=== PATIENT | male | born 1945 | race Caucasian/White ===

== ENCOUNTER 2022-10-22 09:42 | Outpatient (OUT) | payer MEDICARE, SELFPAY ==
--- NOTE | 2022-10-22 09:54 | P.HP_ITS ---
Consult Note: HPI Data of Consult Patient: known to practice within the last 3 years Consult date: 10/22/22 Requesting Physician: FRANCISCA GU NP Primary Care Provider: JEFF TALBERT Consult Narrative Narrative: Roly is here for f/u of left knee pain and lumbar pain . XR ordered at last visit and reviewed with pt. We discussed getting MRI LS to reveal if TONE may help in future and he is in agreement. He had PT last year and does home exercises. No new sensorimotor or bowel or bladder issues. T#3 is controlling pain and assisting with ability to complete ADLs. He does have constipation relieved by miralax. He received a steroid injection to left knee by ortho 08/12 cc:: CC: FRANCISCA GU NP Review of Systems ROS Status of ROS 10 or more systems reviewed and unremarkable except as noted in history and below Musculoskeletal Reports: back pain and extremity pain Meds Home Medications and Allergies Home Medications Medication Instructions Recorded Confirmed Type acetaminophen 300 mg-codeine 30 mg 1 tab PO BID 10/22/22 10/22/22 History tablet apixaban 5 mg tablet (Eliquis) 5 mg PO BID 10/22/22 10/22/22 History aspirin 81 mg tablet,delayed 81 mg PO DAILY 10/22/22 10/22/22 History release (Adult Aspirin Regimen) atorvastatin 40 mg tablet 40 mg PO QPM 10/22/22 10/22/22 History colchicine 0.6 mg tablet 0.3 mg PO BID 10/22/22 10/22/22 History docusate sodium 50 mg capsule 50 mg PO DAILY 10/22/22 10/22/22 History (Colace Clear) furosemide 40 mg tablet 40 mg PO QAM 10/22/22 10/22/22 History losartan 100 mg tablet 100 mg PO DAILY 10/22/22 10/22/22 History sotalol 80 mg tablet 80 mg PO DAILY 10/22/22 10/22/22 History Allergies Allergy/AdvReac Type Severity Reaction Status Date / Time Penicillins Allergy Severe Hives Verified 10/22/22 10:09 Exam Constitutional: Common normals: no apparent distress, oriented x3, no limitations, healthy appearing, alert and well nourished General appearance: cooperative, comfortable and well developed Orientation/consciousness: Yes awake, Yes oriented to person, Yes oriented to place and Yes oriented to time HENMT: Common normals: normocephalic, external nose normal and moist oral mucous membranes Respiratory: Common normals: normal respiratory effort, no retractions and no use of accessory muscles Effort & inspection: able to speak in complete sent ences Back & Pelvis: Lumbar spine/lower back: ROM limited, pain with ROM and lumbar spinal tenderness Extremity: Common normals: normal capillary refill Left lower extremity: knee joint Left knee: ROM (decreased) Skin: Common normals: no rashes or lesions noted Assessment and Plan Assessment and Plan (1) Knee osteoarthritis: (2) Lumbar pain: Plan MRI LS spine. may benefit from future TONE if indicated
== END 2022-10-22 09:43 ==
PROVIDERS: PCP Internal Medicine; Visit Provider Nurse Practitioner
DX: M17.9 Osteoarthritis of knee, unspecified (principal); M54.50 Low back pain, unspecified
CPT/HCPCS: G0463

== ENCOUNTER 2022-12-09 13:34 | Outpatient (OUT) | payer MEDICARE, SELFPAY ==
--- NOTE | 2022-12-09 | XR_ITS ---
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 FINDINGS: ORBITS: Negative for a metallic foreign body. OTHER: Negative. XR/XR foreign body eye IMPRESSION: No metallic foreign body in the orbits. Electronically authenticated by: LOUISA ERWIN Date: 12/09/2022 14:30
--- NOTE | 2022-12-09 14:20 | MR_ITS ---
[place] [id number] Patient Name: FRANK BARRETT MRN: [id number] date: 1945 Sex: M Assigned Patient Location: MRI Current Patient Location: MRI Accession/Order Number: [id number] Exam Date: 12/09/2022 14:20 Report Date: 12/09/2022 15:48 At the request of: FRANCISCA GU Procedure: MR lumbar spine wo con EXAMINATION: MR lumbar spine wo con HISTORY: Lumbar Radiculopathy COMPARISON: No relevant comparison available. TECHNIQUE: A variety of imaging planes and parameters were utilized for visualization of suspected pathology. FINDINGS: For the purposes of numbering, sagittal T2 image # 8 extends from the T11 vertebral body superiorly to the S3 level inferiorly. PARASPINAL AREA: Normal with no visible mass. BONES: Normal alignment of the lumbar vertebral bodies with no acute fracture or spondylolisthesis CORD/CAUDA EQUINA: Normal caliber, contour, and signal intensity. DISC LEVELS: 12-L1: Moderate degenerative disc disease is present without visible neural impingement. L1-L2: Moderate disc space narrowing left greater than right with endplate sclerosis and Modic 2 changes. Moderate diffuse disc/osteophyte complex and ligamentum flavum hypertrophy and facet osteoarthropathy. No central or foraminal stenosis L2-L3: Moderate degenerative disc disease is present without visible neural impingement. L3-L4: Moderate disc space narrowing right greater than left with endplate sclerosis and Modic 2 changes. Moderate diffuse disc/osteophyte complex and ligamentum flavum hypertrophy and facet osteoarthropathy. No central or foraminal stenosis L4-L5: Disc collapse with endplate sclerosis. Moderate diffuse disc/osteophyte complex and ligamentum flavum hypertrophy and facet osteoarthropathy. No central canal stenosis. Mild bilateral foraminal stenosis L5-S1: Early degenerative disc disease is present without focal protrusion or neural impingement. MR/MR lumbar spine wo con IMPRESSION: Degenerative changes as detailed above resulting in minimal bilateral L4-5 foraminal stenosis Electronically authenticated by: LOUISA ERWIN Date: 12/09/2022 15:48
== END 2022-12-09 13:35 | disposition home or self-care (01) ==
LOC: MRI 13:34
PROVIDERS: PCP Internal Medicine; Visit Provider Nurse Practitioner
DX: M54.16 Radiculopathy, lumbar region (principal)
CPT/HCPCS: 70030; 72148

== ENCOUNTER 2022-12-17 12:53 | Outpatient (OUT) | payer MEDICARE, SELFPAY ==
--- NOTE | 2022-12-17 13:02 | P.CN_ITS ---
Consult Note: HPI Data of Consult Patient: known to practice within the last 3 years Requesting Physician: Leydi Capellan NP Primary Care Provider: Anthony Zayas DO Consult Narrative cc:: CC: Leydi Capellan NP Review of Systems ROS Status of ROS 10 or more systems reviewed and unremarkable except as noted in history and below Meds Home Medications and Allergies Home Medications Medication Instructions Recorded Confirmed Type acetaminophen 300 mg-codeine 30 mg 1 tab PO BID 10/22/22 10/22/22 History tablet apixaban 5 mg tablet (Eliquis) 5 mg PO BID 10/22/22 10/22/22 History aspirin 81 mg tablet,delayed 81 mg PO DAILY 10/22/22 10/22/22 History release (Adult Aspirin Regimen) atorvastatin 40 mg tablet 40 mg PO QPM 10/22/22 10/22/22 History colchicine 0.6 mg tablet 0.3 mg PO BID 10/22/22 10/22/22 History docusate sodium 50 mg capsule 50 mg PO DAILY 10/22/22 10/22/22 History (Colace Clear) furosemide 40 mg tablet 40 mg PO QAM 10/22/22 10/22/22 History losartan 100 mg tablet 100 mg PO DAILY 10/22/22 10/22/22 History sotalol 80 mg tablet 80 mg PO DAILY 10/22/22 10/22/22 History Allergies Allergy/AdvReac Type Severity Reaction Status Date / Time Penicillins Allergy Severe Hives Verified 10/22/22 10:09 Exam Constitutional Common normals: no apparent distress, oriented x3, healthy appearing, alert and well nourished General appearance: cooperative Nutritional appearance: overweight Other: utilizes cane and walker for ambulation [facility] Common normals: normocephalic Head and scalp: normocephalic Mouth: oral and palatal mucosa normal Eye Common normals: PERRL Pupil: PERRL Neck & C-Spine Common normals: full ROM General: normal visual inspection Chest Common normals: inspection of chest normal Respiratory Common normals: normal respiratory effort, no retractions and no use of accessory muscles Back & Pelvis Thoracic spine/upper back: normal to inspection and ROM limited Lumbar spine/lower back: ROM limited, pain with ROM and paraspinal muscle tenderness Sacroiliac joints: SI joints normal Extremity Common normals: normal to inspection and full ROM Neuro Common normals: oriented x3, CN's II-XII intact bilaterally, moves all extremities, no focal motor deficits, no sensory deficits noted, deep tendon reflexes 2+ bilaterally and gait normal Sensorium/orientation: alert Speech: speech normal Gait (neuro): assistive device used Motor exam: strength 5/5 throughout and no movement abnormalities noted Psych Common normals: mental status grossly normal, thought process normal, cooperative, affect normal, speech normal and activity/motor behavior normal Speech: normal speech Thought process: normal thought process Assessment and Plan Assessment and Plan (1) Spondylosis of lumbar region without myelopathy or radiculopathy: Plan Patient following up to review lumbar MRI. Patient has chronic back and hip pain currently managed by tylenol #3. Patients MRI reveals multilevel facet arthr opathy as well as stenosis and degererative changes. Patient reports he is only able to stand for for less than 10 minutes at a time due to pain, is unable to ambulate less than half a mile due to pain, and feels he cannot do anything due to pain , current medications make the patient very tired. ZAIDA 36% today, completely disabled. Patient utilizes walker at home to ambulate, lives with spouse. Patient completed PT and did not benefit from this, heat/ice does not help pain. Discussed facet joint injections and RFA thermal ablation under fluoroscopy with patient. Explained procedures in depth and discussed risks/side effects and benefits. Handout provided. Schedule patient for bilateral MBB at L3/4 L4/5 #1 f/u in office after procedure
== END 2022-12-17 12:54 | disposition home or self-care (01) ==
LOC: PM 12:54
PROVIDERS: PCP Internal Medicine; Visit Provider Nurse Practitioner
DX: M47.816 Spondylosis without myelopathy or radiculopathy, lumbar region (principal)
CPT/HCPCS: G0463

== ENCOUNTER 2023-01-03 08:23 | Day surgery (SDC) | payer MEDICARE, SELFPAY ==
[2023-01-03 10:32] VITALS: BP 178/72; PULSE 63; RESP 16; TEMP 36.8; O2SAT 97
[2023-01-03] MEDS: BUPIVACAINE HCL 0.25% PF 25 MG/10 ML VIAL INJ (11:09)
[2023-01-03] MEDS: TRIAMCINOLONE ACETONIDE 40 MG/ML VIAL INJ (11:10)
[2023-01-03] MEDS: LIDOCAINE HCL 2% PF 100 MG/5 ML VIAL INJ (11:10)
--- NOTE | 2023-01-03 11:12 | W.PM.PROCNOT ---
Date of procedure: 01/03/23 Pre-op diagnosis: Lumbar spondylosis Post-op diagnosis: same as pre-op Procedure: Procedure: Bilateral L3-4, L4-5 medial branch block Medications: Bupivacaine 0.25% 4cc The patient was seen and examined in the preoperative holding area.? An informed consent was obtained and placed on the chart.? The patient was brought to the medical procedure unit and placed in the prone position.? A timeout was completed verifying correct patient, procedure site, positioning, plan, and special equipment.? Using aseptic technique, the needle was placed at left L3. Under direct fluoroscopic visualization a Quincke-tipped spinal needle was advanced to the junction of the superior articulating process with the transverse process at the designated medial branch segment.? Preceded by negative aspiration, the above-mentioned injectate was placed in 1 mL aliquots.? The procedure was repeated at left L4, 5.? The needle was removed and insertion site was covered. The same procedure, at the same levels, was completed on the right side. The patient was taken to the postprocedural recovery area and monitored for an appropriate length of time before found suitable for discharge in the company of a responsible adult. Anesthesia: None Surgeon: Issac Rucker Pathology: none sent Condition: stable Disposition: no change
[2023-01-03 11:13] VITALS: BP 193/84; BP 196/91; PULSE 56; PULSE 61; RESP 20; O2SAT 91; O2SAT 98
== END 2023-01-03 11:18 | disposition home or self-care (01) ==
LOC: SURGOUT 01-04 08:24
PROVIDERS: PCP Internal Medicine; Visit Provider Anesthesiology
DX: M47.816 Spondylosis without myelopathy or radiculopathy, lumbar region (principal)
CPT/HCPCS: 64493; 64494

== ENCOUNTER 2023-01-12 09:39 | Outpatient (OUT) | payer MEDICARE, SELFPAY ==
--- NOTE | 2023-01-12 09:30 | PM.CN ---
Consult Note: HPI Data of Consult Patient: known to practice within the last 3 years Requesting Physician: Leydi Capellan NP Primary Care Provider: Anthony Zayas DO Consult Narrative Reason for consult: follow up on 01/03/23 Bilateral L3-4, L4-5 medial branch block #1 Narrative: Roly Fields a pleasant 77 year old male presents for follow up on low back pain and to discuss results of procedure done on 01/03/23 Bilateral L3-4, L4-5 medial branch block #1. 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 Patient would like to proceed with MBB #2 to work towards thermal RFA. cc:: CC: Leydi Capellan NP Review of Systems ROS Status of ROS 10 or more systems reviewed and unremarkable except as noted in history and below Cardiovascular Reports: other (high BP) Musculoskeletal Reports: back pain PFSH PFS Medical History Surgical History Meds Home Medications and Allergies Home Medications Medication Instructions Recorded Confirmed Type acetaminophen 300 mg-codeine 30 mg 1 tab PO BID 10/22/22 01/03/23 History tablet apixaban 5 mg tablet (Eliquis) 5 mg PO BID 10/22/22 01/03/23 History aspirin 81 mg tablet,delayed 81 mg PO DAILY 10/22/22 01/03/23 History release (Adult Aspirin Regimen) atorvastatin 40 mg tablet 40 mg PO QPM 10/22/22 01/03/23 History colchicine (gout) 0.6 mg tablet 0.3 mg PO BID 10/22/22 01/03/23 History docusate sodium 50 mg capsule 50 mg PO DAILY 10/22/22 01/03/23 History (Colace Clear) furosemide 40 mg tablet 40 mg PO QAM 10/22/22 01/03/23 History losartan 100 mg tablet 100 mg PO DAILY 10/22/22 01/03/23 History sotalol 80 mg tablet 80 mg PO DAILY 10/22/22 01/03/23 History Allergies Allergy/AdvReac Type Severity Reaction Status Date / Time Penicillins Allergy Severe Hives Verified 10/22/22 10:09 Exam Constitutional Documenting provider has reviewed patient's vital signs: yes (elevated BP today) Common normals: no apparent distress, oriented x3, healthy appearing, alert and well nourished Exam limitations: physical limitations General appearance: cooperative Nutritional appearance: obese Other: utilizes cane and walker for ambulation HENND Common normals: normocephalic Head and scalp: normocephalic Mouth: oral and palatal mucosa normal Eye Common normals: PERRL Pupil: PERRL Neck & C-Spine Common normals: full ROM General: normal visual inspection Cervical spine: cervical ROM normal Chest Common normals: inspection of chest normal Respiratory Common normals: normal respiratory effort, no retractions and no use of accessory muscles Back & Pelvis Common normals: thoracic and lumbar spine normal to inspection and straight leg raise negative bilaterally Thoracic spine/upper back: normal to inspection Lumbar spine/lower back: ROM limited and pain with ROM Sacroiliac joints: SI joints normal Other: positive bilateral facet loading. Predominately axial low back pain without radiculopathy Extremity Common normals: normal to inspection and full ROM Neuro Common normals: oriented x3, CN's II-XII intact bilaterally, moves all extremities, no focal motor deficits, no sensory deficits noted and deep tendon reflexes 2+ bilaterally Sensorium/orientation: alert Speech: speech normal Gait (neuro): antalgic and assistive device used Motor exam: strength 5/5 throughout and no movement abnormalities noted Psych Common normals: mental status grossly normal, thought process normal, cooperative, affect normal, speech normal and activity/motor behavior normal Speech: normal speech Thought process: normal thought process Results Additional Findings Additional findings: I have checked an OARRS report on this patient today and there are no aberrancies noted in the prescribing history.?? A drug screen was completed and reviewed within the last year, and if there has not been a drug screen completed we ordered one today to monitor higher risk, state monitored pain medication use. As part of providing excellent, safe, comprehensive care, the following was completed at our patient's visit: 1. A medication reconciliation and review to ensure accurate knowledge of current/active medications, including asking our patients to inform us about any [id number] medications or herbal remedies/nutritional supplements/alternative remedies. 2. A review to specifically ensure our patients have had annual screening for: elevated body mass index (BMI), tobacco use, screening for depression, and screening for unhealthy alcohol use. When screening is concerning, patients are provided with education and the specific recommendation to discuss the concerning health issue and treatment options with their primary care provider. ZAIDA 44% Pain prevents patient from walking more than 100 yards, pain prevents him from standing 10 mins, pain has restricted social life and travel. Assessment and Plan Assessment and Plan (1) Spondylosis of lumbar region without myelopathy or radiculopathy: (2) Lumbar pain: (3) Knee osteoarthritis: (4) Chronic pain syndrome: (5) Hypertension: Assessment and Plan: BP 191/78 initially 159/76 at recheck, denies chest pain SOB. reported vision change upon standing, resolved after second BP check continue follow up with PCP and cardiology Plan proceed with MBB #2 at bilateral L3-4 L4-5 working towards thermal RFA discussed risks vs benefits of procedure as well as what to assess immediately following procedure to gauge benefits of MBB f/u 1 week after
== END 2023-01-12 09:40 | disposition home or self-care (01) ==
LOC: PM 09:40
PROVIDERS: PCP Internal Medicine; Visit Provider Nurse Practitioner
DX: M47.22 Other spondylosis with radiculopathy, cervical region (principal); M54.50 Low back pain, unspecified; M19.019 Primary osteoarthritis, unspecified shoulder
CPT/HCPCS: G0463

== ENCOUNTER 2023-01-31 10:20 | Day surgery (SDC) | payer MEDICARE, SELFPAY ==
[2023-01-31 11:21] VITALS: BP 171/76; PULSE 66; RESP 16; TEMP 36.2; O2SAT 98
[2023-01-31] MEDS: BUPIVACAINE HCL 0.25% PF 25 MG/10 ML VIAL INJ (11:59)
[2023-01-31] MEDS: LIDOCAINE HCL 2% PF 100 MG/5 ML VIAL INJ (12:00)
[2023-01-31] MEDS: TRIAMCINOLONE ACETONIDE 40 MG/ML VIAL INJ (12:00)
[2023-01-31 12:02] VITALS: BP 205/84; BP 213/88; PULSE 65; PULSE 66; RESP 18; O2SAT 96; O2SAT 97
--- NOTE | 2023-01-31 12:02 | W.PM.PROCNOT ---
Date of procedure: 01/31/23 Pre-op diagnosis: Lumbar spondylosis Post-op diagnosis: same as pre-op Procedure: Procedure: Bilateral L3-4, L4-5 medial branch block Medications: Bupivacaine 0.25% 4cc The patient was seen and examined in the preoperative holding area.? An informed consent was obtained and placed on the chart.? The patient was brought to the medical procedure unit and placed in the prone position.? A timeout was completed verifying correct patient, procedure site, positioning, plan, and special equipment.? Using aseptic technique, the needle was placed at left L3. Under direct fluoroscopic visualization a Quincke-tipped spinal needle was advanced to the junction of the superior articulating process with the transverse process at the designated medial branch segment.? Preceded by negative aspiration, the above-mentioned injectate was placed in 1 mL aliquots.? The procedure was repeated at left L4, 5.? The needle was removed and insertion site was covered. The same procedure, at the same levels, was completed on the right side. The patient was taken to the postprocedural recovery area and monitored for an appropriate length of time before found suitable for discharge in the company of a responsible adult. Anesthesia: Local Surgeon: Issac Rucker Pathology: none sent Condition: stable Disposition: no change
== END 2023-01-31 12:10 | disposition home or self-care (01) ==
PROVIDERS: PCP Internal Medicine; Visit Provider Anesthesiology
DX: M47.816 Spondylosis without myelopathy or radiculopathy, lumbar region (principal)
CPT/HCPCS: 64491; 64493; 64494

== ENCOUNTER 2023-02-09 12:31 | Outpatient (OUT) | payer MEDICARE, SELFPAY ==
--- NOTE | 2023-02-09 12:57 | P.CN_ITS ---
Consult Note: HPI Data of Consult Patient: known to practice within the last 3 years Requesting Physician: Leydi Capellan NP Primary Care Provider: Anthony Zayas DO Consult Narrative Reason for consult: f/u Narrative: Roly Fields a pleasant 77 year old male presents for follow up on low back pain and to discuss results of most recent procedure, Bilateral L3-4, L4-5 medial branch block #2. 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 Patient would like to proceed with thermal RFA cc:: CC: Leydi Capellan NP Review of Systems ROS Status of ROS 10 or more systems reviewed and unremarkable except as noted in history and below Musculoskeletal Reports: back pain and extremity pain PFSH PFSH Medical History Surgical History Meds Home Medications and Allergies Home Medications Medication Instructions Recorded Confirmed Type acetaminophen 300 mg-codeine 30 mg 1 tab PO BID 10/22/22 01/31/23 History tablet apixaban 5 mg tablet (Eliquis) 5 mg PO BID 10/22/22 01/31/23 History aspirin 81 mg tablet,delayed 81 mg PO DAILY 10/22/22 01/31/23 History release (Adult Aspirin Regimen) atorvastatin 40 mg tablet 40 mg PO QPM 10/22/22 01/31/23 History colchicine (gout) 0.6 mg tablet 0.3 mg PO BID 10/22/22 01/31/23 History docusate sodium 50 mg capsule 50 mg PO DAILY 10/22/22 01/31/23 History (Colace Clear) furosemide 40 mg tablet 40 mg PO QAM 10/22/22 01/31/23 History losartan 100 mg tablet 100 mg PO DAILY 10/22/22 01/31/23 History sotalol 80 mg tablet 80 mg PO DAILY 10/22/22 01/31/23 History Allergies Allergy/AdvReac Type Severity Reaction Status Date / Time Penicillins Allergy Severe Hives Verified 01/31/23 11:17 Exam Constitutional Documenting provider has reviewed patient's vital signs: yes (elevated BP today) Common normals: no apparent distress, oriented x3, healthy appearing, alert and well nourished Exam limitations: physical limitations General appearance: cooperative Nutritional appearance: obese Other: utilizes cane and walker for ambulation HENMT Common normals: normocephalic Head and scalp: normocephalic Mouth: oral and palatal mucosa normal Eye Common normals: PERRL Pupil: PERRL Neck & C-Spine Common normals: full ROM General: normal visual inspection Cervical spine: cervical ROM normal Chest Common normals: inspection of chest normal Respiratory Common normals: normal respiratory effort, no retractions and no use of accessory muscles Back & Pelvis Common normals: thoracic and lumbar spine normal to inspection and straight leg raise negative bilaterally Thoracic spine/upper back: normal to inspection Lumbar spine/lower back: ROM limited and pain with ROM Sacroiliac joints: SI joints normal Other: positive bilateral facet loading. Predominately axial low back pain without radiculopathy Extremity Common normals: normal to inspection and full ROM Neuro Common normals: oriented x3, CN's II-XII intact bilaterally, moves all extremities, no focal motor deficits, no sensory deficits noted and deep tendon reflexes 2+ bilaterally Sensorium/orientation: alert Speech: speech normal Gait (neuro): antalgic and assistive device used Motor exam: strength 5/5 throughout and no movement abnormalities noted Psych Common normals: mental status grossly normal, thought process normal, cooperative, affect normal, speech normal and activity/motor behavior normal Speech: normal speech Thought process: normal thought process Results Additional Findings Additional findings: I have checked an OARRS report on this patient today and there are no aberrancies noted in the prescribing history. ? A drug screen was completed and reviewed within the last year, and if there has not been a drug screen completed we ordered one today to monitor higher risk, state monitored pain medication use. Assessment and Plan Assessment and Plan (1) Lumbar pain: (2) Spondylosis of lumbar region without myelopathy or radiculopathy: Assessment and Plan: The patient has had over 3 months of moderate to severe low back pain with functional impairment and inadequate response to conservative care including NSAIDS (unless there are contraindication such as concurrent blood thinners), multiple oral or topical pain medications, and home exercise program/physical therapy.? Patient has completed >6 weeks of guided home exercise program and/or formal physical therapy program without relief of their symptoms.? I have reviewed the imaging of the lumbar spine and no red flags were identified.? The imaging reveals radiographic findings consistent with lumbar spondylosis We discussed the risks and benefits of the procedure with the patient, and we are NOT planning on using sedation as outlined in the guidelines from Medicare unless there is a documented reason that sedation would be strongly recommended.?? (3) Chronic pain syndrome: (4) Knee osteoarthritis: (5) Chronic prescription opiate use: Plan stop tylenol #3 due to drowsiness, start tramadol 50mg QD PRN start gabapentin 100mg HS for one week then 200mg HS for bilateral foot pain numbness burning neuropathy without DM proceed with thermal RFA of bilateral L3-4 L4-5 under fluoroscopy f/u 1 month after RFA, can increase gabapentin at that time. Consider PT for left knee pain and mobility in the future
== END 2023-02-09 12:32 | disposition home or self-care (01) ==
LOC: PM 12:31
PROVIDERS: PCP Internal Medicine; Visit Provider Nurse Practitioner
DX: M54.50 Low back pain, unspecified (principal); M47.816 Spondylosis without myelopathy or radiculopathy, lumbar region; G89.4 Chronic pain syndrome; M17.9 Osteoarthritis of knee, unspecified; Z79.891 Long term (current) use of opiate analgesic
CPT/HCPCS: G0463

== ENCOUNTER 2023-02-28 09:51 | Day surgery (SDC) | payer MEDICARE, SELFPAY ==
[2023-02-28 10:12] VITALS: BP 177/77; PULSE 93; RESP 14; TEMP 36.3; O2SAT 99
[2023-02-28 11:05] VITALS: BP 153/73; PULSE 64; RESP 18; O2SAT 94
[2023-02-28] MEDS: LIDOCAINE HCL 2% 400 MG/20 ML MDV INJ (11:06)
[2023-02-28] MEDS: BUPIVACAINE HCL 0.25% PF 25 MG/10 ML VIAL 2 ML INJ (11:06)
[2023-02-28] MEDS: TRIAMCINOLONE ACETONIDE 40 MG/ML VIAL 80 MG INJ (11:06)
[2023-02-28 11:10] VITALS: PULSE 70; RESP 17
--- NOTE | 2023-02-28 11:19 | P.ON_ITS ---
Date of procedure: 02/28/23 Pre-op diagnosis: Lumbar spondylosis Post-op diagnosis: same as pre-op Procedure: Procedure: Bilateral L3-4, L4-5 radiofrequency ablation Medications: Bupivacaine 0.25% 6cc, lidocaine 2% 5cc, kenalog 80mg The patient was seen and examined in the preoperative holding area.? The site was marked.? Written informed consent was obtained and placed on the chart.? The patient was brought to the medical procedure unit and placed in the prone position.? A timeout was completed verifying correct patient, procedure, positioning, and special requirements.? The skin overlying the target points, the designated medial branch, were prepped and draped in the usual sterile fashion.? The target point was achieved with a 20-gauge 15 cm with a 10 mm curved active tip radiofrequency cannula under direct fluoroscopic visualization.? The needle was inserted at level L3 on the right side. Needle tip position was confirmed with lateral fluoroscopic position.? Motor stimulation was carried out at 2 Hz up to 5 volts with the absence of extremity activity.? This was repeated at level L4, 5 on right side.?? Sensory stimulation was carried out.? Concordant pain was realized at the above- mentioned sites.? Then radiofrequency lesioning was carried out times 90 seconds at 80 degrees times 2 lesions at each level.? The radiofrequency probe was removed prior to cannula removal.? The above-mentioned injectate was placed in 1 mL increments.? The needle was removed. The same procedure, with the same steps, was then completed on the left side at the same levels. Insertion sites were covered.? The patient was taken to the postoperative recovery area and monitored for an appropriate length of time before being found suitable for discharge in the company of a responsible adult. Anesthesia: Local Surgeon: Issac Rucker Pathology: none sent Condition: stable Disposition: no change
[2023-02-28 11:21] VITALS: BP 158/68; O2SAT 97
== END 2023-02-28 11:25 | disposition home or self-care (01) ==
PROVIDERS: PCP Internal Medicine; Visit Provider Anesthesiology
DX: M47.816 Spondylosis without myelopathy or radiculopathy, lumbar region (principal)
CPT/HCPCS: 64635; 64636

== ENCOUNTER 2023-03-31 09:57 | Outpatient (OUT) | payer MEDICARE, SELFPAY ==
--- NOTE | 2023-03-31 10:17 | PM.CN ---
Consult Note: HPI Data of Consult Patient: known to practice within the last 3 years Requesting Physician: Leydi Capellan NP Primary Care Provider: Anthony Zayas DO Consult Narrative Reason for consult: f/u Narrative: Roly Fields a pleasant 77 year old male presents for evaluation and management of chronic low back pain. Today rating pain 0/10. Recently underwent bilateral L3/4 L4/5 thermal RFA with 95% pain relief and functional improvement. Patient following with cardiology and PCP for other health concerns at this time, has noticed increased SOB. cc:: CC: Leydi Capellan NP Review of Systems ROS Status of ROS 10 or more systems reviewed and unremarkable except as noted in history and below [facility] Medical History Surgical History History of cardiac catheterization ?Z98.890 - Other specified postprocedural states (ICD-10) History of eye surgery ?Z98.890 - Other specified postprocedural states (ICD-10) History of heart artery stent ?Z95.5 - Presence of coronary angioplasty implant and graft (ICD-10) Previous back surgery ?Z98.890 - Other specified postprocedural states (ICD-10) Meds Home Medications and Allergies Home Medications Medication Instructions Recorded Confirmed Type acetaminophen 300 mg-codeine 30 mg 1 tab PO BID 10/22/22 02/28/23 History tablet apixaban 5 mg tablet (Eliquis) 5 mg PO BID 10/22/22 02/28/23 History aspirin 81 mg tablet,delayed 81 mg PO DAILY 10/22/22 01/31/23 History release (Adult Aspirin Regimen) atorvastatin 40 mg tablet 40 mg PO QPM 10/22/22 02/28/23 History colchicine 0.6 mg tablet 0.3 mg PO BID 10/22/22 02/28/23 History docusate sodium 50 mg capsule 50 mg PO DAILY 10/22/22 02/28/23 History (Colace Clear) furosemide 40 mg tablet 40 mg PO QAM 10/22/22 02/28/23 History losartan 100 mg tablet 100 mg PO DAILY 10/22/22 02/28/23 History sotalol 80 mg tablet 80 mg PO DAILY 10/22/22 02/28/23 History Allergies Allergy/AdvReac Type Severity Reaction Status Date / Time Penicillins Allergy Severe Hives Verified 01/31/23 11:17 Exam Constitutional Documenting provider has reviewed patient's vital signs: yes Common normals: no apparent distress, oriented x3, healthy appearing, alert and well nourished Exam limitations: physical limitations General appearance: cooperative Nutritional appearance: obese Other: utilizes cane and walker for ambulation HENMT Common normals: normocephalic, hearing grossly normal bilaterally and moist oral mucous membranes Head and scalp: normocephalic Mouth: oral and palatal mucosa normal Eye Common normals: PERRL Pupil: PERRL Neck & C-Spine Common normals: full ROM General: normal visual inspection Cervical spine: cervical ROM normal Chest Common normals: inspection of chest normal Respiratory Common normals: normal respiratory effort, no retractions and no use of accessory muscles Back & Pelvis Common normals: thoracic and lumbar spine normal to inspection and straight leg raise negative bilaterally Thoracic spine/upper back: normal to inspection Lumbar spine/lower back: ROM limited Sacroiliac joints: SI joints normal Extremity Common normals: normal to inspection and full ROM Neuro Common normals: oriented x3, CN's II-XII intact bilaterally, moves all extremities, no focal motor deficits, no sensory deficits noted and deep tendon reflexes 2+ bilaterally Sensorium/orientation: alert Speech: speech normal Gait (neuro): antalgic and assistive device used Motor exam: strength 5/5 throughout and no movement abnormalities noted Psych Common normals: mental status grossly normal, thought process normal, cooperative, affect normal, speech normal and activity/motor behavior normal Speech: normal speech Thought process: normal thought process Results Additional Findings Additional findings: I have checked an [place] report on this patient today and there are no aberrancies noted in the prescribing history.?? A drug screen was completed and reviewed within the last year, and if there has not been a drug screen completed we ordered one today to monitor higher risk, state monitored pain medication use. As part of providing excellent, safe, comprehensive care, the following was completed at our patient's visit: 1. A medication reconciliation and review to ensure accurate knowledge of current/active medications, including asking our patients to inform us about any [id number] medications or herbal remedies/nutritional supplements/alternative remedies. 2. A review to specifically ensure our patients have had annual screening for: elevated body mass index (BMI), tobacco use, screening for depression, and screening for unhealthy alcohol use. When screening is concerning, patients are provided with education and the specific recommendation to discuss the concerning health issue and treatment options with their primary care provider. Assessment and Plan Assessment and Plan (1) Chronic prescription opiate use: Assessment and Plan: I have refilled the patient's opioid prescriptions at the above noted dose and schedule.? I feel these medications are improving the patient's quality of life and allow them to tolerate activities of daily living as well as participate in recreational activity.? The patient does not report intolerable side effects. The patient is NOT opioid naive and non-pharmacologic and non-opioid treatment has failed to significantly relieve the patient's pain and improve functionality. The patient has a diagnosis that is related to a somatic or visceral pain etiology. ? ?? I reviewed with the patient the potential risks and side effects with the use of? opioid medications including but not limited to respiratory depression,? sedation, and even . I verified the patient has access to naloxone should? these effects occur. I advised the patient to avoid the use of any other? sedation substances including alcohol, THC, and benzodiazepines while? taking opioid medications due to the risk of compounding side effects and? detrimental outcomes. I reviewed the ECHOCARDIOGRAPH TECH, pain treatment agreement, urine? drug screen, and opioid start talking forms. The patient was advised to let? their family know they had Naloxone in case they would need to administer? the medication.? ?? A drug screen was completed within the last year, and no aberrancies were noted regarding their use of controlled substances. The patient understands they are subject to the terms and conditions of the pain contract that they have signed. ? ?? I have checked an [place] report on this patient today and there are no aberrancies noted in the prescribing history.? (2) Spondylosis of lumbar region without myelopathy or radiculopathy: (3) Chronic pain syndrome: Plan continue tramadol 50mg QD PRN moderate to severe pain continue PRN tylenol for mild to moderate pain did not tolerate gabapentin, has stopped continue HEP f/u 3 months for medication management
== END 2023-03-31 09:58 | disposition home or self-care (01) ==
LOC: PM 09:57
PROVIDERS: PCP Internal Medicine; Visit Provider Nurse Practitioner
DX: Z79.891 Long term (current) use of opiate analgesic (principal); M47.816 Spondylosis without myelopathy or radiculopathy, lumbar region; G89.4 Chronic pain syndrome
CPT/HCPCS: G0463

== ENCOUNTER 2023-04-15 09:08 | Outpatient (OUT) | payer MEDICARE, SELFPAY ==
[2023-04-15 09:22] LABS: Hemoglobin 11.8 g/dL (14.0-18.0)
--- NOTE | 2023-04-15 10:21 | RT_ITS ---
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 The MVV is reduced even for the decreased FEV1. The FVC is reduced relative to the SVC indicating air trapping. The increased airway resistance and decreased specific conductance indicate a central airway disease. The lung volumes are reduced. Following administration of bronchodilators, there is a slight response. The reduced diffusing capacity indicates a moderate loss of functional alveolar capillary surface. 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
[2023-04-15 10:24] VITALS: PULSE 71; O2SAT 97
[2023-04-15] MEDS: ALBUTEROL SULFATE 2.5 MG/3 ML VIAL NEB IH (10:24)
== END 2023-04-15 09:09 | disposition home or self-care (01) ==
LOC: CARD 09:08
PROVIDERS: PCP Internal Medicine; Visit Provider Internal Medicine
DX: R06.09 Other forms of dyspnea (principal)
CPT/HCPCS: 36415; 85018; 94060; 94726; 94729

== ENCOUNTER 2023-04-22 08:16 | Outpatient (OUT) | payer MEDICARE, SELFPAY ==
[2023-04-22 09:32] LABS: Basophils Percent Auto 0.2 % (0.2-2.0); Hematocrit 35.1 % (42.0-54.0); Hemoglobin 11.4 g/dL (14.0-18.0); Immature Granulocytes Abs Auto 0.07 10^3/uL (0.00-0.03); Immature Granulocytes Pct Auto 0.7 % (0.0-0.5); Lymphocytes Absolute Auto 1.2 10^3/uL (1.2-3.8); Lymphocytes Percent Auto 11.1 % (20.5-60.0); Mean Corpuscular HGB Conc 32.5 g/dL (29.9-35.2); Mean Corpuscular Hemoglobin 31.8 pg (25.9-34.0); Mean Corpuscular Volume 97.8 fL (80.0-94.0); Mean Platelet Volume 9.7 fL (9.5-13.5); Monocytes Absolute Auto 0.5 10^3/uL (0.3-0.8); Monocytes Percent Auto 5.2 % (1.7-12.0); Neutrophils Absolute Auto 8.6 10^3/uL (1.4-6.5); Neutrophils Percent Auto 82.8 % (43.0-75.0); Platelet Count 228 10^3/uL (150-450); Red Blood Count 3.59 10^6/uL (4.70-6.10); Red Cell Distribution Width 13.5 % (11.0-15.0); White Blood Count 10.3 10^3/uL (4.0-11.0)
[2023-04-22 10:11] LABS: Alanine Aminotransferase 20 U/L (16-63); Anion Gap 10.9; BUN Creatinine Ratio 11.2; Carbon Dioxide 29.6 mmol/L (21.0-32.0); Chloride 101 mmol/L (98-107); Chol HDL Ratio 2.6; Cholesterol 148 mg/dL (<=200); Estimated GFR (African America 33 (>=60); Estimated GFR (Non-African Ame 27 (>=60); Glucose 124 mg/dL (74-106); HDL Cholesterol 58 mg/dL (40-60); LDL Cholesterol Calculated 76.2 mg/dL; Potassium 5.5 mmol/L (3.5-5.1); Sodium 136 mmol/L (136-145); Triglycerides 69 mg/dL (<=150); VLDL CHOLESTEROL 13.8 mg/dL
== END 2023-04-22 08:17 | disposition home or self-care (01) ==
LOC: LAB 08:16
PROVIDERS: PCP Internal Medicine; Visit Provider Internal Medicine
DX: E78.01 Familial hypercholesterolemia (principal); I25.10 Atherosclerotic heart disease of native coronary artery without angina pectoris; Z79.899 Other long term (current) drug therapy
CPT/HCPCS: 36415; 80048; 80061; 84460; 85025; G0103

== ENCOUNTER 2023-06-06 13:02 | Outpatient (OUT) | payer MEDICARE, SELFPAY ==
--- OUTSIDE RECORDS SUMMARY | 2023-06-06 13:12 | XMS_ITS | CCD ---
Author Name Unknown Address [address] [place] [address] Organization [facility] Team Providers Care Valet Runner Name Role Phone PHYSICIAN, DEFAULT Unavailable Unavailable PHYSICIAN, DEFAULT Unavailable Unavailable Anthony Zayas Unavailable MARQUEZ, DR AGUILAR Primary Care Unavailable MARQUEZ, DR AGUILAR Admitting Unavailable BALL, DR AGUILAR Attending Unavailable BALL, DR AGUILAR Consulting Unavailable ZIEBER, DR PRAMOD Gonzales Consulting Unavailable MARQUEZ, DR AGUILAR Primary Care Unavailable LAKSHMIPATHY ., NARSUDARSHAN Admitting Debi vailable LOGAN ., MARTÍN Attending Debi vailable MARQUEZ, DR AGUILAR Primary Care Unavailable REJI WEBER Admitting Unavailable REJI WEBER Attending Unavailable MARQUEZ, DR AGUILAR Primary Care Unavailable MARQUEZ, DR AGUILAR Admitting Unavailable BALL, DR AGUILAR Attending Unavailable BALL, DR AGUILAR Consulting Unavailable MARQUEZ, DR AGUILAR Primary Care Unavailable BALL, DR AGUILAR Admitting Unavailable BALL, DR AGUILAR Attending Unavailable BALL, DR AGUILAR Consulting Unavailable Alka SINGH, Issac Streeter Attending Unavailable Alka SINGH, Andrebekahus Ferdinand Attending Unavailable Alka SINGH, Andrius Ferdinand Attending Unavailable Alka SINGH, Andrius Vceferino Attending Unavailable NONE, XXXX Referring Unavailable Jose Dalal Attending Unavaila Jose Almanzar Admitting Unavaila Jose Almanzar Admitting Unavaila ble NONE, XXXX Referring Unavailable Jose Dalal Attending Unavaila Bhavin Foster Unavailable DO Bhavin Devries Attending Provider Anthony Zayas Primary Care Unavailable Bhavin Devries Attending Unavailable Bhavin Dveries Admitting Unavailable Allergies Allergy Classification Reported Allergen(s) Allergy Type Date of Onset Reaction(s) Facility (3 sources) Penicillin; Translations: [penicillin] Drug Allergy [facility] (6 sources) penicillAMINE Drug Allergy Unknown [employer] Other Medications Current Medications Medication Drug Class(es) Dates Sig (Normalized) Sig (Original) AeroChamber Mini Chamber - (1 source) Start: 05-20-2023 AeroChamber Mini Chamber - Use with MDI inhaled every 4 hours as needed for 30 days Apr, Active [id number] 60 actuat albuterol 0.09 mg/actuat metered dose inhaler (1 source) beta2-Adrenergic Agonist Start: 05-20-2023 take 2 puff(s) by inhalation every four hours as needed Albuterol Sulfate HFA 108 (90 Base) MCG/ACT 2 puffs Inhalation every 4 hrs as needed for SOB for 30 days Apr, Active apixaban 5 mg oral tablet (11 sources) Factor Xa Inhibitor take 1 tablet by mouth every twelve hours Eliquis 5 MG 1 tablet Orally Twice a day Active atorvastatin 40 mg oral tablet (11 sources) HMG-CoA Reductase Inhibitor take 1 tablet by mouth every twenty-four hours Atorvastatin Calcium 40 MG 1 tablet Orally Once a day Active colchicine 0.6 mg oral tablet (11 sources) Start: 08-03-2022 take 1 tablet by mouth once daily as needed Colchicine 0.6 MG 1 tablet Orally daily PRN for acute gout Jul, Active famotidine 20 mg oral tablet (11 sources) Histamine-2 Receptor Antagonist take 1 tablet by mouth every twenty-four hours Famotidine 20 MG 1 tablet at bedtime as needed Orally Once a day Active 60 actuat fluticasone propionate 0.25 mg/actuat / salmeterol 0.05 mg/actuat dry powder inhaler (3 sources) Corticosteroid, beta2-Adrenergic Agonist Start: 04-18-2023 take 1 puff(s) by inhalation twice daily Wixela Inhub 250-50 MCG/ACT 1 puff Inhalation Twice a day for 30 days Mar, Active furosemide 40 mg oral tablet (11 sources) Loop Diuretic take 1 tablet by mouth once daily Furosemide 40 mg TAKE 1 TABLET BY MOUTH DAILY Active losartan potassium 100 mg oral tablet (11 sources) Angiotensin 2 Receptor Virgie take 1 tablet by mouth once daily Losartan Potassium 100 MG TAKE 1 TABLET BY MOUTH DAILY Active atrial fibrillation sotalol hydrochloride 80 mg oral tablet (11 sources) Antiarrhythmic take 1 tablet by mouth every twelve hours Sotalol HCl (AF) 80 MG 1 tablet Orally every 12 hrs Active traMADol hydrochloride 50 mg oral tablet (3 sources) Opioid Agonist take 1 tablet by mouth every twenty-four hours traMADol HCl 50 MG 1 tablet as needed Orally Once a day Active Completed/Discontinued Medications Medication Drug Class(es) Dates Sig (Normalized) Sig (Original) triamcinolone acetonide 40 mg/ml injectable suspension (12 sources) Corticosteroid Start: 04-21-2023 Kenalog-40 Mar, 20 mg Problems Active Problems Problem Classification Problem Date Documented Da te Episodic/Chronic Asthma (5 sources) Uncomplicated mild persistent asthma; Translations: [Mild persistent asthma, uncomplicated] Chronic Cardiac dysrhythmias (14 sources) Paroxysmal atrial fibrillation; Translations: [Paroxysmal atrial fibrillation] Chronic Chronic kidney disease (2 sources) Chronic kidney disease, stage 4 (severe); Translations: [Chronic kidney disease, unspecified] Onset: 10-31-2021 Chronic Chronic kidney disease (1 source) Chronic kidney disease; Translations: [CHRONIC KIDNEY DISEASE STAGE 3B] Onset: 02-07-2022 Chronic obstructive pulmonary disease and bronchiectasis (2 sources) Simple chronic bronchitis; Translations: [Simple chronic bronchitis] Chronic Chronic ulcer of skin (14 sources) Non-pressure chronic ulcer of other part of left foot limited to breakdown of skin; Translations: [Non-pressure chronic ulcer of left heel and midfoot limited to breakdown of skin] Onset: 10-31-2021 Chronic Congestive heart failure; nonhypertensive (11 sources) Chronic diastolic heart failure; Translations: [Chronic diastolic (congestive) heart failure] Chronic Coronary atherosclerosis and other heart disease (14 sources) Coronary arteriosclerosis; Translations: [Atherosclerotic heart disease of three affiliated coronary artery without angina pectoris] Chronic Disorders of lipid metabolism (16 sources) Pure hypercholesterolemia; Translations: [Familial hypercholesterolemia] Onset: 10-31-2021 Chronic Esophageal disorders (4 sources) Gastro-esophageal reflux disease with esophagitis; Translations: [Gastroesophageal reflux disease with esophagitis without hemorrhage] Chronic Essential hypertension (8 sources) Essential hypertension; Translations: [Essential (primary) hypertension] Chronic Gastrointestinal hemorrhage (15 sources) Rectal hemorrhage; Translations: [Hemorrhage of anus and rectum] Onset: 02-03-2022 Episodic Gout and other crystal arthropathies (11 sources) Chronic gouty arthritis; Translations: [Idiopathic chronic gout, right ankle and foot, without tophus (tophi)] Chronic Hypertension with complications and secondary hypertension (5 sources) Hypertensive chronic kidney disease with stage 1 through stage 4 chronic kidney disease, or unspecified chronic kidney disease; Translations: [HTN CKD W/STAGE 1-4 CKD/UNS CKD] Onset: 02-07-2022 Chronic Osteoarthritis (20 sources) Osteoarthritis of left knee joint; Translations: [Unilateral primary osteoarthritis, left knee] Onset: 10-31-2021 Chronic Other aftercare (1 source) 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 extermination supervisor (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) drug therapy Episodic Other connective tissue disease (4 sources) Personal history of other diseases of the musculoskeletal system and connective tissue Episodic Other connective tissue disease (1 source) Trigger finger, left ring finger Episodic Other connective tissue disease (1 source) Trigger finger, left middle finger Episodic Other connective tissue disease (1 source) Trigger finger, right middle finger Episodic Other connective tissue disease (1 source) Trigger finger, right ring finger Episodic Other connective tissue disease (2 sources) Pain in left hand; Translations: [Pain in left hand] Onset: 04-21-2023 Episodic Other connective tissue disease (1 source) Pain in right hand Episodic Other diseases of kidney and ureters (10 sources) Acquired renal cystic disease; Translations: [Cyst of kidney, acquired] Episodic Other diseases of kidney and ureters (2 sources) Cyst of kidney, acquired; Translations: [CYST OF KIDNEY ACQUIRED] Onset: 10-13-2021 Episodic Other diseases of veins and lymphatics (11 sources) Peripheral venous insufficiency; Translations: [Venous insufficiency (chronic) (peripheral)] Episodic Other diseases of veins and lymphatics (3 sources) Venous insufficiency (chronic) (peripheral); Translations: [VENOUS INSUFF CHRONIC PERIPHERAL] Onset: 10-31-2021 Episodic Other lower respiratory disease (2 sources) Other forms of dyspnea Episodic Other lower respiratory disease (1 source) Other disorders of lung Episodic Other nutritional; endocrine; and metabolic disorders (1 source) Morbid (severe) obesity due to excess calories; Translations: [MORBID SEVERE OBES D/T EXCESS SEDA] Onset: 10-31-2021 Chronic Other screening for suspected conditions (not mental disorders or infectious disease) (2 sources) Encounter for screening for malignant neoplasm of prostate; Translations: [ENC SCREEN MALIG NEOPLASM PROSTATE] Onset: 02-07-2022 Episodic Peripheral and visceral atherosclerosis (18 sources) Intermittent claudication of bilateral lower limbs co-occurrent and due to atherosclerosis; Translations: [Atherosclerosis of three affiliated arteries of extremities with intermittent claudication, bilateral legs] Onset: 10-23-2021 Chronic Spondylosis; intervertebral disc disorders; other back problems (8 sources) Lumbar spondylosis; Translations: [Spondylosis without myelopathy or radiculopathy, lumbar region] Chronic Substance-related disorders (1 source) Nicotine dependence, cigarettes, in remission; Translations: [NICOTINE DEPEND CIGARETTES REMISS] Onset: 10-31-2021 Chronic Unclassified (1 source) Other persistent atrial fibrillation; Translations: [OTHR PERSISTENT ATRIAL FIBRILLATION] Onset: 10-31-2021 Unclassified (1 source) Pain in right hand; Translations: [Pain in right hand] Onset: 04-21-2023 Past or Other Problems Problem Classification Problem Date Documented Da te Episodic/Chronic Esophageal disorders (10 sources) Esophageal disorders; Translations: [Gastroesophageal reflux disease with esophagitis without hemorrhage] Results Test Name Value Interpretation Reference Range Facil ity XR hand BI 3Von 04-21-2023 XR hand BI 3V [facility] [place] [address] XRay Report Signed Patient: Roly Barrett MR#: [id number] 7 : 1945 Acct:[id number] Age/Sex: 77 / M ADM Date: 04/21/23 Loc: [facility] Room: Type: [facility] Attending Dr: Bhavin Devries DO Copies to: Bhavin Devries DO Ordering Provider: Bhavin Devries DO Date of Service: 04/21/23 XR/XR hand BI 3V: Pain in right hand;Pain in left hand BILATERAL HANDS - 4 views each CLINICAL DATA: Chronic worsening bilateral hand pain and decreased field contact technician strength. COMPARISON: None AP, lateral, oblique and AP views of the thumbs were obtained. No acute fractures or dislocation are noted. There are degenerative changes at the interphalangeal joints with some joint space narrowing and hypertrophy. On the left, this is greatest at the distal interphalangeal joint of the third finger where there is mild subluxation. On the right, the distal interphalangeal joint of the index finger is the worst. There is mild joint space narrowing, hypertrophy and cystic change at the third metacarpal phalangeal joint on the left. There is joint space narrowing and hypertrophy at the first carpometacarpal joint on both sides. There is no focal soft tissue swelling. There is atherosclerotic disease involving vessels at the volar aspect of the distal arms. XR/XR hand BI 3V IMPRESSION: DEGENERATIVE CHANGES, DESCRIBED Impression dictated by: Prabha Thompson M.D.04/21/2023 3:25 PM Dictation Location: [facility] Transcribed By: RUBEN 04/21/23 152 Dictated By: Prabha Thompson MD 04/21/23 152 Signed By: 04/21/231524 [facility] Heart and Vascular Office/Cl inic Noteon 04-16-2023 Heart and Vascular Office/Clinic Note Chief Complaint 6 month follow up History of Present Illness Roly Barrett is a male presents who today for a 6-month follow-up. He is accompanied by an adult female. The patient's flap maker states that yesterday or day before, the patient was having trouble walking again. She notes that he was walking well and was not using cane to ambulate himself. He notices that when he walks too much he is experiencing slight dyspnea. He denies having any chest discomfort. He is experiencing tachycardia or palpitation when he walk too much and then rest for about 5 minutes. He struggled with his knee and pain down his leg for years. 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 The patient underwent an MRI and received injections in his back. He is scheduled to have a lumbar ablation on 02/2023. He discontinue taking aspirin and Bystolic. Currently, he is taking Eliquis. He was advise to continue taking sotalol. She mentions that when they went to the pain management clinic in [place], his blood pressure was elevated. Review of Systems PHQ Score Initial Depression Screen Score: 0 Constitutional: no fever, no sweats, no weakness Skin: no rash, no lesions, no bruising/petechiae ENMT: no sore throat, no congestion, no hoarseness Respiratory: no shortness of breath, no cough, no orthopnea, no wheezing Cardiovascular: no chest pain, no palpitations, no edema Gastrointestinal: no nausea, no vomiting, no diarrhea, no GI bleeding Genitourinary: no anuria/oliguria no hematuria Musculoskeletal: no back pain, no trauma Neurologic: no headache, no dizziness, no numbness, no weakness Psychiatric: no sleeping problems, no irritability, no anxiety/depression. Heme/Lymph: no bleeding tendency, no bruising tendency Allergy/Immunologic: no recurrent infections, no impaired immunity Additional ROS info: Except as noted in the above Review of Systems and in the History of Present Illness all other systems have been reviewed and are negative or noncontributory Physical Exam Vitals & Measurements HR: 68(Peripheral) BP: 124/78 SpO2: 98% HT: 67 in HT: 170 cm WT: 110.4 kg WT: 242.88 lb BMI: 38.2 General: alert, no acute distress Skin: warm, dry intact Head: atraumatic, normocephalic Neck: trachea midline, no JVD, no bruit Eye: normal conjunctiva, sclera clear ENMT: oral mucosa moist Cardiovascular: regular rate and rhythm, no murmur, normal peripheral perfusion Respiratory: lungs CTA, respirations non labored Chest wall: no deformity. Gastrointestinal: soft, non-distended, no tenderness, no guarding. Back: no tenderness, normal ROM, normal alignment. Extremities: no edema, no deformity, no trauma Neurological: oriented x 4, LOC appropriate for age, sensation equal & normal bilaterally, speech normal Psychiatric: cooperative, affect appropriate for age, normal judgement, normal psychiatric thoughts. Assessment/Plan 1. CAD Continue asa 81 mg daily, atorvastatin, b-virgie and ARB. Risk factor modification, diet, exercise and tobacco discussed. 2. Chronic Atrial Fibrillation The patient is doing well on his current medication regimen. He will continue with Eliquis 5 mg BID and Sotalol 80 mg daily. Follow up in 6 months. Portions of this record may have been created with voice recognition artificial intelligence software, specifically Group [employer] Records, Nanoleaf and or [employer]. Substitutions may have occurred with voice recognition and artificial intelligence software. ATTESTATION: Documentation services were performed after patient or guardian consented to allow [employer] to record this visit. RACHEL patient financial specialist and provider reviewed before signing. RACHEL: Tere Sheets. Follow-up No qualifying data available Problem List/Past Medical History Ongoing No qualifying data Historical No qualifying data Procedure/Surgical History Cardioversion (08/27/2021), Cardiac catheterization, left heart (07/28/2021). Medications acetaminophen 325 mg Tab, 650 mg= 2 tab(s), Oral, q6hr atorvastatin 40 mg Tab docusate sodium 50 mg oral capsule, 50 mg= 1 cap(s), Oral, Once a day (at bedtime) Eliquis 5 mg oral tablet, 5 mg= 1 tab(s), Oral, BID, 3 refills famotidine 20 mg Tab, 20 mg= 1 tab(s), Oral, Once a day (at bedtime) furosemide 40 mg Tab losartan 100 mg Tab Senna 8.6 mg oral tablet, 17.2 mg= 2 tab(s), Oral, Once a day (at bedtime), PRN sotalol 80 mg Tab, 80 mg= 1 tab(s), Oral, q24hr, 3 refills Voltaren Topical, 2 gm, Topical, QID Allergies penicillin (Unknown) Social History Alcohol Current, Liquor, Several times per day, Started age 18 Years. Stopped age 76 Years. Alcohol use interferes with work or home: No. Drinks more than intended: No. Others hurt by drinking: No. Ready to change: No. Household alcohol concerns: No., 07/30/2022 Tobacco Former smoker, quit more than 30 days ago Tobacco Use:. Never Smokeless Tobacco Use:. Cigarettes, Household tobacco nida (more content not included)... Normal [facility] Comment on above: Result Comment: Elec tronically Signed By: Mulugeta SINGH, Jose Stanley\.br\Date and Time Signed: 04/16/23 11:49 EST\.br\Electronically Co-Signed By: Nellie Early\.br\Date and Time Co-Signed: 02/11/23 17:34 EDT Consent for Treatmenton 01-22 Consent for Treatment [id number] .00CD:127 [facility] Physician Orderon 02-11-2023 Physician Order [id number]#1. 00CD:127 [facility] Reminderson 01-03-2023 Reminders - From: Lorraine Ross To: HV - Clinical; Sent: 08/02/2022 09:06:40 EDT Show up: 01/02/2023 09:06:00 EDT Subject: 6 month f/u Due Date/Time: 02/02/2023 09:06:00 EDT Reminder/Recall 6 month f/u w/ Dr. YEUNG From: Selene Cho ([facility] - Clinical) To: [facility] - Clinical; Sent: 01/03/2023 14:06:26 EDT Show up: 01/03/2023 14:06:00 EDT Subject: RE: 6 month f/u scheduled 02/11 [facility] Outside Recordson 12-10-2022 Outside Records [id number]# 1.00CD:127 [facility] September 06, 2022 Re: Roly Barrett : 1945 The above patient has discontinued his clopidogrel. He remains on aspirin and apixaban. He should continue these medications for upcoming dental procedure. Please call with any further questions. Becky GUERRIER [facility] Heart and Vascular Clinic [facility] Coding Summary.on 08-09-2022 Coding Summary. CD:[id number] G h0bWw+PGhlYWQ+CN0DCIL sS84cgUZakL6tD9PPNIdO SywgQVBQTElOSyIgbmFtZ P7feBIaYLSl IC8+BT3dQJXgYsavdUBfa 1K5rSR6Z10bgv2gLCpwvB T8KOXwDdXyvgaaf4ufhEs 6IDcuNmluOyBt EUUssC62CLR4qW21Yq91d HJqyRWrg4zwmKe9DzTqZI LqVBP4fNzrWJixg5WsNDP qN15dnNPec0Y5 ENFcmVpqnVKlHjEmuYQ0t W5yHAcngdazz5jpaagoOd c8iv31qAGky8X7iEV5Y9O chzK8LLTrwYWk SqemgWVLfT6gixlbr0oic kzfPyLgRTDwJGy9FJw0RI QqyXfoPcImAQ31UKG4DVH rocIrR0BfBRZq lTwuSzY2h3Y1Yi0GT4WMY fkqX0LYOHYQGSqhdKU+PC 80pf45L5MlYcjoBpd9IJT aBIU7gJL8gJ1v YSBbTTbkp3Z1dTQ7D5Klh lPxzw9ia0gzOPLbZHvdD3 9eyWAkk5P2KSPmoDF6NSG vrTmbNmHwlZ63 Oyc+RLIydMxmh4NrGfkpv 9uas1ydqRw4CgjaEKFoar MikNdjECA3h8NaIx4kCEY cbXX5gRB2pD6c GwDiVmE1QOokT485TuLey PCsNwvlH69pL7EqbPX+PH FhXrt8GHVhjUvtDA0oL2Z hZGRpbmctbGVm hJwnXA9iDLCjnydzGYHqf Z5qXRQkC8e4TaQlRyM5JD ylK8LyTYRbgpkdCn37dW7 bQzEcFeI6KTxf E7RdygO4GTWxdULbXNnnJ SW0L85cg0L9ADRzSLYyVH R9vMP7aZ1rxGbldsswyNU mdDsgdmVydGlj YTovRDpmI303LGZxdVadI kNvZGluZyBEYXRlOiAgMD MvMjAvMjAyMzwvdGQ+PHR fKCV9gBeeBUDw gEWnOHtpJu6jqUotoYrbF R9yQRZxylmpFFGdzQ5yZE ZrmQVauThzOQ7gZNLvlds rh255PmKnPCT8 JLDmzNIfL3GctQ3wJmPkX ANgOKKfI2MstGRtGTwaP4 49JGwaNuP1DEJatpOeY8N sLWFsaWduOiB0 t0R4Ie7Hv3LyrssrB6Qkk JHzRiGjYlpvHXp3Y1EfFd wvdHI+HR56ASTvLJ86LHg 3BQI6fKodFJyt MTHsB0GvgO0wHeDsOAIwK GRkOyc+PHRhYmxlIHdpZH RoPScxMDAlJyBzdHlsZT0 cGv9oAFLqXUEe cOhqoVHgPzPmz6icNLWjG QhhVJ7mvXqyU9YclGL9MO Yvq3z4Dx51M91nK0DpjMT +BKBzrFI0aDR9 gT8vGlJbEvJ1ALjjJ164X bRupIBzKqqzr1jha2lvqY l8PdM4RKJkzaPjxQuoQND 7w5XaRp49E53f IHdpZHRoPSIxNSUiIHZhb Rwdgr0cwF0pHh2+PGNvbC P5vYI1qD3vLpLxPmF1GOh bQ430QiDdkKHc Bjedo7mfl4ctoQi9VfHsP FAqtmGomAhrBOQ1k6GwFf 78J7AgpZqho6IoTvm0vc0 8gBIfc3N4zLK6 P6NkJBHffnxpwHUomMhnP W4gAVDvbepqJMMeoR9aOA TsV3w2ZqRiLbS1BOufU7D cbbV7SYZzxUJs YBOpfNSTrY6fjvxat4mjl sbpYbGgNUNrCBj2GEm0MY KqfDekUsVbUTL5WxC8TWD 2oALsyT4xyXqe gtiqvM9mGhm+RWQ1yNNnp IBWEC1wArofpKC+PHRkIH G8rVhsNZkeWXXhlY9sCAF eP9o0CwSjBcL7 WVabQ4IyvsF9SMPsgCUtO OVzwNEGlE0kmhytp2mewu zpVkBlSQXcMKx8LMd1OPH saWduOiBsZWZ0 NxH8CJF4jAYwfI7xmXdlh wmfgQ0bGcv+QmlydGggRG N8QQq6K7OlKbf0FZOsxEy xBO5woCLgOXym Zt1tlKgrsQvuFP4oNGBgs ijay079WeKbv9reLMTfsG PlZUluMVT0V87ck7U2EBF hTJNrHZE0nGK4 nO0osDcqbjmkpFZjdCyvb gUekCnnGRqqSYssJ000JQ BggHjvYdGgGRy7M4LqUqq 5LYBclPqnOW0n fGYuZFlpSk9tjLpiuIohX Q5mVHYbbnfnw691QbSkz7 jpZQKupWOyTFxxLHM0A14 xb4K3LEFuZAYn GLY6dQA4cC4goFrrswgur GVmdDsgdmVydGljYWwtYW hfG964XFMezEfuOlKybBy 3B8AnHbw5DESn oChqBS5jmGWwLQxiIs1ly SxgyTjyDT6zZPVakgvib3 60IoMtr5tjJOAqmYJwDFo lVKC0J40yu1C7 IJEoPMWqRAN6kFR6hW6lg GlnbjogbGVmdDsgdmVydG lzXJkwSJgtS154LNFupGh nPlBhdGllbnQg HEmtHWe5X4IfAipikFD+P M95AEBhAG66xRLpqCIld5 gohJj6RoPqXMKpPLE0fIa lKVvzh5PtRTKc K58glRMgd2S2WCYybOugu TKgIqFelAQ2yH6pYSjshm ume5aogrlpKljcj8joiz5 7cH35O14cBWls ZHRoPSIzMCUiIHZhbGlnb g9diS2cZm8+PDSzrCD5fT Y0gR5dLDIqSqL8SXmcT64 9InRvcCIvPjxj e6fzs4vwbXb9CtN4OHPef jNvzGlvXPM2c6AwHt91J7 9sIHdpZHRoPSIyMCUiIHZ jeHdigm5puB5j Ii8+HREbhJF0lXJ3aK1iO sOlJqO6AVidS049ZqIpqP JyJiomH34rC9LqjTB+PHR wXpp9HFMboYrt NY3ruOXdMEreLd9yLQV3T fRkUjJaYMrmW4ExARZqlf ownqmgpBZ5DHSnSLOdqV2 5Gc9nfDjoIROm tIBVtF0gthbcl2uxqhzaV pOlETBuLSb5PKp3FCNtgY kaHnFaRAI7RuH9LGT5aCN puC2jcYoeutmr aM4yC9LeKNAduwakPw37n D5yXdEcCaN5QXimKbz+TE BRB00EHSykYT9IANQ7X7G uUda8USFjeLot CZ3hgKAdPKukWl1dbGkps SysAD7sITXoxpzrIYQfcD 8eRARllWSqsJjjFM6hPPF tqmidi056KoEq CVW6TOCcgZTsM1SzvE1vQ dJcOXYtZBEiT0QvqGSvCY uqW905RFnzZsA4ISKqaaY nT1PeSEAvhMch EiJ0c4I2Mt8iKv3fYs8rP WS2AZ03RP45eDKve3X4bL J5U5EcMDIxwcqufpaqwFN 6HAJxGVWypD47 fJOcCGjeVr6cg4R7l905S LFrGWByfP63Fx0fiLlhAW HgvXZIgU8fzasuf1uimdo gIzAwMDAwMDt0 XUd6HSXkcVnpYoVdOXO7R xV4LLU0zARdeC5wvAhkfa jhyZ4eHzi+NzYgWWVhcnM 3Q8JmSem7KELw oHebWP6sgMWuEKwzYb4gp PcsmGiyIA5jWQXuxypqNM UsiD5qHGOadHHknYpdNX0 hIQQxvfyop124 OeEwGKS0XCFgsIJfB7Paq J7bHaBpKAYhKYOkN8NxqH AnMPnsU230RGbzEhH5WMZ zghTeQ3TwNQQi qWdpIcX1f0V5Kj7ELTgwJ X59AF98fJCiu1T5nNA0K9 VyVRQgnulkvtbhaYI2KJT bGQMrcZ94hTVc TNebKd2fi2V7o970QNOgT YAfnF10Mj1emYucQPYykK QSwW1drbhjv2nzzzexLaO nFDJdRWr0RNu7 BFIimRbuTjDwLBC8YmW9N SS0mEUsmP8deYcuiteypQ 9wOyc+G2Y3hRM4sPXsiHm vdGQ+GY59yg83 S3GmYdkvFdl1ARTyQOG4i GQ6lZ1sYLBdKAikk8W8lZ S8Q3XcyiPsto6gw2xcLDI gCUrwR81fqELl h1T1DCNbeAN0TNLroVfdL wVtyQ18Dtu+PGNvbGdyb3 IcJmzjj3wkk7unjSj9RxC wJSIgdmFsaWdu AKV4g4DdPq90S90rJShzX HRoPSIzMCUiIHZhbGlnbj 7tnR8pMe0+AYKfgEA8kCU 5wX4kPmPeCmA7 HNloU566JoImnRAsErsxc 3mdg6bvnTw2UvZeSWCzbn FnxEflDSA0k6AfPs00J3W uhEjjr8AgBmu4 ra84qAMgb3V5fTG2J2NnH WHlfubfhSBttSedSC7vJW HsyqwqMLYdtE9jWLDiU8y 5YeOsMgT2EOlv M5HupgJ1UCXveTIhBDXby PKYpJ7iavtxr2opmwibQs XjMCYuKUj4RTr0SWHkfZf cZbGuRBF3GbZ5 GSB9aCWozO7jmWyllhuxb G9wOyc+UBq4y8yfgGTlSJ 9byBY3QV85JQ09yEZyu2Y 2jQP3Y4ZxSUOw jsqtsbzqrNQ6XGTcIQYyx H50Fw6omEtpCe1wYREbRA M7CKXnjJUgN9ZecE7jLfV tURNzHWJgV6Co bWFvHWmtL385JTbwLyF4T OOhehJiK1LqKMOoiTgcAe Y4c3U4Mu1JOG11YV12NJ5 1fPOfn3I0zWV0 D2WdRUYxttnwpzdirZC1V TChJVOxyK15Xb5ypOryJa 3tHZNzYOO3XARkeGIrH4U liD2mThDnLEOs FLVlM1FjxMDvXVrqM811N IfjVfG6ZKUmgjFrS8OtAN QngJbqAuA1n8Q4Sy3OIt2 8XN37IB37sXYt z3T3lTZ4R2OdFYUnjfgwf upvdOH1BBSxWPEtkK15Zg 9vlIhvUl3pCAFkYRY8FTA zjNVyT9UgkZ2i LkHrXWLeAYTmG4ChfUIeH QqsF292FEysNtG2BZOmpg FyO5RtGBFlbZibDsI7p6F 3Of7LNSqvbcl0 G4CuVtmubTK+PP11OUZsZ P84fKHeqDPtk8xykWw7Yg BnYKKjOCU7bQhiTUral1U mQBSeW25yzIFm c2U6 (more content not included)... Normal [facility] Physician Orderon 08-02-2022 Physician Order [id number]# 1.00CD:127 Normal [facility] Office/Cl inic Noteon 07-31-2022 Heart and Vascular Office/Clinic Note Chief Complaint 6 month f/u History of Present Illness Roly Barrett presents today for a follow-up evaluation. He is accompanied by an adult female. The adult female accompanying the patient explains that it has been 1 year since his heart catheterization and is inquiring if he can discontinue one of his blood thinners. The patient denies any chest pain. He does experience shortness of breath with exertion, which is not new for him. He is not experiencing any lightheadedness or dizziness, but the adult female states that he is frequently fatigued. The patient is currently taking Plavix, Eliquis, sotalol, and bisoprolol. He has a history of atrial fibrillation. The patient states that he would like to get a tooth extracted, but states that they will not do it while he is taking a blood thinner. The adult female explains that the patient saw his primary care physician yesterday, 07/29/2022, about pain management for his knee. She notes that the patient's LDL was 82 mg/dL. He is currently taking atorvastatin 40 mg. Review of Systems PHQ Score Initial Depression Screen Score: 0 Constitutional: no fever, no sweats, no weakness Skin: no rash, no lesions, no bruising/petechiae ENMT: no sore throat, no congestion, no hoarseness Respiratory: no cough, no orthopnea, no wheezing Cardiovascular: no chest pain, no palpitations, no edema Gastrointestinal: no nausea, no vomiting, no diarrhea, no GI bleeding Genitourinary: no anuria/oliguria no hematuria Musculoskeletal: no back pain, no trauma Neurologic: no headache, no dizziness, no numbness, no weakness Psychiatric: no sleeping problems, no irritability, no anxiety/depression. Heme/Lymph: no bleeding tendency, no bruising tendency Allergy/Immunologic: no recurrent infections, no impaired immunity Additional ROS info: Except as noted in the above Review of Systems and in the History of Present Illness all other systems have been reviewed and are negative or noncontributory Physical Exam Vitals & Measurements HR: 54(Peripheral) BP: 122/56 SpO2: 98% HT: 67 in HT: 170 cm WT: 114 kg WT: 250.8 lb BMI: 39.45 General: alert, no acute distress Skin: warm, dry intact Head: atraumatic, normocephalic Neck: trachea midline, no JVD, no bruit Eye: normal conjunctiva, sclera clear ENMT: oral mucosa moist Cardiovascular: regular rate and rhythm, no murmur, normal peripheral perfusion Respiratory: lungs CTA, respirations non labored Chest wall: no deformity. Gastrointestinal: soft, non-distended, no tenderness, no guarding. Back: no tenderness, normal ROM, normal alignment. Extremities: no edema, no deformity, no trauma Neurological: oriented x 4, LOC appropriate for age, sensation equal & normal bilaterally, speech normal Psychiatric: cooperative, affect appropriate for age, normal judgement, normal psychiatric thoughts. Assessment/Plan The patient will discontinue Plavix and bisoprolol. He will start aspirin 81 mg daily. 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 ATTESTATION: Documentation services were performed after patient or guardian consented to allow [email or web address] to record this visit. RACHEL patient financial specialist and provider reviewed before signing. RACHEL: Patsy Guo. Follow-up No qualifying data available Problem List/Past Medical History Ongoing No qualifying data Historical No qualifying data Procedure/Surgical History Cardioversion (08/27/2021), Cardiac catheterization, left heart (07/28/2021). Medications acetaminophen 325 mg Tab, 650 mg= 2 tab(s), Oral, q6hr aspirin 81 mg Chew Tab, 81 mg= 1 tab(s), Oral, Daily, 3 refills atorvastatin 40 mg Tab docusate sodium 50 mg oral capsule, 50 mg= 1 cap(s), Oral, Once a day (at bedtime) Eliquis 5 mg oral tablet, 5 mg= 1 tab(s), Oral, BID, 3 refills famotidine 20 mg Tab, 20 mg= 1 tab(s), Oral, Once a day (at bedtime) furosemide 40 mg Tab losartan 100 mg Tab Senna 8.6 mg oral tablet, 17.2 mg= 2 tab(s), Oral, Once a day (at bedtime), PRN sotalol 80 mg Tab, 80 mg= 1 tab(s), Oral, q24hr, 3 refills Voltaren Topical, 2 gm, Topical, QID Allergies penicillin (Unknown) Social History Alcohol Current, Liquor, Several times per day, Started age 18 Years. Stopped age 76 Years. Alcohol use interferes with work or home: No. Drinks more than intended: No. Others hurt by drinking: No. Ready to change: No. Household alcohol concerns: No., 07/30/2022 Tobacco Former smoker, quit more than 30 days ago Tobacco Use:. Cigarettes, 08/03/2021 Family History Primary malignant neoplasm of lung: Father. Immunizations Vaccine Date Status Comments SARS-CoV-2 (COVID-19) mRNA BNT-162b2 vax 03/03/2021 Recorded [08/25/2021] booster SARS-CoV-2 (COVID-19) mRNA BNT-162b2 vax 08/12/2020 Recorded SARS-CoV-2 (COVID-19) mRNA BNT-162b2 vax 07/21/2020 Recorded Normal [facility] Comment on above: Result Comment: Elec tronically Signed By: Mulugeta SINGH, Jose Stanley\.br\Date and Time Signed: 07/31/22 21:16 EST\.br\Electronically Co-Signed By: Patsy Guo\.br\Date and Time Co-Signed: 07/30/22 17:51 EST Consent for Treatmenton 07-21 Consent for Treatment [id number]:127 Normal [facility] PROF CHEM 8 (BAS METB)on Anion gap [Moles/Vol] 11.0 mmol/L Normal [facility] Comment on above: Performed By: #### B MP #### [facility] [address] [address] [address] Milka Castaneda Calcium [Mass/Vol] 8.9 mg/dL Normal 8.5-10.1 [facility] Comment on above: Performed By: #### B MP #### [facility] [address] [address] [address] Milka Castaneda Chloride [Moles/Vol] 99 mmol/L Normal 98-107 [facility] Comment on above: Performed By: #### B MP #### [facility] [address] [address] [address] Milka Castaneda CO2 [Moles/Vol] 32.0 mmol/L Normal 21.0-32.0 [facility] Comment on above: Performed By: #### B MP #### [facility] [address] [address] [address] Milka Castaneda Creatinine [Mass/Vol] 2.19 mg/dL Critically high 0.70-1.30 [facility] Comment on above: Performed By: #### B MP #### [facility] [address] [address] [address] Milka Castaneda EGFR-AF BRAZILIAN 36 mL/min/1.73m2 Critically low >=60 [facility] Comment on above: Performed By: #### B MP #### [facility] [address] [place] [address] Dr. Milka Castaneda EGFR-NON AF BRAZILIAN 29 mL/min/1.73m2 Critically low >=60 [facility] Comment on above: Performed By: #### B MP #### [facility] [address] [address] [address] Milka Castaneda Glucose [Mass/Vol] 94 mg/dL Normal 74-106 [facility] Comment on above: Performed By: #### B MP #### [facility] [address] [address] [address] Milka Castaneda Potassium [Moles/Vol] 5.0 mmol/L Normal 3.5-5.1 [facility] Comment on above: Performed By: #### B MP #### [facility] [address] [address] [address] Milka Castaneda Sodium [Moles/Vol] 137 mmol/L Normal 136-145 [facility] Comment on above: Performed By: #### B MP #### [facility] [address] [address] [address] Milka Castaneda Urea nitrogen [Mass/Vol] 32.0 mg/dL Critically high 7.0-18.0 [facility] Comment on above: Performed By: #### B MP #### [facility] [address] [address] [address] Milka Castaneda Urea nitrogen/Creatinin e [Mass ratio] 14.6 mg/mg Normal [facility] Comment on above: Performed By: #### B MP #### [facility] [address] [place] [address] Dr. Milka Castaneda Provider Letter [id number] Provider Letter [facility] April 23, 2022 Re: Roly Barrett : 1945 To Whom It May Concern The above patient is on clopidogrel and apixaban for his coronary artery disease with recent PCI and atrial fibrillation. We recommend this therapy to be uninterrupted for one year post stent placement (July 2021). Extraction while on these medications is at surgeon's discretion. Becky GUERRIER [facility] Normal [facility] CBC AUTO DIFFon 02-03-2022 BASO # 0.1 103/ul Normal 0.0-0.1 [facility] Comment on above: Performed By: #### C BC #### [facility] [address] [place] [address] Dr. Milka Castaneda Basophils/100 WBC (Bld) 0.6 % Normal 0.2-2.0 [facility] Comment on above: Performed By: #### C BC #### [facility] [address] [place] [address] Dr. Milka Castaneda EO # 0.5 103/ul Normal 0.0-0.7 [facility] Comment on above: Performed By: #### C BC #### [facility] [address] [place] [address] Dr. Milka Castaneda Eosinophils/100 WBC (Bld) 5.8 % Normal 0.9-7.0 [facility] Comment on above: Performed By: #### C BC #### [facility] [address] [place] [address] Dr. Milka Castaneda Erythrocyte distribution width (RBC) [Ratio] 13.2 % Normal 11.0-15.0 [facility] Comment on above: Performed By: #### C BC #### [facility] [address] [address] [address] Milka Castaneda Hematocrit (Bld) [Volume fraction] 44.2 % Normal 42.0-54.0 [facility] Comment on above: Performed By: #### C BC #### [facility] [address] [place] [address] Dr. Milka Castaneda Hemoglobin (Bld) [Mass/Vol] 14.3 g/dL Normal 14.0-18.0 [facility] Comment on above: Performed By: #### C BC #### [facility] [address] [place] [address] Dr. Milka Castaneda IG # 0.02 10e3/ul Normal 0.00-0.03 [facility] Comment on above: Performed By: #### C BC #### [facility] [address] [place] [address] Dr. Milka Castaneda IG % 0.2 % Normal 0.0-0.5 [facility] Comment on above: Performed By: #### C BC #### [facility] [address] [place] [address] Dr. Mlika Castaneda LYMPH # 1.7 103/ul Normal 1.2-3.8 [facility] Comment on above: Performed By: #### C BC #### [facility] [address] [place] [address] Dr. Milka Castaneda Lymphocytes/100 WBC (Bld) 20.5 % Normal 20.5-60.0 [facility] Comment on above: Performed By: #### C BC #### [facility] [address] [place] [address] Dr. Milka Castaneda MANUAL DIFF REQ NO Normal [facility] Comment on above: Performed By: #### C BC #### [facility] [address] [place] [address] Dr. Milka Castaneda MCH (RBC) [Entitic mass] 31.7 pg Normal 25.9-34.0 [facility] Comment on above: Performed By: #### C BC #### [facility] [address] [address] [address] Milka Castaneda MCHC (RBC) [Mass/Vol] 32.4 g/dL Normal 29.9-35.2 [facility] Comment on above: Performed By: #### C BC #### [facility] [address] [place] [address] Dr. Milka Castaneda MCV (RBC) [Entitic vol] 98.0 fL Critically high 80.0-94.0 [facility] Comment on above: Performed By: #### C BC #### [facility] [address] [address] [address] Milka Castaneda MONO # 1.1 103/ul Critically high 0.3-0.8 [facility] Comment on above: Performed By: #### C BC #### [facility] [address] [place] [address] Dr. Milka Castaneda Monocytes/100 WBC (Bld) 12.7 % Critically high 1.7-12.0 [facility] Comment on above: Performed By: #### C BC #### [facility] [address] [place] [address] Dr. Milka Castaneda NEUT # 5.1 103/ul Normal 1.4-6.5 [facility] Comment on above: Performed By: #### C BC #### [facility] [address] [place] [address] Dr. Milka Castaneda Neutrophils/100 WBC (Bld) 60.2 % Normal 43.0-75.0 [facility] Comment on above: Performed By: #### C BC #### [facility] [address] [place] [address] Dr. Milka Castaneda Platelet mean volume (Bld) [Entitic vol] 9.5 fL Normal 9.5-13.5 [facility] Comment on above: Performed By: #### C BC #### [facility] [address] [place] [address] Dr. Milka Castaneda PLT 160 103/ul Normal 150-450 [facility] Comment on above: Performed By: #### C BC #### [facility] [address] [address] [address] Milka Castaneda RBC 4.51 106/ul Critically low 4.70-6.10 [facility] Comment on above: Performed By: #### C BC #### [facility] [address] [address] [address] Milka Castaneda WBC 8.4 103/ul Normal 4.0-11.0 [facility] Comment on above: Performed By: #### C BC #### [facility] [address] [address] [address] Milka Castaneda DIRECT LDLon 02-03-2022 Cholesterol in LDL [Mass/Vol] 82 mg/dL Normal [facility] Comment on above: Performed By: #### D LDL, BMP #### [facility] [address] [place] [address] Dr. Milka Castaneda DLDL NORMAL SEE BELOW Normal [facility] Comment on above: Result Comment: <100 mg/dl OPTIMAL 100 - 129 mg/dl NEAR OR ABOVE OPTIMAL 130 - 159 mg/dl BORDERLINE HIGH 160 - 189 mg/dl HIGH >190 mg/dl VERY HIGH Performed By: #### D LDL, BMP #### [facility] [address] [place] [address] Dr. Milka Castaneda PROF CHEM 8 (BAS METB)on Anion gap [Moles/Vol] 13.1 mmol/L Normal [facility] Comment on above: Performed By: #### D LDL, BMP #### [facility] [address] [address] [address] Milka Castaneda Calcium [Mass/Vol] 9.3 mg/dL Normal 8.5-10.1 [facility] Comment on above: Performed By: #### D LDL, BMP #### [facility] [address] [place] [address] Dr. Milka Castaneda Chloride [Moles/Vol] 102 mmol/L Normal 98-107 [facility] Comment on above: Performed By: #### D LDL, BMP #### [facility] [address] [place] [address] Dr. Milka Castaneda CO2 [Moles/Vol] 29.5 mmol/L Normal 21.0-32.0 [facility] Comment on above: Performed By: #### D LDL, BMP #### [facility] [address] [address] [address] Milka Castaneda Creatinine [Mass/Vol] 1.94 mg/dL Critically high 0.70-1.30 [facility] Comment on above: Performed By: #### D LDL, BMP #### [facility] [address] [address] [address] Milka Castaneda EGFR-AF BRAZILIAN 41 mL/min/1.73m2 Critically low >=60 [facility] Comment on above: Performed By: #### D LDL, BMP #### [facility] [address] [place] [address] Dr. Milka Castaneda EGFR-NON AF BRAZILIAN 34 mL/min/1.73m2 Critically low >=60 [facility] Comment on above: Performed By: #### D LDL, BMP #### [facility] [address] [place] [address] Dr. Milka Castaneda Glucose [Mass/Vol] 91 mg/dL Normal 74-106 [facility] Comment on above: Performed By: #### D LDL, BMP #### [facility] [address] [place] [address] Dr. Milka Castaneda Potassium [Moles/Vol] 4.6 mmol/L Normal 3.5-5.1 [facility] Comment on above: Performed By: #### D LDL, BMP #### [facility] [address] [place] [address] Dr. Milka Castaneda Sodium [Moles/Vol] 140 mmol/L Normal 136-145 [facility] Comment on above: Performed By: #### D LDL, BMP #### [facility] [address] [place] [address] Dr. Milka Castaneda Urea nitrogen [Mass/Vol] 30.0 mg/dL Critically high 7.0-18.0 [facility] Comment on above: Performed By: #### D LDL, BMP #### [facility] [address] [place] [address] Dr. Milka Castaneda Urea nitrogen/Creatinin e [Mass ratio] 15.5 mg/mg Normal [facility] Comment on above: Performed By: #### D LDL, BMP #### [facility] [address] [address] [address] Milka Castaneda CREATININEon 10-07-2021 Creatinine [Mass/Vol] 1.67 mg/dL Critically high 0.70-1.30 [facility] Comment on above: Performed By: #### C OMI #### [facility] [address] [address] [address] Milka Castaneda EGFR-AF BRAZILIAN 49 mL/min/1.73m2 Critically low >=60 [facility] Comment on above: Performed By: #### C OMI #### [facility] [address] [address] [address] Milka Castaneda EGFR-NON AF BRAZILIAN 40 mL/min/1.73m2 Critically low >=60 [facility] Comment on above: Performed By: #### C OMI #### [facility] [address] [address] ABDOMEN WO/W CONon 2021 CT ABDOMEN WO/W CON EXAMINATION: CT ABDOMEN WO/W CON HISTORY: Acquired renal cystic disease COMPARISON: CT abdomen pelvis 07/03/2021 TECHNIQUE: Axial, Coronal, and Sagittal images were created without and with non-ionic intravenous contrast material. Dose reduction techniques were achieved by using automated exposure control and/or adjustment of mA and/or kV according to patient size and/or use of iterative reconstruction technique. FINDINGS: LUNG BASES: No visible pulmonary or pleural disease. LIVER: No enlargement, atrophy, abnormal density, or significant focal lesion. BILIARY: No visible dilatation or calcification. PANCREAS: No lesion, fluid collection, ductal dilatation, or atrophy. SPLEEN: No enlargement or focal lesion. ADRENALS: No mass or enlargement. KIDNEYS: Nonenhancing 0.8 cm right renal cyst. Nonenhancing 2.2 cm left renal cyst. Mild cortical atrophy bilaterally. No stones or mass. BOWEL/MESENTERY: No visible mass, obstruction, or bowel wall thickening. AORTA/VASCULAR: No aneurysm or dissection. RETROPERITONEUM: No mass or adenopathy. ABDOMINAL WALL: No mass or hernia. BONES: No bony lesion or fracture. OTHER: Negative. IMPRESSION: 1. Bilateral benign renal cysts. No additional follow-up recommended. Electronically authenticated by: PRAMOD PEDROZA Date: 2021-10-07 09:58 Normal [facility] Vital Signs Date Time Vital Sign Value Performing Clinician Facility 05-20-2023 11:00-0500 Body height 165.1 cm Anthony [facility] Other [facility] Other 05-20-2023 11:00-0500 Body mass index (BMI) [Ratio] 39.43 kg/m2 Anthony [facility] Other [facility] Other 05-20-2023 11:00-0500 Body weight 107.5 kg Anthony [facility] Other [facility] Other 05-20-2023 11:00-0500 Diastolic blood pressure 89 mm[Hg] Anthony [facility] Other [facility] Other 05-20-2023 11:00-0500 Respiratory rate 20 /min Anthony [facility] Other [facility] Other 05-20-2023 11:00-0500 Systolic blood pressure 183 mm[Hg] Anthony [facility] Other [facility] Other 04-21-2023 11:15-0500 Body height 165.1 cm Bhavin Devries Other [facility] Other 04-21-2023 11:15-0500 Body mass index (BMI) [Ratio] 39.6 kg/m2 Bhavin Devries Other [facility] Other 04-21-2023 11:15-0500 Body weight 107.96 kg Bhavin Devries Other [facility] Other 04-12-2023 14:30-0500 Body height 165.1 cm Anthony Ball Other [facility] Other 04-12-2023 14:30-0500 Body mass index (BMI) [Ratio] 39.6 kg/m2 Anthony Ball Other [facility] Other 04-12-2023 14:30-0500 Body weight 107.96 kg Anthony Ball Other [facility] Other 04-12-2023 14:30-0500 Diastolic blood pressure 81 mm[Hg] Anthony Ball Other [facility] Other 04-12-2023 14:30-0500 Respiratory rate 12 /min Anthony Ball Other [facility] Other 04-12-2023 14:30-0500 Systolic blood pressure 151 mm[Hg] Anthony Ball Other [facility] Other 07-29-2022 11:00-0500 Body height 165.1 cm Anthony Ball Other [facility] Other 07-29-2022 11:00-0500 Body mass index (BMI) [Ratio] 40.17 kg/m2 Anthony Ball Other [facility] Other 07-29-2022 11:00-0500 Body weight 109.5 kg Anthony Ball Other [facility] Other 07-29-2022 11:00-0500 Diastolic blood pressure 70 mm[Hg] Anthony Ball Other [facility] Other 07-29-2022 11:00-0500 Respiratory rate 12 /min Anthony Ball Other [facility] Other 07-29-2022 11:00-0500 Systolic blood pressure 118 mm[Hg] Anthony Zayas Other [facility] Other Encounters Encounter Date Encounter Type Care Provider Facility Start: 05-20-2023 End: 05-20-2023 ambulatory Anthony Z[facility] Other [facility] Other Start: 05-20-2023 Office outpatient visit 25 minutes Anthony Zayas [facility] Start: 04-25-2023 End: 04-25-2023 ambulatory Anthony [facility] Other [facility] Other Start: 04-25-2023 Telephone encounter Anthony Zayas [facility] Start: 04-21-2023 Office outpatient ne w 45 minutes Bhavin Devries [facility] Start: 04-21-2023 End: 04-21-2023 ambulatory Anthony Zayas [facility] Other Start: 04-21-2023 End: 04-21-2023 Patient encounter procedure DO Bhavin Devries Work Phone: [facility] Start: 04-18-2023 End: 04-18-2023 ambulatory Anthony Zayas Other [facility] Other Start: 04-18-2023 Telephone encounter Anthony Zayas [facility] Start: 04-12-2023 End: 04-12-2023 ambulatory Anthony Zayas Other [facility] Other Start: 04-12-2023 Patient encounter procedure Anthony Zayas [facility] Start: 04-12-2023 Telephone encounter Anthony Zayas [facility] Start: 02-28-2023 End: 03-01-2023 ambulatory Issac Rucker MD Facility: [facility] Start: 02-11-2023 End: 02-12-2023 ambulatory Jose Dalal Facility:[facility] Start: 01-31-2023 End: 02-01-2023 ambulatory Issac Rucker MD Facility:[facility] Start: 01-04-2023 End: 01-05-2023 ambulatory Issac Rucker MD Facility:[facility] Start: 11-29-2022 End: 11-29-2022 ambulatory Anthony Zayas Other [facility] Other Start: 11-29-2022 Telephone encounter Anthony [facility] Start: 11-24-2022 End: 11-24-2022 ambulatory Anthony Zayas Other [facility] Other Start: 11-24-2022 Telephone encounter Anthony [facility] Start: 10-08-2022 End: 10-09-[address] ANTHONY ZAYAS Facility:[facility] Start: 08-31-2022 End: 08-31-2022 ambulatory Anthony Zayas Other [facility] Other Start: 08-31-2022 Telephone encounter Anthony [facility] Start: 08-03-2022 End: 08-03-2022 ambulatory Anthony Zayas Other [facility] Other Start: 08-03-2022 Telephone encounter Anthony [facility] Start: 07-30-2022 End: 07-31-2022 ambulatory XXXX NONE Facility:[facility] Start: 07-29-2022 End: 07-29-2022 ambulatory Anthony Zayas Other [facility] Other Start: 07-29-2022 Office outpatient visit 25 minutes Anthony Zayas [facility] Start: 05-05-2022 End: 05-06-[address] ANTHONY ZAYAS Facility:[facility] Start: 02-03-2022 End: 02-04-[address] ANTHONY ZAYAS Facility:[facility] Start: 10-23-2021 End: 10-24-[address] ANTHONY ZAYAS Facility:[facility] Start: 10-07-2021 End: 10-08-[address] ANTHONY ZAYAS Facility:[facility] Start: 10-28-2016 End: 10-29-2016 Ambulatory DEFAULT PHYSICIAN Facility:[facility] Procedures Date Procedure Procedure Detail Performing Clinician Start: 04-21-2023 Plain X-ray of bilat nathanl hands DO Bhavin Devries Work Phone: Start: 02-03-[address] ELYSSA ZAYAS Comment on above: Performed By: #### P [facility] #### [facility] [address] [place] [address] Dr. Milka Castaneda Immunizations Immunization Date Immunization Notes Care Provider Fa fabian 03-05-2023 influenza, high dose seasonal, preservative-free Anthony Zayas Other [facility] Other 02-03-2022 influenza virus vaccine, split virus (incl. purified surface antigen) Anthony Zayas Other [facility] Other 01-29-2021 influenza virus vaccine, split virus (incl. purified surface antigen) Anthony Zayas Other [facility] Other 01-29-2020 influenza virus vaccine, split virus (incl. purified surface antigen) Anthony Zay[facility] Other [facility] Other 04-16-2019 zoster vaccine, live Bradcathy Zayas Other [facility] Other 10-18-2017 diphtheria, tetanus toxoids and acellular pertussis vaccine, unspecified formulation Anthony Zayas Other [facility] Other 10-15-2016 pneumococcal conjuga te vaccine, 13 valent Anthony Zayas Other [facility] Other 03-03-2016 influenza virus vaccine, split virus (incl. purified surface antigen) Anthony Zayas Other [facility] Other 03-12-2013 pneumococcal polysaccharide vaccine, 23 valent Anthony Zayas Other [facility] Other 03-12-2013 tetanus and diphther ia toxoids, adsorbed, preservative free, for adult use (5 Lf of tetanus toxoid and 2 Lf of diphtheria toxoid) Anthony Zayas Other [facility] Other Payers Date Payer Category Payer Private Health Insurance [facility] [id number] 2023 Self-pay 2022 Private Health Insurance 1959 Medicare [id number] 1945 Unknown [id number] 3 1945 Unknown [id number] [id number] 3 1945 Unknown [id number] [id number] 3 1945 Unknown [id number] [id number] 3 1945 Unknown [id number] 2.16.840.1.249995.3.579.2.59 3 1945 Unknown [id number] 2.16.840.1.075970.3.579.2.19 6 1945 Unknown [id number] 2.16.840.1.123009.3.579.2.19 6 1945 Unknown [id number] 2.16.840.1.325524.3.579.2.19 6 1945 Unknown [id number] 2.16.840.1.264821.3.579.2.19 6 1945 Unknown [id number] 2.16.840.1.655045.3.579.2.72 7 1945 Unknown [id number] 2.16.840.1.266270.3.579.2.72 7 Private Health Insurance [employer] [facility] PFFS N on Pt [id number] Unknown Unknown [id number] [id number] 1 Social History Date Type Detail Facility Sex Assigned At [facility] [employer] Other Start: 1945 Sex Assigned At Male F [facility] Clinical Notes 07-29-2022 to 05-20-2023 Note Date & Type Note Facility 05-20-2023 Evaluation note Encounter Date Diagnosis Assessment Notes Apr, Paroxysmal atrial fibrillation (ICD-10 - I48.0) This patient is in NSR. This patient is anticoagulated to prevent thromboembolic events. They are maintaining regular scheduled appts with their microbiology analyst. No bleeding complications Apr, ASHD (arteriosclerotic heart disease) (ICD-10 - I25.10) This patient is stable without activity related CP, dyspnea or lightheadedness. They are instructed to continue exercise and AHA diet plan. Continue secondary prevention measures. 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 INspect feet for cuts and calluses Continue ASA and Statin therapy Apr, Primary hypertension (ICD-10 - I10) This patient is instructed to consume a healthy, low-fat, low-salt diet. They are also encouraged to continue exercise to achieve/maintain a normal BMI. Patient is instructed on home BP measurements: - rest for 5 minutes w/o talking- positioned w/ feet on floor and arm supported- average best 2/3 readings w/ goal < 135/85 _update office w/ results Apr, Hyperlipidemia type II (ICD-10 - E78.01) Instructed on diet and exercise with continued statin therapy.Discussed the beneficial effects of lowering cholesterol in reducing the risk for cerebrovascular and cardiovascular disease. Apr, Gastroesophageal reflux disease with esophagitis without hemorrhage (ICD-10 - K21.00) Avoid lying flat after eating. Avoid eating 2 hours prior to bedtime. Smaller, frequent meals may be better tolerated.Weight loss if overweight.PPI with any heartburn.Monitor for dysphagia. Apr, Simple chronic bronchitis (ICD-10 - J41.0) Chronic dyspnea w minimal exertion. Cardiac status optimized. Obstructive and restrictive lung disease - didn't respond to LABA/ICS - trial of BERTA w/ aerochamber Increase activity and weight loss discussed Apr, Restrictive lung disease (ICD-10 - J98.4) Instructed on increasing activity, improving endurance and weight loss Apr, Dyspnea on exertion (ICD-10 - R06.09) Obstructive and restrictive component. 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 ADR w/ sore throat and hoarseness Since stopped Discussed alternative treatments w/ BERTA used 2-4x daily Apr, Lumbar spondylosis (ICD-10 - M47.816) The patient is instructed to avoid bending, twisting or lifting. They are to use intermittent heat and ice as needed. They may schedule a massage or gentle manipulation. They may safely use Tylenol as needed. Tramadol for severe pain f/u Pain Clinic Apr, Hx of gout (ICD-10 - Z87.39) No acute flares since last OV. Colchicine PRN Continue Allopurinol [facility] Other 11-30-2023 Evaluation note* Encounter Date Diagnosis Assessment Notes Treatment Notes Treatment Clinical Notes Mar, Primary osteoarthritis of first carpometacarpal joint of right hand (ICD-10 - M18.11) The patient is suffering from degenerative arthritis involving the thumb CMC joint bilaterally. We discussed the conservative treatment options which can be beneficial in relieving pain, including hand occupational therapy, wearing a brace, and non-steroidal anti-inflammatory medication. We discussed the use of occasional cortisone injections that can provide pain relief. Patient placed in thumb spica braces. Instructed to wear for activities. We performed a cortisone injection into the bilateral CMC joint under sterile technique. The patient tolerated this well without complication. We discussed that the finger may feel numb and tingle for hours after this injection. Instructed to call with any questions or concerns Mar, Primary osteoarthritis of first carpometacarpal joint of left hand (ICD-10 - M18.12) Mar, Trigger ring finger of left hand (ICD-10 - M65.342) Mar, Trigger middle finge r of left hand (ICD-10 - M65.332) Patient's symptoms are likely the result of bilateral long and ring trigger fingers. The etiology and pathologic process was discussed in length with the patient. We discussed treatment options including observation, anti-inflammatories , corticosteroid injections, and surgery. Patient wishes to proceed with cortisone injection. We performed a marcaine/kenalog cortisone injection into the palmar aspect of the finger near at the A1 akhil to the LEFT middle and ring fingers under sterile technique. The patient tolerated this well without complication. We discussed that the finger may feel numb and tingle for hours after this injection. Mar, Trigger middle finge r of right hand (ICD-10 - M65.331) Mar, Trigger ring finger of right hand (ICD-10 - M65.341) Mar, Pain in left hand (ICD-10 - M79.642) Mar, Pain in right hand (ICD-10 - M79.641) [facility] Other 11-27-2023 Evaluation note* Encounter Date Diagnosis Assessment Notes Treatment Notes Treatment Clinical Notes Mar, Mild persistent asthma without complication (ICD-10 - J45.30) [facility] Other 2023 Evaluation note* Encounter Date Diagnosis Assessment Notes Treatment Notes Treatment Clinical Notes Mar, Medicare annual wellness visit, subsequent (ICD-10 - Z00.00) Personalized health advice was given to the beneficiary including a written plan for screenings discussed and provided. Advanced care planning reviewed and/or information given as requested. Additional counseling was provided here today in regards to, [ ]. The above visit was performed by [ ], under direct supervision of [ ]. Document reviewed and amended by provider signed below. Mar, Paroxysmal atrial fibrillation (ICD-10 - I48.0) This patient is in NSR or rate controlled. This patient is anticoagulated to prevent thromboembolic events. They are maintaining regular scheduled appts with their microbiology analyst. Mar, ASHD (arteriosclerotic heart disease) (ICD-10 - I25.10) This patient is stable without activity related CP, dyspnea or lightheadedness. They are instructed to continue exercise and AHA diet plan. Continue secondary prevention measures. 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 Inspect feet daily for cuts. Continue ASA and statin therapy Mar, Primary hypertension (ICD-10 - I10) Mar, Hyperlipidemia type II (ICD-10 - E78.01) Instructed on diet and exercise with continued statin therapy.Discussed the beneficial effects of lowering cholesterol in reducing the risk for cerebrovascular and cardiovascular disease. Mar, Chronic venous insufficiency (ICD-10 - I87.2) Avoid salt and elevate lower extremities, support stockings, inspect legs and feet daily for blisters and ulcerations. Mar, Gastroesophageal reflux disease with esophagitis without hemorrhage (ICD-10 - K21.00) Diet instructions: Smaller portions, avoid eating and laying flat, avoid eating or drinking prior to bedtime. Weight loss. Mar, Lumbar spondylosis (ICD-10 - M47.816) The patient is instructed to avoid bending, twisting or lifting. They are to use intermittent heat and ice as needed. They may schedule a massage or gentle manipulation. They may safely use Tylenol as needed. f/u pain management Mar, Dyspnea on exertion (ICD-10 - R06.09) Mar, Screening PSA (prostate specific antigen) (ICD-10 - Z12.5) Yearly PSA Mar, Hx of gout (ICD-10 - Z87.39) No s/s acute gout flare. Has Colchicine for attacks. Instructed on diet Instructed on acute pain treatment w/ Colchicine, elevate and ice Mar, High risk medication use (ICD-10 - Z79.899) Check labs: ALT, CBC [facility] Other 03-14-2023 Evaluation note* Encounter Date Diagnosis Assessment Notes Treatment Notes Treatment Clinical Notes Jul, History of gout (ICD-10 - Z87.39) [facility] Other 03-09-2023 Evaluation note* Encounter Date Diagnosis Assessment Notes Treatment Notes Treatment Clinical Notes Jul, Paroxysmal atrial fibrillation (ICD-10 - I48.0) This patient is in NSR or rate controlled. This patient is anticoagulated to prevent thromboembolic events. They are maintaining regular scheduled appts with their microbiology analyst. Jul, ASHD (arteriosclerot ic heart disease) (ICD-10 - I25.10) This patient is stable without activity related CP, dyspnea or lightheadedness. They are instructed to continue exercise and AHA diet plan. Jul, Hyperlipidemia type II (ICD-10 - E78.01) Diet and exercise with continued statin therapy. Jul, Chronic venous insufficiency (ICD-10 - I87.2) Avoid salt and elevate lower extremities, support stockings, inspect legs and feet daily for blisters and ulcerations. 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 Inspect feet daily for cuts/calluses. Continue ASA and Statin therapy Jul, Gastroesophageal reflux disease with esophagitis without hemorrhage (ICD-10 - K21.00) Diet instructions: Smaller portions, avoid eating and laying flat, avoid eating or drinking prior to bedtime. Weight loss. Jul, Primary osteoarthrit is of left knee (ICD-10 - M17.12) Quad exercises, ice/heat and Tylenol. - instructed to take Tylenol on regular basis, 2-3x daily Jul, Hx of gout (ICD-10 - Z87.39) Stable w/o significant flare. - has some pain that responds to one Colchicine dose (unlikely gout) [place] [employer] Other Evaluation noteNo InformationNortBryn [facility] [employer] Other Evaluation noteNo assessment information available [facility] Work Phone: History general Narrative - Reported* Type Description Date Medical History Chronic diastolic heart failure Medical History Bleeding per rectum Medical History Idiopathic chronic gout of right foot without tophus Medical History Gastroesophageal ref lux disease with esophagitis without hemorrhage Medical History Hyperlipidemia type II Medical History Chronic venous insufficiency Medical History Cyst of left kidney Medical History Foot ulcer, left, limited to daisy akdown of skin Medical History ASHD (arteriosclerotic heart dis ease) Medical History Paroxysmal atrial fibrillation Medical History Atherosclerosis of b oth lower extremities with intermittent claudication Medical History Arthritis of left knee Medical History HYPERTENSIVE KIDNEY DISEASE WITH STAGE 4 CHRONIC KIDNEY DISEASE Surgical History PERCUTANEOUS CORONAR Y INTERVENTION (PCI) WITH INSERTION OF STENT INTO RIGHT CORONARY ARTERY Surgical History LAMINOTOMY, SPINE, LUMBAR, WITH DISCECTOMY 1996 Surgical History COLONOSCOPY Hospitalization History SEE SURGICAL HX [facility] Other Reason for referral (narrative)* Reason *FU 08/16 Referral for left knee pain Diagnosis 1 Primary osteoarthrit is of left knee (M17.12) Referral Organization [facility] Referring Provider First Name Anthony Referring Provider Last Name Marquez Referring Provider Specialty Internal Me dicine Referred Organization [facility] Referred Provider Pietro Gale Referred Address [address], [place],[address] Referred Provider Specialty Pain Medicin e Referral Priority Routine General Notes Briana Moreno 01:15:17 PM >received today, notes locked, attachments made, referral faxed Briana Moreno 08/09/2022 11:58:58 AM >FAXED FIRST ATTEMPT LETTER Clinical Notes F: [id number] [employer] Other Reason for visit Narrativeknee pain after referral, discussion about next stepsNort [facility] Other Summary Purpose Family History No Family History Records FoundNo Family History Records FoundNo Family History Records FoundNo Family History Records FoundNo Family History Records Found Advance Directives No Advanced Directives Records FoundNo Advanced Directives Records FoundNo Advanced Directives Records FoundNo Advanced Directives Records FoundNo Advanced Directives Records Found Additional Source Comments (unrecognized sect ion and content) No Status Records FoundNo Status Records FoundNo Status Records FoundNo Status Records FoundNo Status Records Found INFORMATION SOURCE (unrecogn ized section and content) DATE CREATED AUTHOR 11/16/2017 [facility] DATE CREATED AUTHOR AUTHOR'S ORGANIZ ATION 09/29/2022 [facility] DATE CREATED AUTHOR AUTHOR'S ORGANIZ ATION 03/07/2023 [facility] DATE CREATED AUTHOR AUTHOR'S ORGANIZ ATION 04/17/2023 [facility] DATE CREATED AUTHOR AUTHOR'S ORGANIZ ATION 04/26/2023 [facility] REASON FOR VISIT (unrecogniz ed section and content) 1 monthLab resultsBilateral Hand PainPFT resultsWELLNESSPN MEDICINE REFERRAL NOTE Care Teams (unrecognized sec tion and content) Team Status: Inactive Member Role Status Dates Bhavin Devries , DO Attending Provider Active Goals (unrecognized section and content) Goals may be documented in a n alternate section FOR RECORDS PERTAINING TO PATIENTS WHO ARE OR HAVE BEEN ENROLLED IN A CHEMICAL DEPENDENCY/SUBSTANCEABUSE PROGRAM, SOME INFORMATION MAY BE OMITTED. This clinical summary was aggregated from multiple sources. Caution should be exercised in using it in the provision of clinical care. This summary normalizes information from multiple sources, and as a consequence, information in this document may materially change the coding, format and clinical context of patient data. In addition, data may be omitted in some cases. CLINICAL DECISIONS SHOULD BE BASED ON THE PRIMARY CLINICAL RECORDS. [facility] [employer] provides no warranty or guarantee of the accuracy or completeness of information in this document.
--- NOTE | 2023-06-06 14:19 | P.CN_ITS ---
Consult Note: HPI Data of Consult Patient: known to practice within the last 3 years Consult date: 06/06/23 Requesting Physician: Issac Rucker MD Primary Care Provider: Anthony Zayas DO Consult Narrative Reason for consult: low back, bilateral leg pain Narrative: 77yom who presents for assessment. worsening pain that radiates from low back to bilateral lower extremities. imaging reviewed, multiple levels of stenosis noted, worst at l4-5. continues in >6 week course of provider directed home exercise program, with limited benefit. uses OTC meds as needed. denies adverse med side effects. cc:: CC: Issac Rucker MD Review of Systems ROS Status of ROS 10 or more systems reviewed and unremark able except as noted in history and below [facility] History History of cardioversion ?Z92.89 - Personal history of other medical treatment (ICD-10) High cholesterol ?E78.00 - Pure hypercholesterolemia, unspecified (ICD-10) Surgical History History of eye surgery ?Z98.890 - Other specified postprocedural states (ICD-10) Previous back surgery ?Z98.890 - Other specified postprocedural states (ICD-10) History of heart artery stent ?Z95.5 - Presence of coronary angioplasty implant and graft (ICD-10) History of cardiac catheterization ?Z98.890 - Other specified postprocedural states (ICD-10) Meds Home Medications and Allergies Home Medications Medication Instructions Recorded Confirmed Type acetaminophen 300 mg-codeine 30 mg 1 tab PO BID 10/22/22 02/28/23 History tablet apixaban 5 mg tablet (Eliquis) 5 mg PO BID 10/22/22 02/28/23 History aspirin 81 mg tablet,delayed 81 mg PO DAILY 10/22/22 01/31/23 History release (Adult Aspirin Regimen) atorvastatin 40 mg tablet 40 mg PO QPM 10/22/22 02/28/23 History colchicine 0.6 mg tablet 0.3 mg PO BID 10/22/22 02/28/23 History docusate sodium 50 mg capsule 50 mg PO DAILY 10/22/22 02/28/23 History (Colace Clear) furosemide 40 mg tablet 40 mg PO QAM 10/22/22 02/28/23 History losartan 100 mg tablet 100 mg PO DAILY 10/22/22 02/28/23 History sotalol 80 mg tablet 80 mg PO DAILY 10/22/22 02/28/23 History tramadol 50 mg tablet 50 mg PO DAILY PRN pain #30 tabs 05/24/23 Rx tramadol 50 mg tablet 50 mg PO DAILY PRN pain #30 tabs 05/25/23 Rx Allergies Allergy/AdvReac Type Severity Reaction Status Date / Time Penicillins Allergy Severe Hives Verified 01/31/23 11:17 Exam Narrative Exam Narrative: Psych-alert and oriented x 3. Attentive and appropriate, constitutionally normal, displays normal mood and affect per situation. There are no obvious deficits in memory, reasoning, or intellect.? Skin-no obvious rashes, bruising, erythema noted to the patient's area of pain.? Extremities- extremities are warm with minimal edema and palpable pulses. Lumbar-tenderness to palpation noted in the lumbar spine and paraspinal musculature. Pain is not elicited with flexion, extension, and lateral rotation of the lumbar spine. Range of motion is not diminished with these motions. Facet loading maneuvers are negative.? Strength-noted to be unremarkable with the exception of decreased strength rated at 4 out of 5 in bilateral quadriceps femoris, anterior tibialis. Sensory-no notable sensory deficits in the bilateral lower extremities to touch or pinprick in all dermatomal distributions with the exception to decreased sensation to the bilateral L4, 5 dermatomal distribution Coordination remains intact.? Gait remains non-antalgic. Assessment and Plan Assessment and Plan (1) Lumbar stenosis with neurogenic claudication: (2) Spondylosis of lumbar region without myelopathy or radiculopathy: Plan 77yom who presents for assessment. failed conservative measures, as noted. imaging reviewed, as noted. given symptoms and imaging findings, prudent to attempt caudal epidural steroid injection under fluoroscopic guidance. will reach out to cardiology to discuss holding eliquis for 3 days. he is in agreement. meds reviewed, no changes. follow up after procedure.
== END 2023-06-06 13:03 | disposition home or self-care (01) ==
LOC: PM 13:09
PROVIDERS: PCP Internal Medicine; Visit Provider Anesthesiology
DX: M48.062 Spinal stenosis, lumbar region with neurogenic claudication (principal); M47.816 Spondylosis without myelopathy or radiculopathy, lumbar region
CPT/HCPCS: G0463

== ENCOUNTER 2023-06-20 08:50 | Day surgery (SDC) | payer MEDICARE, SELFPAY ==
--- OUTSIDE RECORDS SUMMARY | 2023-06-20 08:54 | XMS_ITS | CCD ---
Author Name Unknown Address [address] [facility] [address] [place] [address] Organization [facility] Care Team Providers Care Diesel Mechanic Name Role Phone PHYSICIAN, DEFAULT Unavailable Unavailable PHYSICIAN, DEFAULT Unavailable Anthony Jacobs Unavailable MARQUEZ, DR AGUILAR Primary Care Unavailable BALL, DR AGUILAR Admitting Unavailable BALL, DR AGUILAR Attending Unavailable BALL, DR AGUILAR Consulting Unavailable ZIEBER, DR PRAMOD Gonzales Consulting Unavailable MARQUEZ, DR AGUILAR Primary Care Unavailable LAKSHMIPATHY ., NARENDRANDIMITRI Admitting Debi vailable LOGAN ., NARENDPETER Attending Debi vailable MARQUEZ, DR AGUILAR Primary Care Unavailable REJI WEBER Admitting Unavailable REJI WEBER Attending Unavailable MARQUEZ, DR AGUILAR Primary Care Unavailable MARQUEZ, DR AGUILAR Admitting Unavailable MARQUEZ, DR AGUILAR Attending Unavailable BALL, DR AGUILAR Consulting Unavailable MARQUEZ, DR AGUILAR Primary Care Unavailable BALL, DR AGUILAR Admitting Unavailable BALL, DR AGUILAR Attending Unavailable BALL, DR AGUILAR Consulting Unavailable NONE, XXXX Referring Unavailable Jose Dalal Attending Unavaila Jose Almanzar Admitting Unavaila Jose Almanzar Admitting Unavaila ble NONE, XXXX Referring Unavailable Jose Dalal Attending Unavaila Bhavin Foster Unavailable DO Bhavin Devries Attending Provider [phone] Anthony Zayas Primary Care Unavailable Bhavin Devries Attending Unavailable Bhavin Devries Admitting Unavailable Alka SINGH, Andrius Streeter Attending Unavailable Gieditis , Andrius Streeter Attending Unavailable Girui SINGH, Andrius Ferdinand Attending Unavailable Gieditis , Andrius Ferdinand Attending Unavailable Gieditis , Andrius Streeter Attending Unavailable Allergies Allergy Classification Reported Allergen(s) Allergy Type Date of Onset Reaction(s) Facility (3 sources) Penicillin; Translations: [penicillin] Drug Allergy [facility] Repository (6 sources) penicillAMINE Drug Allergy Unknown Index Other Medications Current Medications Medication Drug Class(es) Dates Sig (Normalized) Sig (Original) AeroChamber Mini Chamber - (1 source) Start: 05-20-2023 AeroChamber Mini Chamber - Use with MDI inhaled every 4 hours as needed for 30 days Apr, Active [id number] actuat albuterol 0.09 mg/actuat metered dose [...] Coronary arteriosclerosis; Translations: [Atherosclerotic heart disease of teller coronary artery without angina pectoris] Chronic Disorders [...] 10-31-2021 Chronic Other aftercare (1 source) Other custodial (current) drug therapy Episodic Other connective tissue [...] and due to atherosclerosis; Translations: [Atherosclerosis of teller arteries of extremities with intermittent claudication, bilateral [...] BI 3Von 04-21-2023 XR hand BI 3V [facility] Main [place] [address] [place] [address] XRay Report Signed Patient: Roly Fields MR#: [id number] 7 : 1945 Acct:[id number] Age/Sex: 77 / M ADM Date: 04/21/23 [place] [facility] Type: [facility] Attending Dr: Bhavin Devries DO Copies to: Bhavin Devries DO Ordering Provider: Bhavin Devries DO Date of Service: 04/21/23 XR/XR hand BI 3V: Pain in right hand;Pain in left hand BILATERAL HANDS - 4 views each CLINICAL DATA: Chronic worsening bilateral hand pain and decreased congressional representative strength. COMPARISON: None AP, lateral, oblique and [...] Prabha Thompson M.D.04/21/2023 3:25 PM Dictation Location: [facility]--14 Transcribed By: RUBEN 04/21/23 152 Dictated By: Prabha Thompson MD 04/21/23 152 Signed By: 04/21/23 152 [facility] Heart and Vascular Office/Cl inic Noteon 04-16-2023 Heart and Vascular Office/Clinic Note Chief Complaint 6 month follow up History of Present Illness Roly Fields is a male presents who today for a 6-month follow-up. He is accompanied by an adult female. 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 Review of [...] with voice recognition artificial intelligence software, specifically [employer], [employer] and or [employer]ct[employer]. Substitutions may have occurred with voice recognition and artificial intelligence software. ATTESTATION: Documentation services were performed after patient or guardian consented to allow [employer] [employer] to record this visit. RACHEL community education specialist and provider reviewed before signing. RACHEL: [...] Household tobacco nida (more content not included)... [facility] Comment on above: Result Comment: Elec tronically Signed By: Mulugeta SINGH, Jose Stanley\.br\Date and Time Signed: 04/16/23 11:49 EST\.br\Electronically Co-Signed By: Nellie Early\.br\Date and Time Co-Signed: 02/11/23 17:34 EDT Consent for Treatmenton 01-22 Consent for Treatment [id number] .00CD:127 [facility] Physician Orderon 02-11-2023 Physician Order [id number]#1. 00CD:127 [facility] Reminderson 01-03-2023 Reminders - From: Lorraine Ross To: HV - Clinical; Sent: 08/02/2022 09:06:40 EDT Show up: 01/02/2023 09:06:00 EDT Subject: 6 month f/u Due Date/Time: 02/02/2023 09:06:00 EDT Reminder/Recall 6 month f/u w/ Dr. YEUNG From: Selene Cho (HV - Clinical) To: HV - Clinical; Sent: 01/03/2023 14:06:26 EDT Show up: 01/03/2023 14:06:00 EDT Subject: RE: 6 month f/u scheduled 02/11 [facility] Outside Recordson 12-10-2022 Outside Records [id number]# 1.00CD:127 [facility] September 06, 2022 Re: Roly Fields : 1945 The above patient has discontinued his clopidogrel. He remains on aspirin and apixaban. He should continue these medications for upcoming dental procedure. Please call with any further questions. Becky GUERRIER [facility] Heart and Vascular Clinic [facility] Coding Summary.on 08-09-2022 Coding Summary. CD:[id number] G h0bWw+PGhlYWQ+LF7ELFE eF40ziVVqpB2hG3MNZVxT SywgQVBQTElOSyIgbmFtZ M8mfOWcMSEo IC8+WJ6gOLFyLtfbaFRkz 5P0uVO7E72qkh1sOJfdpW Y4GRKlEsFtxgwhx0vpvMw 6IDcuNmluOyBt EKWwsU46FUM9cE31Cj37j LCrhPMjv0pveXj3EgTmNJ TqOAD9uFwgSNfqk5ScJSZ fN56zhKSzs7R4 IGGehFydiGRmFnZwmJB5z K3bUFmqrgxvq2xhfdrkMa j9yt60vCSpj9V5bXR0N6E kebW8UBThsGRu EzhqlUPRsD2pwjrmq8rde forUfTnWXMtMUg2PLt0GP UioHbqSjTnWO01FBV2HAK mwvXtH5PpMTEa nQrvUvL3a1B1Jy9RR3OGH apoE9IELKVIBIzfqKJ+PC 70nt91U6FhPezbUnc9LSI uRZD8rMA9wJ6q ZZXgPNfhd5L2jBY3G8Get kCled7fp2mkIODrBHfzM0 5uwWEes1V1YEKpkYD0TLJ qwDsvXgKwyK07 Oyc+SJImvAvtl0UoExcjv 6zod0fgqUm9FfmqMLBylu ThsAgwQDQ1s2MeXz1qCFG glJU7eMC8aL0s CoIbToW4CJsuI480NmDxa QYyUivvZ31jL4OilXM+PH NaJyo0PQDkzCmhXP1eQ4T hZGRpbmctbGVm eYmnKK2sREBpceiyNZBqs F9aWVAsK4b2MlZzFgJ0ZX hpJ7XqRLPmztepTr71gM3 xXdTnGxN7IAwf F8BqqqD5AIZftWZtPSnzX DB2E65eu4Y5OVRbTEVxTQ J7jMR5tY2vmDvgsnvzyMR mdDsgdmVydGlj LUnkXNuzO088SLQloLlpU kNvZGluZyBEYXRlOiAgMD MvMjAvMjAyMzwvdGQ+PHR kZHI1oFjqEEPs vEGeBStoNh0hkUeuoCyxB C8qMWEqpgujKLRdmL1rYZ XflAYfeCibXM7xAXTcadb dr583BfAgILU7 QPDgeBEsS1VnbG2dGqTuN RXiYMXlM4HecOClIOgfJ1 78BHziBdR7XYJelmImS1F sLWFsaWduOiB0 w9R7Wb1Pb0DkudnlC8Unp CQpDwVpJaogCTa5N6TkZn wvdHI+NP04ZOXiXX03QLo 2VKP6nNrvFLzc FIVxT7BgoR0dJzEpLDRkQ GRkOyc+PHRhYmxlIHdpZH RoPScxMDAlJyBzdHlsZT0 vRc4nWWHkOSAx tMkpdAOfTjAer3faQMXoC EdzWH6hcFldS4ZtbBB5CN Oxi3n9Mu13G94oZ2QsrPE +RLSmkFO2fQY7 iF3hWsFlWsV4CSwjI208N tTbtBMdCppsf1jkr4ziaG s9KiA5SYYjkxQxlNwmNVG 3d9CxPt64H01i IHdpZHRoPSIxNSUiIHZhb Tugxr6ygV5qEd2+PGNvbC D6oFE8pE0oLbIqTqL2DDz iN853NoIqvTYc Oudpy1yna2kwzNd8ZmLaZ KEjzeYwuBuoKIR0i2LvWn 50H1MajTchx8JhZlp5kl8 8kIVnd5A4jQL5 B8EhVASubarvrREfhAscD B7hFHHjqkjyKZThoZ5rGZ MqG0e1WhQmHuY0TMuoP4Y vbvJ9ZAKlyGWx PRDnlLKZpR8rcfowu0rvw hxoAcBcEWLjHUr6UFb2BO AzjIovPpJfLRV8BeE6DNH 8vNPdgC0ulEyo gfrmhL3bWnb+VTB5uJPsj TGJLZ1lJysgjWO+PHRkIH D7lBliGFqfPGRrhB5kMUM mP7w2NiEtSuW3 ZDzaE7XszjC8CDRldEYqI IQsmYCSbA5hnycem1pwat ueOgBsZOGkCZb9IMt8UQH saWduOiBsZWZ0 TdV9CAF1qLWbxG6czLhjj czanG9kSgf+QmlydGggRG J9YSy8Y7YsTnm5HFXpyCj iOX8kpXStLZxd Im3gsNzlgJlyDG7kIOImd bvib960ZoVin7sfVWIlyX PkKQvsOQI9V87ed8M3FOT eDWUnFQQ7qTL4 eJ4rfJotsuegpYYkwRnvh kQymWrzQPosIVdtN613TT WcxUknAfJcBXt8I9GdMwy 8FMFraDwuUG7a aQZkNNvjUl7rgNsqyNoyT U2dWEWblxzat451VlUci2 xoFPFqnUExFIfiRWV8L16 ox3P6YRUtJIQe DFF2hMD6jT7pjUbgvhzpg GVmdDsgdmVydGljYWwtYW xaG941MZAtcTkoOiAulMe 4M3TcKxy7XPRp fVcsIR4vcPEqGRotKa2yh QzmhGxlBX3yHOSsoqpku9 44ArDhy6qwFFQirNFjVIi zZHY1Q04zt2H3 FGSkCJAxWFK4hQI2jJ5de GlnbjogbGVmdDsgdmVydG ujKOalWQupX775TTPfnZl nPlBhdGllbnQg ROklMRx8A5OsJbpnuGW+P O89UHMzRI30gGUusCEue1 serFz8EgQzIJJwVQY0xNw rWNnpo3ImZPGe M27efLQms4Z9XKOavTivd XYrDzAvrGV1lU8xLHwarx xdz5rryjtzFtgsv8uujs7 5vD43D17iABxg ZHRoPSIzMCUiIHZhbGlnb x0iaN3sVq0+LAHoaSM7rQ B1fK8jXNGvHxB3VJkhU48 9InRvcCIvPjxj w3quc9qwsJf8SmN4GCGdo vNvfCkmXRA0d2KaEg71V9 9sIHdpZHRoPSIyMCUiIHZ onBtskq7lxQ1l Ii8+LVJlwQR4rPE9iX1eE xWwSnM5FUuwE472IpSotV BkMeqgC01oR5WvxAB+PHR nCks1MXCctVcz XZ3htPIsZBkgYc3xTDO9G eBoIoMsTCduZ2PiMBChth cjphiyvPH9HAQnOKZsnU1 3Ko0nfNklOOPr aRVJpF2duikmp4qirxvxK cPnIRXpQYj2MXs1EHPuqF ntDbIhSFQ3CyG1BYO9kYQ ouF4yoMworxbd dG9oJ1OvALRufvqsDa04t P8rKfEuSyX2WWjlQhk+TE JZT60EBFewFV5KPEX9I7X nNqj1BWWnoGlv BH3bnLYhYLkjPy7vlQwfz TxaAK1fMOCzorcaYWFrdX 3aZIGxvLItmYsvOE5wIVN vnajui207DdZu EDO9QJJsnPAmL4YyoY8dI fFjQVFgHFZoU5QcgZNjYH wrA167CLuwPkH5OQVcawE kV2ZdMXGidQcb QhJ8o7W2Sc8zKe4yTr0hK GT4IS54TE96xBBoz0H9fZ N5Y2ByVLSsklwlqggbxMB 9DYHnOSTmxF05 rXHoKRuhBx7jv0A9p525Z LTyPAYwzV17Hk9wpUjuWV IdgVBClS9nchxbz9ukufd gIzAwMDAwMDt0 VFr3LCOsbPdoFeBsINY5B kJ1TYU8lQJhrI9yyTbjid ewyJ0aIrc+NzYgWWVhcnM 6Z6OxUfy2MADn sRzfFN5czXZfJPmcYa1of LdgzWtvGO2tKZLvsnrgBP WmdY3zMNClrOAawIepCN5 tUONuuhzdg565 WyTnYTZ6TQFqvQIsF0Fwi O7kSoMgLWAlAJIpS5VyiT OoZMbqX002FRiqAzU8NWO jcsTrG7XkUNWb wEkdZxF8m4H7Ht7ZMPprR I20LU13dRWeb1N7kYW1R4 PkUZLdxnxpuiprxRY0FOB hHPWyxD39kZJz VGgyTq9pl9D5s521FDBhB PHjhM57Ln2tzDsgOIIiuZ QCiU7najbqq2dpbpxoAvK oKKAySHh5BAf6 TUMjrGwcRgMrNSF9YpK2Y VI6sSMkeJ5mjMdqgjbwgL 9wOyc+Y7L8wWD9xRJhfNo vdGQ+XY53ld26 L5QnGsxsSbp0GATbDFW6p SS1gA1qHEJxEUlyo6Q2tX Z5H3QepjHhue9gq9kzYEA cDKtxK86idQJb e7C0FPQkxDW9WKYmfMmvN cKwqL84Cbp+PGNvbGdyb3 IgLlzec8ill8dtmBd0NoS wJSIgdmFsaWdu QXZ4x3VwPs41K45yOIfrO HRoPSIzMCUiIHZhbGlnbj 1hqT4wCa7+IOQktPT5hLG 5hQ0lDqZkDnY9 WReuX808KbTpeTDkLypmn 3nur7mmbEp1ZoHrFQWhuv IypTfiPID2o5IhMb73B6T kkGroi1TsFjy4 rd02nOCro5X2mXA3A1OaM WIhsuwjjYVbaAgmVQ0bQM WwsdtkNLYpiZ3kEOYeY4k 2GoYpEuJ1IJom G0OpbyD9WOGwqPOaAUEof CAZoX9tjvlga5ulkcevEh UbQJSvTZh4ZIz0EOIjuHc qYdDtTKE9BoJ2 FJK8jZLzdW1tfGrgznnbn G9wOyc+YVn8z5lhiOClLH 7npAU5OX77NI76uTApu4S 5nNX4S8RoDMUe srbjsnsfdLU9BEVpFORiy Q38Me4hrHgiJb0vLVHyHI M7JLZsnSXcV4RtjS5kIiP dBWKyNMPzV6Ap pJJnFSqmE325GWqqIjG0T CQuwbXdC6LeQZVydPsbGx L4t0H9Eg5CKF70HX99OP2 7hJEnj3J3eZU6 Y7CeEFGzcixhhyjcvMH5E DMyTNPkwT87Qj7gnLxoSg 7xLKWqPDS2QAYigAYmE3E ltH6vRoXeQESk QHOpI5VtuJKrFVwcM450K ChwPqF2IHFzswWbS7EjWT CjwMemJjP9k7Z2Yg0TCd9 6SI07QI07iDBi b9M0wZW2M0LlRDNmctciz hdnhNX5OAJdLSFtbL98Qh 1dsCuyJb2sCCTmIOC8VZZ yuSSaK1NtuN8k XeGcLVBwGGDfQ0JujLUbL BweK670DFacOcX8NWArcu SlI8CgCBDsoIxlLgR3n8J 1Oy8NWIkkwho1 A7OmMnahkGH+DI06ROZzZ M88aDXwiYKrh4qteKw1Ey RwGFOlTMQ9hPrpPKddj3O cTKWjF12daREa c2U6 (more content not included)... Normal [facility] Physician Orderon 08-02-2022 Physician Order [id number]# 1.00CD:127 Normal [facility] Heart and Vascular Office/Cl inic Noteon 07-31-2022 Heart and Vascular Office/Clinic Note Chief Complaint 6 month f/u History of Present Illness Roly Fields presents today for a follow-up evaluation. He [...] 81 mg daily. 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 ATTESTATION: Documentation services were performed after patient or guardian consented to allow Samir Aramis Aaron to record this visit. RACHEL community education specialist and provider reviewed before signing. RACHEL: [...] (COVID-19) mRNA BNT-162b2 vax 07/21/2020 Recorded Normal [facility] Comment on above: Result Comment: Elec tronically Signed By: Mulugeta SINGH, Jose Stanley\.br\Date and Time Signed: 07/31/22 21:16 EST\.br\Electronically Co-Signed By: Patsy Guo\.br\Date and Time Co-Signed: 07/30/22 17:51 EST Consent for Treatmenton 07-21 Consent for Treatment [id number] .00CD:127 Normal [facility] PROF CHEM 8 (BAS METB)on Anion gap [Moles/Vol] 11.0 mmol/L Normal [facility] Comment on above: Performed By: #### B MP #### [facility] [address] [address] [address] Milka Castaneda Calcium [Mass/Vol] 8.9 mg/dL Normal 8.5-10.1 [facility] Comment on above: Performed By: #### B MP #### [facility] [address] [address] [address] Milka Castaneda Chloride [Moles/Vol] 99 mmol/L Normal 98-107 [facility] Comment on above: Performed By: #### B MP #### [facility] [address] [address] [address] Milka Castaneda CO2 [Moles/Vol] 32.0 mmol/L Normal 21.0-32.0 [facility] Comment on above: Performed By: #### B MP #### [facility] [address] [address] [address] Milka Castaneda Creatinine [Mass/Vol] 2.19 mg/dL Critically high 0.70-1.30 [facility] Comment on above: Performed By: #### B MP #### [facility] [address] [address] [address] Milka Castaneda EGFR-AF MALAWIAN 36 mL/min/1.73m2 Critically low >=60 [facility] Comment on above: Performed By: #### B MP #### [facility] [address] [address] [address] Milka Castaneda EGFR-NON AF MALAWIAN 29 mL/min/1.73m2 Critically low >=60 [facility] Comment on above: Performed By: #### B MP #### [facility] [address] [address] [address] Milka Castaneda Glucose [Mass/Vol] 94 mg/dL Normal 74-106 [facility] Comment on above: Performed By: #### B MP #### [facility] [address] [address] [address] Milka Castaneda Potassium [Moles/Vol] 5.0 mmol/L Normal 3.5-5.1 [facility] Comment on above: Performed By: #### B MP #### [facility] [address] [address] [address] Milka Castaneda Sodium [Moles/Vol] 137 mmol/L Normal 136-145 [facility] Comment on above: Performed By: #### B MP #### [facility] [address] [address] [address] Milka Castaneda Urea nitrogen [Mass/Vol] 32.0 mg/dL Critically high 7.0-18.0 [facility] Comment on above: Performed By: #### B MP #### [facility] [address] [place] [address] Dr. Milka Castaneda Urea nitrogen/Creatinin e [Mass ratio] 14.6 mg/mg Normal [facility] Comment on above: Performed By: #### B MP #### [facility] [address] [place] [address] Dr. Mlika Castaneda [facility] April 23, 2022 Re: Roly Fields : 1945 To Whom It May Concern The above patient is on clopidogrel and apixaban for his coronary artery disease with recent PCI and atrial fibrillation. We recommend this therapy to be uninterrupted for one year post stent placement (July 2021). Extraction while on these medications is at surgeon's discretion. Becky GUERRIER [facility] Heart [facility] Vascular Clinic Normal [facility] CBC AUTO DIFFon 02-03-2022 BASO # 0.1 103/ul Normal 0.0-0.1 [facility] Comment on above: Performed By: #### C BC #### [facility] [address] [place] [address] Dr. Milka Castaneda Basophils/100 WBC (Bld) 0.6 % Normal 0.2-2.0 [facility] Comment on above: Performed By: #### C BC #### [facility] [address] [place] [address] Dr. Milka Castaneda EO # 0.5 103/ul Normal 0.0-0.7 [facility] Comment on above: Performed By: #### C BC #### [facility] [address] [place], [place] [id number] Dr. Milka Castaneda Eosinophils/100 WBC (Bld) 5.8 % Normal 0.9-7.0 [facility] Comment on above: Performed By: #### C BC #### [facility] [address] [place] [address] Dr. Milka Castaneda Erythrocyte distribution width (RBC) [Ratio] 13.2 % Normal 11.0-15.0 [facility] Comment on above: Performed By: #### C BC #### [facility] [address] [place] [address] Dr. Milka Castaneda Hematocrit (Bld) [Volume fraction] 44.2 % Normal 42.0-54.0 [facility] Comment on above: Performed By: #### C BC #### [facility] [address] [place] [address] Dr. Milka Castaneda Hemoglobin (Bld) [Mass/Vol] 14.3 g/dL Normal 14.0-18.0 [facility] Comment on above: Performed By: #### C BC #### [facility] [address] [place] [address] Dr. Milka Castaneda IG # 0.02 10e3/ul Normal 0.00-0.03 [facility] Comment on above: Performed By: #### C BC #### [facility] [address] [place] [address] Dr. Milka Castaneda IG % 0.2 % Normal 0.0-0.5 [facility] Comment on above: Performed By: #### C BC #### [facility] [address] [place] [address] Dr. Milka Castaneda LYMPH # 1.7 103/ul Normal 1.2-3.8 [facility] Comment on above: Performed By: #### C BC #### [facility] [address] [place] [address] Dr. Milka Castaneda Lymphocytes/100 WBC (Bld) 20.5 % Normal 20.5-60.0 [facility] Comment on above: Performed By: #### C BC #### [facility] [address] [place] [address] Dr. Milka Castaneda MANUAL DIFF REQ NO Normal [facility] Comment on above: Performed By: #### C BC #### [facility] [address] [place] [address] Dr. Milka Castaneda MCH (RBC) [Entitic mass] 31.7 pg Normal 25.9-34.0 [facility] Comment on above: Performed By: #### C BC #### [facility] [address] [address] [address] Milka Castaneda MCHC (RBC) [Mass/Vol] 32.4 g/dL Normal 29.9-35.2 [facility] Comment on above: Performed By: #### C BC #### [facility] [address] [address] [address] Milka Castaneda MCV (RBC) [Entitic vol] 98.0 fL Critically high 80.0-94.0 [facility] Comment on above: Performed By: #### C BC #### [facility] [address] [address] [address] Milka Castaneda MONO # 1.1 103/ul Critically high 0.3-0.8 [facility] Comment on above: Performed By: #### C BC #### [facility] [address] [place] [address] Dr. Milka Castaneda Monocytes/100 WBC (Bld) 12.7 % Critically high 1.7-12.0 [facility] Comment on above: Performed By: #### C BC #### [facility] [address] [place] [address] Dr. Milka Castaneda NEUT # 5.1 103/ul Normal 1.4-6.5 [facility] Comment on above: Performed By: #### C BC #### [facility] [address] [place] [address] Dr. Milka Castaneda Neutrophils/100 WBC (Bld) 60.2 % Normal 43.0-75.0 [facility] Comment on above: Performed By: #### C BC #### [facility] [address] [address] [address] Milka Castaneda Platelet mean volume (Bld) [Entitic vol] 9.5 fL Normal 9.5-13.5 [facility] Comment on above: Performed By: #### C BC #### [facility] [address] [place] [address] Dr. Milka Castaneda PLT 160 103/ul Normal 150-450 [facility] Comment on above: Performed By: #### C BC #### [facility] [address] [address] [address] Milka Castaneda RBC 4.51 106/ul Critically low 4.70-6.10 [facility] Comment on above: Performed By: #### C BC #### [facility] [address] [address] [address] Milka Castaneda WBC 8.4 103/ul Normal 4.0-11.0 [facility] Comment on above: Performed By: #### C BC #### [facility] [address] [address] [address] Milka Castaneda DIRECT LDLon 02-03-2022 Cholesterol in LDL [Mass/Vol] 82 mg/dL Normal [facility] Comment on above: Performed By: #### D LDL, BMP #### [facility] [address] [place] [address] Dr. Milka Castaneda DLDL NORMAL SEE BELOW Normal [facility] Comment on above: Result Comment: <100 mg/dl OPTIMAL 100 - 129 mg/dl NEAR OR ABOVE OPTIMAL 130 - 159 mg/dl BORDERLINE HIGH 160 - 189 mg/dl HIGH >190 mg/dl VERY HIGH Performed By: #### D LDL, BMP #### [facility] [address] [place] [address] Dr. Milka Castaneda PROF CHEM 8 (BAS METB)on Anion gap [Moles/Vol] 13.1 mmol/L Normal [facility] Comment on above: Performed By: #### D LDL, BMP #### [facility] [address] [place] [address] Dr. Milka Castaneda Calcium [Mass/Vol] 9.3 mg/dL Normal 8.5-10.1 [facility] Comment on above: Performed By: #### D LDL, BMP #### [facility] [address] [place] [address] Dr. Milka Castaneda Chloride [Moles/Vol] 102 mmol/L Normal 98-107 [facility] Comment on above: Performed By: #### D LDL, BMP #### [facility] [address] [place] [address] Dr. Milka Castaneda CO2 [Moles/Vol] 29.5 mmol/L Normal 21.0-32.0 [facility] Comment on above: Performed By: #### D LDL, BMP #### [facility] [address] [address] [address] Milka Castaneda Creatinine [Mass/Vol] 1.94 mg/dL Critically high 0.70-1.30 [facility] Comment on above: Performed By: #### D LDL, BMP #### [facility] [address] [address] [address] Milka Castaneda EGFR-AF MALAWIAN 41 mL/min/1.73m2 Critically low >=60 [facility] Comment on above: Performed By: #### D LDL, BMP #### [facility] [address] [address] [address] Milka Castaneda EGFR-NON AF MALAWIAN 34 mL/min/1.73m2 Critically low >=60 [facility] Comment on above: Performed By: #### D LDL, BMP #### [facility] [address] [address] [address] Milka Castaneda Glucose [Mass/Vol] 91 mg/dL Normal 74-106 [facility] Comment on above: Performed By: #### D LDL, BMP #### [facility] [address] [address] [address] Milka Castaneda Potassium [Moles/Vol] 4.6 mmol/L Normal 3.5-5.1 [facility] Comment on above: Performed By: #### D LDL, BMP #### [facility] [address] [address] [address] Milka Castaneda Sodium [Moles/Vol] 140 mmol/L Normal 136-145 [facility] Comment on above: Performed By: #### D LDL, BMP #### [facility] [address] [address] [address] Milka Castaneda Urea nitrogen [Mass/Vol] 30.0 mg/dL Critically high 7.0-18.0 [facility] Comment on above: Performed By: #### D LDL, BMP #### [facility] [address] [address] [address] Milka Castaneda Urea nitrogen/Creatinin e [Mass ratio] 15.5 mg/mg Normal [facility] Comment on above: Performed By: #### D LDL, BMP #### [facility] [address] [address] [address] Milka Castaneda CREATININEon 10-07-2021 Creatinine [Mass/Vol] 1.67 mg/dL Critically high 0.70-1.30 [facility] Comment on above: Performed By: #### C OMI #### [facility] [address] [address] [address] Milka Castaneda EGFR-AF MALAWIAN 49 mL/min/1.73m2 Critically low >=60 [facility] Comment on above: Performed By: #### C OMI #### [facility] [address] [place] [address] Dr. Milka Castaneda EGFR-NON AF MALAWIAN 40 mL/min/1.73m2 Critically low >=60 [facility] Comment on above: Performed By: #### C OMI #### [facility] [address] [place] [address] ABDOMEN WO/W CONon [...] by: PRAMOD PEDROZA Date: 2021-10-07 09:58 Normal [facility] Vital Signs Date Time Vital Sign Value Performing Clinician Facility 05-20-2023 11:00-0500 Body height 165.1 cm [facility] Other [facility] Other 05-20-2023 11:00-0500 Body mass index (BMI) [Ratio] 39.43 kg/m2 [facility] Other [facility] Other 05-20-2023 11:00-0500 Body weight 107.5 kg Anthony [facility] Other Index Other 05-20-2023 11:00-0500 Diastolic blood pressure 89 mm[Hg] Anthony [facility] Other Index Other 05-20-2023 11:00-0500 Respiratory rate 20 /min [facility] Other Index Other 05-20-2023 11:00-0500 Systolic blood pressure 183 mm[Hg] [facility] Other Index Other 04-21-2023 11:15-0500 Body height 165.1 cm Bhavin Devries Other Index Other 04-21-2023 11:15-0500 Body mass index (BMI) [Ratio] 39.6 kg/m2 Bhavin Devries Other Index Other 04-21-2023 11:15-0500 Body weight 107.96 kg Bhavin Devries Other [facility] Other 04-12-2023 14:30-0500 Body height 165.1 cm [facility] Other [facility] Other 04-12-2023 14:30-0500 Body mass index (BMI) [Ratio] 39.6 kg/m2 [facility] Other [facility] Other 04-12-2023 14:30-0500 Body weight 107.96 kg Anthony [facility] Other [facility] Other 04-12-2023 14:30-0500 Diastolic blood pressure 81 mm[Hg] [facility] Other [facility] Other 04-12-2023 14:30-0500 Respiratory rate 12 /min [facility] Other [facility] Other 04-12-2023 14:30-0500 Systolic blood pressure 151 mm[Hg] [facility] Other [facility] Other 07-29-2022 11:00-0500 Body height 165.1 cm Anthony [facility] Other [facility] Other 07-29-2022 11:00-0500 Body mass index (BMI) [Ratio] 40.17 kg/m2 [facility] Other [facility] Other 07-29-2022 11:00-0500 Body weight 109.5 kg Anthony [facility] Other [facility] Other 07-29-2022 11:00-0500 Diastolic blood pressure 70 mm[Hg] Anthony [facility] Other Index Other 07-29-2022 11:00-0500 Respiratory rate 12 /min Anthony [facility] Other Index Other 07-29-2022 11:00-0500 Systolic blood pressure 118 mm[Hg] Anthony Zayas Other Index Other Encounters Encounter Date Encounter Type Care Provider Facility Start: 06-06-2023 End: 06-07-2023 ambulatory Issac Rucker MD Facility:[facility] Start: 05-20-2023 End: 05-20-2023 ambulatory Anthony Zayas Other [facility] Other Start: 05-20-2023 Office outpatient visit 25 minutes Anthony Zayas [facility] Start: 04-25-2023 End: 04-25-2023 ambulatory Anthony Zayas Other Index Other Start: 04-25-2023 Telephone encounter Anthony Zayas [facility] Start: 04-21-2023 Office outpatient ne w 45 minutes Bhavin Devries [facility] Start: 04-21-2023 End: 04-21-2023 ambulatory Anthony Zayas [facility] Other Start: 04-21-2023 End: 04-21-2023 Patient encounter procedure DO Bhavin Devries Work Phone: [facility] Start: 04-18-2023 End: 04-18-2023 ambulatory Anthony Zayas Other Index Other Start: 04-18-2023 Telephone encounter Anthony [facility] Start: 04-12-2023 End: 04-12-2023 ambulatory Anthony Zayas Other Index Other Start: 04-12-2023 Patient encounter procedure Anthony Zayas [facility] Start: 04-12-2023 Telephone encounter Anthony [facility] Start: 02-28-2023 End: 03-01-2023 ambulatory Issac Rucker MD Facility:[facility] Start: 02-11-2023 End: 02-12-2023 ambulatory Jose Dalal Facility:[facility] Start: 01-31-2023 End: 02-01-2023 ambulatory Issac Rucker MD Facility:[facility] Start: 01-04-2023 End: 01-05-2023 ambulatory Issac Rucker MD Facility:[facility] Start: 11-29-2022 End: 11-29-2022 ambulatory Anthony Zayas Other Index Other Start: 11-29-2022 Telephone encounter [facility] Start: 11-24-2022 End: 11-24-2022 ambulatory Anthony Zayas Other Index Other Start: 11-24-2022 Telephone encounter [facility] Start: 10-08-2022 End: 10-09-[address] ANTHONY ZAYAS Facility:[facility] Start: 08-31-2022 End: 08-31-2022 ambulatory Anthony Zayas Other Index Other Start: 08-31-2022 Telephone encounter Anthony [facility] [employer] Start: 08-03-2022 End: 08-03-2022 ambulatory Anthony Zayas Other Index Other Start: 08-03-2022 Telephone encounter [facility] Start: 07-30-2022 End: 07-31-2022 ambulatory XXXX NONE Facility:[facility] Start: 07-29-2022 End: 07-29-2022 ambulatory Anthony Zayas Other Index Other Start: 07-29-2022 Office outpatient visit 25 minutes Anthony Zayas [facility] Start: 05-05-2022 End: 05-06-[address] ANTHONY ZAYAS Facility:[facility] Start: 02-03-2022 End: 02-04-[address] ANTHONY ZAYAS Facility:[facility] Start: 10-23-2021 End: 10-24-[address] ANTHONY ZAYAS Facility:[facility] Start: 10-07-2021 End: 10-08-[address] ANTHONY ZAYAS Facility:[facility] Start: 10-28-2016 End: 10-29-2016 Ambulatory DEFAULT PHYSICIAN Facility:[facility] Procedures Date Procedure Procedure Detail Performing Clinician Start: 04-21-2023 Plain X-ray of bilat eral hands DO Bhavin Devries Work Phone: Start: 02-03-[address] ELYSSA ZAYAS Comment on above: Performed By: #### P [facility] #### [facility] [address] [place] [address] Dr. Milka Castaneda Immunizations Immunization Date Immunization Notes Care Provider [facility] 03-05-2023 influenza, high dose seasonal, preservative-free Anthony Zayas Other Index Other 02-03-2022 influenza virus vaccine, split virus (incl. purified surface antigen) Anthony Zayas Other Index Other 01-29-2021 influenza virus vaccine, split virus (incl. purified surface antigen) Anthony Zayas Other Index Other 01-29-2020 influenza virus vaccine, split virus (incl. purified surface antigen) Anthony Zayas Other Index Other 04-16-2019 zoster vaccine, live Deepak Zayas Other Index Other 10-18-2017 diphtheria, tetanus toxoids and acellular pertussis vaccine, unspecified formulation Anthony Zayas Other Index Other 10-15-2016 pneumococcal conjuga te vaccine, 13 valent Anthony Zayas Other Index Other 03-03-2016 influenza virus vaccine, split virus (incl. purified surface antigen) Anthony Zayas Other Index Other 03-12-2013 pneumococcal polysaccharide vaccine, 23 valent Anthony Zayas Other Index Other 03-12-2013 tetanus and diphther ia toxoids, adsorbed, preservative free, for adult use (5 Lf of tetanus toxoid and 2 Lf of diphtheria toxoid) Anthony Zayas Other Index Other Payers Date Payer Category Payer Private Health Insurance [facility] [id number] 2023 Self-pay 2022 Private Health Insurance 1959 Medicare [id number] 1945 Unknown [id number] [id number] 3 1945 Unknown [id number] [id number] 3 1945 Unknown [id number] 2.16.840.1.787329.3.579.2.59 3 1945 Unknown [id number] 2.16.840.1.610747.3.579.2.59 3 1945 Unknown [id number] 2.16.840.1.077946.3.579.2.59 3 1945 Unknown [id number] 2.16.840.1.025935.3.579.2.72 7 1945 Unknown [id number] 2.16.840.1.306562.3.579.2.72 7 1945 Unknown [id number] 2.16.840.1.424131.3.579.2.19 6 1945 Unknown [id number] 2.16.840.1.256358.3.579.2.19 6 1945 Unknown [id number] 2.16.840.1.662342.3.579.2.19 6 1945 Unknown [id number] 2.16.840.1.838720.3.579.2.19 6 1945 Unknown [id number] 2.16.840.1.323921.3.579.2.19 6 Private Health Insurance [employer] N on Pt [id number] Unknown Unknown [id number] [id number] 1 Social History Date Type Detail Facility Sex Assigned At Index Other Start: 1945 Sex Assigned At Male F [facility] Clinical Notes 07-29-2022 to 05-20-2023 Note Date & Type Note Facility 05-20-2023 Evaluation note Encounter Date Diagnosis Assessment Notes Apr, Paroxysmal atrial fibrillation (ICD-10 - I48.0) This patient is in NSR. This patient is anticoagulated to prevent thromboembolic events. 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 No bleeding complications Apr, ASHD (arteriosclerotic heart [...] component. Hx of inhaled fumes (paint from [employer]) Trial of Advair unsuccessful in [...] since last OV. 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 Mar, ASHD (arteriosclerotic heart disease) (ICD-10 - [...] (ICD-10 - Z79.899) Check labs: ALT, CBC Index Other 03-14-2023 Evaluation note* Encounter Date Diagnosis Assessment Notes Treatment Notes Treatment Clinical Notes Jul, History of gout (ICD-10 - Z87.39) Index Other 03-09-2023 Evaluation note* Encounter Date Diagnosis Assessment Notes Treatment Notes Treatment Clinical Notes Jul, Paroxysmal atrial fibrillation (ICD-10 - I48.0) This patient is in NSR or rate controlled. This patient is anticoagulated to prevent thromboembolic events. 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 Jul, ASHD (arteriosclerot ic heart disease) (ICD-10 [...] responds to one Colchicine dose (unlikely gout) Index Other Evaluation noteNo InformationNort [place] Other Evaluation noteNo assessment information available [facility] Work Phone: History general Narrative - Reported* [...] History COLONOSCOPY Hospitalization History SEE SURGICAL HX Index Other Reason for referral (narrative)* Reason *FU 08/16 Referral for left knee pain Diagnosis 1 Primary osteoarthrit is of left knee (M17.12) Referral Organization [facility] Marquez jay Referring Provider First Name Anthony Referring Provider Last Name Marquez Referring Provider Specialty Internal Me dicine Referred Organization [facility] Referred Provider Pietro Gale Referred Address [address] [place], [place],[address] Referred Provider Specialty Pain Medicin e Referral Priority Routine General Notes Briana Moreno 01:15:17 PM >received today, notes locked, attachments made, referral faxed Briana Moreno 08/09/2022 11:58:58 AM >FAXED FIRST ATTEMPT LETTER Clinical Notes F: [phone] Index Other Reason for visit Narrativeknee pain after referral, discussion about next stepsNort Corindus Other Summary Purpose Family History No Family [...] section and content) DATE CREATED AUTHOR 11/16/2017 [facility] DATE CREATED AUTHOR AUTHOR'S ORGANIZ ATION 09/29/2022 [facility] DATE CREATED AUTHOR AUTHOR'S ORGANIZ ATION 04/17/2023 [facility] DATE CREATED AUTHOR AUTHOR'S ORGANIZ ATION 04/26/2023 [facility] DATE CREATED AUTHOR AUTHOR'S ORGANIZ ATION 06/15/2023 [facility] REASON FOR VISIT (unrecogniz ed section and content) 1 monthLab resultsBilateral Hand PainPFT resultsWELLNESSPN MEDICINE REFERRAL NOTE Care Teams (unrecognized sec tion and content) Team Status: Inactive Member Role Status Dates Bhavin Devries , Attending Provider Active Goals (unrecognized section and [...] BE BASED ON THE PRIMARY CLINICAL RECORDS. [employer] provides no warranty or guarantee of the accuracy or completeness of information in this document.
[2023-06-20 09:31] VITALS: BP 119/87; PULSE 108; RESP 16; TEMP 36.2; O2SAT 97
[2023-06-20] MEDS: BUPIVACAINE HCL 0.25% PF 25 MG/10 ML VIAL 2 ML INJ (10:12)
[2023-06-20] MEDS: 0.9 % SODIUM CHLORIDE 10 ML SYRINGE - SALINE FLUSH 7 ML INJ (10:12)
[2023-06-20] MEDS: TRIAMCINOLONE ACETONIDE 40 MG/ML VIAL 80 MG INJ (10:12)
[2023-06-20] MEDS: LIDOCAINE HCL 2% PF 100 MG/5 ML VIAL 6 ML INJ (10:12)
[2023-06-20] MEDS: IOHEXOL 240 MG/ML - 10 ML VIAL IV (10:12)
[2023-06-20 10:24] VITALS: BP 161/85; PULSE 107; PULSE 115; RESP 18; O2SAT 94; O2SAT 95
--- NOTE | 2023-06-20 10:29 | W.PM.PROCNOT ---
Date of procedure: 06/20/23 Pre-op diagnosis: Lumbar stenosis with neurogenic claudication Post-op diagnosis: same as pre-op Procedure: Procedure: L5-S1 interlaminar epidural steroid injection Medications: Bupivacaine 0.25% 2cc, normal saline 0.9% 1cc, lidocaine 1% 1cc, kenalog 80mg After informed consent was obtained, the patient was brought to the medical procedure unit and placed in the prone position.? The skin overlying the area was prepped and draped in standard sterile fashion using alcohol, after which a 25-gauge needle was used to raise a skin wheal with 2% lidocaine over the appropriately designated interspace identified under fluoroscopy.? Subsequently a 17-gauge Tuohy needle was inserted through anesthetized area and directed toward the above interspace under fluoroscopic guidance, which was identified with loss of resistance technique to air.? Needle tip placement was confirmed by injection of Omnipaque dye, which revealed epidural placement; then 4 mL of steroid solution was then instilled.? Postoperatively, needles were removed.? The patient was transferred to the recovery area in stable condition to be discharged after meeting criteria.? Followup as per treatment plan. Anesthesia: Local Surgeon: Issac Rucker Pathology: none sent Condition: stable Disposition: no change
== END 2023-06-20 10:36 | disposition home or self-care (01) ==
LOC: SURGOUT 08:51
PROVIDERS: PCP Internal Medicine; Visit Provider Anesthesiology
DX: M48.062 Spinal stenosis, lumbar region with neurogenic claudication (principal)
CPT/HCPCS: 62323; J0665; J3301; Q9966

== ENCOUNTER 2023-06-30 14:35 | Outpatient (OUT) | payer MEDICARE, SELFPAY ==
--- OUTSIDE RECORDS SUMMARY | 2023-06-30 14:42 | XMS_ITS | CCD ---
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 Shovel Log Loader Operator Name Role Phone PHYSICIAN, DEFAULT Unavailable Unavailable [...] WEBER Admitting Unavailable REJI WEBER Attending Unavailable MAQRUEZ, DR AGUILAR Primary Care Unavailable MARQUEZ, DR [...] sources) Penicillin; Translations: [penicillin] Drug Allergy [facility] Repository (6 sources) penicillAMINE Drug Allergy Unknown [employer] Other Medications Current Medications Medication Drug Class(es) Dates Sig (Normalized) Sig (Original) AeroChamber Mini Chamber - (1 source) Start: 05-20-2023 AeroChamber Mini Chamber - Use with MDI inhaled every 4 hours as needed for 30 days Apr, Active [id number] actuat albuterol 0.09 mg/actuat metered dose [...] Coronary arteriosclerosis; Translations: [Atherosclerotic heart disease of [place] coronary artery without angina pectoris] Chronic Disorders [...] 10-31-2021 Chronic Other aftercare (1 source) Other prison (current) drug therapy Episodic Other connective tissue [...] and due to atherosclerosis; Translations: [Atherosclerosis of [place] arteries of extremities with intermittent claudication, bilateral [...] BI 3Von 04-21-2023 XR hand BI 3V [facility] [place] [address] [place] [address] XRay Report Signed Patient: Roly Fields MR#: [id number] 7 : 1945 Acct:[id number] Age/Sex: 77 / M ADM Date: 04/21/23 Loc: [facility] Room: Type: [facility] Attending Dr: Bhavin Devries DO Copies to: Bhavin Devries DO Ordering Provider: Bhavin Devries DO Date of Service: 04/21/23 XR/XR hand BI 3V: Pain in right hand;Pain in left hand BILATERAL HANDS - 4 views each CLINICAL DATA: Chronic worsening bilateral hand pain and 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 COMPARISON: None AP, lateral, oblique and [...] Prabha Thompson M.D.04/21/2023 3:25 PM Dictation Location: [facility]--14 Transcribed By: RUBEN 04/21/23 152 Dictated By: Prabha Thompson MD 04/21/23 152 Signed By: 04/21/23 152 [facility] V[facility] Office/Cl inic Noteon 04-16-2023 Heart and Vascular Office/Clinic Note Chief Complaint 6 month follow up History of Present Illness Roly Fields is a male presents who today for a 6-month follow-up. He is accompanied by an adult female. 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 Review of [...] with voice recognition artificial intelligence software, specifically [employer], booklet[employer] and or [employer]. Substitutions may have occurred with voice recognition and artificial intelligence software. ATTESTATION: Documentation services were performed after patient or guardian consented to allow [employer] to record this visit. RACHEL web communications specialist and provider reviewed before signing. RACHEL: [...] Household tobacco nida (more content not included)... [facility] Comment on above: Result Comment: Elec tronically Signed By: Mulugeta SINGH, Jose Stanley\.br\Date and Time Signed: 04/16/23 11:49 EST\.br\Electronically Co-Signed By: Nellie Early\.br\Date and Time Co-Signed: 02/11/23 17:34 EDT Consent for Treatmenton 01-22 Consent for Treatment [id number]#1 .00CD:127 [facility] Physician Orderon 02-11-2023 Physician Order [id number]#1. 00CD:127 [facility] Reminderson 01-03-2023 Reminders - From: Lorraine Ross To: HV - Clinical; Sent: 08/02/2022 09:06:40 EDT Show up: 01/02/2023 09:06:00 EDT Subject: 6 month f/u Due Date/Time: 02/02/2023 09:06:00 EDT Reminder/Recall 6 month f/u w/ Dr. YEUNG From: Selene Cho (HV - Clinical) To: HV - Clinical; Sent: 01/03/2023 14:06:26 EDT Show up: 01/03/2023 14:06:00 EDT Subject: RE: 6 month f/u scheduled 02/11 [facility] Outside Recordson 12-10-2022 Outside Records [id number]# 1.00CD:127 [facility] September 06, 2022 Re: Roly Fields : 1945 The above patient has discontinued his clopidogrel. He remains on aspirin and apixaban. He should continue these medications for upcoming dental procedure. Please call with any further questions. Becky GUERRIER [facility] [place] Heart and Vascular Clinic [facility] Coding Summary.on 08-09-2022 Coding Summary. CD:[id number] G h0bWw+PGhlYWQ+NP2DDNX fW68ooBVqmJ2bI1RMOPvQ SywgQVBQTElOSyIgbmFtZ U1rrJHpWOFt IC8+TS0dRMPdZziuoWUef 3K6jNU2K56caa8yXDnsqY C9EATaPhOdenvny5xjcOd 6IDcuNmluOyBt RSOwrL11LFG1gR90Qc93g CMdeIDar0jfjQu4HjLkIY ZjNXL9hAryXLvyj5QuBGY jF15jjKDhb9E5 YSNteCoqhCUjAjZfyCW8f I1lALxgkaaxp7avodqrYv s1tg32qUBhp8D6vSK2R7F rknW6BDAqmDWm HhwioUASyE1ltsbej6wml grtDaNdONHqQQv1OJb9RG RceJfbSyNjUH46CWR3OPA ntbBmV4AyQKEo yTvnVtZ0h6N3Rd1LI8SKY ypuZ9ECWLXOQKtbnHQ+PC 85ch00G4EdFtyyOlr7HAL pXTF7yRC0zA1b OYKbLKynf4M3qTS7V2Aoe aXimu2hd4plNTZtOUkeA5 8nsUJxd7P8NMSnmFR4IHN mpPjhFnLhoR57 Oyc+CXLnhNwki2EgZsloz 4wat1bemBf3XtlyULIatu DpnHroIOW2y6NiUv7xHEV tiCV6tCQ3fE5h ZsQwOnR7ZHwaM993MbGqe YBsXclfY66mO2DypKQ+PH DxZyi0UQQmlEsuJR2eW0T hZGRpbmctbGVm oUmhIP0dYTOyqphwBUEkk S1qSMWwK1i7BnQsIyQ0DE weN7OzBMKpmeieTd12pR7 uFsCtPoF5UAav U2BpqrB1YAHfqHOmKYprQ XW5L48mj0R8XKBaGFMtSB S7lBY1rE7xnGxsmmrebUI mdDsgdmVydGlj QJztGJnuT134ZDVglSlgZ kNvZGluZyBEYXRlOiAgMD MvMjAvMjAyMzwvdGQ+PHR tCMO5nHonSBZs cPWiTPjfXx9yfOonbGxgF F4gOBXrriqwNXXbyR6lUJ RfxWLtoOuqZH6oVXOjuzs lp242PtPnUFO3 BJMpeXAaV8TgrT6hNyBhK RUoGIJrT9YvuSVsOFhhK9 23QYwgFqR1IFKkkpTcQ2T sLWFsaWduOiB0 t7F0Tq8Uh0MkdxjwB5Tzb RRcIzUhTunfDVk1W6WpUr wvdHI+AM83FVCgKE68RBr 2DYZ1pOtkRUxh UKGqA2LtrB7tVuTbHZCbS GRkOyc+PHRhYmxlIHdpZH RoPScxMDAlJyBzdHlsZT0 iSt7eOTJgGJBd bUnisCYiVbUiy0rdBURiQ BigHW6yhSrqS7GojYU6JM Mcx4n7Db21S27wD8ZeyNM +QPRgeJV7mEE3 yW8fQbNbQtH4EOyhJ878Q pScaRVxXgtru0hcl6nwsX w7FpE7KGUapeSmhObjPSV 0v5ZlIv86T35s IHdpZHRoPSIxNSUiIHZhb Nmuwn5mdG7bZh4+PGNvbC M5oKJ9dV8mGuVvIxV1EIm lU992WaTfcQFz Obkvj3irq7cgjZl8ThMuU BVaqkMrnWslSVD6l6BuCb 30P3AarPbkh4SfBgf3yy8 0pTZxn5S6aFF2 D1HeJWUxanntlOZnlAvkF Y5eFFBdmdcnDPLfvK3wKE SxX5d1RvYmQtJ3OQguJ7U kvuL3WAJbnAZc OLWjmRJWvB6ajcdeb6lsg faiZpPvQJAeUKu7RKq5JG JprPchIpOuNCZ8ErC1YJV 9aJDuzO2rfCms zlhcxV1lNbe+NNL5cUVfm UPOQP6yXrfjrPZ+PHRkIH F5qRwzVLjjLTKekC4fBTJ jS5v0JeBvKrS9 GWvfR6NfxsG5FBIltGPiJ BEhoIXFaB1ogcfam2gyjm wmEtHxQROkWMk6GNm4DPU saWduOiBsZWZ0 HcU8ZUE1eDQgvD6jvPteh igoiJ9sOzz+QmlydGggRG F8CAb1D3SxZxe2EHFcnVl yPY9vkODuZEey Hb6bqPwbaOntOI9sGKLmv zzui437CjVoq2gjBUZmrF GhBQoqOKP6A68ja0N7CWY tTZQyOUV6gJW1 vO5uyPkusqnjgORgbWved eGkuWupXVtvPYblE751IO TojAjoYhKqUKv2D8OnAil 7WHNmtBfrWH2s nSCsNEclXn8moYuhqFymC Q4mCJMeaqknm198MbAvw9 ilIAYrjGEyGBkkEJE5F76 ax2Y2YOOiSVCq RBG8bHS6fQ2abAasuyiqv GVmdDsgdmVydGljYWwtYW ofI226QMYhlHfjRrKccEo 1J2RwTuk4CAZl gFtkHR5xdGWqLFryMh7uh RtroDqkEQ9xUFInlysoj0 99XxZsm5pqEEAmrQQkRGn kOPO5G57rk1H0 GDQmYBCmITU9zIB3pR4vk GlnbjogbGVmdDsgdmVydG cfZRigMRstW296NLYqrXe nPlBhdGllbnQg YSpjNGu3J6EbLjrhxXD+P Y13RWUxTI76mTPomSYfr3 edjNz1XgIwSNKdZWR0lUw dMRurq0XrMFLz Y13teBFjo7D2MVWirMqtt HReBnEsxLZ5fF3kVOedxa yka5acuhesLcqfc0jqeo0 1aT45H92gUGer ZHRoPSIzMCUiIHZhbGlnb l7giR6tIc7+EEDgmIN1dM H2yU8aKFJfZdQ0LBkcA51 9InRvcCIvPjxj w7nil9rtxHd6GbO0VKFkf tVgbZbyZGK7b0KoUb15I9 9sIHdpZHRoPSIyMCUiIHZ ahMahmm0ygJ5m Ii8+JTVklIS1eTT8hR2wR xMsQvY0QBwmP408CkXlhB VnTdslN59mB4RavZV+PHR hVxy1UWAfoQzw HO7ezEMaWOwjAe7mIWW1T fLsQjYiJKtnE7WnWPAaix gywfqnsUO0TWQaVFBljW0 9Dv0syZaaLIVo uZERoR7afwjzb7jicdmgV bJsTYVbEXp8BYd5SUHoxA liJzBpASC8KrS0OQD6eFK rbT7irEftgszq sB8qU3HrMBZiedbbOb53j F9kDmRlNsM5AHpvHwz+TE ZXO85QVAelRH2VQXI9Q9S wRwb2CKDvmDrz FS7dbSUtSSrdAx0upIzkr RnqGO8mKLDqfzlqHPRwvY 6aSTGouRJsbAcrYV3hMGZ pjhagn416AkEi AMX9INPwbIOdQ1GyeR1rU nKwNRHiEONuL4MrfXWxRB vsZ796JRafQeK1VWEgyrI oC5OaRIPntBdr DwK0g3J0Wz4tTb9mZv5gG JJ2ET84PX95tGVbe6Q7gW L1K1XzMTZqoyterwpjzLK 5CVGbREWthX73 jXHbOMthWj4fo4D7a023C BBvMFOvpQ83Gp9ddJsfIO AgbHVFrL7jftisz5yhcnf gIzAwMDAwMDt0 EPy0UAAqlCwvZiIpXFE9G hW6PRO6oTZjjI6idWkqds uffP1eGga+NzYgWWVhcnM 0G1VnBcz1AKOr zEgeMU4uvAJmXWspJc4ex YljsOxhQE7gBOFzvjilMY VlyB0oSNIlpEXgtJwiED0 xUQGarivxq405 WjUsRKC3DHJheOJiD7Tae H1gRkDtIUIkRUCwN9QkbP DsLVjcL062EInmUyO5XKV bmiWzV7KyUTCl mMtfGxU8k5D7Jh6IPCbhX L30ZK57fHEok3N1tTP0M7 OpQUAjrfwgixrjlAG6ZCJ rILTjeG66eOJc NOthRl3si0E5d013IZCfV EPpiI35Gr2wfRxbIWGlnD GEmB2genmpm2noeeyvYqM cXJXjBJg6TUs8 LXGcwEotXwGgUFO8GiO4W UN5dMDzaP7yyYluuqlvrP 9wOyc+T5S7bFU2jAGqoCx vdGQ+IU71kk08 R2RkHosmJfk0CEMvHVE9x DF5uG9zDBZnZNjny5N3iL G1X3TrlvOfda0fa3oiBSB tAImiT67mbVLy u7Y3QVXpvNO1EKKccBioS zXdjS76Sfs+PGNvbGdyb3 AaLdzwq3lav2pdyMt5ItG wJSIgdmFsaWdu MPY8m8BfEv26K13jUYckI HRoPSIzMCUiIHZhbGlnbj 1mfT4rKj0+RYIjbXU3xYJ 3zW9gBxRzUxB6 VLhvX379OzQhhKZnIemck 3kav2cmyJe8CnXyGIXccd EcbIcyHFH7u1FxQg83F1E xqSwpo2WcYuh3 qj16zYBxi8Z7sCX6J4LaD GCzuqqwaPHlvQzlVJ3cLR GthphqAETnhU8cZMXbB4m 5WnXlIjY2UCbm O7QimjA0OUKdcVYdLNHxb XSWwE4bhzgdu3suolcyYq RxFQIpSWn7SEi0KSMilDg vInSkPHN8QrY4 ZWS9nBWxnU7zkFgfuilba G9wOyc+ZAy0n7wwcTJpEL 1leBY6IE70UC00uHUyw0F 6lOU0P0VhLPNf dvowkwakyGM5QPApPIVol X93Ii3npQwsYn3vWVDxVF A7KCFnbNElK8OmrD4nYcQ uSOPoINEhB6Fe pQIjGQxvJ587CNlhLhW7T XCgxdTuK2RhPLPqqXgcXw T5b8L3Sk0NYJ53UT85QT2 2bCUqd7Z4hTJ3 X0CpUCBsmckunaukmFC4B ITeTOXbtL20Le5glBkdOc 7bSDLgBGG2DAIhwGMgN3O myP8xCyLyLDAq RGGyR5AbyIBhZVboU369L GnmLzU0LBIatsTvL4HjOJ NpaVpdFhP2p8D4Bw0QRg2 8TU86KC96xTUw n4A5jUO0C8OkEVUicjtgg pluyFY6CVJlFUIyoN85Yy 8rfUpiQr4kDHQuPFB5RMR miKFfD9OwdH6h IlLqVNFzQYWvG0AswRCyN KdzR120TBviDsS0XZYiie ArW8GiWHOshMeePhE7j4R 9Ah6SRUydxtt4 U0HeXebxmCD+VY92JRQnE S89vWPhyULdz9nenVs0Ms QqYLZzDQU5lQrtMMtrr1Y hMVYaO97utEMf c2U6 (more content not included)... Normal [facility] Physician Orderon 08-02-2022 Physician Order [id number]# 1.00CD:[address] [facility] Heart and Vascular Office/Cl inic Noteon 07-31-2022 [...] 81 mg daily. Medication management (Z79.899: Other intermodal customer service (current) drug therapy) Follow up in 6 months. ATTESTATION: Documentation services were performed after patient or guardian consented to allow Samir Aramis Aaron to record this visit. RACHEL web communications specialist and provider reviewed before signing. RACHEL: [...] (COVID-19) mRNA BNT-162b2 vax 07/21/2020 Recorded Normal [facility] Comment on above: Result Comment: Elec tronically Signed By: Mulugeta SINGH, Jose Stanley\.br\Date and Time Signed: 07/31/22 21:16 EST\.br\Electronically Co-Signed By: Patsy Guo\.br\Date and Time Co-Signed: 07/30/22 17:51 EST Consent for Treatmenton 07-21 Consent for Treatment [id number] .00CD:127 Normal [facility] PROF CHEM 8 (BAS METB)on Anion gap [Moles/Vol] 11.0 mmol/L Normal [facility] Comment on above: Performed By: #### B MP #### [facility] [address] [address] [address] Milka Castaneda Calcium [Mass/Vol] 8.9 mg/dL Normal 8.5-10.1 [facility] Comment on above: Performed By: #### B MP #### [facility] [address] [address] [address] Milka Castaneda Chloride [Moles/Vol] 99 mmol/L Normal 98-107 [facility] Comment on above: Performed By: #### B MP #### [facility] [address] [address] [address] Milka Castaneda CO2 [Moles/Vol] 32.0 mmol/L Normal 21.0-32.0 [facility] Comment on above: Performed By: #### B MP #### [facility] [address] [address] [address] Milka Castaneda Creatinine [Mass/Vol] 2.19 mg/dL Critically high 0.70-1.30 [facility] Comment on above: Performed By: #### B MP #### [facility] [address] [address] [address] Milka Castaneda EGFR-AF SAMMARINESE 36 mL/min/1.73m2 Critically low >=60 [facility] Comment on above: Performed By: #### B MP #### [facility] [address] [address] [address] Milka Castaneda EGFR-NON AF SAMMARINESE 29 mL/min/1.73m2 Critically low >=60 [facility] Comment on above: Performed By: #### B MP #### [facility] [address] [address] [address] Milka Castaneda Glucose [Mass/Vol] 94 mg/dL Normal 74-106 [facility] Comment on above: Performed By: #### B MP #### [facility] [address] [address] [address] Milka Castaneda Potassium [Moles/Vol] 5.0 mmol/L Normal 3.5-5.1 [facility] Comment on above: Performed By: #### B MP #### [facility] [address] [address] [address] Milka Castaneda Sodium [Moles/Vol] 137 mmol/L Normal 136-145 [facility] Comment on above: Performed By: #### B MP #### [facility] [address] [address] [address] Milka Castaneda Urea nitrogen [Mass/Vol] 32.0 mg/dL Critically high 7.0-18.0 [facility] Comment on above: Performed By: #### B MP #### [facility] [address] [place] [address] Dr. Milka Castaneda Urea nitrogen/Creatinin e [Mass ratio] 14.6 mg/mg Normal [facility] Comment on above: Performed By: #### B MP #### [facility] [address] [place] [address] Dr. Milka Castaneda [facility] [place] [facility] April 23, 2022 Re: Roly Fields : 1945 To Whom It May Concern The above patient is on clopidogrel and apixaban for his coronary artery disease with recent PCI and atrial fibrillation. We recommend this therapy to be uninterrupted for one year post stent placement (July 2021). Extraction while on these medications is at surgeon's discretion. Becky GUERRIER [facility] V[facility] Clinic Normal [facility] CBC AUTO DIFFon 02-03-2022 BASO # 0.1 103/ul Normal 0.0-0.1 [facility] Comment on above: Performed By: #### C BC #### [facility] [address] [place] [address] Dr. Milka Castaneda Basophils/100 WBC (Bld) 0.6 % Normal 0.2-2.0 [facility] Comment on above: Performed By: #### C BC #### [facility] [address] [place] [address] Dr. Milka Castaneda EO # 0.5 103/ul Normal 0.0-0.7 [facility] Comment on above: Performed By: #### C BC #### [facility] [address] [place], [place] [address] Dr. Milka Castaneda Eosinophils/100 WBC (Bld) 5.8 % Normal 0.9-7.0 [facility] Comment on above: Performed By: #### C BC #### [facility] [address] [place] [address] Dr. Milka Castaneda Erythrocyte distribution width (RBC) [Ratio] 13.2 % Normal 11.0-15.0 [facility] Comment on above: Performed By: #### C BC #### [facility] [address] [place] [address] Dr. Milka Castaneda Hematocrit (Bld) [Volume fraction] 44.2 % Normal 42.0-54.0 [facility] Comment on above: Performed By: #### C BC #### [facility] [address] [place] [address] Dr. Milka Castaneda Hemoglobin (Bld) [Mass/Vol] 14.3 g/dL Normal 14.0-18.0 [facility] Comment on above: Performed By: #### C BC #### [facility] [address] [place] [address] Dr. Milka Castaneda IG # 0.02 10e3/ul Normal 0.00-0.03 [facility] Comment on above: Performed By: #### C BC #### [facility] [address] [place] [address] Dr. Milka Castaneda IG % 0.2 % Normal 0.0-0.5 [facility] Comment on above: Performed By: #### C BC #### [facility] [address] [place] [address] Dr. Milka Castaneda LYMPH # 1.7 103/ul Normal 1.2-3.8 [facility] Comment on above: Performed By: #### C BC #### [facility] [address] [place] [address] Dr. Milka Castaneda Lymphocytes/100 WBC (Bld) 20.5 % Normal 20.5-60.0 [facility] Comment on above: Performed By: #### C BC #### [facility] [address] [place] [address] Dr. Milka Castaneda MANUAL DIFF REQ NO Normal [facility] Comment on above: Performed By: #### C BC #### [facility] [address] [place] [address] Dr. Milka Castaneda MCH (RBC) [Entitic mass] 31.7 pg Normal 25.9-34.0 [facility] Comment on above: Performed By: #### C BC #### [facility] [address] [address] [address] Milka Castaneda MCHC (RBC) [Mass/Vol] 32.4 g/dL Normal 29.9-35.2 [facility] Comment on above: Performed By: #### C BC #### [facility] [address] [address] [address] Milka Castaneda MCV (RBC) [Entitic vol] 98.0 fL Critically high 80.0-94.0 [facility] Comment on above: Performed By: #### C BC #### [facility] [address] [address] [address] Milka Castaneda MONO # 1.1 103/ul Critically high 0.3-0.8 [facility] Comment on above: Performed By: #### C BC #### [facility] [address] [place] [address] Dr. Milka Castaneda Monocytes/100 WBC (Bld) 12.7 % Critically high 1.7-12.0 [facility] Comment on above: Performed By: #### C BC #### [facility] [address] [place] [address] Dr. Milka Castaneda NEUT # 5.1 103/ul Normal 1.4-6.5 [facility] Comment on above: Performed By: #### C BC #### [facility] [address] [place] [address] Dr. Milka Castaneda Neutrophils/100 WBC (Bld) 60.2 % Normal 43.0-75.0 [facility] Comment on above: Performed By: #### C BC #### [facility] [address] [address] [address] Milka Castaneda Platelet mean volume (Bld) [Entitic vol] 9.5 fL Normal 9.5-13.5 [facility] Comment on above: Performed By: #### C BC #### [facility] [address] [place] [address] Dr. Milka Castaneda PLT 160 103/ul Normal 150-450 [facility] Comment on above: Performed By: #### C BC #### [facility] [address] [address] [address] Milka Castaneda RBC 4.51 106/ul Critically low 4.70-6.10 [facility] Comment on above: Performed By: #### C BC #### [facility] [address] [address] [address] Milka Castaneda WBC 8.4 103/ul Normal 4.0-11.0 [facility] Comment on above: Performed By: #### C BC #### [facility] [address] [address] [address] Milka Castaneda DIRECT LDLon 02-03-2022 Cholesterol in LDL [Mass/Vol] 82 mg/dL Normal [facility] Comment on above: Performed By: #### D LDL, BMP #### [facility] [address] [place] [address] Dr. Milka Castaneda DLDL NORMAL SEE BELOW Normal [facility] Comment on above: Result Comment: <100 mg/dl OPTIMAL 100 - 129 mg/dl NEAR OR ABOVE OPTIMAL 130 - 159 mg/dl BORDERLINE HIGH 160 - 189 mg/dl HIGH >190 mg/dl VERY HIGH Performed By: #### D LDL, BMP #### [facility] [address] [place] [address] Dr. Milka Castaneda PROF CHEM 8 (BAS METB)on Anion gap [Moles/Vol] 13.1 mmol/L Normal [facility] Comment on above: Performed By: #### D LDL, BMP #### [facility] [address] [place] [address] Dr. Milka Castaneda Calcium [Mass/Vol] 9.3 mg/dL Normal 8.5-10.1 [facility] Comment on above: Performed By: #### D LDL, BMP #### [facility] [address] [place] [address] Dr. Milka Castaneda Chloride [Moles/Vol] 102 mmol/L Normal 98-107 [facility] Comment on above: Performed By: #### D LDL, BMP #### [facility] [address] [place] [address] Dr. Milka Castaneda CO2 [Moles/Vol] 29.5 mmol/L Normal 21.0-32.0 [facility] Comment on above: Performed By: #### D LDL, BMP #### [facility] [address] [address] [address] Milka Castaneda Creatinine [Mass/Vol] 1.94 mg/dL Critically high 0.70-1.30 [facility] Comment on above: Performed By: #### D LDL, BMP #### [facility] [address] [address] [address] Milka Castaneda EGFR-AF SAMMARINESE 41 mL/min/1.73m2 Critically low >=60 [facility] Comment on above: Performed By: #### D LDL, BMP #### [facility] [address] [address] [address] Milka Castaneda EGFR-NON AF SAMMARINESE 34 mL/min/1.73m2 Critically low >=60 [facility] Comment on above: Performed By: #### D LDL, BMP #### [facility] [address] [address] [address] Milka Castaneda Glucose [Mass/Vol] 91 mg/dL Normal 74-106 [facility] Comment on above: Performed By: #### D LDL, BMP #### [facility] [address] [address] [address] Milka Castaneda Potassium [Moles/Vol] 4.6 mmol/L Normal 3.5-5.1 [facility] Comment on above: Performed By: #### D LDL, BMP #### [facility] [address] [address] [address] Milka Castaneda Sodium [Moles/Vol] 140 mmol/L Normal 136-145 [facility] Comment on above: Performed By: #### D LDL, BMP #### [facility] [address] [address] [address] Milka Castaneda Urea nitrogen [Mass/Vol] 30.0 mg/dL Critically high 7.0-18.0 [facility] Comment on above: Performed By: #### D LDL, BMP #### [facility] [address] [address] [address] Milka Castaneda Urea nitrogen/Creatinin e [Mass ratio] 15.5 mg/mg Normal [facility] Comment on above: Performed By: #### D LDL, BMP #### [facility] [address] [address] [address] Milka Castaneda CREATININEon 10-07-2021 Creatinine [Mass/Vol] 1.67 mg/dL Critically high 0.70-1.30 [facility] Comment on above: Performed By: #### C OMI #### [facility] [address] [address] [address] Milka Castaneda EGFR-AF SAMMARINESE 49 mL/min/1.73m2 Critically low >=60 [facility] Comment on above: Performed By: #### C OMI #### [facility] [address] [place] [address] Dr. Milka Castaneda EGFR-NON AF SAMMARINESE 40 mL/min/1.73m2 Critically low >=60 [facility] Comment on above: Performed By: #### C OMI #### [facility] [address] [place] [address] ABDOMEN WO/W CONon [...] by: PRAMOD PEDROZA Date: 2021-10-07 09:58 Normal [facility] Vital Signs Date Time Vital Sign Value Performing Clinician Facility 05-20-2023 11:00-0500 Body height 165.1 cm [facility] Other 05-20-2023 11:00-0500 Body mass index (BMI) [Ratio] 39.43 kg/m2 [facility] Other 05-20-2023 11:00-0500 Body weight 107.5 kg [facility] Other [facility] Other 05-20-2023 11:00-0500 Diastolic blood pressure 89 mm[Hg] [facility] [employer] Other [facility] Other 05-20-2023 11:00-0500 Respiratory rate 20 /min [employer] Other [employer] Other 05-20-2023 11:00-0500 Systolic blood pressure 183 mm[Hg] [employer] Other [employer] Other 04-21-2023 11:15-0500 Body height 165.1 cm Bhavin Devries Other [employer] Other 04-21-2023 11:15-0500 Body mass index (BMI) [Ratio] 39.6 kg/m2 Bhavin Devries Other [employer] Other 04-21-2023 11:15-0500 Body weight 107.96 kg Bhavin Devries Other [employer] Other 04-12-2023 14:30-0500 Body height 165.1 cm Anthony Ball Other [employer] Other 04-12-2023 14:30-0500 Body mass index (BMI) [Ratio] 39.6 kg/m2 Anthony Ball Other [employer] Other 04-12-2023 14:30-0500 Body weight 107.96 kg Anthony Ball Other [employer] Other 04-12-2023 14:30-0500 Diastolic blood pressure 81 mm[Hg] Anthony Ball Other [employer] Other 04-12-2023 14:30-0500 Respiratory rate 12 /min Anthony Ball Other [employer] Other 04-12-2023 14:30-0500 Systolic blood pressure 151 mm[Hg] Anthony Ball Other [employer] Other 07-29-2022 11:00-0500 Body height 165.1 cm Anthony Ball Other [employer] Other 07-29-2022 11:00-0500 Body mass index (BMI) [Ratio] 40.17 kg/m2 Anthony Ball Other [employer] Other 07-29-2022 11:00-0500 Body weight 109.5 kg Anthony Ball Other [employer] Other 07-29-2022 11:00-0500 Diastolic blood pressure 70 mm[Hg] Anthony Ball Other [employer] Other 07-29-2022 11:00-0500 Respiratory rate 12 /min Anthony Ball Other [employer] Other 07-29-2022 11:00-0500 Systolic blood pressure 118 mm[Hg] Anthony Zayas Other [employer] Other Encounters Encounter Date Encounter Type Care Provider Facility Start: 06-06-2023 End: 06-07-2023 ambulatory Issac Rucker MD Facility:[facility] Start: 05-20-2023 End: 05-20-2023 ambulatory Anthony Zayas Other [employer] Other Start: 05-20-2023 Office outpatient visit 25 minutes Anthony Zayas [facility] Start: 04-25-2023 End: 04-25-2023 ambulatory Anthony Zayas Other [employer] Other Start: 04-25-2023 Telephone encounter Anthony Zayas [facility] Start: 04-21-2023 Office outpatient ne w 45 minutes Bhavin Devries [facility] Start: 04-21-2023 End: 04-21-2023 ambulatory Anthony Zayas [employer] Other Start: 04-21-2023 End: 04-21-2023 Patient encounter procedure DO Bhavin Devries Work Phone: [facility] Start: 04-18-2023 End: 04-18-2023 ambulatory Anthony Zayas Other [employer] Other Start: 04-18-2023 Telephone encounter Anthony [facility] Start: 04-12-2023 End: 04-12-2023 ambulatory Anthony Zayas Other [employer] Other Start: 04-12-2023 Patient encounter procedure Anthony Zayas [facility] Start: 04-12-2023 Telephone encounter Anthony [facility] Start: 02-28-2023 End: 03-01-2023 ambulatory Issac Rucker MD Facility:[facility] Start: 02-11-2023 End: 02-12-2023 ambulatory Jose Dalal Facility:[facility] Start: 01-31-2023 End: 02-01-2023 ambulatory Issac Rucker MD Facility:[facility] Start: 01-04-2023 End: 01-05-2023 ambulatory Issac Rucker MD Facility:[facility] Start: 11-29-2022 End: 11-29-2022 ambulatory Anthony Zayas Other [employer] Other Start: 11-29-2022 Telephone encounter [facility] Start: 11-24-2022 End: 11-24-2022 ambulatory Anthony Zayas Other [employer] Other Start: 11-24-2022 Telephone encounter [facility] Start: 10-08-2022 End: 10-09-[address] ANTHONY ZAYAS Facility:[facility] Start: 08-31-2022 End: 08-31-2022 ambulatory Anthony Zayas Other [employer] Other Start: 08-31-2022 Telephone encounter Anthony Felix [employer] Start: 08-03-2022 End: 08-03-2022 ambulatory Anthony Zayas Other [employer] Other Start: 08-03-2022 Telephone encounter [facility] Start: 07-30-2022 End: 07-31-2022 ambulatory XXXX NONE Facility:[facility] Start: 07-29-2022 End: 07-29-2022 ambulatory Anthony Zayas Other [employer] Other Start: 07-29-2022 Office outpatient visit 25 minutes Anthony Zayas [facility] Start: 05-05-2022 End: 05-06-[address] ANTHONY ZAYAS Facility:[facility] Start: 02-03-2022 End: 02-04-[address] ANTHONY ZAYAS Facility:[facility] Start: 10-23-2021 End: 10-24-[address] ANTHONY ZAYAS Facility:[facility] Start: 10-07-2021 End: 10-08-[address] ANTHONY ZAYAS Facility:[facility] Start: 10-28-2016 End: 10-29-2016 Ambulatory DEFAULT PHYSICIAN Facility:[facility] Procedures Date Procedure Procedure Detail Performing Clinician Start: 04-21-2023 Plain X-ray of bilat eral hands DO Bhavin Devries Work Phone: Start: 02-03-[address] ELYSSA ZAYAS Comment on above: Performed By: #### P [facility] #### [facility] [address] [place] [address] Dr. Milka Castaneda Immunizations Immunization Date Immunization Notes Care Provider [facility] 03-05-2023 influenza, high dose seasonal, preservative-free Anthony Zayas Other [employer] Other 02-03-2022 influenza virus vaccine, split virus (incl. purified surface antigen) Anthony Zayas Other [employer] Other 01-29-2021 influenza virus vaccine, split virus (incl. purified surface antigen) Anthony Zayas Other [employer] Other 01-29-2020 influenza virus vaccine, split virus (incl. purified surface antigen) Anthony Zayas Other [employer] Other 04-16-2019 zoster vaccine, live Deepak Zayas Other [employer] Other 10-18-2017 diphtheria, tetanus toxoids and acellular pertussis vaccine, unspecified formulation Anthony Zayas Other [employer] Other 10-15-2016 pneumococcal conjuga te vaccine, 13 valent Anthony Zayas Other [employer] Other 03-03-2016 influenza virus vaccine, split virus (incl. purified surface antigen) Anthony Zayas Other [employer] Other 03-12-2013 pneumococcal polysaccharide vaccine, 23 valent Anthony Zayas Other [employer] Other 03-12-2013 tetanus and diphther ia toxoids, adsorbed, preservative free, for adult use (5 Lf of tetanus toxoid and 2 Lf of diphtheria toxoid) Anthony Zayas Other [employer] Other Payers Date Payer Category Payer Private Health Insurance [facility] [id number] 2023 Self-pay 2022 Private Health Insurance 1959 Medicare [id number] 1945 Unknown [id number] 3 1945 Unknown [id number] [id number] 3 1945 Unknown [id number] 2.16.840.1.744673.3.579.2.59 3 1945 Unknown [id number] 2.16.840.1.956062.3.579.2.59 3 1945 Unknown [id number] 2.16.840.1.597512.3.579.2.59 3 1945 Unknown [id number] 2.16.840.1.635210.3.579.2.72 7 1945 Unknown [id number] 2.16.840.1.143302.3.579.2.72 7 1945 Unknown [id number] 2.16.840.1.973468.3.579.2.19 6 1945 Unknown [id number] 2.16.840.1.399057.3.579.2.19 6 1945 Unknown [id number] 2.16.840.1.880945.3.579.2.19 6 1945 Unknown [id number] 2.16.840.1.349740.3.579.2.19 6 1945 Unknown [id number] 2.16.840.1.767358.3.579.2.19 6 Private Health Insurance [employer] Mc[employer] PFFS N on Pt [id number] Unknown Unknown [id number] [id number] 1 Social History Date Type Detail Facility Sex Assigned At [employer] Other Start: 1945 Sex Assigned At Male F [facility] Clinical Notes 07-29-2022 to 05-20-2023 Note Date & Type Note Facility 05-20-2023 Evaluation note Encounter Date Diagnosis Assessment Notes Apr, Paroxysmal atrial fibrillation (ICD-10 - I48.0) This patient is in NSR. This patient is anticoagulated to prevent thromboembolic events. They are maintaining regular scheduled appts with their technical mgr. No bleeding complications Apr, ASHD (arteriosclerotic heart [...] component. Hx of inhaled fumes (paint from [employer]) Trial of Advair unsuccessful in [...] since last OV. Colchicine PRN Continue Allopurinol [employer] Other 11-30-2023 Evaluation note* Encounter Date Diagnosis [...] Pain in right hand (ICD-10 - M79.641) [employer] Other 11-27-2023 Evaluation note* Encounter Date Diagnosis Assessment Notes Treatment Notes Treatment Clinical Notes Mar, Mild persistent asthma without complication (ICD-10 - J45.30) [employer] Other 2023 Evaluation note* Encounter Date Diagnosis [...] are maintaining regular scheduled appts with their technical mgr. Mar, ASHD (arteriosclerotic heart disease) (ICD-10 - [...] (ICD-10 - Z79.899) Check labs: ALT, CBC [employer] Other 03-14-2023 Evaluation note* Encounter Date Diagnosis Assessment Notes Treatment Notes Treatment Clinical Notes Jul, History of gout (ICD-10 - Z87.39) [employer] Other 03-09-2023 Evaluation note* Encounter Date Diagnosis Assessment Notes Treatment Notes Treatment Clinical Notes Jul, Paroxysmal atrial fibrillation (ICD-10 - I48.0) This patient is in NSR or rate controlled. This patient is anticoagulated to prevent thromboembolic events. They are maintaining regular scheduled appts with their technical mgr. Jul, ASHD (arteriosclerot ic heart disease) (ICD-10 [...] responds to one Colchicine dose (unlikely gout) [employer] Other Evaluation noteNo InformationNort [employer] Other Evaluation noteNo assessment information available [facility] Work Phone: History general Narrative [...] History COLONOSCOPY Hospitalization History SEE SURGICAL HX [employer] Other Reason for referral (narrative)* Reason *FU 08/16 Referral for left knee pain Diagnosis 1 Primary osteoarthrit is of left knee (M17.12) Referral Organization [facility] Marquez jay Referring Provider First Name Anthony Referring Provider Last Name Marquez Referring Provider Specialty Internal Me dicine Referred Organization [facility] Referred Provider Pietro Gale Referred Address [address], [place],[address] Referred Provider Specialty Pain Medicin e Referral Priority Routine General Notes Briana Moreno 01:15:17 PM >received today, notes locked, attachments made, referral faxed Briana Moreno 08/09/2022 11:58:58 AM >FAXED FIRST ATTEMPT LETTER Clinical Notes F: [id number] [employer] Other Reason for visit Narrativeknee pain after referral, discussion about next stepsNort [employer] Other Summary Purpose Family History No Family [...] section and content) DATE CREATED AUTHOR 11/16/2017 [facility] DATE CREATED AUTHOR AUTHOR'S ORGANIZ ATION 09/29/[address] [facility] DATE CREATED AUTHOR AUTHOR'S ORGANIZ ATION 04/17/2023 Carlos Avila [facility] DATE CREATED AUTHOR AUTHOR'S ORGANIZ ATION 04/26/2023 [facility] DATE CREATED AUTHOR AUTHOR'S ORGANIZ ATION 06/15/2023 [facility] REASON FOR VISIT (unrecogniz ed section [...] BE BASED ON THE PRIMARY CLINICAL RECORDS. [employer] provides no warranty or guarantee of the accuracy or completeness of information in this document.
--- NOTE | 2023-06-30 14:59 | PM.CN ---
Consult Note: HPI Data of Consult Patient: known to practice within the last 3 years Consult date: 06/06/23 Requesting Physician: Leydi Capellan NP Primary Care Provider: Anthony Zayas DO Consult Narrative Reason for consult: low back, bilateral leg pain Narrative: 77yom who presents for assessment. worsening pain that radiates from low back to bilateral lower extremities. imaging reviewed, multiple levels of stenosis noted, worst at l4-5. continues in >6 week course of provider directed home exercise program, with limited benefit. uses OTC meds as needed. denies adverse med side effects. patient recently underwent caudal MARKEL with Dr Rucker with 100% ongoing improvement in low back pain with radiculopathy. Patient concerned today as he has noticed over the last few weeks he has been having trouble swallowing pills, feels they are getting stuck, and noticing midline chest pain after meals, reports burning pain that takes his breath away. Has not followed up with PCP, denies nausea, vomiting, indigestion, belching, headaches, arm pain, jaw pain. cc:: CC: Leydi Capellan NP Review of Systems ROS Status of ROS 10 or more systems reviewed and unremarkable except as noted in history and below Gastrointestinal Reports: heartburn and difficulty swallowing PFSH PFSH Medical History History of cardioversion ?Z92.89 - Personal history of other medical treatment (ICD-10) High cholesterol ?E78.00 - Pure hypercholesterolemia, unspecified (ICD-10) Surgical History History of eye surgery ?Z98.890 - Other specified postprocedural states (ICD-10) Previous back surgery ?Z98.890 - Other specified postprocedural states (ICD-10) History of heart artery stent ?Z95.5 - Presence of coronary angioplasty implant and graft (ICD-10) History of cardiac catheterization ?Z98.890 - Other specified postprocedural states (ICD-10) Meds Home Medications and Allergies Home Medications Medication Instructions Recorded Confirmed Type acetaminophen 300 mg-codeine 30 mg 1 tab PO BID 10/22/22 06/20/23 History tablet apixaban 5 mg tablet (Eliquis) 5 mg PO BID 10/22/22 06/20/23 History atorvastatin 40 mg tablet 40 mg PO QPM 10/22/22 06/20/23 History colchicine 0.6 mg tablet 0.3 mg PO BID 10/22/22 06/20/23 History docusate sodium 50 mg capsule 50 mg PO DAILY 10/22/22 06/20/23 History (Colace Clear) furosemide 40 mg tablet 40 mg PO QAM 10/22/22 06/20/23 History losartan 100 mg tablet 100 mg PO DAILY 10/22/22 06/20/23 History sotalol 80 mg tablet 80 mg PO DAILY 10/22/22 06/20/23 History tramadol 50 mg tablet 50 mg PO DAILY PRN pain #30 tabs 05/24/23 06/20/23 Rx albuterol sulfate 90 mcg/actuation 2 puff inhalation Q4H PRN 06/15/23 06/20/23 History aerosol inhaler shortness of breath or wheezing tramadol 50 mg tablet 50 mg PO DAILY PRN pain #30 tabs 06/27/23 Rx Allergies Allergy/AdvReac Type Severity Reaction Status Date / Time Penicillins Allergy Severe Hives Verified 06/20/23 09:26 Exam Constitutional Documenting provider has reviewed patient's vital signs: yes Common normals: no apparent distress, oriented x3, healthy appearing, alert and well nourished Exam limitations: physical limitations General appearance: cooperative Nutritional appearance: obese Other: utilizes cane and walker for ambulation [facility] Common normals: normocephalic, hearing grossly normal bilaterally and moist oral mucous membranes Head and scalp: normocephalic Mouth: oral and palatal mucosa normal Eye Common normals: PERRL Pupil: PERRL Neck & C-Spine Common normals: full ROM General: normal visual inspection Cervical spine: cervical ROM normal Chest Common normals: inspection of chest normal Respiratory Common normals: normal respiratory effort, no retractions and no use of accessory muscles Back & Pelvis Common normals: thoracic and lumbar spine normal to inspection and straight leg raise negative bilaterally Thoracic spine/upper back: normal to inspection Lumbar spine/lower back: ROM limited Sacroiliac joints: SI joints normal Extremity Common normals: normal to inspection and full ROM Neuro Common normals: oriented x3, CN's II-XII intact bilaterally, moves all extremities, no focal motor deficits, no sensory deficits noted and deep tendon reflexes 2+ bilaterally Sensorium/orientation: alert Speech: speech normal Gait (neuro): antalgic and assistive device used Motor exam: strength 5/5 throughout and no movement abnormalities noted Psych Common normals: mental status grossly normal, thought process normal, cooperative, affect normal, speech normal and activity/motor behavior normal Speech: normal speech Thought process: normal thought process Results Additional Findings Additional findings: I have checked an OARRS report on this patient today and there are no aberrancies noted in the prescribing history.?? A drug screen was completed and reviewed within the last year, and if there has not been a drug screen completed we ordered one today to monitor higher risk, state monitored pain medication use. As part of providing excellent, safe, comprehensive care, the following was completed at our patient's visit: 1. A medication reconciliation and review to ensure accurate knowledge of current/active medications, including asking our patients to inform us about any vesy-ovn-vsjnhdy medications or herbal remedies/nutritional supplements/alternative remedies. 2. A review to specifically ensure our patients have had annual screening for: elevated body mass index (BMI), tobacco use, screening for depression, and screening for unhealthy alcohol use. When screening is concerning, patients are provided with education and the specific recommendation to discuss the concerning health issue and treatment options with their primary care provider. Assessment and Plan Assessment and Plan (1) Lumbar stenosis with neurogenic claudication: (2) Spondylosis of lumbar region without myelopathy or radiculopathy: (3) Chronic prescription opiate use: Assessment and Plan: I feel these medications are improving the patient's quality of life and allow them to tolerate activities of daily living as well as participate in recreational activity.? The patient does not report intolerable side effects. The patient is NOT opioid naive and non-pharmacologic and non-opioid treatment has failed to significantly relieve the patient's pain and improve functionality. The patient has a diagnosis that is related to a somatic or visceral pain etiology. ? ?? I reviewed with the patient the potential risks and side effects with the use of? opioid medications including but not limited to respiratory depression,? sedation, and even . I verified the patient has access to naloxone should? these effects occur. I advised the patient to avoid the use of any other? sedation substances including alcohol, THC, and benzodiazepines while? taking opioid medications due to the risk of compounding side effects and? detrimental outcomes. I reviewed the [employer], pain treatment agreement, urine? drug screen, and opioid start talking forms. The patient was advised to let? their family know they had Naloxone in case they would need to administer? the medication.? ?? A drug screen was completed within the last year, and no aberrancies were noted regarding their use of controlled substances. The patient understands they are subject to the terms and conditions of the pain contract that they have signed. ? ?? I have checked an OARRS report on this patient today and there are no aberrancies noted in the prescribing history.? (4) Lumbar pain: (5) Chronic pain syndrome: Plan markel providing 100% improvement at this time I called a left a voicemail with Dr Kothari nurse, then patient requested I help him call and make a f/u appointment with Dr Zayas. Patient is going to see Dr Zayas tomorrow afternoon trouble swallowing pills, feels they are getting stuck, and noticing midline chest pain after meals, reports burning pain that takes his breath away. Has not followed up with PCP, denies nausea, vomiting, indigestion, belching, headaches, arm pain, jaw pain. f/u with our office 3 months, sooner if needed continue current medications, tolerating well without side effects
== END 2023-06-30 14:36 | disposition home or self-care (01) ==
LOC: PM 14:36
PROVIDERS: PCP Internal Medicine; Visit Provider Nurse Practitioner
DX: M48.062 Spinal stenosis, lumbar region with neurogenic claudication (principal); M47.816 Spondylosis without myelopathy or radiculopathy, lumbar region; Z79.899 Other long term (current) drug therapy; M54.50 Low back pain, unspecified; G89.4 Chronic pain syndrome
CPT/HCPCS: G0463

== ENCOUNTER 2023-07-06 10:20 | Outpatient (OUT) | payer MEDICARE, SELFPAY ==
--- NOTE | 2023-07-06 | ECG_ITS ---
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
--- NOTE | 2023-07-06 10:42 | XR_ITS ---
The [address] [address] Patient Name: FRANK BARRETT MRN: [id number] date: 1945 Sex: M Assigned Patient Location: CARD Current Patient Location: CARD Accession/Order Number: [id number] Exam Date: 07/06/2023 10:48 Report Date: 07/06/2023 11:38 At the request of: JEFF TALBERT Procedure: XR chest 2V EXAM: Chest x-ray HISTORY: . Dyspnea On Exertion R06.09 . COMPARISON: None. TECHNIQUE: Frontal and lateral chest FINDINGS: Heart and vascularity are unremarkable. Left lung is unremarkable. There are a few increased markings in the right lung base. Right mid-upper lung field is unremarkable. Spondylosis of the spine is noted. XR/XR chest 2V IMPRESSION: 1. A few increased markings in the right lung base medially most likely representing bronchovascular markings. Less likely would be atelectasis. No infiltrates are noted. Electronically authenticated by: LOUISA JAIN Date: 07/06/2023 11:38
== END 2023-07-06 10:21 | disposition home or self-care (01) ==
LOC: CARD 10:21
PROVIDERS: PCP Internal Medicine; Visit Provider Internal Medicine
DX: I48.0 Paroxysmal atrial fibrillation (principal); R06.09 Other forms of dyspnea; R13.14 Dysphagia, pharyngoesophageal phase
CPT/HCPCS: 71046; 93005

== ENCOUNTER 2023-07-18 14:00 | Outpatient (OUT) | payer MEDICARE, SELFPAY ==
--- NOTE | 2023-07-18 14:13 | FL_ITS ---
[address] [address] Patient Name: FRANK BARRETT MRN: [id number] date: 1945 Sex: M Assigned Patient Location: [place] Current Patient Location: [place] Accession/Order Number: [id number] Exam Date: 07/18/2023 14:25 Report Date: 07/18/2023 15:18 At the request of: JEFF TALBERT Procedure: FL modified barium swallow EXAMINATION: FL modified barium swallow HISTORY: Pharyngoesophageal Dysphagia R13.14 COMPARISON: No relevant comparison available. TECHNIQUE: A swallowing evaluation was performed with fluoroscopy in the usual manner. Standard level fluoroscopic mode of operation utilized. The procedure was recorded. Speech pathology was present FINDINGS: ORAL PHASE: Normal deglutition. PHARYNGEAL PHASE: Normal swallowing. ASPIRATION: None. STRUCTURE: Normal. No visible obstruction, stricture, or dilatation. OTHER: Negative. FL/FL modified barium swallow IMPRESSION: Normal modified barium swallow Electronically authenticated by: LOUISA ERWIN Date: 07/18/2023 15:18
--- NOTE | 2023-07-18 14:14 | XR_ITS ---
[address] [address] Patient Name: FRANK BARRETT MRN: [id number] date: 1945 Sex: M Assigned Patient Location: [place] Current Patient Location: [place] Accession/Order Number: [id number] Exam Date: 07/18/2023 14:45 Report Date: 07/18/2023 15:28 At the request of: JEFF TALBERT Procedure: XR chest 2V EXAMINATION: XR chest 2V HISTORY: Pharyngoesophageal Dysphagia R13.14 COMPARISON: 07/06/2023 TECHNIQUE: PA and lateral FINDINGS: LUNGS: No significant pulmonary parenchymal abnormalities. VASCULATURE: No increased pulmonary vasculature. PLEURA: No pneumothorax, effusion, or pleural thickening. CARDIAC: No cardiomegaly or cardiac silhouette abnormality. MEDIASTINUM: No visible mass or adenopathy. BONES: No fracture or visible bone lesion. OTHER: Negative. XR/XR chest 2V IMPRESSION: No acute cardiopulmonary process Electronically authenticated by: LOUISA ERWIN Date: 07/18/2023 15:28
[2023-07-18 15:14] LABS: Basophils Percent Auto 0.5 % (0.2-2.0); Eosinophils Absolute Auto 0.2 10^3/uL (0.0-0.7); Hematocrit 39.5 % (42.0-54.0); Hemoglobin 12.3 g/dL (14.0-18.0); Immature Granulocytes Abs Auto 0.03 10^3/uL (0.00-0.03); Immature Granulocytes Pct Auto 0.4 % (0.0-0.5); Lymphocytes Absolute Auto 1.6 10^3/uL (1.2-3.8); Lymphocytes Percent Auto 19.8 % (20.5-60.0); Mean Corpuscular HGB Conc 31.1 g/dL (29.9-35.2); Mean Corpuscular Hemoglobin 31.1 pg (25.9-34.0); Mean Platelet Volume 9.4 fL (9.5-13.5); Monocytes Absolute Auto 0.9 10^3/uL (0.3-0.8); Monocytes Percent Auto 11.4 % (1.7-12.0); Neutrophils Absolute Auto 5.2 10^3/uL (1.4-6.5); Neutrophils Percent Auto 65.9 % (43.0-75.0); Platelet Count 193 10^3/uL (150-450); Red Blood Count 3.95 10^6/uL (4.70-6.10); Red Cell Distribution Width 13.6 % (11.0-15.0); White Blood Count 7.8 10^3/uL (4.0-11.0)
[2023-07-18 15:27] LABS: Creatinine Urine Random 36.85 mg/dL (20.00-300.00); Protein Creatinine Ratio Urine 1.01; Total Protein Urine Random 37.4 mg/dL (<=11.9)
[2023-07-18 15:44] LABS: BUN Creatinine Ratio 16.7; Calcium 9.1 mg/dL (8.5-10.1); Carbon Dioxide 30.3 mmol/L (21.0-32.0); Chloride 101 mmol/L (98-107); Estimated GFR (African America 36 (>=60); Estimated GFR (Non-African Ame 30 (>=60); Glucose 104 mg/dL (74-106); Potassium 5.3 mmol/L (3.5-5.1); Sodium 140 mmol/L (136-145)
[2023-07-18 15:49] LABS: Percent Iron Saturation 25.4 %
== END 2023-07-18 14:01 | disposition home or self-care (01) ==
PROVIDERS: PCP Internal Medicine; Visit Provider Internal Medicine
DX: I48.0 Paroxysmal atrial fibrillation (principal); R06.09 Other forms of dyspnea; R13.14 Dysphagia, pharyngoesophageal phase; D64.9 Anemia, unspecified; N18.4 Chronic kidney disease, stage 4 (severe); I12.9 Hypertensive chronic kidney disease with stage 1 through stage 4 chronic kidney disease, or unspecified chronic kidney disease
CPT/HCPCS: 36415; 71046; 74230; 80048; 82570; 82607; 82728; 82746; 83540; 83550; 83880; 84156; 85025; 92611

== ENCOUNTER 2023-08-09 15:10 | Outpatient (OUT) | payer MEDICARE, SELFPAY | END 2023-08-09 15:11 | disposition home or self-care (01) | LOC: WC 15:10 | PROVIDERS: PCP Internal Medicine; Visit Provider Podiatrist Foot & Ankle Surgery | DX: L97.421 Non-pressure chronic ulcer of left heel and midfoot limited to breakdown of skin (principal) | CPT/HCPCS: G0463 ==

== ENCOUNTER 2023-08-23 12:50 | Outpatient (OUT) | payer MEDICARE, SELFPAY ==
--- OUTSIDE RECORDS SUMMARY | 2023-08-23 13:13 | XMS_ITS | CCD ---
Author Organization [facility] Care Team Providers Care Enrollment Management Coordinator Name Role Phone PHYSICIAN, DEFAULT Unavailable Unavailable PHYSICIAN, DEFAULT Unavailable Unavailable Anthony Zayas Unavailable MARQUEZ, DR AGUILAR Primary Care Unavailable BALL, DR AGUILAR Admitting Unavailable BALL, DR AGUILAR Attending Unavailable MARQUEZ, DR AGUILAR Consulting Unavailable ZIEBER, DR PRAMOD Gonzales Consulting Unavailable MARQUEZ, DR AGUILAR Primary Care Unavailable LAKSHMIPATHY ., NARSUDARSHAN Admitting Debi vailable LAKMICHELLE ., MARTÍN Attending Debi vailable MARQUEZ, DR AGUILAR Primary Care Unavailable REJI WEBER Admitting Unavailable REJI WEBER Attending Unavailable MARQUEZ, DR AGUILAR Primary Care Unavailable MARQUEZ, DR AGUILAR Admitting Unavailable MARQUEZ, DR AGUILAR Attending Unavailable MARQUEZ, DR AGUILAR Consulting Unavailable MARQUEZ, DR AGUILAR Primary Care Unavailable MARQUEZ, DR AGUILAR Admitting Unavailable MARQUEZ, DR AGUILAR Attending Unavailable MARQUEZ, DR AGUILAR Consulting Unavailable Bhavin Devries Unavailable DO Bhavin Devries Attending Provider [phone] Anthony Zayas Primary Care Unavailable Bhavin Devries Attending Unavailable Bhavin Devries Admitting Unavailable CHUY JAIN Attending Unavailable Girui SINGH, Andsuyapa Streeter Attending Unavailable Gilionitis , Andrius Streeter Attending Unavailable Haoitis , Andrius Ferdinand Attending Unavailable Alka SINGH, Andrius Ferdinand Attending Unavailable Alka SINGH, Andrius Streeter Attending Unavailable Alka SINGH, Issac Streeter Attending Unavailable Jose Dalal Admitting Unavaila ble NONE, XXXX Referring Unavailable MANGO MARQUEZ Attending Unavailable NONE, XXXX Referring Unavailable Jose Dalal Attending Unavaila ble Jose Dalal Admitting Unavaila ble Allergies Allergy Classification Reported Allergen(s) Allergy Type Date of Onset Reaction(s) Facility (3 sources) Penicillin; Translations: [penicillin] Drug Allergy [facility] Repository (9 sources) penicillAMINE Drug Allergy Unknown Prim [facility] Other (1 source) penicillAMINE Drug Allergy 3 [facility] Repository Medications Current Medications Medication Drug Class(es) Dates Sig (Normalized) Sig (Original) AeroChamber (1 source) Start: 07-19-2023 AeroChamber Active 0 .Route .MEDSUPPLY July 19, 2023 1:00am AeroChamber Mini Chamber - (4 sources) Start: 05-20-2023 AeroChamber Mini Chamber - Use with MDI inhaled every 4 hours as needed for 30 days Apr, Active [id number] 60 actuat albuterol 0.09 mg/actuat metered dose inhaler (2 sources) beta2-Adrenergic Agonist Start: 05-20-2023 take 2 puff(s) by inhalation every four hours as needed Albuterol Sulfate HFA 108 (90 Base) MCG/ACT 2 puffs Inhalation every 4 hrs as needed for SOB for 30 days Apr, Active apixaban 5 mg oral tablet (15 sources) Factor Xa Inhibitor Start: 07-19-2023 take 5 mg by mouth twice daily Apixaban Active 5 MG PO Twice daily July 19, 2023 1:00am take 1 tablet by mouth every twe lve hours Eliquis 5 MG 1 tablet Orally Twice a day Active atorvastatin 40 mg oral tablet (15 sources) HMG-CoA Reductase Inhibitor Start: 07-19-2023 take 40 mg by mouth once daily Atorvastatin Active 40 MG PO Daily July 19, 2023 1:00am take 1 tablet by ayaan th every twenty-four hours Atorvastatin Calcium 40 MG 1 tablet Oral ly Once a day Active colchicine 0.6 mg oral tablet (15 sources) Start: 07-19-2023 take 0.6 mg by mouth once daily Colchicine Active 0.6 MG PO Daily July 19, 2023 1:00am Start: 08-03-2022 take 1 tablet by ayaan th once daily as needed Colchicine 0.6 MG 1 tablet Orally daily PRN for acute gout for 30 days Jul, Active famotidine 20 mg oral tablet (13 sources) Histamine-2 Receptor Antagonist Start: 07-19-2023 take 20 mg by mouth once daily at bedtime Famotidine Active 20 MG PO Daily at bedtime July 19, 2023 1:00am take 1 tablet by ayaan th every twenty-four hours Famotidine 20 MG 1 tablet at bedtime as needed Orally Once a day Active 60 actuat fluticasone propionate 0.25 mg/actuat / salmeterol 0.05 mg/actuat dry powder inhaler (3 sources) Corticosteroid, beta2-Adrenergic Agonist Start: 04-18-2023 take 1 puff(s) by inhalation twice daily Wixela Inhub 250-50 MCG/ACT 1 puff Inhalation Twice a day for 30 days Mar, Active folic acid 1 mg oral tablet (2 sources) Start: 07-18-2023 End: 07-19-2023 take 1 mg by mouth once daily Folic Acid Active 1 MG PO Daily July 19, 2023 4:34pm furosemide 40 mg oral tablet (17 sources) Loop Diuretic Start: 08-19-2023 End: 08-19-2023 take 40 mg by mouth twice daily Furosemide Active 40 MG PO Twice daily August 19, 2023 10:35am Start: 07-19-2023 End: 08-19-2023 take 40 mg by mouth once daily Furosemide Discontinued 40 MG PO Daily July 19, 2023 1:00am August 19, 2023 10:17am take 1 tablet by ayaan once daily Furosemide 40 mg TAKE 1 TABLET BY MOUTH DAILY Active losartan potassium 100 mg oral tablet (15 sources) Angiotensin 2 Receptor Virgie Start: 07-19-2023 take 100 mg by mouth once daily Losartan Active 100 MG PO Daily July 19, 2023 1:00am take 1 tablet by mouth once stephon y Losartan Potassium 100 MG TAKE 1 TABLET BY MOUTH DAILY Active mupirocin 0.02 mg/mg topical ointment (1 source) RNA Synthetase Inhibitor Antibacterial Start: 08-19-2023 Mupirocin Active 1 APPLIC TOPICAL Twice daily August 19, 2023 12:00am Tiotropium-Olodate rol (1 source) Anticholinergic, beta2-Adrenergic Agonist Start: 08-19-2023 Tiotropium-Olodat didier (Stiolto Respimat) 2.5-2.5 mcg/actuation mist Active 2 PUFF INHALATION Daily August 19, 2023 12:00am omeprazole 40 mg delayed release oral capsule (2 sources) Proton Pump Inhibitor Start: 07-19-2023 take 40 mg by mouth once daily Omeprazole Active 40 MG PO Daily July 19, 2023 1:00am Start: 07-04-2023 take 1 capsule by mo uth once daily Omeprazole 40 MG 1 capsule 30 minutes before morning meal Orally Once a day for 30 days Jun, Active sotalol hydrochloride 80 mg oral tablet (15 sources) Antiarrhythmic Start: 07-19-2023 take 80 mg by mouth once daily Sotalol Active 80 MG PO Daily July 19, 2023 1:00am take 1 tablet by mouth every twe lve hours Sotalol HCl (AF) 80 MG 1 tablet Orally every 12 hrs Active traMADol hydrochloride 50 mg oral tablet (7 sources) Opioid Agonist Start: 07-19-2023 take 50 mg by mouth once daily Tramadol Active 50 MG PO Daily July 19, 2023 1:00am take 1 tablet by ayaan every twenty-four hours traMADol HCl 50 MG 1 tablet as needed Orally Once a day Active Completed/Discontinued Medications Medication Drug Class(es) Dates Sig (Normalized) Sig (Original) triamcinolone acetonide 40 mg/ml injectable suspension (20 sources) Corticosteroid Start: 04-21-2023 Kenalog-40 Mar, 20 mg Problems Active Problems Problem Classification Problem Date Documented Date Episodic/Chronic Asthma (9 sources) Uncomplicated mild persistent asthma; Translations: [Mild persistent asthma, uncomplicated] Chronic Cardiac dysrhythmias (20 sources) Paroxysmal atrial fibrillation; Translations: [Paroxysmal atrial fibrillation] Chronic Chronic kidney disease (7 sources) Chronic kidney disease, stage 4 (severe); Translations: [Chronic kidney disease, unspecified] Onset: 2 Chronic Chronic kidney disease (1 source) Chronic kidney disease; Translations: [CHRONIC KIDNEY DISEASE STAGE 3B] Onset: 2 Chronic obstructive pulmonary disease and bronchiectasis (8 sources) Simple chronic bronchitis; Translations: [Simple chronic bronchitis] Chronic Chronic ulcer of skin (18 sources) Non-pressure chronic ulcer of other part of left foot limited to breakdown of skin; Translations: [Non-pressure chronic ulcer of left heel and midfoot limited to breakdown of skin] Onset: 2 08-18-2023 Chronic Congestive heart failure; nonhypertensive (17 sources) Chronic diastolic heart failure; Translations: [Chronic diastolic (congestive) heart failure] 08-18-2023 Chronic Coronary atherosclerosis and other heart disease (20 sources) Coronary arteriosclerosis; Translations: [Atherosclerotic heart disease of [place] coronary artery without angina pectoris] Chronic Deficiency and other anemia (1 source) Anemia, unspecified Episodic Disorders of lipid metabolism (20 sources) Pure hypercholesterolemia; Translations: [Familial hypercholesterolemia] Onset: 2 Chronic Esophageal disorders (9 sources) Gastro-esophageal reflux disease with esophagitis; Translations: [Gastroesophageal reflux disease with esophagitis without hemorrhage] 08-18-2023 Chronic Essential hypertension (14 sources) Essential hypertension; Translations: [Essential (primary) hypertension] Chronic Gastrointestinal hemorrhage (18 sources) Rectal hemorrhage; Translations: [Hemorrhage of anus and rectum] Onset: 2 Episodic Gout and other crystal arthropathies (15 sources) Chronic gouty arthritis; Translations: [Idiopathic chronic gout, right ankle and foot, without tophus (tophi)] 08-18-2023 Chronic Hypertension with complications and secondary hypertension (5 sources) Hypertensive chronic kidney disease with stage 1 through stage 4 chronic kidney disease, or unspecified chronic kidney disease; Translations: [HTN CKD W/STAGE 1-4 CKD/UNS CKD] Onset: 2 Chronic Osteoarthritis (20 sources) Osteoarthritis of left knee joint; Translations: [Unilateral primary osteoarthritis, left knee] Onset: 2 Chronic Other aftercare (1 source) Other detention (current) drug therapy Episodic Other connective tissue disease (5 sources) Personal history of other diseases of [...] hand; Translations: [Pain in left hand] Onset: 3 Episodic Other connective tissue disease (1 source) Pain in right hand Episodic Other diseases of kidney and ureters (13 sources) Acquired renal cystic disease; Translations: [Cyst of kidney, acquired] Episodic Other diseases of kidney and ureters (2 sources) Cyst of kidney, acquired; Translations: [CYST OF KIDNEY ACQUIRED] Onset: 2 Episodic Other diseases of kidney and ureters (1 source) Cyst of kidney; Translations: [Cyst of kidney, acquired] 08-18-2023 Episodic Other diseases of veins and lymphatics (14 sources) Peripheral venous insufficiency; Translations: [Venous insufficiency (chronic) (peripheral)] 08-18-2023 Episodic Other diseases of veins and lymphatics (5 sources) Venous insufficiency (chronic) (peripheral); Translations: [Venous (peripheral) insufficiency, unspecified] Onset: 2 Episodic Other gastrointestinal disorders (2 sources) Dysphagia; Translations: [Dysphagia, pharyngoesophageal phase] Episodic Other gastrointestinal disorders (1 source) Dysphagia, pharyngoesophageal phase Episodic Other lower respiratory disease (3 sources) Other forms of dyspnea Episodic Other lower respiratory disease (2 sources) Other disorders of lung Episodic Other lower respiratory disease (1 source) Hypoxemia Episodic Other nutritional; endocrine; and metabolic disorders (1 source) Morbid (severe) obesity due to excess calories; Translations: [MORBID SEVERE OBES D/T EXCESS SEDA] Onset: 2 Chronic Other screening for suspected conditions (not mental disorders or infectious disease) (2 sources) Encounter for screening for malignant neoplasm of prostate; Translations: [ENC SCREEN MALIG NEOPLASM PROSTATE] Onset: 2 Episodic Peripheral and visceral atherosclerosis (20 sources) Intermittent claudication of bilateral lower limbs co-occurrent and due to atherosclerosis; Translations: [Atherosclerosis of [place] arteries of extremities with intermittent claudication, bilateral legs] Onset: 2 Chronic Spondylosis; intervertebral disc disorders; other back problems (12 sources) Lumbar spondylosis; Translations: [Spondylosis without myelopathy or radiculopathy, lumbar region] Chronic Substance-related disorders (1 source) Nicotine dependence, cigarettes, in remission; Translations: [NICOTINE DEPEND CIGARETTES REMISS] Onset: 2 Chronic Unclassified (1 source) Other persistent atrial fibrillation; Translations: [OTHR PERSISTENT ATRIAL FIBRILLATION] Onset: 2 Unclassified (1 source) Pain in right hand; Translations: [Pain in right hand] Onset: 3 Past or Other Problems Problem Classification Problem Date Documented Da te Episodic/Chronic Esophageal disorders (12 sources) Esophageal disorders; Translations: [Gastroesophageal reflux disease with esophagitis without hemorrhage] Results Test Name Value Interpretation Reference Range Facility Insurance Correspondenceon 0 08-02-2023 Insurance Correspondence [id number] 5#1.00TIFF Normal [facility] Consent for Treatmenton 07-21 Consent for Treatment [id number] #1.00TIFF Normal [facility] Heart and Vascular Office/Cl inic Noteon 08-01-2023 Heart and Vascular Office/Clinic Note History of Present Illness Roly Brock is a 77-year-old male medical history positive for CAD with prior PCI, chronic atrial fibrillation, hypertension, hyper lipidemia. He is morbidly obese. He is here today for an acute visit with increase complaints of shortness of breath and substernal chest pain. The shortness of breath has been increasing over the past few weeks. He is becoming very dyspneic with minimal exertion. He has increased swelling to lower extremity. He has some mild increase in weight. His chest pain is usually occurring around 3 AM, resolved with drinking or food ingestion. His primary team has ordered pulmonary function testing and is doing GI workup. Encouraged him to be seen by cardiology. EKG performed in the office shows A-fib with RVR with heart rate of 101 bpm. Review of Systems Constitutional: no fever, no chills, no weakness, no fatigue Respiratory: + shortness of breath, no cough, no orthopnea, no wheezing Cardiovascular: + chest pain, no palpitations, + edema Neuro:no dizziness no light headed no syncope Additional ROS info: Except as noted in the above Review of Systems and in the History of Present Illness all other systems have been reviewed and are negative or noncontributory. Physical Exam General: alert, no acute distress Neck: Supple, noJVD nocarotid bruit Cardiovascular: irregularly-irregula r rate and rhythm, no murmur normal peripheral perfusion Respiratory: Lungs diminished, respirations non labored Extremities: 2+ pedal, ankle bilateral lower extremity edema Neurological: oriented x 4, LOC appropriate for age, sensation equal & normal bilaterally, speech normal Skin: Warm, dry, intact- no rash or concerning lesions Procedure [facility] - Dr Dalal 07/28/21 LMT: Normal left main trunk with bifurcation LAD: Normal caliber with 50% mid stenosis, reaches the apex. LCx: Normal caliber with no stenosis, reaches the lateral wall. RCA: Normal caliber with 80% ostial stenosis 90% mid, 80% distal, dominant, reaches the inferior wall. Hemodynamics: Normal LVEDP with no gradient across the aortic valve. Left ventriculography: Not done Conclusions: Two-vessel CAD with severe stenosis of the RCA status post PCI of the RCA JASPREET x3. Aspirin Plavix and Eliquis for 3 weeks following which will be Plavix and Eliquis. [1] Cardiac Diagnostics (07/08/2021 13:49 EST Echo Transthoracic Complete) UMMARY/CONCLUSION: 1. Moderate concentric left ventricular hypertrophy with intact LV function with an LVEF of 55%. 2. Unable to quantitate diastolic dysfunction due to atrial fibrillation. 3. Moderate biatrial enlargement. 4. Mild tricuspid regurgitation with at least mild pulmonary hypertension with a RVSP of 38 mm Hg. 5. Patient appears to be in atrial fibrillation. 6. No old echocardiograms for comparison. [2] Assessment/Plan 1. Shortness of breath (R06.02: Shortness of breath) Multifactorial. Update echocardiogram to reevaluate cardiac structure and function, obtain stress testing to rule out ischemia. He had recent labs done, will request these from primary team. Ideally would get a BNP to see if we need to increase his diuretic as clinically he appears volume up. Primary team has ordered pulmonary function testing. Ordered: Echo Transthoracic Complete NM Myocardial Spect Rest/Stress 1 Day 2. Chest pain (R07.9: Chest pain, unspecified) to see if this helps with symptoms.EKG is nonacute, he has chronic/persistent atrial fibrillation. His chest pain he describes as very atypical, likely GI in nature. However, patient does have known coronary disease with prior PCI. It has been greater than 2 years since last PCI. Will get a stress MPI to rule out ischemia. He understands if stress is abnormal he will likely require coronary angiogram. Will add isosorbide mononitrate 3. CAD in [place] artery (I25.10: Atherosclerotic heart disease of [place] coronary artery without angina pectoris) He has known CAD with prior PCI most recently in July 2021 after abnormal stress MPI. He will continue his aspirin 81 mg daily, atorvastatin 40 mg daily. Ordered: Echo Transthoracic Complete NM Myocardial Spect Rest/Stress 1 Day 4. Hypertension (I10: Essential (primary) hypertension) Pressure stable in the office today. Reports higher readings at home. Blood pressure will support isosorbide mononitrate 30 mg daily. 5. Obesity (E66.9: Obesity, unspecified) The standard range for ages 18 and older is >=18.5 and < 25 kg/m2. Your BMI today was above this range, this falls in the overweight to obese category and there are medical benefits to weight loss. We can offer counselling, referral, and/or medical support in addressing this problem. Your BMI and weight management will be followed at subsequent visits. Chronic atrial fibrillation, unspecified (I48.20: Chronic atrial fibrillation, unspecified) EKG performed in office is personally reviewed, noted in HPI, and discussed with patient. Contin (more content not included)... Normal [facility] Comment on above: Result Comment: Elec tronically Signed By: Becky MARQUEZ CNP\.trudy\Date and Time Signed: 08/01/23 17:50 EDT [facility] 08-01-2023 Outside Labs [id number] #1.00TIFF [facility] Physician Orderon 08-01-2023 Physician Order [id number] #1.00TIFF [facility] Outside Recordson 07-22-2023 Outside Records [id number] 2#1.00TIFF [facility] Basophils Auto (Bld) [#/Vol] on 07-18-2023 Basophils (Bld) [#/Vol] 0.0 10 3/uL 0.0-0.1 [facility] Basophils/100 WBC Auto (Bld) on 07-18-2023 Basophils/100 WBC (Bld) 0.5 % 0.2-2.0 [facility] Eosinophils/100 WBC Auto (Bl d)on 07-18-2023 Eosinophils/100 WBC (Bld) 2.0 % 0.9-7.0 [facility] Erythrocyte distribution wid th Auto (RBC) [Ratio]on 07-18-2023 Erythrocyte distribution width (RBC) [Ratio] 13.6 % 11.0-15.0 [facility] Estimated glomerular filtrat ion rate (GFR) non- Americanon 07-18-2023 GFR/1.73 sq M.predicted among non-blacks MDRD (S/P/Bld) [Vol rate/Area] 30 mL/min/{1.73_m2} >=60 [facility] Hematocrit Auto (Bld) [Volum e fraction]on 07-18-2023 Hematocrit (Bld) [Volume fraction] 39.5 % 42.0-54.0 [facility] Hemoglobin [Mass/volume] in Bloodon 07-18-2023 Hemoglobin (Bld) [Mass/Vol] 12.3 g/dL 14.0-18.0 [facility] Iron binding capacity [Mass/ volume] in Serum or Plasmaon 07-18-2023 Iron binding capacity [Mass/Vol] 280.0 ug/dL 250.0-450.0 [facility] Iron saturation [Mass Fracti on] in Serum or Plasmaon 07-18-2023 Iron saturation [Mass fraction] 25.4 % [facility] Laboratory - Chemistry and C hemistry - challengeon 07-18-2023 Calcium [Mass/Vol] 9.1 mg/dL 8.5-10.1 [facility] Chloride [Moles/Vol] 101 mmol/L 98-107 [facility] CO2 [Moles/Vol] 30.3 mmol/L 21.0-32.0 [facility] Cobalamin (Vitamin B12) [Mass/Vol] 285.0 pg/mL 193.0-986.0 [facility] Creatinine [Mass/Vol] 2.15 mg/dL 0.70-1.[address] [facility] Ferritin [Mass/Vol] 147.0 ng/mL 26.0-388.0 [facility] GFR/1.73 sq M.predicted MDRD (S/P/Bld) [Vol rate/Area] 36 mL/min/{1.73_m2} >=60 [facility] Glucose [Mass/Vol] 104 mg/dL 74-106 [facility] Iron [Mass/Vol] 71.0 ug/dL 65.0-175.0 [facility] Natriuretic peptide B (Bld) [Mass/Vol] 4314.0 pg/mL <=1800.0 [facility] Comment on above: RESULTS CALLED TO RYAN BARRERA Potassium [Moles/Vol] 5.3 mmol/L 3.5-5.[address] [facility] Sodium [Moles/Vol] 140 mmol/L 136-145 [facility] Urea nitrogen [Mass/Vol] 36.0 mg/dL 7.0-18.0 [facility] Urea nitrogen/Creatinine [Mass ratio] 16.7 mg/mg [facility] - Hematology and Cell countson 07-18-2023 Immature granulocytes/100 WBC (Bld) 0.4 % 0.0-0.5 [facility] - Urinalysison Protein (U) [Mass/Vol] 37.4 mg/dL <=11.9 [facility] Leukocytes [#/volume] correc margaret for nucleated erythrocytes in Blood by Automated counon 07-18-2023 WBC corrected for nucl RBC Auto (Bld) [#/Vol] 7.8 10 3/uL 4.0-11.0 [facility] Lymphocytes Auto (Bld) [#/Vo l]on 07-18-2023 Lymphocytes (Bld) [#/Vol] 1.6 10 3/uL 1.2-3.8 [facility] Lymphocytes/100 WBC Auto (Bl d)on 07-18-2023 Lymphocytes/100 WBC (Bld) 19.8 % 20.5-60.0 [facility] MCH Auto (RBC) [Entitic mass ]on 07-18-2023 MCH (RBC) [Entitic mass] 31.1 pg 25.9-34.0 [facility] MCHC Auto (RBC) [Mass/Vol]on 07-18-2023 MCHC (RBC) [Mass/Vol] 31.1 g/dL 29.9-35.[address] [facility] MCV Auto (RBC) [Entitic vol] on 07-18-2023 MCV (RBC) [Entitic vol] 100.0 fL 80.0-94.0 [facility] Monocytes Auto (Bld) [#/Vol] on 07-18-2023 Monocytes (Bld) [#/Vol] 0.9 10 3/uL 0.3-0.8 [facility] Monocytes/100 WBC Auto (Bld) on 07-18-2023 Monocytes/100 WBC (Bld) 11.4 % 1.7-12.0 [facility] Neutrophils Auto (Bld) [#/Vo l]on 07-18-2023 Neutrophils (Bld) [#/Vol] 5.2 10 3/uL 1.4-6.5 [facility] Neutrophils/100 WBC Auto (Bl d)on 07-18-2023 Neutrophils/100 WBC (Bld) 65.9 % 43.0-75.0 [facility] No Panel Informationon 07-18 Eosinophils # (Auto) 0.2 10 3/uL 0.0-0.[address] [facility] Folate 7.30 ng/mL 8.60-58.90 [facility] Immature Granulocyte # (Auto) 0.03 10 3/uL 0.00-0.03 [facility] Urine Random Creatinine 36.85 mg/dL 20.00-300.00 [facility] Platelet mean volume Auto (B ld) [Entitic vol]on 07-18-2023 Platelet mean volume (Bld) [Entitic vol] 9.4 fL 9.5-13.5 [facility] Platelets Auto (Bld) [#/Vol] on 07-18-2023 Platelets (Bld) [#/Vol] 193 10 3/uL 150-450 [facility] RBC Auto (Bld) [#/Vol]on RBC (Bld) [#/Vol] 3.95 10 6/uL 4.70-6.10 [facility] Serum or plasma anion gap de terminationon 07-18-2023 Anion gap [Moles/Vol] 14.0 [facility] protein/creatinine rat ioon 07-18-2023 Protein/Creatinine (U) [Ratio] 1.01 [facility] Formson 06-14-2023 Forms [id number] 5#1.00TIFF Derick Gonzalez [facility] XR hand BI 3Von 04-21-2023 XR hand BI 3V [facility] [place] [address] XRay Report Signed Patient: Roly Brock MR#: [id number] 7 : 1945 Acct:[id number] Age/Sex: 77 / M ADM Date: 04/21/23 Loc: [facility] [place]: Type: [facility] Attending Dr: Bhavin Devries DO Copies to: Bhavin Devries DO Ordering Provider: Bhavin Devries DO Date of Service: 04/21/23 XR/XR hand BI 3V: Pain in right hand;Pain in left hand BILATERAL HANDS - 4 views each CLINICAL DATA: Chronic worsening bilateral hand pain and decreased insurance verification clerk strength. COMPARISON: None AP, lateral, oblique and [...] Prabha Thompson M.D.04/21/2023 3:25 PM Dictation Location: [place] [address] Transcribed By: RUBEN 04/21/23 1525 Dictated By: Prabha Thompson MD 04/21/23 1522 Signed By: 04/21/23 1525 [facility] Heart and Vascular Office/Cl inic Noteon 04-16-2023 Heart and Vascular Office/Clinic Note Chief Complaint 6 month follow up History of Present Illness Roly Brock is a male presents who today for a 6-month follow-up. He is accompanied by an adult female. 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 Review of [...] with voice recognition artificial intelligence software, specifically [employer] and or [employer]. Substitutions may have occurred with voice recognition and artificial intelligence software. ATTESTATION: Documentation services were performed after patient or guardian consented to allow [employer] to record this visit. RACHEL logging specialist and provider reviewed before signing. RACHEL: [...] Household tobacco nida (more content not included)... [facility] Comment on above: Result Comment: Elec tronically Signed By: Mulugeta SINGH, Jose Stanley\.br\Date and Time Signed: 04/16/23 11:49 EST\.br\Electronically Co-Signed By: Nellie Early\.br\Date and Time Co-Signed: 02/11/23 17:34 EDT Consent for Treatmenton 01-22 Consent for Treatment [id number] #1.00CD:[address] [facility] Physician Orderon 02-11-2023 Physician Order [id number]# 1.00CD:[address] [facility] Outside Recordson 12-10-2022 Outside Records [id number]#1.00CD:[address] [facility] September 06, 2022 Re: Roly Brock : 1945 The above patient has discontinued his clopidogrel. He remains on aspirin and apixaban. He should continue these medications for upcoming dental procedure. Please call with any further questions. Becky GUERRIER [facility] Coding Summary.on 08-09-2022 Coding Summary. CD:[id number] Gh0bWw+PGhlYWQ+PE1FV WJhF54voMVfqC9qW2QAB ElOSywgQVBQTElOSyIgb nYlSX5ipKCrQZFp IC8+OF5fNTGqBfnzbGPt f4O6lDG4K46fmu8eSFgj zDM5ZSYcHaHtvelnh3az lNg6JJfjOwreZnFp TFAfbI84XBY8pL87Bd76 kOEecHTzx2lysTz5SvWb WMPdAZL0nQqkESiqz3Jc ZOIoY15uiLNuh1N3 IGNvbGxhcHNlOyBlbXB0 mA3hCObngwram2ufaeyg Tha2lm86kVQdn3H1tZE7 N3CqhbM4RMPatTXw AlujoNNEuB3chionl9bb tzjbFoDqAGRdCXn1WQy9 OXQmpYefVdFmUN95BHE4 QEStawYuA7BrLUIr rAgxNtM6j1Q1Ii0ML6UO LledB5PUYCTKTDtxfKV+ UP94ms22L4SzBredUsn5 WZLpALM7dEA1fB5s DTLmMQkbp7V1dAD1I3Tu ayDdxp3qv0ssYMAdXImr V63nzIOsq0O6DKXxeYT1 NKYhxFueCrGakP36 Oyc+LQBsbGuyk3QlStbh q2riy5orsYe6YnnpBELq gjMwlLgcSXD6k6NhYt4z DBTltXC2wQW9dW7p FsPqHnF2LFwlB113AwAr dZVtWmzfT81lR8RxmFQ+ XMMbLod5ZCKzuWyoQU7s B2UsPVPwptpibWPp oXwbMA7qVENzpgluWQYx sY6vDBNeP6b5TwObVyH1 AVgxP5OgFDPzveedFo15 bV5cYxJoHeV7CQzl C9UiigQ8BXRypVKxERxg SLU0E18mw8F6EZVmOFTs MKI6iZP1gM6zgMaoslgw bGVmdDsgdmVydGlj JYpmGCqwW090FNQwpPmf PkNvZGluZyBEYXRlOiAg MDMvMjAvMjAyMzwvdGQ+ ORCaNUQ7pAdvLQGr rPNaQBlpRa9ugIyllQks GF9iQFLsihjsZWOfeV9g DXLtcLIuhSalLI7cSUHj wxjmx368TgAvFJD3 ZGAtgDPdU3KwlM5fXpNe WYZfKLYuS0PuuQGvSDyr T850OTfmClE5QMHfzqRe S7XtCYRfgFntDjZ7 t1I7Hr8Ok5FumnrsZ6Vq aRCoFoJqXcvnKKp7J8Ev PjwvdHI+IE95ACVeSY91 WMq0XBH5zJfgQHvq AWKeR8XtrZ3gXqXcDTAr ZGRkOyc+PHRhYmxlIHdp ZHRoPScxMDAlJyBzdHls MB4qDu5iBVAnESCc kKmkmDYzIfFtn4drKZTc JGjcOY0gzNkxV4HbaNX9 CVOqc2b1Vp05Q86jL2Rn dXA+MGCdnBR3jZM4 mE2lSrNkCyD4VObsE167 OnMqeRZqIjajo3zms5io xFa1RaG0XMNybkXzcHsn UML2u0TpEz26Q14a IHdpZHRoPSIxNSUiIHZh jQpqzo3jfE1mYx3+PGNv hXA6aVT1cI8jNzKaCcM8 MKxmK823JsAtkWBk Ohswh8ptd5yhfFh5ZmKl XQLrtqPpiDikZIG1j7Us Pg11N6CqjWfof3TqFoi5 ny55fMDlt8X7nVY6 B9QnRQIojrrbfRCjwPdm MH8iCSRvubypPCUhlF9y FLQcS5n4BtVlYjP6JEmx F4YubnL3DJRrgFAd DABofVLFtA0wbymza2rv szvtOpVjKYDmRSz5PHz0 AKHruUhyTaEeAOI8YyY0 OGX8cXHehF1lcJjw szcpeU5wWkz+QIN9bADi jXAXDW6qKgbphVY+PHRk UQK1kCamNNaiWGTubG3u VIRiX5t3XsEgHmU2 EMfuT4IwzbZ1DEHrpYDp ETRchNUMlS9qonnvy9df oycePxOtVEFxQOy3EQa4 LWFsaWduOiBsZWZ0 NgU9JBY5bCUloV5sdTvt xgdpzC6rDel+QmlydGgg SOR6JVm7D4XvKko6UMPq wDyhOY1riXSgHVen Sc1zqOghhVltXE7uVJKw cxvgi541JxXrn6owZTMm vQWyJXakTUT1T08ws3S4 BHJoKRTrOUE3pJQ4 qR9xnXlqixmbuVCvyCbw jdCxrKuwTLclGYipA740 UWFyrKiwYsKvPCt3Y7Xb Pfw6BVGpdQvbZE1b jKSbOSsiUk9dsBjpuXfs MJ2bHMZbjkcdt647WkSu y6qqQZOziUFlPWyaAJG1 F36np8Z3UFNcETMk OJC6sAP5wU6rzCqrqxtd bGVmdDsgdmVydGljYWwt VZlfL773OICkbXryJoQo tIb9U1NnXjx0LMDs mEcaRT0tpPRhSPnaZv0r mNglbFjpWJ0qIHDqdqti t267XwSqz6rmKBSeoCYl AVmfGFC4B94ea8M3 USMiFCTlRTX6qFC6pL0c bGlnbjogbGVmdDsgdmVy hXcnWAkaIMgiE258EVTl cDsnPlBhdGllbnQg EKagQUh3A0JyNacdkQT+ XN70ZWGbIT93kIQwvHQd z9rszGe1UiZuJJDcCIX6 cMzsIXfky9QyGVNv J44ylZBre6H0SUIatNum nIEoNmOkzHZ9fR7cPDvh adiax4njcanbTeoxr7aa jl28hB76Q73dEVir ZHRoPSIzMCUiIHZhbGln jc9rjG7sVz6+PGNvbCB3 fGG5qG8vJULiNoM6YRun I901HlLnoQXwShsu d5eag3rmnEk0TyM8FAIu seYocWxgHTN3z0DkTr56 G51nYFeeJIQoULGjQPDd FYEheMcfjw1urQ4u Ii8+SNZpjXS1oXV8mJ1u GxYlPlO4BQnaR878YhMg rJYwGhviJ54lG1GzhJH+ NSYvIsq2AYCbdIzg PC5bqUBcNNjhMl2kBOO6 LkJaOhKkGGlyA9EjBDPs wdxgtazgaWC6KIXzXJOn aU08Lj0grJwmVKOe xWXKxC8ksuyjo2utjnyx OnYhGZMlDYz5MZz5OXCo cWebEtCvVLJ2XyT9WAD3 sLUbtQ1beVykcyou gJ0xH8EsYOFszoqmRa69 gN1rKeSbPrT9XBezAhx+ EQQAS12POQzcBO7ODQC5 M9ViZzw7EWHyzSto TG6jhDZfMTyaAs3mmRkb vZfhVR3lVQQkcoccTAWn sO4hAGUdcVXdaDgkKB3n NPRvmbsac052KxFu PIS7YGTxvQWpL6XypB3p OxTvWTRsOXKuJ8QjqZEb QMolE657AGkqOdP4APKh xsIoU8EqDTPpfZfm LoU2c0H6Hs0iRt9uYb8o BAH8AL82SL20eWUqm6A7 rEJ7P0EjPZMceqpfwlbx jIK8YYCyXAJauD62 sZXeOGzrRm2iz2S5d550 YDJaTQJfbY30Gp4jtTgp MELwhRVNjU2epdzrn0fi cjogIzAwMDAwMDt0 NJm5RCQihNjeDdNpJLU8 QtM0VRG5bPGupW8jnNuy ygyrxW5mKiw+NzYgWWVh teP2J2RlBfk3GTPt yMifIA1yfZXjWTnsNj5q nHwknJxdNV6qFOKkckyj UNAdaX3dQRCdlWAqcMht HR9oACPhlnuew787 JiUnWFE0ZPJrxEUfE5Gt tA0dDfRiYYNlGMQnV1Oj dDSzYVplB585WHnxJfF8 UXMywtZhX3GcNAHt xJttGlL8t2X7Xj4QGTod QU26GJ71fITtk4W7bFP6 N8YqXZJiipsmshatyUP1 UIEoBABujO46oQWw LFkcRs1no3A4m578OYBy RWLtjK63Gy6fcEfgHZBd eUNSkG5qeykgy2gnvavj KfXqHXOtRPv7VZj9 RCPypFplMmDgPSA6IwT0 XQP1bLLzfD7ieEsufgmw tB5fJwy+D1G3tRV1dETp dDwvdGQ+IL25zx59 M2SpZhwbRqh5CHHgORX1 qQG9cH1tBVNeUMtsb3F6 fJJ1R0XvbpCjbh9ys0bk WXFjLMmeK26qvPUw c7R5ZPEqxMA9IWWlxSet IjIiqZ41Pmn+PGNvbGdy i2OgBqwfo8qvy8fyoPt7 IjMwJSIgdmFsaWdu MBM7i1ZrPf26Q97lGCey ZHRoPSIzMCUiIHZhbGln ha3trL4vLw4+PGNvbCB3 fBV2oR1iKuLhRaQ1 YKlcZ908AfDorQUnPeqs f1wxi2ctmSc2VuYfUINp qqHpnBhpAIR6p2XxMh22 I6VduEvgx4HaOys5 sw98sRSdh8I9cKQ9V5Hs TDBziaapkAXdvZujXT9q JMAhfvfjJPKmnG4qUWNt U6z6LoUrIyH8FFwd N1YkknW4DCGjgDDnKWZr zUFNaH3rvjkzc1eehcpu RlQtMCEsZTc8MTa8GYLh jQomWvCjOFU1GwI9 GEI7qUVwoP3nvGtefaln fG4yIht+UOl3p5ptnXAt RE2nqKM1ZK50IG69aGPx u6L1eMR5N1GdNAEj voysrdescUQ9OEYaTPEe eF91Nz7mcTppOs7gCANk GZU2VPBnhAXjT9ZdqL1x FxHrMEJwQTTuK4Nu xCHzAUcyT538QFqvTsB9 OHMurlAzO5AiSLNckDzi PuG7n7H5Xq2THC20XZ97 ET68bAFsz9Z6kLZ2 B7LtAAEkyuhulqrmqTK8 AMNgKFLhzY13Oo4olTgc Av6aAKLkXKI0XXXjgCHh I9OgmH6bCdMtVEHi OIJiL2WzsUTnRGxuO167 INxwTrK2OKNwiuTiU7At RUOyoMoqGoB8k8R9Fq0Y Iz64QB10YU32pVSx w4W1zRR0Y8HuXKVpbgsu pirvoHJ9RUGgUYSieQ43 Sz0ekJplZr3mMNNgAUL7 HAZcyYTiI6UgnH3h TrDmHBGcHGFnF5GlkBSh QAunH483FBawMcZ3TRPo veBbP5DiYINjuHnuPiA8 o6J0Yq8EHKcwfuj3 G7DkOkffwZM+YX25TPIf IG77hGHbiGWlm9arlIj1 CtYmPTIvYFJ3zEfaYPax a8DqKDEbV68upTTw c2U6 (more content not included)... Normal [facility] PROF CHEM 8 (BAS METB)on Anion gap [Moles/Vol] 11.0 mmol/L Normal [facility] Comment on above: Performed By: #### B MP #### [facility] [address] [address] [address] Milka Castaneda Calcium [Mass/Vol] 8.9 mg/dL Normal 8.5-10.1 [facility] Comment on above: Performed By: #### B MP #### [facility] [address] [address] [address] Milka Castaneda Chloride [Moles/Vol] 99 mmol/L Normal 98-107 [facility] Comment on above: Performed By: #### B MP #### [facility] [address] [address] [address] Milka Castaneda CO2 [Moles/Vol] 32.0 mmol/L Normal 21.0-32.0 [facility] Comment on above: Performed By: #### B MP #### [facility] [address] [address] [address] Milka Castaneda Creatinine [Mass/Vol] 2.19 mg/dL Critically high 0.70-1.30 [facility] Comment on above: Performed By: #### B MP #### [facility] [address] [address] [address] Milka Castaneda EGFR-AF COSTA RICAN 36 mL/min/1.73m2 Critically low >=60 [facility] Comment on above: Performed By: #### B MP #### [facility] [address] [address] [address] Milka Castaneda EGFR-NON AF [place] R[place] 29 mL/min/1.73m2 Critically low >=60 [facility] Comment on above: Performed By: #### B MP #### [facility] [address] [address] [address] Milka Castaneda Glucose [Mass/Vol] 94 mg/dL Normal 74-106 [facility] Comment on above: Performed By: #### B MP #### [facility] [address] [address] [address] Milka Castaneda Potassium [Moles/Vol] 5.0 mmol/L Normal 3.5-5.1 [facility] Comment on above: Performed By: #### B MP #### [facility] [address] [address] [address] Milka Castaneda Sodium [Moles/Vol] 137 mmol/L Normal 136-145 [facility] Comment on above: Performed By: #### B MP #### [facility] [address] [address] [address] Milka Castaneda Urea nitrogen [Mass/Vol] 32.0 mg/dL Critically high 7.0-18.0 [facility] Comment on above: Performed By: #### B MP #### [facility] [address] [address] [address] Milka Castaneda Urea nitrogen/Creatinine [Mass ratio] 14.6 mg/mg Normal [facility] Comment on above: Performed By: #### B MP #### [facility] [address] [address] [address] Milka Castaneda CBC AUTO DIFFon 02-03-2022 BASO # 0.1 103/ul Normal 0.0-0.1 [facility] Comment on above: Performed By: #### C BC #### [facility] [address] [address] [address] Milka Castaneda Basophils/100 WBC (Bld) 0.6 % Normal 0.2-2.0 [facility] Comment on above: Performed By: #### C BC #### [facility] [address] [address] [address] Milka Castaneda EO # 0.5 103/ul Normal 0.0-0.7 [facility] Comment on above: Performed By: #### C BC #### [facility] [address] [place] [address] Dr. Milka Castaneda Eosinophils/100 WBC (Bld) 5.8 % Normal 0.9-7.0 [facility] Comment on above: Performed By: #### C BC #### [facility] [address] [place] [address] Dr. Milka Castaneda Erythrocyte distribution width (RBC) [Ratio] 13.2 % Normal 11.0-15.0 [facility] Comment on above: Performed By: #### C BC #### [facility] [address] [place] [address] Dr. Milka Castaneda Hematocrit (Bld) [Volume fraction] 44.2 % Normal 42.0-54.0 [facility] Comment on above: Performed By: #### C BC #### [facility] [address] [place] [address] Dr. Milka Castaneda Hemoglobin (Bld) [Mass/Vol] 14.3 g/dL Normal 14.0-18.0 [facility] Comment on above: Performed By: #### C BC #### [facility] [address] [place] [address] Dr. Milka Castaneda IG # 0.02 10e3/ul Normal 0.00-0.03 [facility] Comment on above: Performed By: #### C BC #### [facility] [address] [place] [address] Dr. Milka Castaneda IG % 0.2 % Normal 0.0-0.5 [facility] Comment on above: Performed By: #### C BC #### [facility] [address] [place] [address] Dr. Milka Castaneda LYMPH # 1.7 103/ul Normal 1.2-3.8 [facility] Comment on above: Performed By: #### C BC #### [facility] [address] [place] [address] Dr. Milka Castaneda Lymphocytes/100 WBC (Bld) 20.5 % Normal 20.5-60.0 [facility] Comment on above: Performed By: #### C BC #### [facility] [address] [place] [address] Dr. Milka Castaneda MANUAL DIFF REQ NO Normal [facility] Comment on above: Performed By: #### C BC #### [facility] [address] [place] [address] Dr. Milka Castaneda MCH (RBC) [Entitic mass] 31.7 pg Normal 25.9-34.0 [facility] Comment on above: Performed By: #### C BC #### [facility] [address] [place] [address] Dr. Milka Castaneda MCHC (RBC) [Mass/Vol] 32.4 g/dL Normal 29.9-35.2 [facility] Comment on above: Performed By: #### C BC #### [facility] [address] [place] [address] Dr. Milka Castaneda MCV (RBC) [Entitic vol] 98.0 fL Critically high 80.0-94.0 [facility] Comment on above: Performed By: #### C BC #### [facility] [address] [place] [address] Dr. Milka Castaneda MONO # 1.1 103/ul Critically high 0.3-0.8 [facility] Comment on above: Performed By: #### C BC #### [facility] [address] [place] [address] Dr. Milak Castaneda Monocytes/100 WBC (Bld) 12.7 % Critically high 1.7-12.0 [facility] Comment on above: Performed By: #### C BC #### [facility] [address] [place] [address] Dr. Milka Castaneda NEUT # 5.1 103/ul Normal 1.4-6.5 [facility] Comment on above: Performed By: #### C BC #### [facility] [address] [place] [address] Dr. Milka Castaneda Neutrophils/100 WBC (Bld) 60.2 % Normal 43.0-75.0 [facility] Comment on above: Performed By: #### C BC #### [facility] [address] [address] [address] Milka Castaneda Platelet mean volume (Bld) [Entitic vol] 9.5 fL Normal 9.5-13.5 [facility] Comment on above: Performed By: #### C BC #### [facility] [address] [address] [address] Milka Castaneda PLT 160 103/ul Normal 150-450 [facility] Comment on above: Performed By: #### C BC #### [facility] [address] [address] [address] Milka Castaneda RBC 4.51 106/ul Critically low 4.70-6.10 [facility] Comment on above: Performed By: #### C BC #### [facility] [address] [place] [address] Dr. Milka Castaneda WBC 8.4 103/ul Normal 4.0-11.0 [facility] Comment on above: Performed By: #### C BC #### [facility] [address] [place] [address] Dr. Milka Castaneda DIRECT LDLon 02-03-2022 Cholesterol in LDL [Mass/Vol] 82 mg/dL Normal [facility] Comment on above: Performed By: #### D LDL, BMP #### [facility] [address] [place] [address] Dr. Milka Castaneda DLDL NORMAL SEE BELOW Normal [facility] Comment on above: Result Comment: <100 mg/dl OPTIMAL 100 - 129 mg/dl NEAR OR ABOVE OPTIMAL 130 - 159 mg/dl BORDERLINE HIGH 160 - 189 mg/dl HIGH >190 mg/dl VERY HIGH Performed By: #### D LDL, BMP #### [facility] [address] [place] [address] Dr. Milka Castaneda PROF CHEM 8 (BAS METB)on Anion gap [Moles/Vol] 13.1 mmol/L Normal [facility] Comment on above: Performed By: #### D LDL, BMP #### [facility] [address] [place] [address] Dr. Milka Castaneda Calcium [Mass/Vol] 9.3 mg/dL Normal 8.5-10.1 [facility] Comment on above: Performed By: #### D LDL, BMP #### [facility] [address] [address] [address] Milka Castaneda Chloride [Moles/Vol] 102 mmol/L Normal 98-107 [facility] Comment on above: Performed By: #### D LDL, BMP #### [facility] [address] [address] [address] Milka Castaneda CO2 [Moles/Vol] 29.5 mmol/L Normal 21.0-32.0 [facility] Comment on above: Performed By: #### D LDL, BMP #### [facility] [address] [place] [address] Dr. Milka Castaneda Creatinine [Mass/Vol] 1.94 mg/dL Critically high 0.70-1.30 [facility] Comment on above: Performed By: #### D LDL, BMP #### [facility] [address] [place] [address] Dr. Milka Castaneda EGFR-AF [place] R[place] 41 mL/min/1.73m2 Critically low >=60 [facility] Comment on above: Performed By: #### D LDL, BMP #### [facility] [address] [place] [address] Dr. Milka Castaneda EGFR-NON AF [place] 34 mL/min/1.73m2 Critically low >=60 [facility] Comment on above: Performed By: #### D LDL, BMP #### [facility] [address] [address] [address] Milka Castaneda Glucose [Mass/Vol] 91 mg/dL Normal 74-106 [facility] Comment on above: Performed By: #### D LDL, BMP #### [facility] [address] [address] [address] Milka Castaneda Potassium [Moles/Vol] 4.6 mmol/L Normal 3.5-5.1 [facility] Comment on above: Performed By: #### D LDL, BMP #### [facility] [address] [address] [address] Milka Castaneda Sodium [Moles/Vol] 140 mmol/L Normal 136-145 [facility] Comment on above: Performed By: #### D LDL, BMP #### [facility] [address] [place] [address] Dr. Milka Castaneda Urea nitrogen [Mass/Vol] 30.0 mg/dL Critically high 7.0-18.0 [facility] Comment on above: Performed By: #### D LDL, BMP #### [facility] [address] [place] [address] Dr. Milka Castaneda Urea nitrogen/Creatinine [Mass ratio] 15.5 mg/mg Normal [facility] Comment on above: Performed By: #### D LDL, BMP #### [facility] [address] [place] [address] Dr. Milka Castaneda CREATININEon 10-07-2021 Creatinine [Mass/Vol] 1.67 mg/dL Critically high 0.70-1.30 [facility] Comment on above: Performed By: #### C OMI #### [facility] [address] [place] [address] Dr. Milka Castaneda EGFR-AF [place] R[place] 49 mL/min/1.73m2 Critically low >=60 [facility] Comment on above: Performed By: #### C OMI #### [facility] [address] [place] [address] Dr. Milka Castaneda EGFR-NON AF [place] R[place] 40 mL/min/1.73m2 Critically low >=60 [facility] Comment on above: Performed By: #### C OMI #### [facility] [address] [place] [address] ABDOMEN WO/W CONon [...] by: PRAMOD PEDROZA Date: 2021-10-07 09:58 Normal [facility] Vital Signs Date Time Vital Sign Value Performing Clinician Facility 08-19-2023 10:17-0400 Body height 165.1 cm [facility] 08-19-2023 10:17-0400 Body mass index (BMI) [Ratio] 39 kg/m2 [facility] 08-19-2023 10:17-0400 Body weight 106.36 kg [facility] 08-19-2023 10:17-0400 Diastolic blood pressure 71 mm[Hg] [facility] 08-19-2023 10:17-0400 Heart rate 71 /min [facility] 08-19-2023 10:17-0400 Respiratory rate 12 /min [facility] 08-19-2023 10:17-0400 Systolic blood pressure 132 mm[Hg] [facility] 07-01-2023 13:30-0500 Body height 165.1 cm [facility] Other 07-01-2023 13:30-0500 Body mass index (BMI) [Ratio] 39.97 kg/m2 [facility] Other 07-01-2023 13:30-0500 Body weight 108.95 kg Anthony Ball Other [facility] Other 07-01-2023 13:30-0500 Diastolic blood pressure 90 mm[Hg] Anthony Ball Other [facility] Other 07-01-2023 13:30-0500 Respiratory rate 20 /min Anthony Ball Other [facility] Other 07-01-2023 13:30-0500 SaO2% (BldA) [Mass fraction] 98 % Anthony Ball Other [facility] Other 07-01-2023 13:30-0500 Systolic blood pressure 150 mm[Hg] Anthony Ball Other [facility] Other 05-20-2023 11:00-0500 Body height 165.1 cm Anthony Ball Other [facility] Other 05-20-2023 11:00-0500 Body mass index (BMI) [Ratio] 39.43 kg/m2 Anthony Ball Other [facility] Other 05-20-2023 11:00-0500 Body weight 107.5 kg Anthony Ball Other [facility] Other 05-20-2023 11:00-0500 Diastolic blood pressure 89 mm[Hg] Anthony Ball Other [facility] Other 05-20-2023 11:00-0500 Respiratory rate 20 /min Anthony Ball Other [facility] Other 05-20-2023 11:00-0500 Systolic blood pressure 183 mm[Hg] Anthony Ball Other [facility] Other 04-21-2023 11:15-0500 Body height 165.1 cm Bhavin Devries Other [facility] Other 04-21-2023 11:15-0500 Body mass index (BMI) [Ratio] 39.6 kg/m2 Bhavin Devries Other [facility] Other 04-21-2023 11:15-0500 Body weight 107.96 kg Bhavin Devries Other [facility] Other 04-12-2023 14:30-0500 Body height 165.1 cm Anthony Ball Other [facility] Other 04-12-2023 14:30-0500 Body mass index (BMI) [Ratio] 39.6 kg/m2 Anthony Ball Other [facility] Other 04-12-2023 14:30-0500 Body weight 107.96 kg Anthony Ball Other [facility] Other 04-12-2023 14:30-0500 Diastolic blood pressure 81 mm[Hg] Anthony Ball Other [facility] Other 04-12-2023 14:30-0500 Respiratory rate 12 /min Anthony Ball Other [facility] Other 04-12-2023 14:30-0500 Systolic blood pressure 151 mm[Hg] Anthony Ball Other [facility] Other 07-29-2022 11:00-0500 Body height 165.1 cm Anthony Ball Other [facility] Other 07-29-2022 11:00-0500 Body mass index (BMI) [Ratio] 40.17 kg/m2 Anthony Ball Other [facility] Other 07-29-2022 11:00-0500 Body weight 109.5 kg Anthony Zayas Other [facility] Other 07-29-2022 11:00-0500 Diastolic blood pressure 70 mm[Hg] Anthony Zayas Other [facility] Other 07-29-2022 11:00-0500 Respiratory rate 12 /min Anthony Zayas Other [facility] Other 07-29-2022 11:00-0500 Systolic blood pressure 118 mm[Hg] Anthony Zayas Other [facility] Other Encounters Encounter Date Encounter Type Care Provider Facility Start: 08-19-2023 End: 08-19-2023 ambulatory [facility] Work Phone: Start: 08-19-2023 End: 08-19-2023 Patient encounter procedure [facility] Work Phone: Start: 08-01-2023 End: 08-02-2023 ambulatory Jose Dalal Facility:[facility] Start: 07-21-2023 End: 07-21-2023 ambulatory CHUY JAIN Not Available Start: 07-19-2023 Non-patient / Non-visit [facility] Work Phone: Start: 07-18-2023 Non-patient / Non-visit [facility] Work Phone: Start: 07-04-2023 End: 07-04-2023 ambulatory Anthony Marquez Other [facility] Other Start: 07-04-2023 Telephone encounter Anthony Zayas [facility] Start: 07-01-2023 End: 07-01-2023 ambulatory Anthony Zayas Other [facility] Other Start: 07-01-2023 Office outpatient visit 25 minutes Anthony Zayas [facility] Start: 06-29-2023 End: 06-29-2023 ambulatory Anthony Zayas Other [facility] Other Start: 06-29-2023 Telephone encounter [facility] Start: 06-20-2023 End: 06-21-2023 ambulatory Issac Rucker MD Facility:[facility] Start: 06-06-2023 End: 06-07-2023 ambulatory Issac Rucker MD Facility:[facility] Start: 05-20-2023 End: 05-20-2023 ambulatory Anthony Zayas Other [facility] Other Start: 05-20-2023 Office outpatient visit 25 minutes Anthony Zayas [facility] Start: 04-25-2023 End: 04-25-2023 ambulatory Anthony Zayas Other [facility] Other Start: 04-25-2023 Telephone encounter [facility] Start: 04-21-2023 Office outpatient ne w 45 minutes Bhavin Devries [facility] Start: 04-21-2023 End: 04-21-2023 ambulatory Antohny Zayas [facility] Other Start: 04-21-2023 End: 04-21-2023 Patient encounter procedure DO Bhavin Devries Work Phone: [facility] Start: 04-18-2023 End: 04-18-2023 ambulatory Anthony Zayas Other [facility] Other Start: 04-18-2023 Telephone encounter [facility] Start: 04-12-2023 End: 04-12-2023 ambulatory Anthony Zayas Other [facility] Other Start: 04-12-2023 Patient encounter procedure Anthony Zayas [facility] Start: 04-12-2023 Telephone encounter [facility] Start: 02-28-2023 End: 03-01-2023 ambulatory Issac [facility] MD [facility] Start: 02-11-2023 End: 02-12-2023 ambulatory XXXX NONE Facility:[facility] Start: 01-31-2023 End: 02-01-2023 ambulatory Issac Rucker MD Facility:[facility] Start: 01-04-2023 End: 01-05-2023 ambulatory Issac Rucker MD Facility:[facility] Start: 11-29-2022 End: 11-29-2022 ambulatory Anthony Zayas Other [facility] Other Start: 11-29-2022 Telephone encounter [facility] Start: 11-24-2022 End: 11-24-2022 ambulatory Anthony Zaysa Other [facility] Other Start: 11-24-2022 Telephone encounter [facility] Start: 10-08-2022 End: 10-09-[address] ANTHONY ZAYAS Facility:[facility] Start: 08-31-2022 End: 08-31-2022 ambulatory Anthony Zayas Other [facility] Other Start: 08-31-2022 Telephone encounter Anthony Felix [facility] Certified Technician Start: 08-03-2022 End: 08-03-2022 ambulatory Anthony Zayas Other [facility] Other Start: 08-03-2022 Telephone encounter [facility] Start: 07-29-2022 End: 07-29-2022 ambulatory Anthony Zayas Other [facility] Other Start: 07-29-2022 Office outpatient visit 25 minutes Anthony Zayas [facility] Start: 05-05-2022 End: 05-06-[address] ANTHONY ZAYAS Facility:[facility] Start: 02-03-2022 End: 02-04-[address] ANTHONY ZAYAS Facility:[facility] Start: 10-23-2021 End: 10-24-[address] ANTHONY ZAYAS Facility:[facility] Start: 10-07-2021 End: 10-08-[address] ANTHONY ZAYAS Facility:[facility] Start: 10-28-2016 End: 10-29-2016 Ambulatory DEFAULT PHYSICIAN Facility:[facility] Procedures Date Procedure Procedure Detail Performing Clinician Start: 04-21-2023 Plain X-ray of bilat eral hands DO Bhavin Devries Work Phone: Start: 02-03-[address] ELYSSA ZAYAS Comment on above: Performed By: #### P [facility] #### [facility] [address] [place] [address] Dr. Milka Castaneda Immunizations Immunization Date Immunization Notes Care Provider [facility] 03-05-2023 influenza, high dose seasonal, preservative-free Anthony Zayas Other [facility] Other 03-05-2023 influenza virus vaccine, unspecified formulation [facility] 02-03-2022 influenza virus vaccine, split virus (incl. purified surface antigen) Anthony Zayas Other [facility] Other 02-03-2022 influenza virus vaccine, unspecified formulation [facility] 01-29-2021 influenza virus vaccine, split virus (incl. purified surface antigen) Anthony Zayas Other [facility] Other 01-29-2021 influenza virus vaccine, unspecified formulation [facility] 01-29-2020 influenza virus vaccine, split virus (incl. purified surface antigen) Anthony Zayas Other [employer] [facility] Other 01-29-2020 influenza virus vaccine, unspecified formulation [facility] 04-16-2019 zoster vaccine, live Deepak Zaysa Other [facility] 10-18-2017 diphtheria, tetanus toxoids and acellular pertussis vaccine, unspecified formulation Anthony Zayas Other [facility] 10-15-2016 pneumococcal conjuga te vaccine, 13 valent Anthony Zayas Other [facility] 03-03-2016 influenza virus vaccine, split virus (incl. purified surface antigen) Anthony Zayas Other [facility] Other 03-03-2016 influenza virus vaccine, unspecified formulation [facility] 03-12-2013 pneumococcal polysaccharide vaccine, 23 valent Anthony Zayas Other [facility] 03-12-2013 tetanus and diphther ia toxoids, adsorbed, preservative free, for adult use (5 Lf of tetanus toxoid and 2 Lf of diphtheria toxoid) Anthony Zayas Other [facility] Payers Date Payer Category Payer Private Health Insurance [id number] 2023 Self-pay 2022 Private Health Insurance 1959 Medicare [id number] 1945 Unknown [id number] 2.16.840.1.122756.3.579.2.59 3 1945 Unknown [id number] 2.16.840.1.006919.3.579.2.59 3 1945 Unknown [id number] 2.16.840.1.658318.3.579.2.59 3 1945 Unknown [id number] 2.16.840.1.506523.3.579.2.59 3 1945 Unknown [id number] 2.16.840.1.971155.3.579.2.59 3 1945 Unknown [id number] 2.16.840.1.357629.3.579.2.12 59 1945 Unknown [id number] 2.16.840.1.773842.3.579.2.19 6 1945 Unknown [id number] 2.16.840.1.469851.3.579.2.19 6 1945 Unknown [id number] 2.16.840.1.691548.3.579.2.19 6 1945 Unknown [id number] 2.16.840.1.078951.3.579.2.19 6 1945 Unknown [id number] 2.16.840.1.754475.3.579.2.19 6 1945 Unknown [id number] 2.16.840.1.204343.3.579.2.19 6 1945 Unknown [id number] 2.16.840.1.381646.3.579.2.72 7 1945 Unknown [id number] 2.16.840.1.488803.3.579.2.72 7 Private Health Insurance [employer] Mc[employer] PFFS N on Pt [id number] Unknown Unknown [id number] 2.16.840.1.411713.3.579.2.53 1 Social History Date Type Detail Facility Sex Assigned At [facility] Other Start: 1945 Sex Assigned At Male F [facility] Clinical Notes 07-29-2022 to 07-04-2023 Note Date & Type Note Facility 07-04-2023 Evaluation note Encounter Date Diagnosis Assessment Notes Jun, Gastroesophageal reflux disease with esophagitis without hemorrhage (ICD-10 - K21.00) [facility] Other 02-09-2024 Evaluation note* Encounter Date Diagnosis Assessment Notes Treatment Notes Treatment Clinical Notes Jun, Paroxysmal atrial fibrillation (ICD-10 - I48.0) This patient is in NSR or rate controlled. This patient is anticoagulated to prevent thromboembolic events. They are maintaining regular scheduled appts with their investment officer.TT Jun, ASHD (arteriosclerot ic heart disease) (ICD-10 - I25.10) This patient is stable without activity related CP, dyspnea or lightheadedness. They are instructed to continue exercise and AHA diet plan. Continue secondary prevention measures. Jun, Primary hypertension (ICD-10 - I10) This patient is instructed to consume a healthy, low-fat, low-salt diet. They are also encouraged to continue exercise to achieve/maintain a normal BMI. Jun, Pharyngoesophageal dysphagia (ICD-10 - R13.14) Diet instructions, initiate PPI and refer for swallow evaluation. Jun, Gastroesophageal ref lux disease with esophagitis without hemorrhage (ICD-10 - K21.00) Avoid lying flat after eating. Avoid eating 2 hours prior to bedtime. Smaller, frequent meals may be better tolerated.Weight loss if overweight.PPI with any heartburn.Monitor for dysphagia. Jun, Simple chronic bronchitis (ICD-10 - J41.0) Quit smoking 20+ years ago. He denies cough or wheezing. Stopped LABA/ICS and BERTA trials due to minimal benefit and oral irritation. Jun, Restrictive lung disease (ICD-10 - J98.4) Continues w/ dyspnea after minimal exertion associated w/ desaturation. Instructed on reduction in calories and weight loss. May require continuous supplemental oxygen Refer to Pulmonary Clinic for evaluation Jun, Dyspnea on exertion (ICD-10 - R06.09) Multifactorial: ASHD, AFib, COPD, RLD, Anemia and deconditioning. Jun, Hypoxia (ICD-10 - R09.02) Desaturates w/ slow walk of 75ft length. Likely requires supplemental oxygen. Refer to Pulmonary Clinic for evaluation and treatment Jun, Stage 4 chronic kidn ey disease (ICD-10 - N18.4) The patient is instructed on adequate control of hypertension and diabetes, if appropriate. They are also educated on the associated risks of NSAIDs and PPI use with kidney disease. They were instructed on adequate fluid balance and to avoid dehydration. Jun, Anemia, unspecified type (ICD-10 - D64.9) No s/s GIB but on chronic AC w/ DOAC. He denies abdominal pain, melena or hematochezia. Will initiate PPI but may eventually require EGD, colonoscopy Check Fe, B12, FA CKD contributes [facility] Other 02-07-2024 Evaluation note* Encounter Date Diagnosis Assessment Notes Treatment Notes Treatment Clinical Notes Jun, Hx of gout (ICD-10 - Z87.39) [facility] Other 12-29-2023 Evaluation note* Encounter Date Diagnosis Assessment Notes Treatment Notes Treatment Clinical Notes Apr, Paroxysmal atrial fibrillation (ICD-10 - I48.0) This patient is in NSR. This patient is anticoagulated to prevent thromboembolic events. They are maintaining regular scheduled appts with their investment officer. No bleeding complications Apr, ASHD (arteriosclerotic heart [...] since last OV. Colchicine PRN Continue Allopurinol [facility] Other 11-30-2023 Evaluation note* Encounter Date Diagnosis [...] Pain in right hand (ICD-10 - M79.641) [facility] Other 11-27-2023 Evaluation note* Encounter Date Diagnosis Assessment Notes Treatment Notes Treatment Clinical Notes Mar, Mild persistent asthma without complication (ICD-10 - J45.30) [facility] Other 2023 Evaluation note* Encounter Date Diagnosis [...] are maintaining regular scheduled appts with their investment officer. Mar, ASHD (arteriosclerotic heart disease) (ICD-10 - [...] (ICD-10 - Z79.899) Check labs: ALT, CBC [facility] Other 03-14-2023 Evaluation note* Encounter Date Diagnosis Assessment Notes Treatment Notes Treatment Clinical Notes Jul, History of gout (ICD-10 - Z87.39) [facility] Other 03-09-2023 Evaluation note* Encounter Date Diagnosis Assessment Notes Treatment Notes Treatment Clinical Notes Jul, Paroxysmal atrial fibrillation (ICD-10 - I48.0) This patient is in NSR or rate controlled. This patient is anticoagulated to prevent thromboembolic events. They are maintaining regular scheduled appts with their investment officer. Jul, ASHD (arteriosclerot ic heart disease) (ICD-10 [...] responds to one Colchicine dose (unlikely gout) [facility] Other Evaluation noteNo [facility] Other Evaluation noteNo assessment information available [facility] Work Phone: Evaluation note* Diagnosis Onset Date Resolution Status (HFpEF) heart failure with preserved ejection fraction acute ASHD (arteriosclerotic heart disease) acute Chronic kidney disease acute Chronic venous insufficiency acute Gastroesophageal reflux dise ase with esophagitis without hemorrhage acute Hyperlipidemia type II acute Paroxysmal atrial fibrillation acute Primary hypertension acute Simple chronic bronchitis ac caprice [facility] Work Phone: History general Narrative - Reported* [...] History COLONOSCOPY Hospitalization History SEE SURGICAL HX [facility] Other Reyhll for referral (narrative)* Reason *FU 08/16 Referral for left knee pain Diagnosis 1 Primary osteoarthrit is of left knee (M17.12) Referral Organization [facility] [employer] pierre Referring Provider First Name Anthony Referring Provider Last Name Marquez Referring Provider Specialty Internal Me dicine Referred Organization [facility] Referred Provider Pietro Gale Referred Address [address] [place], [place],[address] Referred Provider Specialty Pain Medicin e Referral Priority Routine General Notes Briana Moreno 01:15:17 PM >received today, notes locked, attachments made, referral faxed Briana Moreno 08/09/2022 11:58:58 AM >FAXED FIRST ATTEMPT LETTER Clinical Notes F: [phone] [facility] Other [facility] for referral (narrative)* Reason Referral for OLVERA and hypoxia secondary to COPD, ILD Diagnosis 1 Simple chronic bronc hitis (J41.0) Diagnosis 2 Restrictive lung dis ease (J98.4) Diagnosis 3 Hypoxia (R09.02) Referral Organization [facility] [employer] Referring Provider First Name Anthony Referring Provider Last Name Marquez Referring Provider Specialty Internal Me dicine Referred Organization [facility] Referred Provider Matteo Fregoso Referred Address [address], [place],[address] Referred Provider Specialty Pulmonary Di seases Referral Priority Urgent General Notes Mr. Brock has OLVERA, which is likely multifactorial w/ ASHD, AFIB, COPD, RLD, anemia and deconditioning all contributing. He most recently was noted to desaturate from 98% to 88% w/ walking in the office < 100ft. He has completed PFT, checking EKG, CXR and labs. Briana Moreno 07/01/2023 05:12:48 PM >received today, I am not seeing the CXR? Steff Olvera 07/01/2023 05:24:29 PM > he just ordered the CXR today it should be done by tuesday Clinical Notes Include Echo, PFT, C XR and labs [facility] Other Reason for visit Narrativeknee pain after referral, discussion about [facility] Other Summary Purpose Family History No Family History Records FoundNo Family History Records FoundNo Family History Records FoundNo Family History Records FoundNo Family History Records FoundNo Family History Records Found Advance Directives Advance Directive Response Recorded Date/ Time Advance Directives No April 25, 2023 8:18am Chief Complaint and Reason for Visit Chief Complaint Amb Documentation 3 month follow up Reason for Visit (HFpEF) heart failur e with preserved ejection fraction ASHD (arteriosclerotic heart disease) Chronic kidney disease Chronic venous insufficiency Gastroesophageal reflux disease with esophagitis without hemorrhage Hyperlipidemia type II Paroxysmal atrial fibrillation Primary hypertension Simple chronic bronchitis Additional Source Comments (unrecognized sect ion and content) No Status Records FoundNo Status Records FoundNo Status Records FoundNo Status Records FoundNo Status Records FoundNo Status Records Found INFORMATION SOURCE (unrecogn ized section and content) DATE CREATED AUTHOR 11/16/2017 [facility] DATE CREATED AUTHOR AUTHOR'S ORGANIZ ATION 09/29/2022 [facility] DATE CREATED AUTHOR AUTHOR'S ORGANIZ ATION 07/01/2023 [facility] DATE CREATED AUTHOR AUTHOR'S ORGANIZ ATION 07/24/2023 [facility] DATE CREATED AUTHOR AUTHOR'S ORGANIZ ATION 07/27/2023 [facility] DATE CREATED AUTHOR AUTHOR'S ORGANIZ ATION 08/03/2023 [facility] REASON FOR VISIT (unrecogniz ed section and content) SOBMedication Questionrefill 1 monthLab resultsBilateral Hand PainPFT resultsWELLNORTH COLORADO [facility]ENTERPN MEDICINE REFERRAL NOTE Care Teams (unrecognized sec tion and content) Team Status: Inactive Member Role Status Dates Bhavin Devries DO Attending Provider Active Team Status: Active Member Role Status Dates Anthony Zayas DO Primary Care Provider Active Team Status: Active Member Role Status Dates Anthony Zayas DO Primary Care Provide r, Attending Provider Active Start: July 18, 2023 Team Status: Active Member Role Status Dates Anthony Zayas DO Primary Care Provider Active Start: July 19, 2023 RYAN Bone Attending Provider Active St art: February 27th, 2024 Team Status: Inactive Member Role Status Dates Anthony Zayas , DO Primary Care Provide r, Attending Provider Active Start: August 19, 2023 End: August 19, 2023 Goals (unrecognized section and content) Goals may [...] BE BASED ON THE PRIMARY CLINICAL RECORDS. [facility] [employer] provides no warranty or guarantee of the accuracy or completeness of information in this document.
--- NOTE | 2023-08-23 14:19 | CA_ITS ---
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: Naa Andrew : 1945 Requested By: 2013 Order Number: [id number] Reading MD: JEFF TALBERT Interpretive Statements Monophasic doppler waveforms PVR waveforms with delayed upstroke, blunted amplitude and loss of dicrotic notch Right: - no significant pressure gradient - abnormal MATT Left: - significant pressure gradient between the brachial and thigh cuff - normal MATT Impression: - elevate indices: (B/L calf, right DP) consistent with calcified, noncompressible arterial hoover, which may underestimate the degree of arterial disease - results nondiagnostic due to elevated indices - TBI, which is not infuenced by calcified arterial hoover, indicates normal arterial flow in the RLE and hemodynamically significant arterial disease in the LLE. (right TBI 0.64, left TBI 0.46) - clinical correlation advised Electronically Signed On 08-23-2023 22:57:15 EDT by JEFF TALBERT
== END 2023-08-23 12:51 | disposition home or self-care (01) ==
LOC: CARD 12:51
PROVIDERS: PCP Internal Medicine; Visit Provider Podiatrist Foot & Ankle Surgery
DX: R09.89 Other specified symptoms and signs involving the circulatory and respiratory systems (principal)
CPT/HCPCS: 93923

== ENCOUNTER 2023-08-23 12:53 | Outpatient (OUT) | payer MEDICARE, SELFPAY ==
[2023-08-23 15:14] LABS: Anion Gap 11.6; BUN Creatinine Ratio 14.2; Calcium 9.1 mg/dL (8.5-10.1); Carbon Dioxide 31.1 mmol/L (21.0-32.0); Chloride 100 mmol/L (98-107); Estimated GFR (African America 32 (>=60); Estimated GFR (Non-African Ame 26 (>=60); Glucose 92 mg/dL (74-106); Potassium 4.7 mmol/L (3.5-5.1); Sodium 138 mmol/L (136-145)
== END 2023-08-23 12:54 | disposition home or self-care (01) ==
LOC: LAB 12:55
PROVIDERS: PCP Internal Medicine
DX: R06.02 Shortness of breath (principal); R07.9 Chest pain, unspecified; I25.10 Atherosclerotic heart disease of native coronary artery without angina pectoris; I10 Essential (primary) hypertension; E66.9 Obesity, unspecified
CPT/HCPCS: 36415; 80048

== ENCOUNTER 2023-08-31 13:55 | Outpatient (OUT) | payer MEDICARE, SELFPAY ==
--- NOTE | 2023-08-31 14:32 | P.CN_ITS ---
Consult Note: HPI Data of Consult Patient: known to practice within the last 3 years Consult date: 06/06/23 Requesting Physician: Leydi Capellan NP Primary Care Provider: Anthony Zayas, DO Consult Narrative Reason for consult: low back, bilateral leg pain Narrative: 77yom who presents for assessment. worsening pain that radiates from low back to bilateral lower extremities. imaging reviewed, multiple levels of stenosis noted, worst at l4-5. continues in >6 week course of provider directed home exercise program, with limited benefit. uses OTC meds as needed. denies adverse med side effects. Patient reporting caudal TONE providing greater than 50% improvement ongoing in radicular pain, however he is noticing increase in numbness in toes. Todays complain is low back pain 2/10 which increasing with standing and walking to 5/10. Patient reports benefit from tramadol 50mg once daily. cannot take NSAIDS as he is on eliquis. cc:: CC: Leydi Capellan NP Review of Systems ROS Status of ROS 10 or more systems reviewed and unremark able except as noted in history and below Musculoskeletal Reports: back pain PFSH PFSH Medical History History of cardioversion ?Z92.89 - Personal history of other medical treatment (ICD-10) High cholesterol ?E78.00 - Pure hypercholesterolemia, unspecified (ICD-10) Surgical History History of eye surgery ?Z98.890 - Other specified postprocedural states (ICD-10) Previous back surgery ?Z98.890 - Other specified postprocedural states (ICD-10) History of heart artery stent ?Z95.5 - Presence of coronary angioplasty implant and graft (ICD-10) History of cardiac catheterization ?Z98.890 - Other specified postprocedural states (ICD-10) Meds Home Medications and Allergies Home Medications ?Medication ?Instructions ?Recorded ?Confirmed ?Type acetaminophen 300 mg-codeine 30 mg 1 tab PO BID 10/22/22 06/20/23 History tablet apixaban 5 mg tablet (Eliquis) 5 mg PO BID 10/22/22 06/20/23 History atorvastatin 40 mg tablet 40 mg PO QPM 10/22/22 06/20/23 History colchicine 0.6 mg tablet 0.3 mg PO BID 10/22/22 06/20/23 History docusate sodium 50 mg capsule 50 mg PO DAILY 10/22/22 06/20/23 History (Colace Clear) furosemide 40 mg tablet 40 mg PO QAM 10/22/22 06/20/23 History losartan 100 mg tablet 100 mg PO DAILY 10/22/22 06/20/23 History sotalol 80 mg tablet 80 mg PO DAILY 10/22/22 06/20/23 History tramadol 50 mg tablet 50 mg PO DAILY PRN pain #30 tabs 05/24/23 06/20/23 Rx albuterol sulfate 90 mcg/actuation 2 puff inhalation Q4H PRN 06/15/23 06/20/23 History aerosol inhaler shortness of breath or wheezing tramadol 50 mg tablet 50 mg PO DAILY PRN pain #30 tabs 06/27/23 Rx tramadol 50 mg tablet 50 mg PO DAILY PRN pain #30 tabs 08/24/23 Rx Allergies Allergy/AdvReac Type Severity Reaction Status Date / Time Penicillins Allergy Severe Hives Verified 06/20/23 09:26 Exam Constitutional Documenting provider has reviewed patient's vital signs: yes Common normals: no apparent distress, oriented x3, healthy appearing, alert and well nourished Exam limitations: physical limitations General appearance: cooperative Nutritional appearance: obese Other: utilizes cane and walker for ambulation [facility] Common normals: normocephalic, hearing grossly normal bilaterally and moist oral mucous membranes Head and scalp: normocephalic Mouth: oral and palatal mucosa normal Eye Common normals: PERRL Pupil: PERRL Neck & C-Spine Common normals: full ROM General: normal visual inspection Cervical spine: cervical ROM normal Chest Common normals: inspection of chest normal Respiratory Common normals: normal respiratory effort, no retractions and no use of accessory muscles Back & Pelvis Common normals: thoracic and lumbar spine normal to inspection and straight leg raise negative bilaterally Thoracic spine/upper back: normal to inspection Lumbar spine/lower back: ROM limited, pain with ROM and straight leg raise negative bilaterally Sacroiliac joints: SI joints normal Other: pain throughout lumbar spine, limited ROM negative radiculopathy on exam Extremity Common normals: normal to inspection and full ROM Neuro Common normals: oriented x3, CN's II-XII intact bilaterally, moves all extremities, no focal motor deficits, no sensory deficits noted and deep tendon reflexes 2+ bilaterally Sensorium/orientation: alert Speech: speech normal Gait (neuro): antalgic and assistive device used Motor exam: strength 5/5 throughout and no movement abnormalities noted Psych Common normals: mental status grossly normal, thought process normal, cooperative, affect normal, speech normal and activity/motor behavior normal Speech: normal speech Thought process: normal thought process Results Additional Findings Additional findings: If on a controlled substance or opioids, I have checked an [place]AR[place] report on this patient and there are no aberrancies noted in the prescribing history.??If on a controlled substance or opioid a drug screen was completed and reviewed within the last year, and if there has not been a drug screen completed we ordered one today to monitor higher risk, state monitored pain medication use. As part of providing excellent, safe, comprehensive care, the following was completed at our patient's visit: 1. A medication reconciliation and review to ensure accurate knowledge of current/active medications, including asking our patients to inform us about any dvyu-ttn-[id number] medications or herbal remedies/nutritional supplements/alternative remedies. 2. A review to specifically ensure our patients have had annual screening for screening for depression, screening for tobacco use, and screening for unhealthy alcohol use. For concerning screenings had a discussion with the patient, provided patient education, and recommended follow-up with primary care provider when appropriate. If patient noted with a risk of falling, they received education on strength, gait, and balance training to prevent future risk of falling. Assessment and Plan Assessment and Plan (1) Lumbar stenosis with neurogenic claudication: (2) Chronic prescription opiate use: Assessment and Plan: I feel these medications are improving the patient's quality of life and allow them to tolerate activities of daily living as well as participate in recreational activity.? The patient does not report intolerable side effects. The patient is NOT opioid naive and non-pharmacologic and non-opioid treatment has failed to significantly relieve the patient's pain and improve functionality. The patient has a diagnosis that is related to a somatic or visceral pain etiology. ? ?? I reviewed with the patient the potential risks and side effects with the use of? opioid medications including but not limited to respiratory depression,? sedation, and even . I verified the patient has access to naloxone should? these effects occur. I advised the patient to avoid the use of any other? sedation substances including alcohol, THC, and benzodiazepines while? taking opioid medications due to the risk of compounding side effects and? detrimental outcomes. I reviewed the AUTOMOTIVE PRODUCT ENGINEER, pain treatment agreement, urine? drug screen, and opioid start talking forms. The patient was advised to let? their family know they had Naloxone in case they would need to administer? the medication.? ?? A drug screen was completed within the last year, and no aberrancies were noted regarding their use of controlled substances. The patient understands they are subject to the terms and conditions of the pain contract that they have signed. ? ?? I have checked an [place]ARRS report on this patient today and there are no aberrancies noted in the prescribing history.? 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
== END 2023-08-31 13:56 | disposition home or self-care (01) ==
LOC: PM 13:55
PROVIDERS: PCP Internal Medicine; Visit Provider Nurse Practitioner
DX: M48.062 Spinal stenosis, lumbar region with neurogenic claudication (principal); Z79.891 Long term (current) use of opiate analgesic; M47.816 Spondylosis without myelopathy or radiculopathy, lumbar region; G89.4 Chronic pain syndrome; M17.9 Osteoarthritis of knee, unspecified
CPT/HCPCS: G0463

== ENCOUNTER 2023-09-05 15:27 | Outpatient (OUT) | payer MEDICARE, SELFPAY | END 2023-09-05 15:28 | disposition home or self-care (01) | LOC: WC 15:29 | PROVIDERS: PCP Internal Medicine; Visit Provider Physician Assistant | DX: L97.421 Non-pressure chronic ulcer of left heel and midfoot limited to breakdown of skin (principal) | CPT/HCPCS: G0463 ==

== ENCOUNTER 2023-09-14 10:37 | Outpatient (OUT) | payer MEDICARE, SELFPAY ==
[2023-09-14 11:52] LABS: Anion Gap 16.7; BUN Creatinine Ratio 10.3; Calcium 9.6 mg/dL (8.5-10.1); Carbon Dioxide 25.4 mmol/L (21.0-32.0); Chloride 98 mmol/L (98-107); Estimated GFR (African America 27 (>=60); Estimated GFR (Non-African Ame 22 (>=60); Glucose 117 mg/dL (74-106); Potassium 4.1 mmol/L (3.5-5.1); Sodium 136 mmol/L (136-145)
[2023-09-14 13:16] LABS: Basophils Absolute Auto 0.1 10^3/uL (0.0-0.1); Basophils Percent Auto 0.6 % (0.2-2.0); Eosinophils Absolute Auto 0.2 10^3/uL (0.0-0.7); Eosinophils Percent Auto 2.4 % (0.9-7.0); Hematocrit 37.7 % (42.0-54.0); Hemoglobin 11.8 g/dL (14.0-18.0); Immature Granulocytes Abs Auto 0.03 10^3/uL (0.00-0.03); Immature Granulocytes Pct Auto 0.3 % (0.0-0.5); Lymphocytes Absolute Auto 1.9 10^3/uL (1.2-3.8); Lymphocytes Percent Auto 20.1 % (20.5-60.0); Mean Corpuscular HGB Conc 31.3 g/dL (29.9-35.2); Mean Corpuscular Hemoglobin 30.3 pg (25.9-34.0); Mean Corpuscular Volume 96.7 fL (80.0-94.0); Mean Platelet Volume 10.3 fL (9.5-13.5); Monocytes Absolute Auto 1.3 10^3/uL (0.3-0.8); Neutrophils Absolute Auto 6.1 10^3/uL (1.4-6.5); Neutrophils Percent Auto 63.6 % (43.0-75.0); Platelet Count 256 10^3/uL (150-450); Red Cell Distribution Width 13.9 % (11.0-15.0); White Blood Count 9.7 10^3/uL (4.0-11.0)
== END 2023-09-14 10:38 | disposition home or self-care (01) ==
PROVIDERS: PCP Internal Medicine
DX: Z01.818 Encounter for other preprocedural examination (principal)
CPT/HCPCS: 36415; 80048; 85025

== ENCOUNTER 2023-09-28 13:28 | Outpatient (OUT) | payer MEDICARE, SELFPAY ==
--- NOTE | 2023-09-28 14:11 | PM.CN ---
Consult Note: HPI Data of Consult Patient: known to practice within the last 3 years Consult date: 06/06/23 Requesting Physician: Leydi Capellan NP Primary Care Provider: Anthony Zayas, DO Consult Narrative Reason for consult: low back, bilateral leg pain Narrative: 77yom who presents for assessment. worsening pain that radiates from low back to bilateral lower extremities. imaging reviewed, multiple levels of stenosis noted, worst at l4-5. continues in >6 week course of provider directed home exercise program, with limited benefit. uses OTC meds as needed. denies adverse med side effects. Patient reporting caudal TNOE providing greater than 50% improvement ongoing in radicular pain, however he is noticing increase in numbness in toes. Todays complain is low back pain 3/10 which increasing with standing and walking to 5/10. Patient reports benefit from tramadol 50mg once to twice daily. cannot take NSAIDS as he is on eliquis. cc:: CC: Leydi Capellan NP Review of Systems ROS Status of ROS 10 or more systems reviewed and unremarkable except as noted in history and below Musculoskeletal Reports: back pain, extremity pain and joint pain PFSH PFSH Medical History History of cardioversion ?Z92.89 - Personal history of other medical treatment (ICD-10) High cholesterol ?E78.00 - Pure hypercholesterolemia, unspecified (ICD-10) Surgical History History of eye surgery ?Z98.890 - Other specified postprocedural states (ICD-10) Previous back surgery ?Z98.890 - Other specified postprocedural states (ICD-10) History of heart artery stent ?Z95.5 - Presence of coronary angioplasty implant and graft (ICD-10) History of cardiac catheterization ?Z98.890 - Other specified postprocedural states (ICD-10) Meds Home Medications and Allergies Home Medications ?Medication ?Instructions ?Recorded ?Confirmed ?Type acetaminophen 300 mg-codeine 30 mg 1 tab PO BID 10/22/22 06/20/23 History tablet apixaban 5 mg tablet (Eliquis) 5 mg PO BID 10/22/22 06/20/23 History atorvastatin 40 mg tablet 40 mg PO QPM 10/22/22 06/20/23 History colchicine 0.6 mg tablet 0.3 mg PO BID 10/22/22 06/20/23 History docusate sodium 50 mg capsule 50 mg PO DAILY 10/22/22 06/20/23 History (Colace Clear) furosemide 40 mg tablet 40 mg PO QAM 10/22/22 06/20/23 History losartan 100 mg tablet 100 mg PO DAILY 10/22/22 06/20/23 History sotalol 80 mg tablet 80 mg PO DAILY 10/22/22 06/20/23 History albuterol sulfate 90 mcg/actuation 2 puff inhalation Q4H PRN 06/15/23 06/20/23 History aerosol inhaler shortness of breath or wheezing tramadol 50 mg tablet 50 mg PO DAILY PRN pain #30 tabs 06/27/23 Rx tramadol 50 mg tablet 50 mg PO DAILY PRN pain #30 tabs 09/22/23 Rx Allergies Allergy/AdvReac Type Severity Reaction Status Date / Time Penicillins Allergy Severe Hives Verified 06/20/23 09:26 Exam Constitutional Documenting provider has reviewed patient's vital signs: yes Common normals: no apparent distress, oriented x3, healthy appearing, alert and well nourished Exam limitations: physical limitations General appearance: cooperative Nutritional appearance: obese Other: utilizes cane and walker for ambulation [facility] Common normals: normocephalic, hearing grossly normal bilaterally and moist oral mucous membranes Head and scalp: normocephalic Mouth: oral and palatal mucosa normal Eye Common normals: PERRL Pupil: PERRL Neck & C-Spine Common normals: full ROM General: normal visual inspection Cervical spine: cervical ROM normal Chest Common normals: inspection of chest normal Respiratory Common normals: normal respiratory effort, no retractions and no use of accessory muscles Back & Pelvis Common normals: thoracic and lumbar spine normal to inspection and straight leg raise negative bilaterally Thoracic spine/upper back: normal to inspection Lumbar spine/lower back: ROM limited, pain with ROM and straight leg raise negative bilaterally Sacroiliac joints: SI joints normal Other: pain throughout lumbar spine, limited ROM negative radiculopathy on exam Extremity Common normals: normal to inspection and full ROM Right lower extremity: knee joint (bilateral knee edema crepitus and pain with weight bearing ambulation) Left lower extremity: knee joint (bilateral knee edema crepitus and pain with weight bearing ambulation) Neuro Common normals: oriented x3, CN's II-XII intact bilaterally, moves all extremities, no focal motor deficits, no sensory deficits noted and deep tendon reflexes 2+ bilaterally Sensorium/orientation: alert Speech: speech normal Gait (neuro): antalgic and assistive device used Motor exam: strength 5/5 throughout and no movement abnormalities noted Psych Common normals: mental status grossly normal, thought process normal, cooperative, affect normal, speech normal and activity/motor behavior normal Speech: normal speech Thought process: normal thought process Results Additional Findings Additional findings: If on a controlled substance or opioids, I have checked an [place] report on this patient and there are no aberrancies noted in the prescribing history.??If on a controlled substance or opioid a drug screen was completed and reviewed within the last year, and if there has not been a drug screen completed we ordered one today to monitor higher risk, state monitored pain medication use. As part of providing excellent, safe, comprehensive care, the following was completed at our patient's visit: 1. A medication reconciliation and review to ensure accurate knowledge of current/active medications, including asking our patients to inform us about any [id number] medications or herbal remedies/nutritional supplements/alternative remedies. 2. A review to specifically ensure our patients have had annual screening for screening for depression, screening for tobacco use, and screening for unhealthy alcohol use. For concerning screenings had a discussion with the patient, provided patient education, and recommended follow-up with primary care provider when appropriate. If patient noted with a risk of falling, they received education on strength, gait, and balance training to prevent future risk of falling. Assessment and Plan Assessment and Plan (1) Lumbar stenosis with neurogenic claudication: (2) Chronic prescription opiate use: Assessment and Plan: I feel these medications are improving the patient's quality of life and allow them to tolerate activities of daily living as well as participate in recreational activity.? The patient does not report intolerable side effects. The patient is NOT opioid naive and non-pharmacologic and non-opioid treatment has failed to significantly relieve the patient's pain and improve functionality. The patient has a diagnosis that is related to a somatic or visceral pain etiology. ? ?? I reviewed with the patient the potential risks and side effects with the use of? opioid medications including but not limited to respiratory depression,? sedation, and even . I verified the patient has access to naloxone should? these effects occur. I advised the patient to avoid the use of any other? sedation substances including alcohol, THC, and benzodiazepines while? taking opioid medications due to the risk of compounding side effects and? detrimental outcomes. I reviewed the [employer], pain treatment agreement, urine? drug screen, and opioid start talking forms. The patient was advised to let? their family know they had Naloxone in case they would need to administer? the medication.? ?? A drug screen was completed within the last year, and no aberrancies were noted regarding their use of controlled substances. The patient understands they are subject to the terms and conditions of the pain contract that they have signed. ? ?? I have checked an [place] report on this patient today and there are no aberrancies noted in the prescribing history.? 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
== END 2023-09-28 13:29 | disposition home or self-care (01) ==
LOC: PM 13:29
PROVIDERS: PCP Internal Medicine; Visit Provider Nurse Practitioner
DX: M48.062 Spinal stenosis, lumbar region with neurogenic claudication (principal); Z79.891 Long term (current) use of opiate analgesic; M47.816 Spondylosis without myelopathy or radiculopathy, lumbar region; G89.4 Chronic pain syndrome; M17.0 Bilateral primary osteoarthritis of knee
CPT/HCPCS: G0463

== ENCOUNTER 2023-10-03 15:08 | Outpatient (OUT) | payer MEDICARE, SELFPAY | END 2023-10-03 15:09 | disposition home or self-care (01) | LOC: WC 15:08 | PROVIDERS: PCP Internal Medicine; Visit Provider Physician Assistant | DX: L97.421 Non-pressure chronic ulcer of left heel and midfoot limited to breakdown of skin (principal) | CPT/HCPCS: G0463 ==

== ENCOUNTER 2023-10-20 09:14 | Outpatient (OUT) | payer MEDICARE, SELFPAY ==
--- OUTSIDE RECORDS SUMMARY | 2023-10-20 09:22 | XMS_ITS ---
Patient Summarization (C-CDA 2.1 CCD) Created on: October 20, 2023 FRANK BARRETT : 1945 Sex: Male Author Organization Sample organization Care Team Providers Care Shore Working Supervisor Name Role Phone PHYSICIAN, DEFAULT Unavailable Unavailable PHYSICIAN, DEFAULT Unavailable Anthony Jacobs Unavailable NITISH, DR AGUILAR Primary Care Unavailable NITISH, DR AGUILAR Admitting Unavailable NITISH, DR AGUILAR Attending Unavailable BALL, DR AGUILAR Consulting Unavailable ZIEBER, DR PRAMOD Gonzales Consulting Unavailable NITISH, DR AGUILAR Primary Care Unavailable LAKSHMIPATHY ., MARTÍN Admitting Debi vailable IANY ., MARTÍN Attending Debi vailable NITISH, DR AGUILAR Primary Care Unavailable ERJI WEBER Admitting Unavailable REJI WEBER Attending Unavailable NITISH, DR AGUILAR Primary Care Unavailable NITISH, DR AGUILAR Admitting Unavailable NITISH, DR AGUILAR Attending Unavailable NITISH, DR AGUILAR Consulting Unavailable NITISH, DR AGUILAR Primary Care Unavailable NITISH, DR AGUILAR Admitting Unavailable BALL, DR AGUILAR Attending Unavailable NITISH, DR AGUILAR Consulting Unavailable Bhavin Devries Unavailable DO Bhavin Devries Attending Provider [phone] CHUY JAIN Attending Unavailable Gieditis , Andrius Streeter Attending Unavailable Giedraitis , Andrius Vceferino Attending Unavailable Giedraitis , Andrius Vytautmaureen Attending Unavailable Giedraitis , Andrius Vytjorge Attending Unavailable Gilionitis , Andrius Vytjorge Attending Unavailable Girui SINGH, Andrius Ferdinand Attending Unavailable DO Anthony Zayas Primary Care Provider [phone] DO Bhavin Devries Attending Provider Anthony Zayas Primary Care Unavailable Bhavin Devries Admitting Unavailable Bhavin Devries Attending Unavailable Anthony Zayas Primary Care Unavailable Bhavin Devries Admitting Unavailable Bhavin Devries Attending Unavailable NONE, XXXX Referring Unavailable Jose Dalal Admitting Unavaila Jose Almanzar Attending Unavaila ble NONE, XXXX Referring Unavailable Myles Gaitan Attending Unavailable Jose Dalal Attending Unavaila ble Jose Dalal Referring Unavaila ble Jose Dalal Admitting Unavaila ble Elvis PIRES Consulting Unavailable STANG, SKATING RINK ICE MAKER Becky L Admitting Unavailable STANGMANGO Becky L Attending Unavailable STANIsidro, SKATING RINK ICE MAKER Becky L Referring Unavailable Elvis PIRES Consulting Unavailable Elvis PIRES Consulting Unavailable NONE, XXXX Referring Unavailable Jose Dalal Admitting Unavaila ble STANIsidro, SKATING RINK ICE MAKER Becky L Attending Unavailable Jose Dalal Admitting Unavaila ble NONE, XXXX Referring Unavailable Jose Dalal Attending Unavaila ble Allergies Allergy Classification Reported Allergen(s) Allergy Type Date of Onset Reaction(s) Facility (3 sources) Penicillin; Translations: [penicillin] Drug Allergy [facility] Repository (9 sources) penicillAMINE Drug Allergy Unknown [employer] Other (1 source) penicillAMINE Drug Allergy [facility] Repository Encounters Encounter Date Encounter Type Care Provider Facility Start: 10-18-2023 End: 10-19-2023 ambulatory XXXX NONE Facility:[facility] Start: 10-18-2023 End: 10-18-2023 Patient encounter procedure DO Anthony Ball Work Phone: [facility] Work Phone: Start: 10-18-2023 End: 10-18-2023 ambulatory DO Anthony Ball Work Phone: [facility] Work Phone: Start: 10-18-2023 End: 10-18-2023 ambulatory DO Anthony Ball Work Phone: [facility] Work Phone: Start: 10-18-2023 End: 10-18-2023 Patient encounter procedure DO Anthony Ball Work Phone: [facility] Start: 10-11-2023 End: 10-11-[address] [facility] Work Phone: Start: 10-11-2023 End: 10-11-2023 Patient encounter procedure [facility] Work Phone: Start: 09-20-2023 End: 09-20-2023 ambulatory Jose Dalal Facility:[facility] Start: 09-14-2023 Non-patient / Non-visit [facility] Work Phone: Start: 09-02-2023 End: 09-03-2023 ambulatory Jose Dalal Facility:[facility] Start: 08-26-2023 End: 08-27-2023 ambulatory Elvis Nathalie PIRES Facility:[facility] Start: 08-23-2023 Non-patient / Non-visit [facility] Work Phone: Start: 08-19-2023 End: 08-19-[address] [facility] Work Phone: Start: 08-19-2023 End: 08-19-2023 Patient encounter procedure [facility] Work Phone: Start: 08-01-2023 End: 08-02-2023 ambulatory XXXX NONE Facility:[facility] Start: 07-21-2023 End: 07-21-2023 ambulatory CHUY JAIN Not Available Start: 07-19-2023 Non-patient / Non-visit [facility] Work Phone: Start: 07-18-2023 Non-patient / Non-visit [facility] Work Phone: Start: 07-04-2023 End: 07-04-2023 ambulatory Anthony Zayas Other [employer] Other Start: 07-04-2023 Telephone encounter Anthony Zayas [facility] Start: 07-01-2023 End: 07-01-2023 ambulatory Anthony Zayas Other [employer] Other Start: 07-01-2023 Office outpatient visit 25 minutes Anthony Zayas [facility] Start: 06-29-2023 End: 06-29-2023 ambulatory Anthony Zayas Other [employer] Other Start: 06-29-2023 Telephone encounter Anthony LI G [facility] Start: 06-20-2023 End: 06-21-2023 ambulatory Issac Rucker MD Facility:[facility] Start: 06-06-2023 End: 06-07-2023 ambulatory Issac Rucker MD Facility:[facility] Start: 05-20-2023 End: 05-20-2023 ambulatory Anthony Zayas Other [employer] Other Start: 05-20-2023 Office outpatient visit 25 minutes Anthony Zayas [facility] Start: 04-25-2023 End: 04-25-2023 ambulatory Anthony Zayas Other [employer] Other Start: 04-25-2023 Telephone encounter Anthony LI G [facility] Start: 04-21-2023 Office outpatient ne w 45 minutes Bhavin Devries [facility] Start: 04-21-2023 End: 04-21-2023 ambulatory Anthony Zayas [employer] Other Start: 04-21-2023 End: 04-21-2023 Patient encounter procedure DO Bhavin Devries Work Phone: [facility] Start: 04-18-2023 End: 04-18-2023 ambulatory Anthony Zayas Other [employer] Other Start: 04-18-2023 Telephone encounter Anthony LI [facility] Start: 04-12-2023 End: 04-12-2023 ambulatory Anthony Zayas Other [employer] Other Start: 04-12-2023 Patient encounter procedure Anthony Zayas [facility] Start: 04-12-2023 Telephone encounter Anthony LI [facility] Start: 02-28-2023 End: 03-01-2023 ambulatory Issac Rucker MD Facility:[facility] Start: 02-11-2023 End: 02-12-2023 ambulatory XXXX NONE Facility:[facility] Start: 01-31-2023 End: 02-01-2023 ambulatory Issac Rucker MD Facility:[facility] Start: 01-04-2023 End: 01-05-2023 ambulatory Issac Rucker MD Facility:[facility] Start: 11-29-2022 End: 11-29-2022 ambulatory Anthony Zayas Other [employer] Other Start: 11-29-2022 Telephone encounter Anthony LI G [facility] Start: 11-24-2022 End: 11-24-2022 ambulatory Anthony Zayas Other [employer] Other Start: 11-24-2022 Telephone encounter Anthony LI Isidro [facility] Start: 10-08-2022 End: 10-09-[address] ANTHONY ZAYAS Facility:[facility] Start: 08-31-2022 End: 08-31-2022 ambulatory Anthony Zayas Other [employer] Other Start: 08-31-2022 Telephone encounter Anthony [facility] [employer] Start: 08-03-2022 End: 08-03-2022 ambulatory Anthony Zayas Other [employer] Other Start: 08-03-2022 Telephone encounter [facility] Start: 07-29-2022 End: 07-29-2022 ambulatory Anthony Zayas Other [employer] Other Start: 07-29-2022 Office outpatient visit 25 minutes Anthony Zayas [facility] Start: 05-05-2022 End: 12-15-[address] ANTHONY ZAYAS Facility:[facility] Start: 02-03-2022 End: 02-04-[address] ANTHONY ZAYAS Facility:[facility] Start: 10-23-2021 End: 10-24-[address] ANTHONY ZAYAS Facility:[facility] Start: 10-07-2021 End: 10-08-[address] ANTHONY ZAYAS Facility:[facility] Start: 10-28-2016 End: 10-29-2016 Ambulatory DEFAULT PHYSICIAN Facility:[facility] Immunizations Immunization Date Immunization Notes Care Provider Fa cilizafar 03-05-2023 influenza, high dose seasonal, preservative-free Anthony Zayas Other [employer] Other 03-05-2023 influenza virus vaccine, unspecified formulation [facility] 02-03-2022 influenza virus vaccine, split virus (incl. purified surface antigen) Anthony Zayas Other [employer] Other 02-03-2022 influenza virus vaccine, unspecified formulation [facility] 01-29-2021 influenza virus vaccine, split virus (incl. purified surface antigen) Anthony Zayas Other [employer] Other 01-29-2021 influenza virus vaccine, unspecified formulation [facility] 01-29-2020 influenza virus vaccine, split virus (incl. purified surface antigen) Anthony Zayas Other [employer] Other 01-29-2020 influenza virus vaccine, unspecified formulation [facility] 04-16-2019 zoster vaccine, live Deepak Zayas Other [facility] 10-18-2017 diphtheria, tetanus toxoids and acellular pertussis vaccine, unspecified formulation Anthony Zayas Other [facility] 10-15-2016 pneumococcal conjuga te vaccine, 13 valent Anthony Zayas Other [facility] 03-03-2016 influenza virus vaccine, split virus (incl. purified surface antigen) Anthony Zayas Other [employer] Other 03-03-2016 influenza virus vaccine, unspecified formulation [facility] 03-12-2013 pneumococcal polysaccharide vaccine, 23 valent Anthony Zayas Other [facility] 03-12-2013 tetanus and diphther ia toxoids, adsorbed, preservative free, for adult use (5 Lf of tetanus toxoid and 2 Lf of diphtheria toxoid) Anthony Zayas Other [facility] Medications Current Medications Medication Drug Class(es) Dates Sig (Normalized) Sig (Original) AeroChamber (4 sources) Start: 07-19-2023 AeroChamber Active 0 .Route .MEDSUPPLY July 19, 2023 1:00am AeroChamber Mini Chamber - (4 sources) Start: 05-20-2023 AeroChamber Mini Chamber - Use with MDI inhaled every 4 hours as needed for 30 days Apr, Active [id number] actuat albuterol 0.09 mg/actuat metered dose inhaler (2 sources) beta2-Adrenergic Agonist Start: 05-20-2023 take 2 puff(s) by inhalation every four hours as needed Albuterol Sulfate HFA 108 (90 Base) MCG/ACT 2 puffs Inhalation every 4 hrs as needed for SOB for 30 days Apr, Active apixaban 5 mg oral tablet (18 sources) Factor Xa Inhibitor Start: 07-19-2023 take 5 mg by mouth twice daily Apixaban Active 5 MG PO Twice daily July 19, 2023 1:00am take 1 tablet by mouth every twe lve hours Eliquis 5 MG 1 tablet Orally Twice a day Active aspirin 81 mg delayed release oral tablet (3 sources) Platelet Aggregation Inhibitor, Nonsteroidal Anti-inflammatory Drug Start: 10-11-2023 take 81 mg by mouth once daily Aspirin Active 81 MG PO Daily October 11, 2023 12:00am atorvastatin 40 mg oral tablet (20 sources) HMG-CoA Reductase Inhibitor Start: 08-23-2023 take 1 tablet by mouth once daily in the evening Atorvastatin Active 0 .ROUTE .COMPLEX August 23, 2023 1:01pm TAKE 1 TABLET BY MOUTH EVERY DAY IN THE EVENING Start: 07-19-2023 End: 08-23-2023 take 40 mg by mouth once daily Atorvastatin Discontinu ed 40 MG PO Daily July 19, 2023 1:00am August 23, 2023 1:01pm take 1 tablet by ayaan th every twenty-four hours Atorvastatin Calcium 40 MG 1 tablet Orally Once a day Active colchicine 0.6 mg oral tablet (18 sources) Start: 07-19-2023 take 0.6 mg by mouth once daily Colchicine Active 0.6 MG PO Daily July 19, 2023 1:00am Start: 08-03-2022 take 1 tablet by ayaan th once daily as needed Colchicine 0.6 MG 1 tablet Orally daily PRN for acute gout for 30 days Jul, Active famotidine 20 mg oral tablet (16 sources) Histamine-2 Receptor Antagonist Start: 07-19-2023 take [...] Active folic acid 1 mg oral tablet (8 sources) Start: 07-18-2023 End: 07-19-2023 take 1 mg by mouth once daily Folic Acid Active 1 MG PO Daily 30 July 19, 2023 4:34pm furosemide 40 mg oral tablet (20 sources) Loop Diuretic Start: 08-19-2023 End: 08-19-2023 take 40 mg by mouth twice daily Furosemide Active 40 MG PO Twice daily August 19, 2023 10:35am Start: 07-19-2023 End: 08-19-2023 take 40 mg by mouth once daily Furosemide Discontinued 40 MG PO Daily July 19, 2023 1:00am August 19, 2023 10:17am take 1 tablet by ayaan th once daily Furosemide 40 mg TAKE 1 TABLET BY MOUTH DAILY Active losartan potassium 100 mg oral tablet (18 sources) Angiotensin 2 Receptor Fidencio Start: 07-19-2023 take 100 mg by mouth once daily Losartan Active 100 MG PO Daily July 19, 2023 1:00am take 1 tablet by mouth once stephon y Losartan Potassium 100 MG TAKE 1 TABLET BY MOUTH DAILY Active mupirocin 0.02 mg/mg topical ointment (7 sources) RNA Synthetase Inhibitor Antibacterial Start: 09-29-2023 Mupirocin Active 0 .ROUTE .COMPLEX September 29, 2023 3:29pm APPLY TO AFFECTED AREA TWICE A DAY Start: 08-19-2023 End: 09-29-2023 Mupirocin Discontinued 1 FRANCISCA LIC TOPICAL Twice daily August 19, 2023 12:00am September 29, 2023 3:29pm sotalol hydrochloride 80 mg oral tablet (18 sources) Antiarrhythmic Start: 07-19-2023 take 80 mg by mouth once daily Sotalol Active 80 MG PO Daily July 19, 2023 1:00am take 1 tablet by mouth every twe lve hours Sotalol HCl (AF) 80 MG 1 tablet Orally every 12 hrs Active ticagrelor 90 mg oral tablet (3 sources) Start: 10-11-2023 take 1 tablet by mouth twice daily Ticagrelor (Brilinta) 90 mg tablet Active 90 MG PO Twice daily October 11, 2023 12:00am traMADol hydrochloride 50 mg oral tablet (10 sources) Opioid Agonist Start: 07-19-2023 take 50 mg by mouth once daily Tramadol Active 50 MG PO Daily July 19, 2023 1:00am take 1 tablet by ayaan th every twenty-four hours traMADol HCl 50 MG 1 tablet as needed Orally Once a day Active Completed/Discontinued Medications Medication Drug Class(es) Dates Sig (Normalized) Sig (Original) Tiotropium-Olodate rol (4 sources) Anticholinergic, beta2-Adrenergic Agonist Start: 08-19-2023 End: 10-11-2023 Tiotropium-Olodatero l (Stiolto Respimat) 2.5-2.5 mcg/actuation mist Discontinued 2 PUFF INHALATION Daily August 19, 2023 12:00am October 11, 2023 4:18pm Start: 08-19-2023 Tiotropium-Olo daterol (Stiolto Respimat) 2.5-2.5 mcg/actuation mist Active 2 PUFF INHALATION Daily August 19, 2023 12:00am omeprazole 40 mg delayed release oral capsule (5 sources) Proton Pump Inhibitor Start: 07-19-2023 End: 10-11-2023 take 40 mg by mouth once daily Omeprazole Discontinued 40 MG PO Daily July 19, 2023 1:00am October 11, 2023 4:09pm Start: 07-04-2023 take 1 capsule by [facility] once daily Omeprazole 40 MG 1 capsule 30 minutes before morning meal Orally Once a day for 30 days Jun, Active triamcinolone acetonide 40 mg/ml injectable suspension (20 sources) Corticosteroid Start: 04-21-2023 Kenalog-40 Mar, 20 mg Payers Date Payer Category Payer Private Health Insurance [id number] 2023 Self-pay 2022 Private Health Insurance 1959 Medicare [id number] 1945 Unknown [id number] 2.16.840.1.319358.3.579.2.59 3 1945 Unknown [id number] 2.16.840.1.285560.3.579.2.59 3 1945 Unknown [id number] 2.16.840.1.711373.3.579.2.59 3 1945 Unknown [id number] 2.16.840.1.847732.3.579.2.59 3 1945 Unknown [id number] 2.16.840.1.799559.3.579.2.59 3 1945 Unknown [id number] 2.16.840.1.775702.3.579.2.12 59 1945 Unknown [id number] 2.16.840.1.200532.3.579.2.19 6 1945 Unknown [id number] 2.16.840.1.762008.3.579.2.19 6 1945 Unknown [id number] 2.16.840.1.972581.3.579.2.19 6 1945 Unknown [id number] 2.16.840.1.525783.3.579.2.19 6 1945 Unknown [id number] 2.16.840.1.643366.3.579.2.19 6 1945 Unknown [id number] 2.16.840.1.537081.3.579.2.19 6 1945 Unknown [id number] 2.16.840.1.634558.3.579.2.72 7 1945 Unknown [id number] 2.16.840.1.703239.3.579.2.72 7 1945 Unknown [id number] 2.16.840.1.485053.3.579.2.72 7 1945 Unknown [id number] 2.16.840.1.638272.3.579.2.72 7 1945 Unknown [id number] 2.16.840.1.962854.3.579.2.72 7 1945 Unknown [id number] 2.16.840.1.167418.3.579.2.72 7 Private Health Insurance [employer] Mcr PFFS N on Pt [id number] Unknown Unknown [id number] 2.16.840.1.199181.3.579.2.53 1 Unknown [id number] 2.16.840.1.650293.3.579.2.53 1 Plan of Treatment Date Care Activity Detail Author Start: 10-18-2023 X-ray of both knees XR knee BI 4V Fi [facility] Start: 10-18-2023 XR Knee - bilateral 4 Views [facility] Problems Active Problems Problem Classification Problem Date Documented Date Episodic/Chronic Asthma (12 sources) Uncomplicated mild persistent asthma; Translations: [Mild persistent asthma, uncomplicated] Chronic Cardiac dysrhythmias (20 sources) Paroxysmal atrial fibrillation; Translations: [Paroxysmal atrial fibrillation] Chronic Chronic kidney disease (16 sources) Chronic kidney disease, stage 4 (severe); Translations: [Chronic kidney disease, unspecified] Onset: 2 Chronic Chronic kidney disease (1 source) Chronic kidney disease; Translations: [CHRONIC KIDNEY DISEASE STAGE 3B] Onset: 2 Chronic obstructive pulmonary disease and bronchiectasis (17 sources) Simple chronic bronchitis; Translations: [Simple chronic bronchitis] Chronic Chronic ulcer of skin (20 sources) Non-pressure chronic ulcer of other part of left foot limited to breakdown of skin; Translations: [Non-pressure chronic ulcer of left heel and midfoot limited to breakdown of skin] Onset: 2 08-18-2023 Chronic Congestive heart failure; nonhypertensive (20 sources) Chronic diastolic heart failure; Translations: [Chronic diastolic (congestive) heart failure] 08-18-2023 Chronic Coronary atherosclerosis and other heart disease (20 sources) Coronary arteriosclerosis; Translations: [Atherosclerotic heart disease of [place] coronary artery without angina pectoris] Chronic Deficiency and other anemia (1 source) Anemia, unspecified Episodic Disorders of lipid metabolism (20 sources) Pure hypercholesterolemia; Translations: [Familial hypercholesterolemia] Onset: 2 Chronic Esophageal disorders (18 sources) Gastro-esophageal reflux disease with esophagitis; Translations: [Gastroesophageal reflux disease with esophagitis without hemorrhage] 08-18-2023 Chronic Essential hypertension (20 sources) Essential hypertension; Translations: [Essential (primary) hypertension] Chronic Gastrointestinal hemorrhage (18 sources) Rectal hemorrhage; Translations: [Hemorrhage of anus and rectum] Onset: 2 Episodic Gout and other crystal arthropathies (20 sources) Chronic gouty arthritis; Translations: [Idiopathic chronic [...] 2 Chronic Other aftercare (1 source) 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 Episodic Other connective tissue [...] Episodic Other diseases of kidney and ureters (4 sources) Cyst of kidney; Translations: [Cyst of kidney, acquired] 08-18-2023 Episodic Other diseases of veins and lymphatics (17 sources) Peripheral venous insufficiency; Translations: [Venous insufficiency (chronic) (peripheral)] 08-18-2023 Episodic Other diseases of veins and lymphatics (11 sources) Venous insufficiency (chronic) (peripheral); Translations: [Venous [...] respiratory disease (1 source) Hypoxemia Episodic Other non-traumatic joint disorders (3 sources) Pain in right knee; Translations: [Pain in both knees] Onset: 4 10-14-2023 Episodic Other non-traumatic joint disorders (1 source) Pain in left knee; Translations: [Pain in left knee] Onset: 4 Episodic Other nutritional; endocrine; and metabolic disorders [...] and due to atherosclerosis; Translations: [Atherosclerosis of [place] arteries of extremities with intermittent claudication, bilateral legs] Onset: 2 Chronic Spondylosis; intervertebral disc disorders; other back problems (15 sources) Lumbar spondylosis; Translations: [Spondylosis without myelopathy [...] [Gastroesophageal reflux disease with esophagitis without hemorrhage] Other connective tissue disease (2 sources) Pain in left hand; Translations: [Pain in left hand] Onset: 04-21-2023 Episodic Procedures Date Procedure Procedure Detail Performing Clinician Start: 10-18-2023 X-ray of both knees DO Anthony Zayas Work Phone: Start: 04-21-2023 Plain X-ray of bilat eral hands DO Bhavin Devries Work Phone: Start: 02-03-[address] ELYSSA ZAYAS Comment on above: Performed By: #### [facility] #### [facility] [address] [place] [address] Dr. Milka Castaneda Results Test Name Value Interpretation Reference Range Facility Consent for Treatmenton 09-21 Consent for Treatment [id number] 40 [id number] #[id number] [facility] Heart and Vascular Office/Cl inic Noteon 10-18-2023 Heart and Vascular Office/Clinic Note Chief Complaint 6 week F/U [facility] History of Present Illness Patient is a 77-year-old male with past medical history of moderate CAD, hypertension, hyperlipidemia, diastolic heart failure, paroxysmal A-fib on sotalol and now more persistent A-fib. Patient comes in for 4-week follow-up following heart cath Patient had heart cath with Dr. Dalal in 09/19/2023. Patient had JASPREET x 1 to proximal LAD. Patient will also need staged intervention of RCA due to renal insufficiency could not perform at the same time. Patient has been doing well since procedure. Did not have any issues with the right wrist following procedure. States that he is bruising more easily now that he is taking Brilinta and aspirin in addition to his Eliquis that he is taking for A-fib. Patient denies chest pains, shortness of breath, swelling in lower extremities, heart palpitations, dizziness/lightheade dness His blood pressure is well-controlled today, although on the low side of normal. Has been running a little low at home, but has not had much lightheadedness or dizziness with this. Patient also inquires about decreasing furosemide. Since swelling is down at this time and echo was normal in 08/2023, suggest that patient does decrease to furosemide daily from twice daily. Review of Systems PHQ Score Initial Depression Screen Score: 0 SCORE ROS - Provider Constitutional: no fever, no chills, no sweats, no weakness Respiratory: no shortness of breath, no cough Cardiovascular: no chest pain Neuro: no dizziness. no loss of consciousness Physical Exam Vitals & Measurements HR: 64(Peripheral) BP: 110/58 SpO2: 99% HT: 67 in HT: 170 cm WT: 104.0 kg WT: 228.8 lb BMI: 35.99 General: alert, no acute distress Neck: Supple, noJVD nocarotid bruit Cardiovascular: regular rate and rhythm, no murmur normal peripheral perfusion Respiratory: Lungs CTAB, respirations non labored Extremities: no edema left lower extremity. no edema right lower extremity. Right radial access site is well healed. No bruising, bleeding, or hematoma. Strong radial pulse with good extremity perfusion. Neurological: oriented x 4, LOC appropriate for age, speech normal Skin: Warm, dry, intact- no rash or concerning lesions Cardiac Diagnostics [facility] with Dr. Dalal 09/19/2023: LMT: Normal left main trunk with bifurcation LAD: Normal caliber with 95% proximal stenosis, reaches the apex. And beyond to the distal inferior wall LCx: Normal caliber with mild irregularity and less than 30% stenosis, reaches the lateral wall. RCA: Medium caliber but technically dominant, only proximal 1-2/3 of the inferior wall supplied. 95% in-stent restenosis of the ostium. Otherwise vessel appears mildly diffusely diseased with patent previously placed stents in the distal and mid segments. Hemodynamics: Normal LVEDP with no gradient across the aortic valve. Left ventriculography: Not done due to renal insufficiency PCI note: Successful PCI proximal LAD 95% stenosed RAHEL-3 flow reduced to 0% residual RAHEL-3 flow after implantation of a Xience 3.0/18 postdilated with a 3.25 NC at high pressure Conclusions: Significant coronary artery disease of the proximal LAD and ostial RCA. PCI performed of the proximal LAD with JASPREET x 1. Staged intervention of the RCA due to renal insufficiency. CAD: DAPT plus NOAC for 3 weeks followed by NOAC and Plavix for 1 year, beta-fidencio, statin, risk factor modification. [1] (08/26/2023 11:59 EDT Echo Transthoracic Complete) Interpretation Summary Ejection Fraction = 55-60%. The left ventricular wall motion is normal. Unable to quantitate diastolic dysfunction due to atrial fibrillation. The left atrium is moderately dilated. Right ventricular systolic pressure is 34 mmHg. In comparison echo report dated 07/08/2021 no appreciable changes noted. Patient in atrial fibrillation at that time. [2] Assessment/Plan 1. CAD in tling[place] artery (I25.10: Atherosclerotic heart disease of [place] coronary artery without angina pectoris) CAD with prior PCI with most recent being JASPREET x 1 to mid LAD in 08/2023. Patient does admit that he has had more bruising since procedure and has been compliant with both aspirin and Brilinta, but patient also takes Eliquis due to A-fib. Discussed holding pressure for up to 10 minutes to get bleeding to stop. Patient voiced understanding. Doing well at this time and ready for staged PCI of RCA that was discussed following the last procedure but could not be completed due to renal insufficiency. Continue with aspirin, statin, Brilinta. Patient taking diltiazem instead of beta-fidencio. Ordered: CV Cardiovascular f/u 2 weeks after staged PCI Follow-up No qualifying data available Problem List/Past Medical History Ongoing CAD in tling[place] artery Historical No qualifying data Procedure/Surgical History Cardiac catheterization, left heart (09/20/2023), PCI - Percutaneous coronary intervention (09/20/2023), Ablation (02/28/2023), Cardioversion (08/28/19 (more content not included)... Normal [facility] Comment on above: Result Comment: Elec tronically Signed By: Arnie HO, Myles Padilla\christopehr\Date and Time Signed: 10/18/23 14:47 EDT XR knee BI 4Von 10-18-2023 XR knee BI 4V [facility] [address] [place] [address] XRay Report Signed Patient: Frank Barrett MR#: [id number] 7 : 1945 Acct:[id number] Age/Sex: 77 / M ADM Date: 10/18/23 Loc: [facility] Room: Type: [facility] Attending Dr: Bhavin Devries DO Copies to: Bhavin Devries DO Ordering Provider: Bhavin Devries DO Date of Service: 10/18/23 XR/XR knee BI 4V: M25.561 - Pain in right knee XR knee BI 4V 10/18/2023 7:44 AM SIGNS AND SYMPTOMS: Bilateral knee pain, greater on the left. PROTOCOL: Frontal, lateral, and sunrise views of the bilateral knees COMPARISON: None FINDINGS: There is mild narrowing of the weightbearing joint spaces, greatest medially on the right. 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 There is moderate narrowing of the patellofemoral joint spaces, greatest along the lateral articular facet bilaterally. There is mild tricompartmental spurring. Small bilateral joint effusions are present. No significant soft tissue swelling. No fracture or dislocation. Vascular calcifications are present in the soft tissues. XR/XR knee BI 4V IMPRESSION: No acute bony injury. The weightbearing joint spaces are noted, greater in the right medial weightbearing joint space. Similar narrowing of the patellofemoral joint spaces bilaterally predominantly affecting the lateral articular facet. Impression dictated by: Baldo Izquierdo M.D.10/18/2023 2:30 PM Dictation Location: [place] [address] Transcribed By: [facility] 10/18/23 1430 Dictated By: Baldo Izquierdo II, MD 10/18/23 1427 Signed By: 10/18/23 1430 Normal [facility] Outside Progress Noteon 09-20 Outside Progress Note [id number] 5#1.00TIFF Normal [facility] Outside Progress Noteon Outside Progress Note [id number] #1.00TIFF Normal [facility] Cardiovascular Reporton Cardiovascular Report [id number] 5#1.00TIFF Normal [facility] Consent for Procedure/Surger yon 09-21-2023 Consent for Procedure/Surgery [id number] 0#1.00TIFF Normal [facility] Discharge Instructionson Discharge Instructions [id number] 6#1.00TIFF Normal [facility] Operative Reporton Operative Report Indication for Surgery Abnormal stress test, angina equivalent Preoperative Diagnosis Known CAD, presumed new narrowing Postoperative Diagnosis Confirmed CAD and significant narrowings of the LAD and RCA PCI of the prox LAD with JASPREET x 1 Planned for staged PCI of the RCA due to renal insufficiency Operation Coronary angiography Left ventriculography Hemodynamic measurements of the left ventricle PCI of the prox LAD with JASPREET x 1 This note is completed immediately following the procedure the date and time of this procedure are the same as this note. Surgeon(s) Jose Dalal MD Anesthesia Conscious sedation Estimated Blood Loss Trivial Findings LMT: Normal left main trunk with bifurcation LAD: Normal caliber with 95% proximal stenosis, reaches the apex. And beyond to the distal inferior wall LCx: Normal caliber with mild irregularity and less than 30% stenosis, reaches the lateral wall. RCA: Medium caliber but technically dominant, only proximal 1-2/3 of the inferior wall supplied. 95% in-stent restenosis of the ostium. Otherwise vessel appears mildly diffusely diseased with patent previously placed stents in the distal and mid segments. Hemodynamics: Normal LVEDP with no gradient across the aortic valve. Left ventriculography: Not done due to renal insufficiency PCI note: Successful PCI proximal LAD 95% stenosed RAHEL-3 flow reduced to 0% residual RAHEL-3 flow after implantation of a Xience 3.0/18 postdilated with a 3.25 NC at high pressure Conclusions: Significant coronary artery disease of the proximal LAD and ostial RCA. PCI performed of the proximal LAD with JASPREET x 1. Staged intervention of the RCA due to renal insufficiency. CAD: DAPT plus NOAC for 3 weeks followed by NOAC and Plavix for 1 year, beta-fidencio, statin, risk factor modification. Importance of antiplatelet compliance was emphasized including risk of stent thrombosis or . The patient understands as well as his accompanying family member/friend that the patient may have stent thrombosis or heart attack and the patient agrees. I myself have specifically counseled the patient regarding stent thrombosis risk including and the patient will additionally be counseled by the [facility] team and in follow-up. Complications None Technique Following full and informed consent the patient was brought to the [facility] where sterile prep and drape were administered in usual fashion. Anesthesia was obtained in the right wrist with lidocaine after administration of conscious sedation. A 5/6 slender Terumo sheath was placed in the right radial artery without complication. Nitroglycerin and nicardipine were given via the sheath and heparin was given intravenously. A 5 [place] JACKE catheter was advanced and selectively engaged in the left main coronary artery and right coronary artery each, where selective injections were performed. A pigtail catheter was placed in the left ventricle where hemodynamic measurements the left ventricle were made and a bolus was given for left ventriculography. A pullback gradient was obtained. A 6 [place] XB3.5 catheter was advanced and selectively engaged in the left main coronary artery. A wire was advanced across the lesion of the proximal LAD. The lesion was dilated with a compliant balloon, stented with a drug-eluting stent X 1, and postdilated with a noncompliant balloon at high pressure. Completion angiography was performed in orthogonal projections with the wire and balloon removed. The guide catheter was removed without event. The sheath was removed with hemostasis obtained by D-Stat radial device at the end of the procedure without complication. Normal [facility] Comment on above: Result Comment: Elec tronically Signed By: Mulugeta SINGH, Jose Stanley\.br\Date and Time Signed: 09/21/23 08:14 EDT BMPon 09-20-2023 Anion gap [Moles/Vol] 14 mmol/L Normal 6-16 [facility] Comment on above: Order Comment: if no t completed in last 30 days Performed By: #### 1 [id number], [id number], [id number] ####[facility] [address] [place] [address] Calcium [Mass/Vol] 9.3 mg/dL Normal 8.9-11.1 [facility] Comment on above: Order Comment: if no t completed in last 30 days Performed By: #### 1 [id number], [id number], [id number] ####[facility] [address] [place] [address] Chloride [Moles/Vol] 100 mmol/L Low 101-111 [facility] Comment on above: Order Comment: if no t completed in last 30 days Performed By: #### 1 [id number], 0679430, 7010565 ####[facility] [address] [place] [address] CO2 [Moles/Vol] 28 mmol/L Normal 21-31 [facility] Comment on above: Order Comment: if no t completed in last 30 days Performed By: #### 1 [id number], [id number], 8389382 ####[facility] [address] [place] [address] Creatinine [Mass/Vol] 2.4 mg/dL High 0.5-1.3 [facility] Comment on above: Order Comment: if no t completed in last 30 days Performed By: #### 1 [id number], [id number], [id number] ####[facility] [address] [place] [address] Glucose [Mass/Vol] 113 mg/dL Normal 55-199 [facility] Comment on above: Order Comment: if no t completed in last 30 days Performed By: #### 1 [id number], 3292721, 2249126 ####[facility] [address] [place] [address] Potassium [Moles/Vol] 4.0 mmol/L Normal 3.5-5.3 [facility] Comment on above: Order Comment: if no t completed in last 30 days Performed By: #### 1 [id number], [id number], 0504695 ####[address] [address] Sodium [Moles/Vol] 138 mmol/L Normal 135-145 [facility] Comment on above: Order Comment: if no t completed in last 30 days Performed By: #### 1 [id number], 7354282, 9260926 ####[address] [address] Urea nitrogen [Mass/Vol] 29 mg/dL High 5-21 [facility] Comment on above: Order Comment: if no t completed in last 30 days Performed By: #### 1 [id number], 3039387, 4736359 ####[place] [id number] Urea nitrogen/Creatinine [Mass ratio] 12 No Units Normal 10-20 [facility] Comment on above: Order Comment: if no t completed in last 30 days Performed By: #### 1 5373087, 1526485, 8397279 ####[address] [address] CBC w/Indiceson 09-20-2023 Erythrocyte distribution width (RBC) [Ratio] 14.5 % High 10.9-14.2 [facility] Comment on above: Order Comment: if no t completed in last 30 days Performed By: #### 1 [id number], 9558258, 2538196 ####[place] [address] [place] [address] Hematocrit (Bld) [Volume fraction] 37.4 % Low 37.7-49.0 [facility] Comment on above: Order Comment: if no t completed in last 30 days Performed By: #### 1 [id number], 7066344, 4813899 ####[address] [address] Hemoglobin (Bld) [Mass/Vol] 12.2 g/dL Low 13.5-17.5 [facility] Comment on above: Order Comment: if no t completed in last 30 days Performed By: #### 1 [id number], 1792644, 3447854 ####[address] [address] MCH (RBC) [Entitic mass] 30.3 pg Normal 27.0-34.0 [facility] Comment on above: Order Comment: if no t completed in last 30 days Performed By: #### 1 [id number], 4765020, 6601512 ####[address] [address] MCHC (RBC) [Mass/Vol] 32.5 g/dL Normal 31.4-36.0 [facility] Comment on above: Order Comment: if no t completed in last 30 days Performed By: #### 1 5465447, 3655984, 5867606 ####[address] [address] MCV (RBC) [Entitic vol] 93.0 fL Normal 80.0-100.0 [facility] Comment on above: Order Comment: if no t completed in last 30 days Performed By: #### 1 2581947, 4164212, 6243703 ####[address] [address] Platelet mean volume (Bld) [Entitic vol] 7.6 fL Normal 6.4-10.8 [facility] Comment on above: Order Comment: if no t completed in last 30 days Performed By: #### 1 4955201, 1136523, 2277523 ####[address] [address] Platelets (Bld) [#/Vol] 266.0 E9/L Normal 150.0-500.0 [facility] Comment on above: Order Comment: if no t completed in last 30 days Performed By: #### 1 3295716, 8536022, 2682216 ####[place] [address] [place] [address] RBC (Bld) [#/Vol] 4.0 E12/L Low 4.3-5.9 [facility] Comment on above: Order Comment: if no t completed in last 30 days Performed By: #### 1 6261064, 0614120, 9259781 ####[facility] [address] [place] [address] RBC size Nom (Bld) NORMAL Invalid Interpretation Code [facility] Comment on above: Order Comment: if no t completed in last 30 days Performed By: #### 1 6372949, 2840680, 6177268 ####[facility] [address] [place] [address] WBC corrected for nucl RBC Auto (Bld) [#/Vol] 6.7 E9/L Normal 4.0-11.0 [facility] Comment on above: Order Comment: if no t completed in last 30 days Performed By: #### 1 5229419, 7642587, 3698024 ####[facility] [address] [place] [address] Cardiology Progress Noteon 0 09-20-2023 Cardiology Progress Note Post PCI GDMT: Patient is prescribed DAPT - aspirin 81 mg daily and Brilinta 90 mg twice daily. Patient is already taking statin - atorvastatin 40 mg daily. Patient is not prescribed beta fidencio due to pt already taking a calcium channel fidencio and HR well controlled. Cardiac rehab as outpatient. Normal [facility] Comment on above: Result Comment: Elec tronically Signed By: Myles Gaitan PA-C\.trudy\Date and Time Signed: 09/20/23 10:58 EDT Consent for Treatmenton 08-23 Consent for Treatment [id number] #1.00TIFF Normal [facility] Inpatient Clinical Summaryon 09-20-2023 Inpatient Clinical Summary [address] [address] Clinical Summary Person Information: Name: FRANK BARRETT Age: 77 Years : 1945 Sex: Male PCP: ANTHONY ZAYAS DO Marital Status: Phone: [phone] Race: White Ethnicity: Non- or Language: Serbian Visit Id: Visit Reason: R94.39, I25.10, R07.9, R02.02 Speciality: Acuity: Enc Type: Ambulatory/Same Day Surgery Med Service: Surgery Arrival: 09/20/2023 06:54:46 Discharge: Dispo Type: Address: [facility] [id number] Provider Notes: Diagnosis: Problems No Problems Documented Smoking Status: Never Smoker Functional Status: Sensory Deficits: Uncorrected visual impairment History of Falls: Within last one year Mobility Assistance Prior to Admission: ADLs: Independent Current Level of Assistance for Self-Care/Mobility: Cognitive Status: Allergies penicillin (Unknown) Measurements: Height: 170 cm Weight: 106 kg Blood Pressure: 150 mmHg / 70 mmHg BMI: 36.68 kg/m2 Procedures Cardiac catheterization, left heart (09/20/2023) PCI - Percutaneous coronary intervention (09/20/2023) Immunizations No Immunizations Documented This Visit Final Med List: acetaminophen (acetaminophen 325 mg Tab) 2 Tablets By Mouth every 6 hours. apixaban (Eliquis 5 mg oral tablet) 1 Tablets By Mouth 2 times a day. Refills: 1. aspirin (aspirin 81 mg Oral EC Tab) 1 Tablets By Mouth every day. Refills: 3. atorvastatin (atorvastatin 40 mg Tab) 30 EA, TAKE ONE TABLET BY MOUTH DAILY IN THE EVENING. colchicine (colchicine 0.6 mg Tab) TAKE 1 TABLET BY MOUTH ONCE DAILY NEEDED FOR ACUTE GOUT. diclofenac topical (Voltaren Topical) 2 Gram Topical 4 times a day. diltiazem (DilTIAZem (Eqv-Cardizem CD) 360 mg/24 hours oral capsule, extended release) 1 Capsules By Mouth every day. Refills: 3. docusate (docusate sodium 50 mg oral capsule) 1 Capsules By Mouth once a day (at bedtime). folic acid (folic acid 1 mg Tab) TAKE 1 TABLET BY MOUTH EVERY DAY FOR 30 DAYS. folic acid (folic acid 1 mg Tab) 30 EA, 0 Refill(s), TAKE 1 TABLET BY MOUTH EVERY DAY FOR 30 DAYS. furosemide (furosemide 40 mg Tab) 90 EA, TAKE 1 TABLET BY MOUTH DAILY. furosemide (furosemide 40 mg Tab) TAKE 1 TABLET BY MOUTH TWICE A DAY. isosorbide mononitrate (isosorbide mononitrate 30 mg ER Tab) 1 Tablets By Mouth every day. Refills: 3. losartan (losartan 100 mg Tab) 90 EA, TAKE 1 TABLET BY MOUTH DAILY. omeprazole (omeprazole 40 mg Cap-DR) 30 EA, 0 Refill(s), TAKE 1 CAPSULE BY MOUTH 30 MINUTES BEFORE MORNING MEAL EVERY DAY FOR 30 DAYS. senna (Senna 8.6 mg oral tablet) 2 Tablets By Mouth once a day (at bedtime) as needed for constipation. ticagrelor (ticagrelor 90 mg oral tablet) 1 Tablets By Mouth 2 times a day. Refills: 5. tramadol (traMADOL 50 mg Tab) Care Team Members: Attending Physician: Jose Dalal MD Consulting Physician: Referring Physician: Jose Dalal MD Follow up: With: Address: When: Jose Dalal In 24 days 10/14/2023 Type Location Start [facility] Cardiology Follow Up (FT) FT.Cardiology Clinic 10/14/2023 2:30 PM 10/14/2023 2:45 PM Confirmed Patient Education Information: CV - Cardiovascular PCI Discharge Instructions (CUSTOM) ticagrelor Normal [facility] Inpatient Patient Summaryon 09-20-2023 Inpatient Patient Summary [place] [address] Patient Discharge Instructions PERSON INFORMATION Name: FRANK BARRETT Date of : 1945 Current Date: 09/20/2023 13:20:27 PHYSICIANS Admitting Physician: Jose Dalal MD Primary Care Physician: ANTHONY ZAYAS DO PCP Comment: Discharge Diagnosis: Condition at Discharge: Stable FRANK BARRETT has been given the following list of follow-up instructions, prescriptions, and patient education materials: PATIENT FOLLOW-UP INFORMATION Diet: Discharge Activity: Discharge Restrictions: Wound Care Instructions: Remove Your Dressing In Days Call Your Doctor For: IF UNABLE TO CONTACT YOUR PHYSICIAN AND YOU FEEL IT IS AN EMERGENCY, GO TO THE NEAREST EMERGENCY ROOM OR CALL 911 Home Treatment: Devices/Equipment: None Special Services: Additional Instructions: Primary Care Physician to provide the following pending test results: None Follow up: With: Address: When: Jose Rosadovikamargo In 24 days 10/14/2023 In the event that this physician does not participate in your insurance network, please consult with your insurance company to find a nearby participating provider. Type Location Start Finish [facility] Cardiology Follow Up (FT) FT.Cardiology Clinic 10/14/2023 2:30 PM 10/14/2023 2:45 PM Confirmed Comment: NENA Wilcox [place], have received the attached patient education materials/instructio ns and have verbalized understanding: Patient Signature Date Clinican/Nurse Signature Date HERE ARE THE MEDICATION CHANGES THAT OCCURRED DURING YOUR HOSPITAL STAY New Medications [id number], [address] [place], [place] [id number], [phone] aspirin (aspirin 81 mg Oral EC Tab) 1 Tablets By Mouth every day. Refills: 3. Last Dose: Next Dose: ticagrelor (ticagrelor 90 mg oral tablet) 1 Tablets By Mouth 2 times a day. Refills: 5. Last Dose: Next Dose: Medications to Continue with No Changes Other Medications acetaminophen (acetaminophen 325 mg Tab) 2 Tablets By Mouth every 6 hours. Last Dose: Next Dose: apixaban (Eliquis 5 mg oral tablet) 1 Tablets By Mouth 2 times a day. Refills: 1. Last Dose: Next Dose: atorvastatin (atorvastatin 40 mg Tab) 30 EA, TAKE ONE TABLET BY MOUTH DAILY IN THE EVENING., Responsible Provider: ANTHONY ZAYAS Last Dose: Next Dose: colchicine (colchicine 0.6 mg Tab) TAKE 1 TABLET BY MOUTH ONCE DAILY NEEDED FOR ACUTE GOUT. Last Dose: Next Dose: diclofenac topical (Voltaren Topical) 2 Gram Topical 4 times a day. Last Dose: Next Dose: diltiazem (DilTIAZem (Eqv-Cardizem CD) 360 mg/24 hours oral capsule, extended release) 1 Capsules By Mouth every day. Refills: 3. Last Dose: Next Dose: docusate (docusate sodium 50 mg oral capsule) 1 Capsules By Mouth once a day (at bedtime). Last Dose: Next Dose: folic acid (folic acid 1 mg Tab) TAKE 1 TABLET BY MOUTH EVERY DAY FOR 30 DAYS. Last Dose: Next Dose: folic acid (folic acid 1 mg Tab) 30 EA, 0 Refill(s), TAKE 1 TABLET BY MOUTH EVERY DAY FOR 30 DAYS., Responsible Provider: ANTHONY ZAYAS Last Dose: Next Dose: furosemide (furosemide 40 mg Tab) 90 EA, TAKE 1 TABLET BY MOUTH DAILY., Responsible Provider: ANTHONY ZAYAS Last Dose: Next Dose: furosemide (furosemide 40 mg Tab) TAKE 1 TABLET BY MOUTH TWICE A DAY. Last Dose: Next Dose: isosorbide mononitrate (isosorbide mononitrate 30 mg ER Tab) 1 Tablets By Mouth every day. Refills: 3. Last Dose: Next Dose: losartan (losartan 100 mg Tab) 90 EA, TAKE 1 TABLET BY MOUTH DAILY., Responsible Provider: ANTHONY ZAYAS Last Dose: Next Dose: omeprazole (omeprazole 40 mg Cap-DR) 30 EA, 0 Refill(s), TAKE 1 CAPSULE BY MOUTH 30 MINUTES BEFORE MORNING MEAL EVERY DAY FOR 30 DAYS., Responsible Provider: ANTHONY ZAYAS Last Dose: Next Dose: senna (Senna 8.6 mg oral tablet) 2 Tablets By Mouth once a day (at bedtime) as needed for constipation. Last Dose: Next Dose: tramadol (traMADOL 50 mg Tab) Last Dose: Next Dose: Comment: MEDICATION LIST PROVIDED FOR YOU IS A LIST OF YOUR CURRENT MEDICATIONS. PLE (more content not included)... Normal [facility] Patient Education - Texton 0 09-20-2023 Patient Education - Text [place], [place] Cardiovascular PCI DISCHARGE INSTRUCTIONS Diet: ? Resume pre-procedure diet. ? Increase water intake the next 2 days to flush dye out of the body. Activity: If radial access: ? Limit your activity today. Do not operate a vehicle, machinery or power tools. ? NO LIFTING OVER 3 POUNDS for 3 days. ? Do not bend your wrist for 24 hours. ? May resume driving in 24 hours. ? Let pain/discomfort guide your activity. If you are having pain, stop. ? No sexual activity for 1 week. ? Return to the Emergency Room if you have trouble breathing, walking or nausea and vomiting. Medications: ? Resume pre-procedure medication, unless otherwise directed. ? Hold the following medications for 48 hours post procedure: Actoplus Met Glucophage Glucophage XR Glucovance Avandamet Fortamet Apo-metformin Glycon Cristóbal-metformin Glumetza Janumet Metaglip Riomet Glycomet ? Minimal pain, soreness and/or discomfort is expected. ? If you are prescribed an aspirin and/or antiplatelet (such as Plavix, Brilinta or Effient) do NOT stop taking these medications for any reason without talking to your financial services rep Site Care: ? Do not remove dressing for 24 hours unless it becomes saturated, then replace. ? Keep site clean and dry; inspect site daily. ? Do not use any lotions, powders, or ointments at the groin or wrist site for 1 week. ? May shower 24 hours after the procedure. Clean site with soap and water. Pat dry and apply band aid. No tub baths, swimming or hot tubs for 3 days. Post Procedure: ? Soreness and tenderness to the site can last up to one week. ? Bruising may occur to site. ? A responsible adult should be with you for the first 24 hours after you arrive home. ? Keep follow-up appointment. ? Carry your stent card with you at all times. This provides information about your heart disease for any doctor who cares for you. ? No smoking for 24 hours as it increases the risk of developing blood clots. ? If you are interested in smoking cessation, contact [facility] at [phone], ext. [phone]. ? In the event you are unable to reach your physician, please call GonzalezLatasha at [phone] and the box printing machine operator will assist you. Seek Medicare Care for: ? Bleeding: Apply continuous pressure to the site and Call 911. ? Should the arm or leg become cold, numb, blue or white call your physician immediately. ? Signs of infection are redness, warmth, swelling, getting more sore, colored drainage, fever or chills ? Chest pain ? Blood in your urine or stool ? Black tarry stools ? Normal [facility] eGFRon 09-20-2023 eGFR 27 mL/min/1.73 m2 Low >=59 [facility] Comment on above: Order Comment: Order added by Discern Expert. Performed By: #### 1 [id number] ####[facility] [address] [place] [address] Basophils Auto (Bld) [#/Vol] on 09-14-2023 Basophils (Bld) [#/Vol] 0.1 10 3/uL 0.0-0.1 [facility] Basophils/100 WBC Auto (Bld) on 09-14-2023 Basophils/100 WBC (Bld) 0.6 % 0.2-2.0 [facility] Eosinophils/100 WBC Auto (Bl d)on 09-14-2023 Eosinophils/100 WBC (Bld) 2.4 % 0.9-7.0 [facility] Erythrocyte distribution wid th Auto (RBC) [Ratio]on 09-14-2023 Erythrocyte distribution width (RBC) [Ratio] 13.9 % 11.0-15.0 [facility] Estimated glomerular filtrat ion rate (GFR) non- Americanon 09-14-2023 GFR/1.73 sq M.predicted among non-blacks MDRD (S/P/Bld) [Vol rate/Area] 22 mL/min/{1.73_m2} >=60 [facility] Hematocrit Auto (Bld) [Volum e fraction]on 09-14-2023 Hematocrit (Bld) [Volume fraction] 37.7 % 42.0-54.0 [facility] Hemoglobin [Mass/volume] in Bloodon 09-14-2023 Hemoglobin (Bld) [Mass/Vol] 11.8 g/dL 14.0-18.0 [facility] Laboratory - Chemistry and C hemistry - challengeon 09-14-2023 Calcium [Mass/Vol] 9.6 mg/dL 8.5-10.1 [facility] Chloride [Moles/Vol] 98 mmol/L 98-107 [facility] CO2 [Moles/Vol] 25.4 mmol/L 21.0-32.0 [facility] Creatinine [Mass/Vol] 2.82 mg/dL 0.70-1.30 [facility] GFR/1.73 sq M.predicted MDRD (S/P/Bld) [Vol rate/Area] 27 mL/min/{1.73_m2} >=60 [facility] Glucose [Mass/Vol] 117 mg/dL 74-106 [facility] Potassium [Moles/Vol] 4.1 mmol/L 3.5-5.1 [facility] Sodium [Moles/Vol] 136 mmol/L 136-145 [facility] Urea nitrogen [Mass/Vol] 29.0 mg/dL 7.0-18.0 [facility] Urea nitrogen/Creatinine [Mass ratio] 10.3 mg/mg [facility] Laboratory - Hematology and Cell countson 09-14-2023 Immature granulocytes/100 WBC (Bld) 0.3 % 0.0-0.5 [facility] Leukocytes [#/volume] correc margaret for nucleated erythrocytes in Blood by Automated counon 09-14-2023 WBC corrected for nucl RBC Auto (Bld) [#/Vol] 9.7 10 3/uL 4.0-11.0 [facility] Lymphocytes Auto (Bld) [#/Vo l]on 09-14-2023 Lymphocytes (Bld) [#/Vol] 1.9 10 3/uL 1.2-3.8 [facility] Lymphocytes/100 WBC Auto (Bl d)on 09-14-2023 Lymphocytes/100 WBC (Bld) 20.1 % 20.5-60.0 [facility] MCH Auto (RBC) [Entitic mass ]on 09-14-2023 MCH (RBC) [Entitic mass] 30.3 pg 25.9-34.0 [facility] MCHC Auto (RBC) [Mass/Vol]on 09-14-2023 MCHC (RBC) [Mass/Vol] 31.3 g/dL 29.9-35.2 [facility] MCV Auto (RBC) [Entitic vol] on 09-14-2023 MCV (RBC) [Entitic vol] 96.7 fL 80.0-94.0 [facility] Monocytes Auto (Bld) [#/Vol] on 09-14-2023 Monocytes (Bld) [#/Vol] 1.3 10 3/uL 0.3-0.8 [facility] Monocytes/100 WBC Auto (Bld) on 09-14-2023 Monocytes/100 WBC (Bld) 13.0 % 1.7-12.0 [facility] Neutrophils Auto (Bld) [#/Vo l]on 09-14-2023 Neutrophils (Bld) [#/Vol] 6.1 10 3/uL 1.4-6.5 [facility] Neutrophils/100 WBC Auto (Bl d)on 09-14-2023 Neutrophils/100 WBC (Bld) 63.6 % 43.0-75.0 [facility] No Panel Informationon 09-13 Eosinophils # (Auto) 0.2 10 3/uL 0.0-0.7 [facility] Immature Granulocyte # (Auto) 0.03 10 3/uL 0.00-0.03 [facility] Platelet mean volume Auto (B ld) [Entitic vol]on 09-14-2023 Platelet mean volume (Bld) [Entitic vol] 10.3 fL 9.5-13.5 [facility] Platelets Auto (Bld) [#/Vol] on 09-14-2023 Platelets (Bld) [#/Vol] 256 10 3/uL 150-450 [facility] RBC Auto (Bld) [#/Vol]on RBC (Bld) [#/Vol] 3.90 10 6/uL 4.70-6.10 [facility] Serum or plasma anion gap de terminationon 09-14-2023 Anion gap [Moles/Vol] 16.7 mmol/L [facility] Insurance Correspondenceon 0 09-09-2023 Insurance Correspondence [id number] 3#1.00TIFF Normal [facility] Physician Orderon 09-09-2023 Physician Order [id number] 9#1.00TIFF Normal [facility] Physician Order [id number] 5#1.00TIFF Normal [facility] Heart and Vascular Office/Cl inic Noteon 09-06-2023 Heart and Vascular Office/Clinic Note Chief Complaint F/U Testing History of Present Illness 77-year-old male with history of moderate coronary artery disease, hypertension, hyperlipidemia, diastolic heart failure, paroxysmal atrial fibrillation on sotalol now more persistent atrial fibrillation. Had a stress test due to shortness of breath and some chest discomfort turned out to be abnormal. Patient continues to have shortness of breath. Review of Systems PHQ Score Initial Depression Screen Score: 0 SCORE Constitutional: no fever, no chills, no weakness, no fatigue Respiratory: Yes shortness of breath, no cough, no orthopnea, no wheezing Cardiovascular: no chest pain, no palpitations, no edema Neuro: no dizziness no light headed no syncope Additional ROS info: Except as noted in the above Review of Systems and in the History of Present Illness all other systems have been reviewed and are negative or noncontributory. Physical Exam Vitals & Measurements HR: 60(Peripheral) BP: 125/66 SpO2: 97% HT: 67 in HT: 170 cm WT: 106.8 kg WT: 234.96 lb BMI: 36.96 General: alert, no acute distress Neck: Supple, noJVD nocarotid bruit Cardiovascular: regular rate and rhythm, no murmur normal peripheral perfusion Respiratory: Lungs CTA, respirations non labored Extremities: no edema Neurological: oriented x 4, LOC appropriate for age, sensation equal & normal bilaterally, speech normal Skin: Warm, dry, intact- no rash or concerning lesions Assessment/Plan Will discontinue sotalol and start diltiazem. Continues on Eliquis for A-fib. Due to abnormal stress test we will schedule for heart catheterization possible PCI. Risks, benefits, alternatives, and personnel were discussed at length and the patient agrees to proceed. Additional time was devoted to reviewing Covid risk as well as lack of surgical backup (level 2). The patient is aware of these risks. 1. Abnormal stress test (R94.39: Abnormal result of other cardiovascular function study) 2. Hypertension (I10: Essential (primary) hypertension) 3. Hyperlipidemia (E78.5: Hyperlipidemia, unspecified) 4. Diastolic heart failure (I50.30: Unspecified diastolic (congestive) heart failure) Follow-up No qualifying data available Problem List/Past Medical History Ongoing No qualifying data Historical No qualifying data Procedure/Surgical History Ablation (02/28/2023), Cardioversion (08/27/2021), Cardiac catheterization, left heart (07/28/2021). Medications acetaminophen 325 mg Tab, 650 mg= 2 tab(s), Oral, q6hr atorvastatin 40 mg Tab colchicine 0.6 mg Tab DilTIAZem (Eqv-Cardizem CD) 360 mg/24 hours oral capsule, extended release, 360 mg= 1 cap(s), Oral, Daily, 3 refills docusate sodium 50 mg oral capsule, 50 mg= 1 cap(s), Oral, Once a day (at bedtime) Eliquis 5 mg oral tablet, 5 mg= 1 tab(s), Oral, BID, 1 refills folic acid 1 mg Tab folic acid 1 mg Tab furosemide 40 mg Tab furosemide 40 mg Tab isosorbide mononitrate 30 mg ER Tab, 30 mg= 1 tab(s), Oral, Daily, 3 refills losartan 100 mg Tab omeprazole 40 mg Cap-DR Senna 8.6 mg oral tablet, 17.2 mg= 2 tab(s), Oral, Once a day (at bedtime), PRN sotalol 80 mg Tab, 80 mg= 1 tab(s), Oral, Daily, 3 refills traMADOL 50 mg Tab Voltaren Topical, 2 gm, Topical, QID Allergies [...] Never Smokeless Tobacco Use:. Cigarettes, Household tobacco concerns: No., 09/02/2023 Family History Primary malignant neoplasm of lung: Father. Immunizations Vaccine Date Status Comments SARS-CoV-2 (COVID-19) mRNA BNT-162b2 vax 03/03/2021 Recorded [08/25/2021] booster SARS-CoV-2 (COVID-19) mRNA BNT-162b2 vax 08/12/2020 Recorded SARS-CoV-2 (COVID-19) mRNA BNT-162b2 vax 07/21/2020 Recorded Normal [facility] Comment on above: Result Comment: Elec tronically Signed By: Mulugeta SINGH, Jose Stanley\.br\Date and Time Signed: 09/06/23 08:17 EDT Consent for Treatmenton 08-21 Consent for Treatment [id number] #1.00TIFF [facility] Outside Progress Noteon 08-21 Outside Progress Note [id number] 4#1.00TIFF [facility] Stress EKG Tracingson 2023 Stress EKG Tracings [id number] #1.00TIFF [facility] Consent for Treatmenton Consent for Treatment [id number] #1.00TIFF [facility] Outside Labson 08-24-2023 Outside Labs [id number] 3#1.00TIFF Normal [facility] Estimated glomerular filtrat ion rate (GFR) non- Americanon 08-23-2023 GFR/1.73 sq M.predicted among non-blacks MDRD (S/P/Bld) [Vol rate/Area] 26 mL/min/{1.73_m2} >=60 [facility] Laboratory - Chemistry and C hemistry - challengeon 08-23-2023 Calcium [Mass/Vol] 9.1 mg/dL 8.5-10.1 [facility] Chloride [Moles/Vol] 100 mmol/L 98-107 [facility] CO2 [Moles/Vol] 31.1 mmol/L 21.0-32.0 [facility] Creatinine [Mass/Vol] 2.40 mg/dL 0.70-1.30 [facility] GFR/1.73 sq M.predicted MDRD (S/P/Bld) [Vol rate/Area] 32 mL/min/{1.73_m2} >=60 [facility] Glucose [Mass/Vol] 92 mg/dL 74-106 [facility] Potassium [Moles/Vol] 4.7 mmol/L 3.5-5.1 [facility] Sodium [Moles/Vol] 138 mmol/L 136-145 [facility] Urea nitrogen [Mass/Vol] 34.0 mg/dL 7.0-18.0 [facility] Urea nitrogen/Creatinine [Mass ratio] 14.2 mg/mg [facility] Serum or plasma anion gap de terminationon 08-23-2023 Anion gap [Moles/Vol] 11.6 mmol/L [facility] Insurance Correspondenceon 0 08-02-2023 Insurance Correspondence [id number] 5#1.00TIFF [facility] Consent for Treatmenton 07-21 Consent for Treatment [id number] #1.00TIFF [facility] Heart and Vascular Office/Cl inic Noteon 03-11-2024 Heart and Vascular Office/Clinic Note History of Present Illness Frank Barrett is a 77-year-old male medical history positive [...] intact- no rash or concerning lesions Procedure [facility]+ PCI - Dr Dalal 07/28/21 LMT: Normal [...] Will add isosorbide mononitrate 3. CAD in [place] artery (I25.10: Atherosclerotic heart disease of [place] coronary artery without angina pectoris) He has [...] with patient. Contin (more content not included)... [facility] Comment on above: Result Comment: Elec tronically Signed By: Becky MARQUEZ CNP\.trudy\Date and Time Signed: 08/01/23 17:50 EDT Outside Labson 08-01-2023 Outside Labs [id number] #1.00TIFF [facility] Physician Orderon 08-01-2023 Physician Order [id number] #1.00TIFF [facility] Outside Recordson 07-22-2023 Outside Records [id number] 2#1.00TIFF [facility] Basophils Auto (Bld) [#/Vol] on 07-18-2023 Basophils (Bld) [#/Vol] 0.0 10 3/uL 0.0-0.1 [facility] Basophils/100 WBC Auto (Bld) on 07-18-2023 Basophils/100 WBC (Bld) 0.5 % 0.2-2.0 [facility] Eosinophils/100 WBC Auto (Bl d)on 07-18-2023 Eosinophils/100 WBC (Bld) 2.0 % 0.9-7.0 [facility] Erythrocyte distribution wid th Auto (RBC) [Ratio]on 07-18-2023 Erythrocyte distribution width (RBC) [Ratio] 13.6 % 11.0-15.0 [facility] Estimated glomerular filtrat ion rate (GFR) non- Americanon 07-18-2023 GFR/1.73 sq M.predicted among non-blacks MDRD (S/P/Bld) [Vol rate/Area] 30 mL/min/{1.73_m2} >=60 [facility] Hematocrit Auto (Bld) [Volum e fraction]on 07-18-2023 Hematocrit (Bld) [Volume fraction] 39.5 % 42.0-54.0 [facility] Hemoglobin [Mass/volume] in Bloodon 07-18-2023 Hemoglobin (Bld) [Mass/Vol] 12.3 g/dL 14.0-18.0 [facility] Iron binding capacity [Mass/ volume] in Serum or Plasmaon 07-18-2023 Iron binding capacity [Mass/Vol] 280.0 ug/dL 250.0-450.0 [facility] Iron saturation [Mass Fracti on] in Serum or Plasmaon 07-18-2023 Iron saturation [Mass fraction] 25.4 % [facility] Laboratory - Chemistry and C hemistry - challengeon 07-18-2023 Calcium [Mass/Vol] 9.1 mg/dL 8.5-10.1 [facility] Chloride [Moles/Vol] 101 mmol/L 98-107 [facility] CO2 [Moles/Vol] 30.3 mmol/L 21.0-32.0 [facility] Cobalamin (Vitamin B12) [Mass/Vol] 285.0 pg/mL 193.0-986.0 [facility] Creatinine [Mass/Vol] 2.15 mg/dL 0.70-1.30 [facility] Ferritin [Mass/Vol] 147.0 ng/mL 26.0-388.0 [facility] GFR/1.73 sq M.predicted MDRD (S/P/Bld) [Vol rate/Area] 36 mL/min/{1.73_m2} >=60 [facility] Glucose [Mass/Vol] 104 mg/dL 74-106 [facility] Iron [Mass/Vol] 71.0 ug/dL 65.0-175.0 [facility] Natriuretic peptide B (Bld) [Mass/Vol] 4314.0 pg/mL <=1800.0 [facility] Comment on above: RESULTS CALLED TO RYAN BARRERA Potassium [Moles/Vol] 5.3 mmol/L 3.5-5.1 [facility] Sodium [Moles/Vol] 140 mmol/L 136-145 [facility] Urea nitrogen [Mass/Vol] 36.0 mg/dL 7.0-18.0 [facility] Urea nitrogen/Creatinine [Mass ratio] 16.7 mg/mg [facility] Laboratory - Hematology and Cell countson 07-18-2023 Immature granulocytes/100 WBC (Bld) 0.4 % 0.0-0.5 [facility] Laboratory - Urinalysison Protein (U) [Mass/Vol] 37.4 mg/dL <=11.9 [facility] Leukocytes [#/volume] correc margaret for nucleated erythrocytes in Blood by Automated counon 07-18-2023 WBC corrected for nucl RBC Auto (Bld) [#/Vol] 7.8 10 3/uL 4.0-11.0 [facility] Lymphocytes Auto (Bld) [#/Vo l]on 07-18-2023 Lymphocytes (Bld) [#/Vol] 1.6 10 3/uL 1.2-3.8 [facility] Lymphocytes/100 WBC Auto (Bl d)on 07-18-2023 Lymphocytes/100 WBC (Bld) 19.8 % 20.5-60.0 [facility] MCH Auto (RBC) [Entitic mass ]on 07-18-2023 MCH (RBC) [Entitic mass] 31.1 pg 25.9-34.0 [facility] MCHC Auto (RBC) [Mass/Vol]on 07-18-2023 MCHC (RBC) [Mass/Vol] 31.1 g/dL 29.9-35.2 [facility] MCV Auto (RBC) [Entitic vol] on 07-18-2023 MCV (RBC) [Entitic vol] 100.0 fL 80.0-94.0 [facility] Monocytes Auto (Bld) [#/Vol] on 07-18-2023 Monocytes (Bld) [#/Vol] 0.9 10 3/uL 0.3-0.8 [facility] Monocytes/100 WBC Auto (Bld) on 07-18-2023 Monocytes/100 WBC (Bld) 11.4 % 1.7-12.0 [facility] Neutrophils Auto (Bld) [#/Vo l]on 07-18-2023 Neutrophils (Bld) [#/Vol] 5.2 10 3/uL 1.4-6.5 [facility] Neutrophils/100 WBC Auto (Bl d)on 07-18-2023 Neutrophils/100 WBC (Bld) 65.9 % 43.0-75.0 [facility] No Panel Informationon 07-18 Eosinophils # (Auto) 0.2 10 3/uL 0.0-0.7 [facility] Folate 7.30 ng/mL 8.60-58.90 [facility] Immature Granulocyte # (Auto) 0.03 10 3/uL 0.00-0.03 [facility] Urine Random Creatinine 36.85 mg/dL 20.00-300.00 [facility] Platelet mean volume Auto (B ld) [Entitic vol]on 07-18-2023 Platelet mean volume (Bld) [Entitic vol] 9.4 fL 9.5-13.5 [facility] Platelets Auto (Bld) [#/Vol] on 07-18-2023 Platelets (Bld) [#/Vol] 193 10 3/uL 150-450 [facility] RBC Auto (Bld) [#/Vol]on RBC (Bld) [#/Vol] 3.95 10 6/uL 4.70-6.10 [facility] Serum or plasma anion gap de terminationon 07-18-2023 Anion gap [Moles/Vol] 14.0 mmol/L [facility] Urine protein/creatinine rat ioon 07-18-2023 Protein/Creatinine (U) [Ratio] 1.01 [facility] Formson 06-14-2023 Forms [id number] 5#1.00TIFF Normal [facility] XR hand BI 3Von 04-21-2023 XR hand BI 3V [address] [address] XRay Report Signed Patient: Frank Barrett MR#: [id number] 7 : 1945 Acct:[id number] Age/Sex: 77 / M ADM Date: 04/21/23 Loc: [facility] Room: Type: REG CLI Attending Dr: Bhavin Devries DO Copies to: Bhvain Devries DO Ordering Provider: Bhavin Devries DO Date of Service: 04/21/23 XR/XR hand BI 3V: Pain in right hand;Pain in left hand BILATERAL HANDS - 4 views each CLINICAL DATA: Chronic worsening bilateral hand pain and decreased production grip strength. COMPARISON: None AP, lateral, oblique and [...] Prabha Thompson M.D.04/21/2023 3:25 PM Dictation Location: [place] [address] Transcribed By: [facility] 04/21/23 1525 Dictated By: Prabha Thompson MD 04/21/23 152 Signed By: 04/21/23 1525 Normal [facility] Heart and Vascular Office/ in Noteon 04-16-2023 Heart and Vascular Office/Clinic Note Chief Complaint 6 month follow up History of Present Illness Frank Barrett is a male presents who today for a 6-month follow-up. He is accompanied by an adult female. 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 Review of [...] CAD Continue asa 81 mg daily, atorvastatin, b-fidencio and ARB. Risk factor modification, diet, exercise and tobacco discussed. 2. Chronic Atrial Fibrillation The patient is doing well on his current medication regimen. He will continue with Eliquis 5 mg BID and Sotalol 80 mg daily. Follow up in 6 months. Portions of this record may have been created with voice recognition artificial intelligence software, specifically [employer], Hailo and or [employer]MOBI. Substitutions may have occurred with voice recognition and artificial intelligence software. ATTESTATION: Documentation services were performed after patient or guardian consented to allow [employer] to record this visit. 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 RACHEL: [...] tobacco nida (more content not included)... Normal [facility] Comment on above: Result Comment: Elec tronically Signed By: Jose Dalal MD\.br\Date and Time Signed: 04/16/23 11:49 EST\.br\Electronically Co-Signed By: Nellie Early.br\Date and Time Co-Signed: 02/11/23 17:34 EDT Consent for Treatmenton 01-22 Consent for Treatment [id number] #1.00CD:127 [facility] Physician Orderon 02-11-2023 Physician Order [id number]# 1.00CD:127 [facility] Outside Recordson 12-10-2022 Outside Records [id number] 6#1.00CD:127 [facility] PROF CHEM 8 (BAS METB)on Anion gap [Moles/Vol] 11.0 mmol/L Normal [facility] Comment on above: Performed By: #### B MP #### [facility] [address] [address] [address] Milka Castaneda Calcium [Mass/Vol] 8.9 mg/dL Normal 8.5-10.1 [facility] Comment on above: Performed By: #### B MP #### [facility] [address] [address] [address] Milka Castaneda Chloride [Moles/Vol] 99 mmol/L Normal 98-107 [facility] Comment on above: Performed By: #### B MP #### [facility] [address] [address] [address] Milka Castaneda CO2 [Moles/Vol] 32.0 mmol/L Normal 21.0-32.0 [facility] Comment on above: Performed By: #### B MP #### [facility] [address] [address] [address] Milka Castaneda Creatinine [Mass/Vol] 2.19 mg/dL Critically high 0.70-1.30 [facility] Comment on above: Performed By: #### B MP #### [facility] [address] [address] [address] Milka Castaneda EGFR-AF ZAMBIAN 36 mL/min/1.73m2 Critically low >=60 [facility] Comment on above: Performed By: #### B MP #### [facility] [address] [address] [address] Milka Castaneda EGFR-NON AF ZAMBIAN 29 mL/min/1.73m2 Critically low >=60 [facility] Comment on above: Performed By: #### B MP #### [facility] [address] [address] [address] Milka Castaneda Glucose [Mass/Vol] 94 mg/dL Normal 74-106 [facility] Comment on above: Performed By: #### B MP #### [facility] [address] [address] [address] Milka Castaneda Potassium [Moles/Vol] 5.0 mmol/L Normal 3.5-5.1 [facility] Comment on above: Performed By: #### B MP #### [facility] [address] [address] [address] Milka Castaneda Sodium [Moles/Vol] 137 mmol/L Normal 136-145 [facility] Comment on above: Performed By: #### B MP #### [facility] [address] [address] [address] Milka Castaneda Urea nitrogen [Mass/Vol] 32.0 mg/dL Critically high 7.0-18.0 [facility] Comment on above: Performed By: #### B MP #### [facility] [address] [address] [address] Milka Castaneda Urea nitrogen/Creatinine [Mass ratio] 14.6 mg/mg Normal [facility] Comment on above: Performed By: #### B MP #### [facility] [address] [address] [address] Milka Castaneda CBC AUTO DIFFon 02-03-2022 BASO # 0.1 103/ul Normal 0.0-0.1 [facility] Comment on above: Performed By: #### C BC #### [facility] [address] [address] [address] Milka Castaneda Basophils/100 WBC (Bld) 0.6 % Normal 0.2-2.0 [facility] Comment on above: Performed By: #### C BC #### [facility] [address] [address] [address] Milka Castaneda EO # 0.5 103/ul Normal 0.0-0.7 [facility] Comment on above: Performed By: #### C BC #### [facility] [address] [address] [address] Milka Castaneda Eosinophils/100 WBC (Bld) 5.8 % Normal 0.9-7.0 [facility] Comment on above: Performed By: #### C BC #### [facility] [address] [place] [address] Dr. Milka Castaneda Erythrocyte distribution width (RBC) [Ratio] 13.2 % Normal 11.0-15.0 [facility] Comment on above: Performed By: #### C BC #### [facility] [address] [place] [address] Dr. Milka Castaneda Hematocrit (Bld) [Volume fraction] 44.2 % Normal 42.0-54.0 [facility] Comment on above: Performed By: #### C BC #### [facility] [address] [place] [address] Dr. Milka Castaneda Hemoglobin (Bld) [Mass/Vol] 14.3 g/dL Normal 14.0-18.0 [facility] Comment on above: Performed By: #### C BC #### [facility] [address] [place] [address] Dr. Milka Castaneda IG # 0.02 10e3/ul Normal 0.00-0.03 [facility] Comment on above: Performed By: #### C BC #### [facility] [address] [place] [address] Dr. Milka Castaneda IG % 0.2 % Normal 0.0-0.5 [facility] Comment on above: Performed By: #### C BC #### [facility] [address] [address] [address] Milka Castaneda LYMPH # 1.7 103/ul Normal 1.2-3.8 [facility] Comment on above: Performed By: #### C BC #### [facility] [address] [address] [address] Milka Castaneda Lymphocytes/100 WBC (Bld) 20.5 % Normal 20.5-60.0 [facility] Comment on above: Performed By: #### C BC #### [facility] [address] [place] [address] Dr. Milka Castaneda MANUAL DIFF REQ NO Normal [facility] Comment on above: Performed By: #### C BC #### [facility] [address] [place] [address] Dr. Milka Castaneda MCH (RBC) [Entitic mass] 31.7 pg Normal 25.9-34.0 [facility] Comment on above: Performed By: #### C BC #### [facility] [address] [place] [address] Dr. Milka Castaneda MCHC (RBC) [Mass/Vol] 32.4 g/dL Normal 29.9-35.2 [facility] Comment on above: Performed By: #### C BC #### [facility] [address] [place] [address] Dr. Milka Castaneda MCV (RBC) [Entitic vol] 98.0 fL Critically high 80.0-94.0 [facility] Comment on above: Performed By: #### C BC #### [facility] [address] [place] [address] Dr. Milka Castaneda MONO # 1.1 103/ul Critically high 0.3-0.8 [facility] Comment on above: Performed By: #### C BC #### [facility] [address] [place] [address] Dr. Milka Castaneda Monocytes/100 WBC (Bld) 12.7 % Critically high 1.7-12.0 [facility] Comment on above: Performed By: #### C BC #### [facility] [address] [address] [address] Milka Castaneda NEUT # 5.1 103/ul Normal 1.4-6.5 [facility] Comment on above: Performed By: #### C BC #### [facility] [address] [address] [address] Milka Castaneda Neutrophils/100 WBC (Bld) 60.2 % Normal 43.0-75.0 [facility] Comment on above: Performed By: #### C BC #### [facility] [address] [place] [address] Dr. Milka Castaneda Platelet mean volume (Bld) [Entitic vol] 9.5 fL Normal 9.5-13.5 [facility] Comment on above: Performed By: #### C BC #### [facility] [address] [place] [address] Dr. Milka Castaneda PLT 160 103/ul Normal 150-450 [facility] Comment on above: Performed By: #### C BC #### [facility] [address] [place] [address] Dr. Milka Castaneda RBC 4.51 106/ul Critically low 4.70-6.10 [facility] Comment on above: Performed By: #### C BC #### [facility] [address] [place] [address] Dr. Milka Castaneda WBC 8.4 103/ul Normal 4.0-11.0 [facility] Comment on above: Performed By: #### C BC #### [facility] [address] [place] [address] Dr. Milka Castaneda DIRECT LDLon 02-03-2022 Cholesterol in LDL [Mass/Vol] 82 mg/dL Normal [facility] Comment on above: Performed By: #### D LDL, BMP #### [facility] [address] [place] [address] Dr. Milka Castaneda DLDL NORMAL SEE BELOW Normal [facility] Comment on above: Result Comment: <100 mg/dl OPTIMAL 100 - 129 mg/dl NEAR OR ABOVE OPTIMAL 130 - 159 mg/dl BORDERLINE HIGH 160 - 189 mg/dl HIGH >190 mg/dl VERY HIGH Performed By: #### D LDL, BMP #### [facility] [address] [address] [address] Milka Castaneda PROF CHEM 8 (BAS METB)on Anion gap [Moles/Vol] 13.1 mmol/L Normal [facility] Comment on above: Performed By: #### D LDL, BMP #### [facility] [address] [address] [address] Milka Castaneda Calcium [Mass/Vol] 9.3 mg/dL Normal 8.5-10.1 [facility] Comment on above: Performed By: #### D LDL, BMP #### [facility] [address] [address] [address] Milka Castaneda Chloride [Moles/Vol] 102 mmol/L Normal 98-107 [facility] Comment on above: Performed By: #### D LDL, BMP #### [facility] [address] [address] [address] Milka Castaneda CO2 [Moles/Vol] 29.5 mmol/L Normal 21.0-32.0 [facility] Comment on above: Performed By: #### D LDL, BMP #### [facility] [address] [place] [address] Dr. Milka Castaneda Creatinine [Mass/Vol] 1.94 mg/dL Critically high 0.70-1.30 [facility] Comment on above: Performed By: #### D LDL, BMP #### [facility] [address] [place] [address] Dr. Milka Castaneda EGFR-AF ZAMBIAN 41 mL/min/1.73m2 Critically low >=60 [facility] Comment on above: Performed By: #### D LDL, BMP #### [facility] [address] [place] [address] Dr. Milka Castaneda EGFR-NON AF ZAMBIAN 34 mL/min/1.73m2 Critically low >=60 [facility] Comment on above: Performed By: #### D LDL, BMP #### [facility] [address] [place] [address] Dr. Milka Castaneda Glucose [Mass/Vol] 91 mg/dL Normal 74-106 [facility] Comment on above: Performed By: #### D LDL, BMP #### [facility] [address] [address] [address] Milka Castaneda Potassium [Moles/Vol] 4.6 mmol/L Normal 3.5-5.1 [facility] Comment on above: Performed By: #### D LDL, BMP #### [facility] [address] [address] [address] Milka Castaneda Sodium [Moles/Vol] 140 mmol/L Normal 136-145 [facility] Comment on above: Performed By: #### D LDL, BMP #### [facility] [address] [place] [address] Dr. Milka Castaneda Urea nitrogen [Mass/Vol] 30.0 mg/dL Critically high 7.0-18.0 [facility] Comment on above: Performed By: #### D LDL, BMP #### [facility] [address] [place] [address] Dr. Milka Castaneda Urea nitrogen/Creatinine [Mass ratio] 15.5 mg/mg Normal [facility] Comment on above: Performed By: #### D LDL, BMP #### [facility] [address] [place] [address] Dr. Milka Castaneda CREATININEon 10-07-2021 Creatinine [Mass/Vol] 1.67 mg/dL Critically high 0.70-1.30 [facility] Comment on above: Performed By: #### C OMI #### [facility] [address] [place] [address] Dr. Milka Castaneda EGFR-AF ZAMBIAN 49 mL/min/1.73m2 Critically low >=60 [facility] Comment on above: Performed By: #### C OMI #### [facility] [address] [place] [address] Dr. Milka Castaneda EGFR-NON AF ZAMBIAN 40 mL/min/1.73m2 Critically low >=60 [facility] Comment on above: Performed By: #### C OMI #### [facility] 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 10-11-2023 15:090400 Body height 165.1 cm [facility] 10-11-2023 15:090400 Body mass index (BMI) [Ratio] 39.1 kg/m2 [facility] 10-11-2023 15:09040 Body weight 106.59 kg [facility] 10-11-2023 15:090400 Heart rate 72 /min [facility] 10-11-2023 15:09040 Respiratory rate 12 /min [facility] 08-19-2023 10:17-0400 Body height 165.1 cm [facility] 08-19-2023 10:17-0400 Body mass index (BMI) [Ratio] 39 kg/m2 [facility] 08-19-2023 10:17-0400 Body weight 106.36 kg [facility] 08-19-2023 10:17-0400 Diastolic blood pressure 71 mm[Hg] [facility] 08-19-2023 10:17-0400 Heart rate 71 /min [facility] 08-19-2023 10:17-0400 Respiratory rate 12 /min [facility] 08-19-2023 10:17-0400 Systolic blood pressure 132 mm[Hg] [facility] 07-01-2023 13:30-0500 Body height 165.1 cm Anthony Ball Other [facility] [employer] Other 07-01-2023 13:30-0500 Body mass index (BMI) [Ratio] 39.97 kg/m2 Anthony Ball Other [email or web address] [facility] [employer] Other 07-01-2023 13:30-0500 Body weight 108.95 kg Anthony Ball Other [facility] Other 07-01-2023 13:30-0500 Diastolic blood pressure 90 mm[Hg] Anthony Ball Other [facility] Other 07-01-2023 13:30-0500 Respiratory rate 20 /min Anthony Ball Other [facility] Other 07-01-2023 13:30-0500 SaO2% (BldA) [Mass fraction] 98 % Anthony Ball Other [facility] [employer] [facility] Other 07-01-2023 13:30-0500 Systolic blood pressure 150 mm[Hg] Anthony Ball Other [facility] Other 05-20-2023 11:00-0500 Body height 165.1 cm Anthony Ball Other [facility] Other 05-20-2023 11:00-0500 Body mass index (BMI) [Ratio] 39.43 kg/m2 Anthony Ball Other [facility] Other 05-20-2023 11:00-0500 Body weight 107.5 kg Anthony Ball Other [facility] Other 05-20-2023 11:00-0500 Diastolic blood pressure 89 mm[Hg] Anthony Ball Other [facility] Other 05-20-2023 11:00-0500 Respiratory rate 20 /min Anthony Ball Other [facility] Other 05-20-2023 11:00-0500 Systolic blood pressure 183 mm[Hg] Anthony Ball Other [facility] Other 04-21-2023 11:15-0500 Body height 165.1 cm Bhavin Devries Other [facility] Other 04-21-2023 11:15-0500 Body mass index (BMI) [Ratio] 39.6 kg/m2 Bhavin Devries Other [facility] Other 04-21-2023 11:15-0500 Body weight 107.96 kg Bhavin Devries Other [facility] Other 04-12-2023 14:30-0500 Body height 165.1 cm Anthony Ball Other [facility] Other 04-12-2023 14:30-0500 Body mass index (BMI) [Ratio] 39.6 kg/m2 Atnhony Ball Other [facility] Other 04-12-2023 14:30-0500 Body weight 107.96 kg Anthony Ball Other [facility] Other 04-12-2023 14:30-0500 Diastolic blood pressure 81 mm[Hg] Anthony Ball Other [facility] [employer] [facility] Other 04-12-2023 14:30-0500 Respiratory rate 12 /min Anthony Ball Other [facility] Other 04-12-2023 14:30-0500 Systolic blood pressure 151 mm[Hg] Anthony Ball Other [facility] Other 07-29-2022 11:00-0500 Body height 165.1 cm Anthony Ball Other [facility] Other 07-29-2022 11:00-0500 Body mass index (BMI) [Ratio] 40.17 kg/m2 Anthony Ball Other [facility] Other 07-29-2022 11:00-0500 Body weight 109.5 kg Anthony Ball Other [facility] Other 07-29-2022 11:00-0500 Diastolic blood pressure 70 mm[Hg] Anthony Ball Other [facility] Other 07-29-2022 11:00-0500 Respiratory rate 12 /min Anthony Ball Other [facility] [employer] [facility] Other 07-29-2022 11:00-0500 Systolic blood pressure 118 mm[Hg] Anthony Ball Other [facility] [employer] [facility] Other Clinical Notes 07-29-2022 to 09-21-2023 Note Date & Type Note Facility 09-21-2023 Note [id number] [id number] [facility] 09-21-2023 Note Procedure LHC poss PCI via right radial for abnormal stress test, shortness of breath Patient seen and examined. The risk/benefits of the procedure were thoroughly discussed with patient including specific attention to lack of onsite surgical backup and risk of coleen covid, and the patient agrees to proceed. Airway Assessment: Class I: Visualization of the soft palate, fauces, uvula, anterior and posterior pillars Airway Abnormalities: none ASA Classification: ASA 2: Mild systemic disease Risks/Benefits of IV Sedation: Have been explained IV Sedation Plan: Patient agrees to IV sedation plan Assessment/Plan CAD (coronary artery disease) (I25.10: Atherosclerotic heart disease of [place] coronary artery without angina pectoris) Orders: aspirin, 324 mg = 4 tab(s), Tab-Chew, Chewed, Once, Stop date 09/20/23 9:00:00 EDT, Routine, Start date 09/20/23 9:00:00 EDT, 09/20/23 8:25:00 EDT clopidogrel, 600 mg, Tab, Oral, Once, Stop date 09/20/23 11:00:00 EDT, Routine, Start date 09/20/23 11:00:00 EDT, 09/20/23 10:36:00 EDT ECG 12 Lead Adult ECG 12 Lead Adult [facility] Comment on above: Result Comment: Elec tronically Signed By: Mulugeta SINGH, Jose Stanley\.br\Date and Time Signed: 09/21/23 08:03 EDT 08-26-2023 Note Echocardiology Procedure Exam Date/Time Accession # Ordering Echo Transthoracic 08/26/2023 11:59 EDT [id number] Becky MARQUEZ CNP Complete CPT code 94045 58812 Reason for Exam (Echo Transthoracic Complete) Shortness of breath (SOB);R06.02 Report [facility] [address] [place] [address] Adult Echocardiogram Report Name: FRANK BARRETT Study Date: 08/26/2023 11:18 AM BP: 106/55 mmHg Patient Location: [facility] HR: 90 : 1945 Gender: Male Height: 64 in Age: 77 yrs Ethnicity: [facility] Weight: 230 lb Reason For Study: Shortness of breath (SOB) BSA: 2.1 m2 History: HTN,SOB,CAD,Atrial Fibrillation,Stents,Obesity Ordering Physician: ALMA^Becky^Amber Referring Physician: Becky MARQUEZ Performed By: Bruna Celis, [facility] Interpretation Summary Ejection Fraction = 55-60%. The left ventricular wall motion is normal. Unable to quantitate diastolic dysfunction due to atrial fibrillation. The left atrium is moderately dilated. Right ventricular systolic pressure is 34 mmHg. In comparison echo report dated 07/08/2021 no appreciable changes noted. Patient in atrial fibrillation at that time. Procedure A complete two-dimensional transthoracic echocardiogram was performed (2D, M-mode, spectral and color flow Doppler). Study quality is good. I WMSI = 1.00 % Normal = 100 Segments Size X - Cannot 2 - 1-2 small Interpret 1 - Normal Hypokinetic 3 - Akinetic 4 - Dyskinetic3-5 moderate 5 - Aneurysmal 6-14 large 15-16 diffuse Left Ventricle Echocardiology Report The left ventricle is normal in size. mild left ventricular hypertrophy. Ejection Fraction = 55-60%. The left ventricular wall motion is normal. Unable to quantitate diastolic dysfunction due to atrial fibrillation. Left Atrium The left atrium is moderately dilated. Right Atrium Right atrial size is normal. Right Ventricle The right ventricular systolic function is normal. Aortic Valve The aortic valve is trileaflet. Focal thickening with preserved cusp opening. Mild valvular aortic stenosis. Mitral Valve Mitral valve structure is normal. Tricuspid Valve Structurally normal tricuspid valve. There is trace tricuspid regurgitation. Right ventricular systolic pressure is 34 mmHg. Pulmonic Valve The pulmonic valve is normal. Arteries The aortic root is normal in size. Venous The inferior vena cava is normal in size, and collapses normally with respiration. Effusion There is no pericardial effusion. MMode/2D Measurements & Calculations RVDd: 3.3 cm LVIDd: 4.7 cm FS: 27.0 % Ao root diam: 3.4 cm IVSd: 1.3 cm LVIDs: 3.5 cm EDV(Teich): 104.4 ml Ao root area: 9.1 cm2 LVPWd: 1.2 cm ESV(Teich): 49.5 ml LA dimension: 5.0 cm EF(Teich): 52.6 % asc Aorta Diam: 3.4 cm LVOT diam: 2.1 cm LVLd ap4: 7.4 cm EDV(MOD-sp2): 72.7 ml LVOT area: 3.6 cm2 EDV(MOD-sp4): 66.5 ml ESV(MOD-sp2): 41.0 ml LVLs ap4: 6.8 cm EF(MOD-sp2): 43.6 % ESV(MOD-sp4): 23.9 ml EF(MOD-sp4): 64.1 % SV(MOD-sp4): 42.6 ml TAPSE: 2.4 cm IVC Diam: 1.0 cm RVIDd/LVIDd: 0.69 EF (MOD-bp): 55.7 % LA Vol Index: 26.1 ml/m2 Echocardiology Report Doppler Measurements & Calculations MV E max joe: 111.3 cm/sec MV dec time: 0.14 sec Ao V2 max: 156.0 cm/sec LV V1 max P.8 mmHg Ao max P.7 mmHg LV V1 mean P.0 mmHg Ao V2 mean: 107.0 cm/sec LV V1 max: 66.8 cm/sec Ao mean P.0 mmHg LV V1 mean: 42.4 cm/sec Ao V2 VTI: 24.7 cm LV V1 VTI: 9.9 cm MARQUES(I,D): 1.4 cm2 MARQUES(V,D): 1.5 cm2 SV(LVOT): 35.5 ml TR max joe: 279.9 cm/sec RAP systole: 3.0 mmHg AV VR: 0.43 TR max P.3 mmHg MARQUES(VTI)/BSA_phl: 0.67 RVSP(TR): 34.3 mmHg FINAL REPORT Dictated: 08/26/2023 11:18 am Elvis PIRES MD Signed (Electronic Signature): 08/26/2023 1:30 pm Signed by: Elvis PIRES MD Transcribed by: SHAWNA Technologist: ELAN [facility] 07-04-2023 Evaluation note Encounter Date Diagnosis Assessment Notes Jun, Gastroesophageal reflux disease with esophagitis without hemorrhage (ICD-10 - K21.00) [facility] Other 02-09-2024 Evaluation note* Encounter Date Diagnosis Assessment Notes Treatment Notes Treatment Clinical Notes Jun, Paroxysmal atrial fibrillation (ICD-10 - I48.0) This patient is in NSR or rate controlled. This patient is anticoagulated to prevent thromboembolic events. They are maintaining regular scheduled appts with their financial services rep.TT Jun, ASHD (arteriosclerot ic heart disease) (ICD-10 [...] colonoscopy Check Fe, B12, FA CKD contributes [facility] Other 02-07-2024 Evaluation note* Encounter Date Diagnosis Assessment Notes Treatment Notes Treatment Clinical Notes Jun, Hx of gout (ICD-10 - Z87.39) [facility] Other 12-29-2023 Evaluation note* Encounter Date Diagnosis Assessment Notes Treatment Notes Treatment Clinical Notes Apr, Paroxysmal atrial fibrillation (ICD-10 - I48.0) This patient is in NSR. This patient is anticoagulated to prevent thromboembolic events. They are maintaining regular scheduled appts with their financial services rep. No bleeding complications Apr, ASHD (arteriosclerotic heart [...] since last OV. Colchicine PRN Continue Allopurinol [facility] Other 11-30-2023 Evaluation note* Encounter Date Diagnosis [...] Pain in right hand (ICD-10 - M79.641) [facility] Other 11-27-2023 Evaluation note* Encounter Date Diagnosis Assessment Notes Treatment Notes Treatment Clinical Notes Mar, Mild persistent asthma without complication (ICD-10 - J45.30) [facility] Other 2023 Evaluation note* Encounter Date Diagnosis [...] are maintaining regular scheduled appts with their financial services rep. Mar, ASHD (arteriosclerotic heart disease) (ICD-10 - [...] (ICD-10 - Z79.899) Check labs: ALT, CBC [facility] Other 03-14-2023 Evaluation note* Encounter Date Diagnosis Assessment Notes Treatment Notes Treatment Clinical Notes Jul, History of gout (ICD-10 - Z87.39) [facility] Other 03-09-2023 Evaluation note* Encounter Date Diagnosis Assessment Notes Treatment Notes Treatment Clinical Notes Jul, Paroxysmal atrial fibrillation (ICD-10 - I48.0) This patient is in NSR or rate controlled. This patient is anticoagulated to prevent thromboembolic events. They are maintaining regular scheduled appts with their financial services rep. Jul, ASHD (arteriosclerot ic heart disease) (ICD-10 [...] responds to one Colchicine dose (unlikely gout) [facility] Other Evaluation noteNo InformationNort [employer] Other Evaluation noteNo assessment information available [facility] Work Phone: Evaluation note* Diagnosis Onset Date Resolution Status (HFpEF) heart failure with preserved ejection fraction acute ASHD (arteriosclerotic heart disease) acute Chronic kidney disease acute Chronic venous insufficiency acute Gastroesophageal reflux dise ase with esophagitis without hemorrhage acute Hyperlipidemia type II acute Paroxysmal atrial fibrillation acute Primary hypertension acute Simple chronic bronchitis ac [place] [facility] Work Phone: Evaluation note* Diagnosis Onset Date Resolution Status (HFpEF) heart failure with preserved ejection fraction acute ASHD (arteriosclerotic heart disease) acute Chronic kidney disease acute Chronic venous insufficiency acute Gastroesophageal reflux dise ase with esophagitis without hemorrhage acute Hyperlipidemia type II acute Paroxysmal atrial fibrillation acute Primary hypertension acute Simple chronic bronchitis ac [place] (HFpEF) heart failure with preserved ejection fraction acute ASHD (arteriosclerotic heart disease) acute Chronic kidney disease acute Chronic venous insufficiency acute Gastroesophageal reflux dise ase with esophagitis without hemorrhage acute Hyperlipidemia type II acute Paroxysmal atrial fibrillation acute Primary hypertension acute Simple chronic bronchitis ac [place] [facility] Work Phone: Evaluation note* Diagnosis Onset Date Resolution Status (HFpEF) heart failure with preserved ejection fraction acute ASHD (arteriosclerotic heart disease) acute Chronic kidney disease acute Chronic venous insufficiency acute Gastroesophageal reflux dise ase with esophagitis without hemorrhage acute Hyperlipidemia type II acute Paroxysmal atrial fibrillation acute Primary hypertension acute Simple chronic bronchitis ac [place] (HFpEF) heart failure with preserved ejection fraction acute ASHD (arteriosclerotic heart disease) acute Chronic kidney disease acute Chronic venous insufficiency acute Gastroesophageal reflux dise ase with esophagitis without hemorrhage acute Gout acute Hyperlipidemia type II acute Paroxysmal atrial fibrillation acute Simple chronic bronchitis ac [place] Osteoarthritis of right knee acute Primary osteoarthritis of left knee acute [facility] Work Phone: History general Narrative [...] History COLONOSCOPY Hospitalization History SEE SURGICAL HX [facility] Other Reason for referral (narrative)* Reason *FU 08/16 Referral for left knee pain Diagnosis 1 Primary osteoarthrit is of left knee (M17.12) Referral Organization [facility] Melani jay Referring Provider First Name Anthony Referring Provider Last Name Nitish Referring Provider Specialty Internal Me dicine Referred Organization [facility] Referred Provider MadisoneugenealexyMichaelmaninder villarflaca Referred Address [address], [place],[address] Referred Provider Specialty Pain Medicin e Referral Priority Routine General Notes Briana Moreno 01:15:17 PM >received today, notes locked, attachments made, referral faxed Briana Moreno 08/09/2022 11:58:58 AM >FAXED FIRST ATTEMPT LETTER Clinical Notes F: [phone] [facility] Other Reason for referral (narrative)* Reason Referral for OLVERA and hypoxia secondary to COPD, ILD Diagnosis 1 Simple chronic bronc hitis (J41.0) Diagnosis 2 Restrictive lung dis ease (J98.4) Diagnosis 3 Hypoxia (R09.02) Referral Organization [facility] Referring Provider First Name Anthony Referring Provider Last Name Nitish Referring Provider Specialty Internal Me dicine Referred Organization [facility] Referred Provider KrisMatteo Referred Address [address], [place],[address] Referred Provider Specialty Pulmonary Di seases Referral Priority Urgent General Notes Mr. Barrett has OLVERA, which is likely multifactorial w/ [...] Include Echo, PFT, C XR and labs [facility] Other Reason for visit Narrativeknee pain after referral, discussion about next stepsN[employer] Other Summary Purpose Family History No Family History Records FoundNo Family History Records FoundNo Family History Records FoundNo Family History Records FoundNo Family History Records FoundNo Family History Records Found Advance Directives No Advanced Directives Records Found Advance Directive Response Recorded Date/ Time Advance [...] atrial fibrillation Primary hypertension Simple chronic bronchitis Chief Complaint Amb Documentation 3 month follow up 6 month follow up Reason for Visit (HFpEF) heart failur e with preserved ejection fraction ASHD (arteriosclerotic heart disease) Chronic kidney disease Chronic venous insufficiency Gastroesophageal reflux disease with esophagitis without hemorrhage Hyperlipidemia type II Paroxysmal atrial fibrillation Primary hypertension Simple chronic bronchitis (HFpEF) heart failure with preserved ejection fraction ASHD (arteriosclerotic heart disease) Chronic kidney disease Chronic venous insufficiency Gastroesophageal reflux disease with esophagitis without hemorrhage Hyperlipidemia type II Paroxysmal atrial fibrillation Primary hypertension Simple chronic bronchitis Chief Complaint 3 month follow up 6 month follow up M25.561 - Pain in right knee 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 REQUESTED INJECTION Reason for Visit (HFpEF) heart failur e with preserved ejection fraction ASHD (arteriosclerotic heart disease) Chronic kidney disease Chronic venous insufficiency Gastroesophageal reflux disease with esophagitis without hemorrhage Hyperlipidemia type II Paroxysmal atrial fibrillation Primary hypertension Simple chronic bronchitis (HFpEF) heart failure with preserved ejection fraction ASHD (arteriosclerotic heart disease) Chronic kidney disease Chronic venous insufficiency Gastroesophageal reflux disease with esophagitis without hemorrhage Gout Hyperlipidemia type II Paroxysmal atrial fibrillation Simple chronic bronchitis Osteoarthritis of right knee Primary osteoarthritis of left knee Additional Source Comments (unrecognized sect ion and content) No Status Records FoundNo Status Records FoundNo Status Records FoundNo Status Records FoundNo Status Records FoundNo Status Records Found INFORMATION SOURCE (unrecogn ized section and content) DATE CREATED AUTHOR 11/16/2017 [facility] DATE CREATED AUTHOR AUTHOR'S ORGANIZ ATION 09/29/2022 [facility] DATE CREATED AUTHOR AUTHOR'S ORGANIZ ATION 07/24/2023 [facility] EPIC DATE CREATED AUTHOR AUTHOR'S ORGANIZ ATION 07/27/[address] [facility] DATE CREATED AUTHOR AUTHOR'S ORGANIZ ATION 10/19/2023 [facility] DATE CREATED AUTHOR AUTHOR'S ORGANIZ ATION 10/19/2023 [facility] REASON FOR VISIT (unrecogniz ed section and content) SOBMedication Questionrefill 1 monthLab resultsBilateral Hand PainPFT resultsW[facility] NOTE Care Teams (unrecognized sec tion and content) Team Status: Active Member Role Status Brayan Zayas , Primary Care Provider Active Team Status: Inactive Member Role Status Brayan Zayas , Primary Care Provide r, Attending Provider Active Start: August 19, 2023 End: August 19, 2023 Team Status: Active Member Role Status Brayan Zayas DO Primary Care Provide r, Attending Provider Active Start: August 23, 2023 Team Status: Active Member Role Status Brayan Zayas , DO Primary Care Provide r, Attending Provider Active Start: September 14, 2023 Team Status: Inactive Member Role Status Brayan Zayas , DO Primary Care Provide r, Attending Provider Active Start: October 11, 2023 End: October 11, 2023 Team Status: Active Member Role Status Brayan Zayas DO Primary Care Provider Active Start: October 18, 2023 Bhavin Devries , Attending Provider Active St art: October 18, 2023 Team Status: Inactive Member Role Status Brayan Zayas DO Primary Care Provider Active Start: October 18, 2023 End: October 18, 2023 Bhavin Devries , Attending Provider Active St art: October 18, 2023 End: October 18, 2023 Team Status: Inactive Member Role Status Brayan Devries , Attending Provider Active Team Status: Active Member Role Status Brayan Zayas DO Primary Care Provide r, Attending Provider Active Start: July 18, 2023 Team Status: Active Member Role Status Brayan Zayas DO Primary Care Provider Active Start: July 19, 2023 RYAN Bone Attending Provider Active St art: July 19, 2023 Goals (unrecognized section and content) [...] BE BASED ON THE PRIMARY CLINICAL RECORDS. [facility]. provides no warranty or guarantee of the accuracy or completeness of information in this document.
[2023-10-20 10:10] LABS: Basophils Percent Auto 0.1 % (0.2-2.0); Hematocrit 34.2 % (42.0-54.0); Hemoglobin 10.6 g/dL (14.0-18.0); Immature Granulocytes Abs Auto 0.21 10^3/uL (0.00-0.03); Immature Granulocytes Pct Auto 0.9 % (0.0-0.5); Lymphocytes Absolute Auto 1.3 10^3/uL (1.2-3.8); Lymphocytes Percent Auto 5.5 % (20.5-60.0); Mean Corpuscular Hemoglobin 29.7 pg (25.9-34.0); Mean Corpuscular Volume 95.8 fL (80.0-94.0); Monocytes Absolute Auto 0.8 10^3/uL (0.3-0.8); Monocytes Percent Auto 3.4 % (1.7-12.0); Neutrophils Absolute Auto 21.3 10^3/uL (1.4-6.5); Neutrophils Percent Auto 90.1 % (43.0-75.0); Platelet Count 416 10^3/uL (150-450); Red Blood Count 3.57 10^6/uL (4.70-6.10); Red Cell Distribution Width 13.8 % (11.0-15.0); White Blood Count 23.7 10^3/uL (4.0-11.0)
[2023-10-20 10:16] LABS: Anion Gap 22.8; BUN Creatinine Ratio 21.6; Calcium 9.3 mg/dL (8.5-10.1); Carbon Dioxide 20.5 mmol/L (21.0-32.0); Chloride 100 mmol/L (98-107); Estimated GFR (African America 22 (>=60); Estimated GFR (Non-African Ame 18 (>=60); Glucose 230 mg/dL (74-106); Potassium 4.3 mmol/L (3.5-5.1); Sodium 139 mmol/L (136-145)
== END 2023-10-20 09:15 | disposition home or self-care (01) ==
LOC: LAB 09:17
PROVIDERS: PCP Internal Medicine; Visit Provider Internal Medicine
DX: Z01.812 Encounter for preprocedural laboratory examination (principal); Z01.818 Encounter for other preprocedural examination
CPT/HCPCS: 36415; 80048; 85025

== ENCOUNTER 2023-10-31 16:41 | Outpatient (OUT) | payer MEDICARE, SELFPAY | END 2023-10-31 16:42 | disposition home or self-care (01) | LOC: WC 16:41 | PROVIDERS: PCP Internal Medicine; Visit Provider Physician Assistant | DX: L97.421 Non-pressure chronic ulcer of left heel and midfoot limited to breakdown of skin (principal) | CPT/HCPCS: G0463 ==

== ENCOUNTER 2023-11-21 09:27 | Outpatient (OUT) | payer MEDICARE, SELFPAY ==
--- NOTE | 2023-11-21 09:30 | US_ITS ---
The [address] [address] Patient Name: FRANK BARRETT MRN: [id number] date: 1945 Sex: M Assigned Patient Location: [place] Current Patient Location: Accession/Order Number: [id number] Exam Date: 11/21/2023 09:40 Report Date: 11/22/2023 07:33 At the request of: JEFF TALBERT Procedure: US renal BI EXAMINATION: US renal BI HISTORY: Cyst Of Left Kidney, Chronic Kidney Disease COMPARISON: CT abdomen 10/07/2021 TECHNIQUE: Ultrasound examination was performed of the kidneys and urinary bladder. FINDINGS: RIGHT KIDNEY: Incidental 0.9 cm benign-appearing cyst within superior pole. Mild cortical thinning, 0.8 cm in thickness. No evidence of pelvocaliectasis, mass, or calculi. Normal renal cortical parenchymal echogenicity. Color Doppler demonstrates blood flow within the kidney. Kidney: 11.1 x 4.6 x 4.8 cm LEFT KIDNEY: Benign-appearing 2.2 cm cyst within mid body. Minimal cortical thinning, 1.0 cm in thickness. No evidence of pelvocaliectasis, mass, or calculi. Normal renal cortical parenchymal echogenicity. Color Doppler demonstrates blood flow within the kidney. Kidney: 10.9 x 5.0 x 4.8 cm BLADDER: No visible wall thickening, mass, or calculi. US/US renal BI IMPRESSION: 1. Mild cortical thinning bilaterally, likely age related. 2. Bilateral benign-appearing renal cysts. No appreciable mass or stones. Electronically authenticated by: PRAMOD PEDROZA Date: 11/22/2023 07:33
--- OUTSIDE RECORDS SUMMARY | 2023-11-21 09:40 | XMS_ITS | CCD ---
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 Name Role Phone PHYSICIAN, DEFAULT Unavailable Unavailable PHYSICIAN, DEFAULT Unavailable Anthony Jacobs Unavailable NITISH, DR AGUILAR Primary Care Unavailable BALL, DR AGUILAR Admitting Unavailable NITISH, DR AGUILAR Attending Unavailable NITISH, DR AGUILAR Consulting Unavailable ZIEBER, DR PRAMOD Gonzales Consulting Unavailable NITISH, DR AGUILAR Primary Care Unavailable LAKSHMIPATHY ., NARSUDARSHAN Admitting Debi vailable LAKSARAMIPATHY ., MARTÍN Attending Debi vailable NITISH, DR AGUILAR Primary Care Unavailable REJI WEBER Admitting Unavailable REJI WEBER Attending Unavailable NITISH, DR AGUILAR Primary Care Unavailable NITISH, DR AGUILAR Admitting Unavailable NITISH, DR AGUILAR Attending Unavailable NITISH, DR AGUILAR Consulting Unavailable NITISH, DR AGUILAR Primary Care Unavailable NITISH, DR AGUILAR Admitting Unavailable NITISH, DR AGUILAR Attending Unavailable NITISH, DR AGUILAR Consulting Unavailable Bhavin Dveries Unavailable DO Bhavin Devries Attending Provider CHUY JAIN Attending Unavailable Gilionitis , Andrius Streeter Attending Unavailable Giamadoraitis , Andrius Ferdinand Attending Unavailable Giedraitis , Andrius Vytjorge Attending Unavailable Giedraitis , Andrius Vytautmaureen Attending Unavailable Giedraitis , Andrius Vytjorge Attending Unavailable Girui SINGH, Andrius Streeter Attending Unavailable DO Anthony Zayas Primary Care Provider [phone] DO Bhavin Devries Attending Provider Anthony Zayas Primary Care Unavailable Bhavin Devries Admitting Unavailable Bhavin Devries Attending Unavailable Anthony Zayas Primary Care Unavailable Bhavin Devries Admitting Unavailable Bhavin Devries Attending Unavailable STANG, HAND WORKER Becky L Referring Unavailable STANG, HAND WORKER Becky L Admitting Unavailable ALMA HAND WORKER Becky L Attending Unavailable MD Elvis PIRES Consulting Unavailable Elvis PIRES Consulting Unavailable Elvis PIRES Consulting Unavailable NONE, XXXX Referring Unavailable Jose Dalal Attending Unavaila Jose Almanzar Admitting Unavaila ble NONE, XXXX Referring Unavailable Jose Dalal Attending Unavaila ble Jose Dalal Admitting Unavaila ble NONE, XXXX Referring Unavailable Myles Gaitan Attending Unavailable Jose Dalal Admitting Unavaila ble NONE, XXXX Referring Unavailable MANGO MARQUEZ L Attending Unavailable Jose Dalal Attending Unavaila Jose Almanzar Referring Unavaila ble Jose Dalal Admitting Unavaila ble Jose Dalal Attending Unavaila ble Jose Dalal Referring Unavaila ble Jose Dalal Admitting Unavaila ble Allergies Allergy Classification Reported Allergen(s) Allergy Type Date of Onset Reaction(s) Facility (3 sources) Penicillin; Translations: [penicillin] Drug Allergy [facility] Repository (9 sources) penicillAMINE Drug Allergy Unknown iLumen Other (1 source) penicillAMINE Drug Allergy [facility] Repository Medications Current Medications Medication Drug Class(es) Dates Sig (Normalized) Sig (Original) AeroChamber (4 sources) Start: 07-19-2023 AeroChamber Active 0 .Route .MEDSUPPLY July 19, 2023 1:00am AeroChamber Mini Chamber - (4 sources) Start: 05-20-2023 AeroChamber Mini Chamber - Use with MDI inhaled every 4 hours as needed for 30 days Apr, Active [id number] actuat albuterol 0.09 mg/actuat metered dose [...] 4:09pm Start: 07-04-2023 take 1 capsule by mo [facility] once daily Omeprazole 40 MG 1 [...] Coronary arteriosclerosis; Translations: [Atherosclerotic heart disease of [place] coronary artery without angina pectoris] Chronic Deficiency [...] 2 Chronic Other aftercare (1 source) 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 Episodic Other connective [...] and due to atherosclerosis; Translations: [Atherosclerosis of [place] arteries of extremities with intermittent claudication, bilateral [...] [Pain in left hand] Onset: 04-21-2023 Episodic Results Test Name Value Interpretation Reference Range Facility Cardiovascular Reporton 10-21 Cardiovascular Report [id number] 0#2.00TIFF Normal [facility] Consent for Procedure/Surger yon 10-25-2023 Consent for Procedure/Surgery [id number] 6#1.00TIFF Normal [facility] Operative Reporton 4 Operative Report Indication for Surgery None culprit vessel stenosis Preoperative Diagnosis Severe ostial RCA stenosis Postoperative Diagnosis Widely patent ostial RCA stent, angiographic phenomena on previous procedure made it appear severe Operation Attempted PCI of the ostial RCA, aborted due to no lesion Surgeon(s) Jose Dalal MD Anesthesia Conscious sedation Estimated Blood Loss Trivial Findings Upon engagement of the guide using a wire when the guide was more coaxial with the artery the stent appeared widely patent. The diagnostic angiogram the stent protruded somewhat into the aorta so therefore was preventing full engagement of the artery on the diagnostic procedure. Conclusions: Angiographic melena of streaming had made the appearance of severe stenosis at the ostium but this was not the case. Procedure was aborted. Complications None Technique Following full and informed consent the patient was brought to the [employer] Operator where sterile prep and drape were administered in usual fashion. Anesthesia was obtained in the right wrist with lidocaine after administration of conscious sedation. A 6 Panamanian 3DRC catheter was advanced and selectively engaged in the right coronary artery. A wire was advanced across the lesion of the ostial RCA. With the guide coaxial there was no apparent lesion. Completion angiography was performed in orthogonal projections with the wire and balloon removed. The guide catheter was removed without event. The sheath was removed with hemostasis obtained by D-Stat radial device at the end of the procedure without complication. [facility] Comment on above: Result Comment: Elec tronically Signed By: Mulugeta SINGH, Jose Stanley\.br\Date and Time Signed: 10/25/23 08:21 EDT Outside Recordson 10-25-2023 Outside Records [id number] 3#1.00TIFF [facility] Consent for Treatmenton Consent for Treatment [id number] #1.00TIFF [facility] Inpatient Clinical Summaryon 10-24-2023 Inpatient Clinical Summary [address] [address] Clinical Summary Person Information: Name: FRANK BARRETT Age: 77 Years : 1945 Sex: Male PCP: ANTHONY ZAYAS DO Marital Status: Race: White Ethnicity: Non- or Language: Gabonese Visit Id: Visit Reason: I25.10, R94.39, R06.02 Speciality: Acuity: Enc Type: Ambulatory/Same Day Surgery Med Service: Surgery Arrival: 10/24/2023 06:55:54 Discharge: Dispo Type: Address: [address] [place] [id number] Provider Notes: Diagnosis: Problems Active CAD in [place] artery Smoking Status: Former Smoker Functional Status: Sensory Deficits: Uncorrected visual impairment History of Falls: Within last one year Mobility Assistance Prior to Admission: Independent ADLs: Independent Current Level of Assistance for Self-Care/Mobility: Cognitive Status: Allergies penicillin (Unknown) Measurements: Height: 170 cm Weight: 104 kg Blood Pressure: 131 mmHg / 51 mmHg BMI: 35.99 kg/m2 Procedures No Procedures Documented Immunizations No Immunizations Documented This Visit Final Med List: acetaminophen (acetaminophen 325 mg Tab) 2 Tablets By Mouth every 6 hours. apixaban (Eliquis 5 mg oral tablet) 1 Tablets By Mouth 2 times a day. Refills: 1. atorvastatin (atorvastatin 40 mg Tab) 30 EA, TAKE ONE TABLET BY MOUTH DAILY IN THE EVENING. clopidogrel (Plavix 75 mg Tab) 1 Tablets By Mouth every day. Refills: 5. colchicine (colchicine 0.6 mg Tab) TAKE 1 [...] EA, TAKE 1 TABLET BY MOUTH DAILY. isosorbide mononitrate (isosorbide mononitrate 30 mg ER Tab) 1 Tablets By Mouth every day. Refills: 3. losartan (losartan 100 mg Tab) 90 EA, TAKE 1 TABLET BY MOUTH DAILY. senna (Senna 8.6 mg oral tablet) 2 Tablets By Mouth once a day (at bedtime) as needed for constipation. tramadol (traMADOL 50 mg Tab) Care Team Members: Attending Physician: Jose Dalal MD Consulting Physician: Referring Physician: Jose Dalal MD Follow up: With: Address: When: [address] [phone] Business () 11/23/2023 10:30 AM Type Location Start [facility] Cardiology Follow Up (FT) FT.Cardiology Clinic 11/23/2023 10:30 AM 11/23/2023 10:45 AM Confirmed Patient Education Information: CV - Cardiovascular Discharge Instructions (CUSTOM) Normal [facility] Inpatient Patient Summaryon 10-24-2023 Inpatient Patient Summary [address] [address] Patient Discharge Instructions PERSON INFORMATION Name: FRANK BARRETT Date of : 1945 Current Date: 10/24/2023 11:27:49 PHYSICIANS Admitting Physician: Mulugeta SINGH, Jose Stanley Primary Care Physician: ANTHONY ZAYAS DO PCP Comment: Discharge Diagnosis: Condition at Discharge: Stable FRANK BARRETT has been given the following list of follow-up instructions, prescriptions, and patient education materials: PATIENT FOLLOW-UP INFORMATION Diet: Regular Discharge Activity: Arrange for a responsible adult supervision for 24 hours Discharge Restrictions: No driving for 24 hrs, Do not make important decisions for 24 hours, Do not drink alcoholic beverages for 24 hours Wound Care Instructions: Remove dressing as instructed Remove Your Dressing In 1 Days Call Your Doctor For: IF UNABLE TO CONTACT YOUR PHYSICIAN AND YOU FEEL IT IS AN EMERGENCY, GO TO THE NEAREST EMERGENCY ROOM OR CALL 911 Home Treatment: Devices/Equipment: Special Services: Additional Instructions: Remove dressing and armboard tomorrow. Keep clean and dry. Primary Care Physician to provide the following pending test results: None Follow up: With: Address: When: Myles Gaitan [address] [place] [id number] [phone] [facility] (1) 11/23/2023 10:30 AM In the event that this physician does not participate in your insurance network, please consult with your insurance company to find a nearby participating provider. Type Location Start [facility] Cardiology Follow Up (FT) FT.Cardiology Clinic 11/23/2023 10:30 AM 11/23/2023 10:45 AM Confirmed Comment: NENA Wilcox FRANK, have received the attached patient education materials/instructio ns and have verbalized understanding: Patient Signature Date Clinican/Nurse Signature Date HERE ARE THE MEDICATION CHANGES THAT OCCURRED DURING YOUR HOSPITAL STAY New Medications [id number], [address], [place] [phone], [phone] clopidogrel (Plavix 75 mg Tab) 1 Tablets By Mouth every day. Refills: 5. Last Dose: Next Dose: [...] Provider: ANTHONY ZAYAS Last Dose: Next Dose: isosorbide mononitrate (isosorbide [...] 50 mg Tab) Last Dose: Next Dose: No Longer Take the Following Medications aspirin (aspirin 81 mg Oral EC Tab) 1 Tablets By Mouth every day. Refills: 3. ticagrelor (ticagrelor 90 mg oral tablet) 1 Tablets By Mouth 2 times a day. Refills: 5. Comment: MEDICATION LIST PROVIDED FOR YOU IS A LIST OF YOUR CURRENT MEDICATIONS. PLEASE CARRY THIS WITH YOU AT ALL TIMES. acetaminophen (acetaminophen 325 mg Tab) 2 Tablets By Mouth every 6 hours. apixaban (Eliquis 5 mg oral ta (more content not included)... Normal [facility] Patient Education - Texton 0 10-24-2023 Patient Education - Text [place], [place] CARDIOVASCULAR DISCHARGE INSTRUCTIONS Diet: ? Resume pre-procedure diet. [...] May resume driving in 24 hours. ? No sexual activity for 1 week. ? Let pain/discomfort guide your activity. If you are having pain, stop. ? Return to the Emergency Room if you have trouble breathing, walking or nausea and vomiting. Medications: ? Resume pre-procedure medication, unless otherwise directed. ? Hold the following medications for 48 hours post procedure: Actoplus Met Glucophage Glucophage XR Glucovance Avandamet Fortamet Apo-metformin Glycon Cristóbal-metformin Glumetza Janumet Metaglip Riomet Glycomet *Minimal pain, soreness and/or discomfort is expected. *You may take OTC non-steroidal anti-inflammatory to manage discomfort, unless contraindicated. If pain is not controlled with the above medications, contact your physician. Site Care: ? Do not remove dressing [...] baths, swimming or hot tubs for 3 days Post Procedure: ? Soreness and tenderness to the site can last up to one week. ? Bruising may occur to site. ? A responsible adult should be with you for the first 24 hours after you arrive home. ? Keep follow-up appointment. ? No smoking for 24 hours as it increases the risk of developing blood clots. ? If you are interested in smoking cessation, contact [facility] at [phone], ext. [phone]. ? In the event you are unable to reach your physician, please call [facility] at [phone] and the tool shaper set up operator will assist you. Seek Immediate Medical Care for: ? Bleeding: Apply continuous pressure to the site and Call 911. ? Should the arm or leg become cold, numb, blue or white call your physician immediately. ? Signs of infection are redness, warmth, swelling, increased tenderness, colored drainage, fever or chills ? Chest pain Normal [facility] Cardiovascular Reporton 09-22 Cardiovascular Report [id number] 7#1.00TIFF Normal [facility] Physician Orderon 10-19-2023 Physician Order [id number] 3#1.00TIFF Normal [facility] Progress Note-Physicianon Progress Note-Physician [id number] 9#1.00TIFF [facility] Consent for Treatmenton 09-21 Consent for Treatment [id number] #1.00TIFF Normal [facility] Heart and Vascular Office/Cl inic Noteon 10-18-2023 Heart and Vascular Office/Clinic Note Chief Complaint 6 week F/U [facility] History of Present Illness Patient is a [...] no rash or concerning lesions Cardiac Diagnostics [facility] with Dr. Dalal 09/19/2023: LMT: Normal left [...] that time. [2] Assessment/Plan 1. CAD in [place] artery (I25.10: Atherosclerotic heart disease of [place] coronary artery without angina pectoris) CAD with [...] Problem List/Past Medical History Ongoing CAD in [place] artery Historical No qualifying data Procedure/Surgical History Cardiac catheterization, left heart (09/20/2023), PCI - Percutaneous coronary intervention (09/20/2023), Ablation (02/28/2023), Cardioversion (08/28/19 (more content not included)... Normal [facility] Comment on above: Result Comment: Elec tronically Signed By: Arnie HO, Myles Padilla\.trudy\Date and Time Signed: 10/18/23 14:47 EDT XR knee BI 4Von 10-18-2023 XR knee BI 4V [facility] [address] [place] [address] XRay Report Signed Patient: Frank Barrett MR#: [id number] 7 : 1945 Acct:[id number] Age/Sex: 77 / M ADM Date: 10/18/23 Loc: [facility] Room: Type: [facility] Attending Dr: Bhavin Devries DO Copies to: Bhaivn Devries DO Ordering Provider: Bhavin Devries DO [...] Baldo Izquierdo M.D.10/18/2023 2:30 PM Dictation Location: [place] [address] Transcribed By: [facility] 10/18/23 1430 Dictated By: Baldo Izquierdo II, MD 10/18/23 1427 Signed By: 10/18/23 1430 Normal [facility] Outside Progress Noteon 05-1 Outside Progress Note [id number] 5#1.00TIFF Normal [facility] Outside Progress Noteon 05-0 Outside Progress Note [id number] #1.00TIFF Normal [facility] Cardiovascular Reporton Cardiovascular Report [id number] 5#1.00TIFF Normal [facility] Consent for Procedure/Surger yon 09-21-2023 Consent for Procedure/Surgery [id number] 0#1.00TIFF Normal [facility] Discharge Instructionson Discharge Instructions [id number] 6#1.00TIFF Normal [facility] Operative Reporton Operative Report Indication for [...] patient will additionally be counseled by the [employer] Operator team and in follow-up. Complications None Technique Following full and informed consent the patient was brought to the [employer] Machine Operator where sterile prep and drape were administered in usual fashion. Anesthesia was obtained in the right wrist with lidocaine after administration of conscious sedation. A 5/6 slender Terumo sheath was placed in the right radial artery without complication. Nitroglycerin and nicardipine were given via the sheath and heparin was given intravenously. A 5 Panamanian JACKE catheter was advanced and selectively engaged in the left main coronary artery and right coronary artery each, where selective injections were performed. A pigtail catheter was placed in the left ventricle where hemodynamic measurements the left ventricle were made and a bolus was given for left ventriculography. A pullback gradient was obtained. A 6 Panamanian XB3.5 catheter was advanced and selectively engaged [...] end of the procedure without complication. Normal [facility] Comment on above: Result Comment: Elec tronically Signed By: Mulugeta SINGH, Jose Stanley\.br\Date and Time Signed: 09/21/23 08:14 EDT BMPon 09-20-2023 Anion gap [Moles/Vol] 14 mmol/L Normal 6-16 [facility] Comment on above: Order Comment: if no t completed in last 30 days Performed By: #### 1 [id number], [id number], [id number] ####[facility] [address] [place] [address] Calcium [Mass/Vol] 9.3 mg/dL Normal 8.9-11.1 [facility] Comment on above: Order Comment: if no t completed in last 30 days Performed By: #### 1 [id number], 5615417, 5922553 ####[facility] [address] [place] [address] Chloride [Moles/Vol] 100 mmol/L Low 101-111 [facility] Comment on above: Order Comment: if no t completed in last 30 days Performed By: #### 1 [id number], 7579161, 4897340 ####[facility] [address] [place] [address] CO2 [Moles/Vol] 28 mmol/L Normal 21-31 [facility] Comment on above: Order Comment: if no t completed in last 30 days Performed By: #### 1 [id number], 4820838, 4118840 ####[facility] [address] [place] [address] Creatinine [Mass/Vol] 2.4 mg/dL High 0.5-1.3 [facility] Comment on above: Order Comment: if no t completed in last 30 days Performed By: #### 1 [id number], 5917209, 5594214 ####[facility] [address] [place] [address] Glucose [Mass/Vol] 113 mg/dL Normal 55-199 [facility] Comment on above: Order Comment: if no t completed in last 30 days Performed By: #### 1 [id number], 8931189, 0520581 ####[facility] [address] [place] [address] Potassium [Moles/Vol] 4.0 mmol/L Normal 3.5-5.3 [facility] Comment on above: Order Comment: if no t completed in last 30 days Performed By: #### 1 [id number], 3714543, 5017399 ####[facility] [address] [place] [address] Sodium [Moles/Vol] 138 mmol/L Normal 135-145 [facility] Comment on above: Order Comment: if no t completed in last 30 days Performed By: #### 1 [id number], 5575483, 3003439 ####[facility] [address] [place] [address] Urea nitrogen [Mass/Vol] 29 mg/dL High 5-21 [facility] Comment on above: Order Comment: if no t completed in last 30 days Performed By: #### 1 9378738, 9223587, 3149517 ####[facility] [address] [place] [address] Urea nitrogen/Creatinine [Mass ratio] 12 No Units Normal 10-20 [facility] Comment on above: Order Comment: if no t completed in last 30 days Performed By: #### 1 [id number], 7093554, 8055728 ####[facility] [address] [place] [address] CBC w/Indiceson 09-20-2023 Erythrocyte distribution width (RBC) [Ratio] 14.5 % High 10.9-14.2 [facility] Comment on above: Order Comment: if no t completed in last 30 days Performed By: #### 1 [id number], 8110021, 9849854 ####[facility] [address] [place] [address] Hematocrit (Bld) [Volume fraction] 37.4 % Low 37.7-49.0 [facility] Comment on above: Order Comment: if no t completed in last 30 days Performed By: #### 1 4262501, 6967651, 7484835 ####[facility] [address] [place] [address] Hemoglobin (Bld) [Mass/Vol] 12.2 g/dL Low 13.5-17.5 [facility] Comment on above: Order Comment: if no t completed in last 30 days Performed By: #### 1 [id number], 1180577, 1364079 ####[facility] [address] [place] [address] MCH (RBC) [Entitic mass] 30.3 pg Normal 27.0-34.0 [facility] Comment on above: Order Comment: if no t completed in last 30 days Performed By: #### 1 3859402, 5857803, 1330244 ####[address] [address] MCHC (RBC) [Mass/Vol] 32.5 g/dL Normal 31.4-36.0 [facility] Comment on above: Order Comment: if no t completed in last 30 days Performed By: #### 1 8785231, 6275137, 6062306 ####[place] [address] MCV (RBC) [Entitic vol] 93.0 fL Normal 80.0-100.0 [facility] Comment on above: Order Comment: if no t completed in last 30 days Performed By: #### 1 1125406, 9273999, 1607268 ####[place] [address] Platelet mean volume (Bld) [Entitic vol] 7.6 fL Normal 6.4-10.8 [facility] Comment on above: Order Comment: if no t completed in last 30 days Performed By: #### 1 9421045, 1715571, 5119764 ####[address] [address] Platelets (Bld) [#/Vol] 266.0 E9/L Normal 150.0-500.0 [facility] Comment on above: Order Comment: if no t completed in last 30 days Performed By: #### 1 8605121, 3063795, 1941692 ####[address] [address] RBC (Bld) [#/Vol] 4.0 E12/L Low 4.3-5.9 [facility] Comment on above: Order Comment: if no t completed in last 30 days Performed By: #### 1 [id number], 1387944, 8776606 ####[address] [address] RBC size Nom (Bld) NORMAL Invalid Interpretation Code [facility] Comment on above: Order Comment: if no t completed in last 30 days Performed By: #### 1 [id number], 3604073, 2530293 ####[facility] [address] [place] [address] WBC corrected for nucl RBC Auto (Bld) [#/Vol] 6.7 E9/L Normal 4.0-11.0 [facility] Comment on above: Order Comment: if no t completed in last 30 days Performed By: #### 1 [id number], 1640277, 5013559 ####[facility] [address] [place] [address] Cardiology Progress Noteon 0 09-20-2023 Cardiology Progress Note Post PCI GDMT: Patient is prescribed DAPT - aspirin 81 mg daily and Brilinta 90 mg twice daily. Patient is already taking statin - atorvastatin 40 mg daily. Patient is not prescribed beta fidencio due to pt already taking a calcium channel fidencio and HR well controlled. Cardiac rehab as outpatient. Normal [facility] Comment on above: Result Comment: Elec tronically Signed By: Arnie HO, Myles Padilla\.br\Date and Time Signed: 09/20/23 10:58 EDT Consent for Treatmenton 08-23 Consent for Treatment [id number] #1.00TIFF Normal [facility] Inpatient Clinical Summaryon 09-20-2023 Inpatient Clinical Summary [address] [address] Clinical Summary Person Information: Name: FRANK BARRETT Age: 77 Years : 1945 Sex: Male PCP: ANTHONY ZAYAS DO Marital Status: Phone: [phone] Race: White Ethnicity: Non- or Language: Gabonese Visit Id: Visit Reason: R94.39, I25.10, R07.9, R02.02 Speciality: Acuity: Enc Type: Ambulatory/Same Day Surgery Med Service: Surgery Arrival: 09/20/2023 06:54:46 Discharge: Dispo Type: Address: [address] [facility] [id number] Provider Notes: Diagnosis: Problems No Problems Documented [...] In 24 days 10/14/2023 Type Location Start [facility] Cardiology Follow Up (FT) FT.Cardiology Clinic 10/14/2023 2:30 PM 10/14/2023 2:45 PM Confirmed Patient Education Information: CV - Cardiovascular PCI Discharge Instructions (CUSTOM) ticagrelor Normal [facility] Inpatient Patient Summaryon 09-20-2023 Inpatient Patient Summary [place] [address] Patient Discharge Instructions PERSON INFORMATION Name: FRANK [...] None Follow up: With: Address: When: Jose Dalal In 24 days 10/14/2023 In the event that this physician does not participate in your insurance network, please consult with your insurance company to find a nearby participating provider. Type Location Start [facility] Cardiology Follow Up (FT) FT.Cardiology Clinic 10/14/2023 2:30 PM 10/14/2023 2:45 PM Confirmed Comment: I, NENA, FRANK, have received the attached patient education materials/instructio ns and have verbalized understanding: Patient Signature Date Clinican/Nurse Signature Date HERE ARE THE MEDICATION CHANGES THAT OCCURRED DURING YOUR HOSPITAL STAY New Medications [id number], [address] [place] [id number], [phone] aspirin (aspirin 81 mg Oral EC Tab) [...] CURRENT MEDICATIONS. PLE (more content not included)... [facility] Patient Education - Texton 0 09-20-2023 Patient Education - Text [place], [place] Cardiovascular PCI DISCHARGE INSTRUCTIONS Diet: ? [...] for any reason without talking to your administrative support coordinator Site Care: ? Do not remove dressing [...] you are interested in smoking cessation, contact [facility] at [phone], ext. [phone]. ? In the event you are unable to reach your physician, please call [facility] at [phone] and the tool shaper set up operator will assist you. Seek Medicare Care [...] stool ? Black tarry stools ? Normal [facility] eGFRon 09-20-2023 eGFR 27 mL/min/1.73 m2 Low >=59 [facility] Comment on above: Order Comment: Order added by Discern Expert. Performed By: #### 1 [id number] ####[facility] [address] [place] [address] Basophils Auto (Bld) [#/Vol] on 09-14-2023 Basophils (Bld) [#/Vol] 0.1 10 3/uL 0.0-0.1 [facility] Basophils/100 WBC Auto (Bld) on 09-14-2023 Basophils/100 WBC (Bld) 0.6 % 0.2-2.0 [facility] Eosinophils/100 WBC Auto (Bl d)on 09-14-2023 Eosinophils/100 WBC (Bld) 2.4 % 0.9-7.0 [facility] Erythrocyte distribution wid th Auto (RBC) [Ratio]on 09-14-2023 Erythrocyte distribution width (RBC) [Ratio] 13.9 % 11.0-15.0 [facility] Estimated glomerular filtrat ion rate (GFR) non- Americanon 09-14-2023 GFR/1.73 sq M.predicted among non-blacks MDRD (S/P/Bld) [Vol rate/Area] 22 mL/min/{1.73_m2} >=60 [facility] Hematocrit Auto (Bld) [Volum e fraction]on 09-14-2023 Hematocrit (Bld) [Volume fraction] 37.7 % 42.0-54.0 [facility] Hemoglobin [Mass/volume] in Bloodon 09-14-2023 Hemoglobin (Bld) [Mass/Vol] 11.8 g/dL 14.0-18.0 [facility] Laboratory - Chemistry and C hemistry - challengeon 09-14-2023 Calcium [Mass/Vol] 9.6 mg/dL 8.5-10.1 [facility] Chloride [Moles/Vol] 98 mmol/L 98-107 [facility] CO2 [Moles/Vol] 25.4 mmol/L 21.0-32.0 [facility] Creatinine [Mass/Vol] 2.82 mg/dL 0.70-1.30 [facility] GFR/1.73 sq M.predicted MDRD (S/P/Bld) [Vol rate/Area] 27 mL/min/{1.73_m2} >=60 [facility] Glucose [Mass/Vol] 117 mg/dL 74-106 [facility] Potassium [Moles/Vol] 4.1 mmol/L 3.5-5.1 [facility] Sodium [Moles/Vol] 136 mmol/L 136-145 [facility] Urea nitrogen [Mass/Vol] 29.0 mg/dL 7.0-18.0 [facility] Urea nitrogen/Creatinine [Mass ratio] 10.3 mg/mg [facility] Laboratory - Hematology and Cell countson 09-14-2023 Immature granulocytes/100 WBC (Bld) 0.3 % 0.0-0.5 [facility] Leukocytes [#/volume] correc margaret for nucleated erythrocytes in Blood by Automated counon 09-14-2023 WBC corrected for nucl RBC Auto (Bld) [#/Vol] 9.7 10 3/uL 4.0-11.0 [facility] Lymphocytes Auto (Bld) [#/Vo l]on 09-14-2023 Lymphocytes (Bld) [#/Vol] 1.9 10 3/uL 1.2-3.8 [facility] Lymphocytes/100 WBC Auto (Bl d)on 09-14-2023 Lymphocytes/100 WBC (Bld) 20.1 % 20.5-60.0 [facility] MCH Auto (RBC) [Entitic mass ]on 09-14-2023 MCH (RBC) [Entitic mass] 30.3 pg 25.9-34.0 [facility] MCHC Auto (RBC) [Mass/Vol]on 09-14-2023 MCHC (RBC) [Mass/Vol] 31.3 g/dL 29.9-35.2 [facility] MCV Auto (RBC) [Entitic vol] on 09-14-2023 MCV (RBC) [Entitic vol] 96.7 fL 80.0-94.0 [facility] Monocytes Auto (Bld) [#/Vol] on 09-14-2023 Monocytes (Bld) [#/Vol] 1.3 10 3/uL 0.3-0.8 [facility] Monocytes/100 WBC Auto (Bld) on 09-14-2023 Monocytes/100 WBC (Bld) 13.0 % 1.7-12.0 [facility] Neutrophils Auto (Bld) [#/Vo l]on 09-14-2023 Neutrophils (Bld) [#/Vol] 6.1 10 3/uL 1.4-6.5 [facility] Neutrophils/100 WBC Auto (Bl d)on 09-14-2023 Neutrophils/100 WBC (Bld) 63.6 % 43.0-75.0 [facility] No Panel Informationon 09-13 Eosinophils # (Auto) 0.2 10 3/uL 0.0-0.7 [facility] Immature Granulocyte # (Auto) 0.03 10 3/uL 0.00-0.03 [facility] Platelet mean volume Auto (B ld) [Entitic vol]on 09-14-2023 Platelet mean volume (Bld) [Entitic vol] 10.3 fL 9.5-13.5 [facility] Platelets Auto (Bld) [#/Vol] on 09-14-2023 Platelets (Bld) [#/Vol] 256 10 3/uL 150-450 [facility] RBC Auto (Bld) [#/Vol]on RBC (Bld) [#/Vol] 3.90 10 6/uL 4.70-6.10 [facility] Serum or plasma anion gap de terminationon 04-24-2024 Anion gap [Moles/Vol] 16.7 mmol/L [facility] Insurance Correspondenceon 0 09-09-2023 Insurance Correspondence [id number] 3#1.00TIFF Normal [facility] Physician Orderon 09-09-2023 Physician Order [id number] 5#1.00TIFF Normal [facility] Physician Order [id number] 9#1.00TIFF Normal [facility] Heart and Vascular Office/Cl inic Noteon [...] (COVID-19) mRNA BNT-162b2 vax 07/21/2020 Recorded Normal [facility] Comment on above: Result Comment: Elec tronically Signed By: Mulugeta SINGH, Jose Stanley\.br\Date and Time Signed: 09/06/23 08:17 EDT Consent for Treatmenton 08-21 Consent for Treatment [id number] #1.00TIFF [facility] Outside Progress Noteon 08-21 Outside Progress Note [id number] 4#1.00TIFF [facility] Stress EKG Tracingson 2023 Stress EKG Tracings [id number] #1.00TIFF [facility] Consent for Treatmenton Consent for Treatment [id number] #1.00TIFF [facility] Outside Labson 08-24-2023 Outside Labs [id number] 3#1.00TIFF [facility] Estimated glomerular filtrat ion rate (GFR) non- Americanon 08-23-2023 GFR/1.73 sq M.predicted among non-blacks MDRD (S/P/Bld) [Vol rate/Area] 26 mL/min/{1.73_m2} >=60 [facility] Laboratory - Chemistry and C hemistry - challengeon 08-23-2023 Calcium [Mass/Vol] 9.1 mg/dL 8.5-10.1 [facility] Chloride [Moles/Vol] 100 mmol/L 98-107 [facility] CO2 [Moles/Vol] 31.1 mmol/L 21.0-32.0 [facility] Creatinine [Mass/Vol] 2.40 mg/dL 0.70-1.30 [facility] GFR/1.73 sq M.predicted MDRD (S/P/Bld) [Vol rate/Area] 32 mL/min/{1.73_m2} >=60 [facility] Glucose [Mass/Vol] 92 mg/dL 74-106 [facility] Potassium [Moles/Vol] 4.7 mmol/L 3.5-5.1 [facility] Sodium [Moles/Vol] 138 mmol/L 136-145 [facility] Urea nitrogen [Mass/Vol] 34.0 mg/dL 7.0-18.0 [facility] Urea nitrogen/Creatinine [Mass ratio] 14.2 mg/mg [facility] Serum or plasma anion gap de terminationon 08-23-2023 Anion gap [Moles/Vol] 11.6 mmol/L [facility] Insurance Correspondenceon 0 08-02-2023 Insurance Correspondence [id number] 5#1.00TIFF [facility] Consent for Treatmenton 07-21 Consent for Treatment [id number] #1.00TIFF [facility] Heart and Vascular Office/Cl inic Noteon 08-01-2023 [...] intact- no rash or concerning lesions Procedure [facility] PCI - Dr Dalal 07/28/21 LMT: Normal [...] Will add isosorbide mononitrate 3. 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 Contin (more content not included)... Normal [facility] Comment on above: Result Comment: Elec tronically Signed By: Becky MARQUEZ CNP\.trudy\Date and Time Signed: 08/01/23 17:50 EDT Outside Labson 08-01-2023 Outside Labs [id number] #1.00TIFF Normal [facility] Physician Orderon 08-01-2023 Physician Order [id number] #1.00TIFF Normal [facility] Outside Recordson 07-22-2023 Outside Records [id number] 2#1.00TIFF Normal [facility] Basophils Auto (Bld) [#/Vol] on 07-18-2023 Basophils (Bld) [#/Vol] 0.0 10 3/uL 0.0-0.1 [facility] Basophils/100 WBC Auto (Bld) on 07-18-2023 Basophils/100 WBC (Bld) 0.5 % 0.2-2.0 [facility] Eosinophils/100 WBC Auto (Bl d)on 07-18-2023 Eosinophils/100 WBC (Bld) 2.0 % 0.9-7.0 [facility] Erythrocyte distribution wid th Auto (RBC) [Ratio]on 07-18-2023 Erythrocyte distribution width (RBC) [Ratio] 13.6 % 11.0-15.0 [facility] Estimated glomerular filtrat ion rate (GFR) non- Americanon 07-18-2023 GFR/1.73 sq M.predicted among non-blacks MDRD (S/P/Bld) [Vol rate/Area] 30 mL/min/{1.73_m2} >=60 [facility] Hematocrit Auto (Bld) [Volum e fraction]on 07-18-2023 Hematocrit (Bld) [Volume fraction] 39.5 % 42.0-54.0 [facility] Hemoglobin [Mass/volume] in Bloodon 07-18-2023 Hemoglobin (Bld) [Mass/Vol] 12.3 g/dL 14.0-18.0 [facility] Iron binding capacity [Mass/ volume] in Serum or Plasmaon 07-18-2023 Iron binding capacity [Mass/Vol] 280.0 ug/dL 250.0-450.0 [facility] Iron saturation [Mass Fracti on] in Serum or Plasmaon 07-18-2023 Iron saturation [Mass fraction] 25.4 % [facility] Laboratory - Chemistry and C hemistry - challengeon 07-18-2023 Calcium [Mass/Vol] 9.1 mg/dL 8.5-10.1 [facility] Chloride [Moles/Vol] 101 mmol/L 98-107 [facility] CO2 [Moles/Vol] 30.3 mmol/L 21.0-32.0 [facility] Cobalamin (Vitamin B12) [Mass/Vol] 285.0 pg/mL 193.0-986.0 [facility] Creatinine [Mass/Vol] 2.15 mg/dL 0.70-1.30 [facility] Ferritin [Mass/Vol] 147.0 ng/mL 26.0-388.0 [facility] GFR/1.73 sq M.predicted MDRD (S/P/Bld) [Vol rate/Area] 36 mL/min/{1.73_m2} >=60 [facility] Glucose [Mass/Vol] 104 mg/dL 74-106 [facility] Iron [Mass/Vol] 71.0 ug/dL 65.0-175.0 [facility] Natriuretic peptide B (Bld) [Mass/Vol] 4314.0 pg/mL <=1800.0 [facility] Comment on above: RESULTS CALLED TO RYAN BARRERA Potassium [Moles/Vol] 5.3 mmol/L 3.5-5.1 [facility] Sodium [Moles/Vol] 140 mmol/L 136-145 [facility] Urea nitrogen [Mass/Vol] 36.0 mg/dL 7.0-18.0 [facility] Urea nitrogen/Creatinine [Mass ratio] 16.7 mg/mg [facility] Laboratory - Hematology and Cell countson 07-18-2023 Immature granulocytes/100 WBC (Bld) 0.4 % 0.0-0.5 [facility] Laboratory - Urinalysison Protein (U) [Mass/Vol] 37.4 mg/dL <=11.9 [facility] Leukocytes [#/volume] correc margaret for nucleated erythrocytes in Blood by Automated counon 07-18-2023 WBC corrected for nucl RBC Auto (Bld) [#/Vol] 7.8 10 3/uL 4.0-11.0 [facility] Lymphocytes Auto (Bld) [#/Vo l]on 07-18-2023 Lymphocytes (Bld) [#/Vol] 1.6 10 3/uL 1.2-3.8 [facility] Lymphocytes/100 WBC Auto (Bl d)on 07-18-2023 Lymphocytes/100 WBC (Bld) 19.8 % 20.5-60.0 [facility] MCH Auto (RBC) [Entitic mass ]on 07-18-2023 MCH (RBC) [Entitic mass] 31.1 pg 25.9-34.0 [facility] MCHC Auto (RBC) [Mass/Vol]on 07-18-2023 MCHC (RBC) [Mass/Vol] 31.1 g/dL 29.9-35.2 [facility] MCV Auto (RBC) [Entitic vol] on 07-18-2023 MCV (RBC) [Entitic vol] 100.0 fL 80.0-94.0 [facility] Monocytes Auto (Bld) [#/Vol] on 07-18-2023 Monocytes (Bld) [#/Vol] 0.9 10 3/uL 0.3-0.8 [facility] Monocytes/100 WBC Auto (Bld) on 07-18-2023 Monocytes/100 WBC (Bld) 11.4 % 1.7-12.0 [facility] Neutrophils Auto (Bld) [#/Vo l]on 07-18-2023 Neutrophils (Bld) [#/Vol] 5.2 10 3/uL 1.4-6.5 [facility] Neutrophils/100 WBC Auto (Bl d)on 07-18-2023 Neutrophils/100 WBC (Bld) 65.9 % 43.0-75.0 [facility] No Panel Informationon 07-18 Eosinophils # (Auto) 0.2 10 3/uL 0.0-0.7 [facility] Folate 7.30 ng/mL 8.60-58.90 [facility] Immature Granulocyte # (Auto) 0.03 10 3/uL 0.00-0.03 [facility] Urine Random Creatinine 36.85 mg/dL 20.00-300.00 [facility] Platelet mean volume Auto (B ld) [Entitic vol]on 07-18-2023 Platelet mean volume (Bld) [Entitic vol] 9.4 fL 9.5-13.5 [facility] Platelets Auto (Bld) [#/Vol] on 07-18-2023 Platelets (Bld) [#/Vol] 193 10 3/uL 150-450 [facility] RBC Auto (Bld) [#/Vol]on RBC (Bld) [#/Vol] 3.95 10 6/uL 4.70-6.10 [facility] Serum or plasma anion gap de terminationon 07-18-2023 Anion gap [Moles/Vol] 14.0 mmol/L [facility] Urine protein/creatinine rat ioon 07-18-2023 Protein/Creatinine (U) [Ratio] 1.01 [facility] Formson 06-14-2023 Forms [id number] 5#1.00TIFF Normal [facility] XR hand BI 3Von 04-21-2023 XR hand BI 3V [facility] [place] [address] XRay Report Signed Patient: Frank Barrett MR#: [id number] 7 : 1945 Acct:[id number] Age/Sex: 77 / M ADM Date: 04/21/23 Loc: [facility]XD Room: Type: [facility] Attending Dr: Bhavin Devries DO Copies to: Bhavin Devries DO Ordering Provider: Bhavin Devries DO Date of Service: 04/21/23 XR/XR hand BI 3V: Pain in right hand;Pain in left hand BILATERAL HANDS - 4 views each CLINICAL DATA: Chronic worsening bilateral hand pain and 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 COMPARISON: None AP, lateral, oblique and [...] Prabha Thompson M.D.04/21/2023 3:25 PM Dictation Location: [place] [address] Transcribed By: RUBEN 04/21/23 1525 Dictated By: Prabha Thompson MD 04/21/23 1522 Signed By: 04/21/23 1525 Normal [facility] Heart and Vascular Office/Cl inic Noteon 04-16-2023 Heart and Vascular Office/Clinic Note Chief Complaint 6 month follow up History of Present Illness Frank Barrett is a male presents who today for a 6-month follow-up. He is accompanied by an adult female. The patient's tray checker states that yesterday or day before, the [...] went to the pain management clinic in [place], his blood pressure was elevated. Review of [...] with voice recognition artificial intelligence software, specifically [employer], [employer] and or [employer]. Substitutions may have occurred with voice recognition and artificial intelligence software. ATTESTATION: Documentation services were performed after patient or guardian consented to allow [employer] to record this visit. RACHEL television specialist and provider reviewed before signing. RACHEL: [...] tobacco nida (more content not included)... Normal [facility] Comment on above: Result Comment: Elec tronically Signed By: Mulugeta SINGH, Jose Stanley\.br\Date and Time Signed: 04/16/23 11:49 EST\.br\Electronically Co-Signed By: Nellie Early.br\Date and Time Co-Signed: 02/11/23 17:34 EDT Consent for Treatmenton 01-22 Consent for Treatment [id number] #1.00CD:127 Normal [facility] Physician Orderon 02-11-2023 Physician Order [id number]# 1.00CD:127 Normal [facility] Outside Recordson 12-10-2022 Outside Records [id number] 6#1.00CD:127 Normal [facility] PROF CHEM 8 (BAS METB)on Anion gap [Moles/Vol] 11.0 mmol/L Normal [facility] Comment on above: Performed By: #### B MP #### [facility] [address] [place] [address] Dr. Milka Castaneda Calcium [Mass/Vol] 8.9 mg/dL Normal 8.5-10.1 [facility] Comment on above: Performed By: #### B MP #### [facility] [address] [place] [address] [address] Milka Castaneda Chloride [Moles/Vol] 99 mmol/L Normal 98-107 [facility] Comment on above: Performed By: #### B MP #### [facility] [address] [place] [address] [address] Milka Castaneda CO2 [Moles/Vol] 32.0 mmol/L Normal 21.0-32.0 [facility] Comment on above: Performed By: #### B MP #### [facility] [address] [place] [address] [address] Milka Castaneda Creatinine [Mass/Vol] 2.19 mg/dL Critically high 0.70-1.30 [facility] Comment on above: Performed By: #### B MP #### [facility] [address] [place] [address] Dr. Milka Castaneda EGFR-AF KYRGYZ 36 mL/min/1.73m2 Critically low >=60 [facility] Comment on above: Performed By: #### B MP #### [facility] [address] [place] [address] Dr. Milka Castaneda EGFR-NON AF KYRGYZ 29 mL/min/1.73m2 Critically low >=60 [facility] Comment on above: Performed By: #### B MP #### [facility] [address] [place] [address] [address] Milka Castaneda Glucose [Mass/Vol] 94 mg/dL Normal 74-106 [facility] Comment on above: Performed By: #### B MP #### [facility] [address] [place] [address] [address] Milka Castaneda Potassium [Moles/Vol] 5.0 mmol/L Normal 3.5-5.1 [facility] Comment on above: Performed By: #### B MP #### [facility] [address] [place] [address] Dr. Milka Castaneda Sodium [Moles/Vol] 137 mmol/L Normal 136-145 [facility] Comment on above: Performed By: #### B MP #### [facility] [address] [place] [address] [address] Milka Castaneda Urea nitrogen [Mass/Vol] 32.0 mg/dL Critically high 7.0-18.0 [facility] Comment on above: Performed By: #### B MP #### [facility] [address] [place] [address] Dr. Milka Castaneda Urea nitrogen/Creatinine [Mass ratio] 14.6 mg/mg Normal [facility] Comment on above: Performed By: #### B MP #### [facility] [address] [place] [address] Dr. Milka Castaneda CBC AUTO DIFFon 02-03-2022 BASO # 0.1 103/ul Normal 0.0-0.1 [facility] Comment on above: Performed By: #### C BC #### [facility] [address] [place] [address] Dr. Milka Castaneda Basophils/100 WBC (Bld) 0.6 % Normal 0.2-2.0 [facility] Comment on above: Performed By: #### C BC #### [facility] [address] [place] [address] Dr. Milka Castaneda EO # 0.5 103/ul Normal 0.0-0.7 [facility] Comment on above: Performed By: #### C BC #### [facility] [address] [place] [address] Dr. Milka Castaneda Eosinophils/100 WBC (Bld) 5.8 % Normal 0.9-7.0 [facility] Comment on above: Performed By: #### C BC #### [facility] [address] [place] [address] Dr. Milka Castaneda Erythrocyte distribution width (RBC) [Ratio] 13.2 % Normal 11.0-15.0 [facility] Comment on above: Performed By: #### C BC #### [facility] [address] [place] [address] Dr. Milka Castaneda Hematocrit (Bld) [Volume fraction] 44.2 % Normal 42.0-54.0 [facility] Comment on above: Performed By: #### C BC #### [facility] [address] [place] [address] Dr. Milka Castaneda Hemoglobin (Bld) [Mass/Vol] 14.3 g/dL Normal 14.0-18.0 [facility] Comment on above: Performed By: #### C BC #### [facility] [address] [place] [address] Dr. Milka Castaneda IG # 0.02 10e3/ul Normal 0.00-0.03 [facility] Comment on above: Performed By: #### C BC #### [facility] [address] [place] [address] Dr. Milka Castaneda IG % 0.2 % Normal 0.0-0.5 [facility] Comment on above: Performed By: #### C BC #### [facility] [address] [place] [address] Dr. Milka Castaneda LYMPH # 1.7 103/ul Normal 1.2-3.8 [facility] Comment on above: Performed By: #### C BC #### [facility] [address] [place] [address] Dr. Milka Castaneda Lymphocytes/100 WBC (Bld) 20.5 % Normal 20.5-60.0 [facility] Comment on above: Performed By: #### C BC #### [facility] [address] [place] [address] Dr. Milka Castaneda MANUAL DIFF REQ NO Normal [facility] Comment on above: Performed By: #### C BC #### [facility] [address] [place] [address] Dr. Milka Castaneda MCH (RBC) [Entitic mass] 31.7 pg Normal 25.9-34.0 [facility] Comment on above: Performed By: #### C BC #### [facility] [address] [place] [address] Dr. Milka Castaneda MCHC (RBC) [Mass/Vol] 32.4 g/dL Normal 29.9-35.2 [facility] Comment on above: Performed By: #### C BC #### [facility] [address] [place] [address] Dr. Milka Castaneda MCV (RBC) [Entitic vol] 98.0 fL Critically high 80.0-94.0 [facility] Comment on above: Performed By: #### C BC #### [facility] [address] [place] [address] Dr. Milka Castaneda MONO # 1.1 103/ul Critically high 0.3-0.8 [facility] Comment on above: Performed By: #### C BC #### [facility] [address] [place] [address] Dr. Milka Castaneda Monocytes/100 WBC (Bld) 12.7 % Critically high 1.7-12.0 [facility] Comment on above: Performed By: #### C BC #### [facility] [address] [place] [address] Dr. Milka Castaneda NEUT # 5.1 103/ul Normal 1.4-6.5 [facility] Comment on above: Performed By: #### C BC #### [facility] [address] [place] [address] Dr. Milka Castaneda Neutrophils/100 WBC (Bld) 60.2 % Normal 43.0-75.0 [facility] Comment on above: Performed By: #### C BC #### [facility] [address] [address] [address] Milka Castaneda Platelet mean volume (Bld) [Entitic vol] 9.5 fL Normal 9.5-13.5 [facility] Comment on above: Performed By: #### C BC #### [facility] [address] [address] [address] Milka Castaneda PLT 160 103/ul Normal 150-450 [facility] Comment on above: Performed By: #### C BC #### [facility] [address] [address] [address] Milka Castaneda RBC 4.51 106/ul Critically low 4.70-6.10 [facility] Comment on above: Performed By: #### C BC #### [facility] [address] [address] [address] Milka Castaneda WBC 8.4 103/ul Normal 4.0-11.0 [facility] Comment on above: Performed By: #### C BC #### [facility] [address] [address] [address] Milka Castaneda DIRECT LDLon 02-03-2022 Cholesterol in LDL [Mass/Vol] 82 mg/dL Normal [facility] Comment on above: Performed By: #### D LDL, BMP #### [facility] [address] [place] [address] Dr. Milka Castaneda DLDL NORMAL SEE BELOW Normal [facility] Comment on above: Result Comment: <100 mg/dl OPTIMAL 100 - 129 mg/dl NEAR OR ABOVE OPTIMAL 130 - 159 mg/dl BORDERLINE HIGH 160 - 189 mg/dl HIGH >190 mg/dl VERY HIGH Performed By: #### D LDL, BMP #### [facility] [address] [place] [address] Dr. Milka Castaneda PROF CHEM 8 (BAS METB)on Anion gap [Moles/Vol] 13.1 mmol/L Normal [facility] Comment on above: Performed By: #### D LDL, BMP #### [facility] [address] [address] [address] Milka Castaneda Calcium [Mass/Vol] 9.3 mg/dL Normal 8.5-10.1 [facility] Comment on above: Performed By: #### D LDL, BMP #### [facility] [address] [address] [address] Milka Castaneda Chloride [Moles/Vol] 102 mmol/L Normal 98-107 [facility] Comment on above: Performed By: #### D LDL, BMP #### [facility] [address] [address] [address] Milka Castaneda CO2 [Moles/Vol] 29.5 mmol/L Normal 21.0-32.0 [facility] Comment on above: Performed By: #### D LDL, BMP #### [facility] [address] [place] [address] Dr. Milka Castaneda Creatinine [Mass/Vol] 1.94 mg/dL Critically high 0.70-1.30 [facility] Comment on above: Performed By: #### D LDL, BMP #### [facility] [address] [address] [address] Milka Castaneda EGFR-AF KYRGYZ 41 mL/min/1.73m2 Critically low >=60 [facility] Comment on above: Performed By: #### D LDL, BMP #### [facility] [address] [place] [address] Dr. Milka Castaneda EGFR-NON AF KYRGYZ 34 mL/min/1.73m2 Critically low >=60 [facility] Comment on above: Performed By: #### D LDL, BMP #### [facility] [address] [address] [address] Milka Castaneda Glucose [Mass/Vol] 91 mg/dL Normal 74-106 [facility] Comment on above: Performed By: #### D LDL, BMP #### [facility] [address] [address] [address] Milka Castaneda Potassium [Moles/Vol] 4.6 mmol/L Normal 3.5-5.1 [facility] Comment on above: Performed By: #### D LDL, BMP #### [facility] [address] [address] [address] Milka Castaneda Sodium [Moles/Vol] 140 mmol/L Normal 136-145 [facility] Comment on above: Performed By: #### D LDL, BMP #### [facility] [address] [place] [address] Dr. Milka Castaneda Urea nitrogen [Mass/Vol] 30.0 mg/dL Critically high 7.0-18.0 [facility] Comment on above: Performed By: #### D LDL, BMP #### [facility] [address] [place] [address] Dr. Milka Castaneda Urea nitrogen/Creatinine [Mass ratio] 15.5 mg/mg Normal [facility] Comment on above: Performed By: #### D LDL, BMP #### [facility] [address] [place] [address] Dr. Milka Castaneda CREATININEon 10-07-2021 Creatinine [Mass/Vol] 1.67 mg/dL Critically high 0.70-1.30 [facility] Comment on above: Performed By: #### C OMI #### [facility] [address] [place] [address] Dr. Milka Castaneda EGFR-AF KYRGYZ 49 mL/min/1.73m2 Critically low >=60 [facility] Comment on above: Performed By: #### C OMI #### [facility] [address] [place] [address] Dr. Milka Castaneda EGFR-NON AF KYRGYZ 40 mL/min/1.73m2 Critically low >=60 [facility] Comment on above: Performed By: #### C OMI #### [facility] [address] [place] [address] ABDOMEN WO/W CONon [...] No additional follow-up recommended. Electronically authenticated by: RPAMOD PEDROZA Date: 2021-10-07 09:58 Normal [facility] Vital Signs Date Time Vital Sign Value Performing Clinician Facility 10-11-2023 15:09-0400 Body height 165.1 cm [facility] 10-11-2023 15:09-0400 Body mass index (BMI) [Ratio] 39.1 kg/m2 [facility] 10-11-2023 15:09-0400 Body weight 106.59 kg [facility] 10-11-2023 15:09-0400 Heart rate 72 /min [facility] 10-11-2023 15:09-0400 Respiratory rate 12 /min [facility] 08-19-2023 10:17-0400 Body height 165.1 cm [facility] 08-19-2023 10:17-0400 Body mass index (BMI) [Ratio] 39 kg/m2 [facility] 08-19-2023 10:17-0400 Body weight 106.36 kg [facility] 08-19-2023 10:17-0400 Diastolic blood pressure 71 mm[Hg] [facility] 08-19-2023 10:17-0400 Heart rate 71 /min [facility] 08-19-2023 10:17-0400 Respiratory rate 12 /min [facility] 08-19-2023 10:17-0400 Systolic blood pressure 132 mm[Hg] [facility] 07-01-2023 13:30-0500 Body height 165.1 cm Anthony Ball Other [facility] Other 07-01-2023 13:30-0500 Body mass index (BMI) [Ratio] 39.97 kg/m2 Anthony Ball Other [facility] Other 07-01-2023 13:30-0500 Body weight 108.95 kg Anthony Ball Other [facility] Other 07-01-2023 13:30-0500 Diastolic blood pressure 90 mm[Hg] Anthony Ball Other [facility] Other 07-01-2023 13:30-0500 Respiratory rate 20 /min Anthony Ball Other [facility] Other 07-01-2023 13:30-0500 SaO2% (BldA) [Mass fraction] 98 % Anthony Ball Other [facility] Other 07-01-2023 13:30-0500 Systolic blood pressure 150 mm[Hg] Anthony Ball Other [facility] Other 05-20-2023 11:00-0500 Body height 165.1 cm Anthony Ball Other [facility] Other 05-20-2023 11:00-0500 Body mass index (BMI) [Ratio] 39.43 kg/m2 Anthony Ball Other [facility] Other 05-20-2023 11:00-0500 Body weight 107.5 kg Anthony Ball Other [facility] Other 05-20-2023 11:00-0500 Diastolic blood pressure 89 mm[Hg] Anthony Ball Other [facility] Other 05-20-2023 11:00-0500 Respiratory rate 20 /min Anthony Ball Other [facility] Other 05-20-2023 11:00-0500 Systolic blood pressure 183 mm[Hg] Anthony Ball Other [facility] Other 04-21-2023 11:15-0500 Body height 165.1 cm Bhavin Devries Other [facility] Other 04-21-2023 11:15-0500 Body mass index (BMI) [Ratio] 39.6 kg/m2 Bhavin Devries Other [facility] Other 04-21-2023 11:15-0500 Body weight 107.96 kg Bhavin Devries Other [facility] Other 04-12-2023 14:30-0500 Body height 165.1 cm Anthony Ball Other [facility] Other 04-12-2023 14:30-0500 Body mass index (BMI) [Ratio] 39.6 kg/m2 Anthony Ball Other [facility] Other 04-12-2023 14:30-0500 Body weight 107.96 kg Anthony Ball Other [facility] Other 04-12-2023 14:30-0500 Diastolic blood pressure 81 mm[Hg] Anthony Ball Other [facility] Other 04-12-2023 14:30-0500 Respiratory rate 12 /min Anthony Ball Other [facility] Other 04-12-2023 14:30-0500 Systolic blood pressure 151 mm[Hg] Anthony Ball Other [facility] Other 07-29-2022 11:00-0500 Body height 165.1 cm Anthony Ball Other [facility] Other 07-29-2022 11:00-0500 Body mass index (BMI) [Ratio] 40.17 kg/m2 Anthony Ball Other [facility] Other 07-29-2022 11:00-0500 Body weight 109.5 kg Anthony Ball Other [facility] Other 07-29-2022 11:00-0500 Diastolic blood pressure 70 mm[Hg] Anthony Ball Other [facility] Other 07-29-2022 11:00-0500 Respiratory rate 12 /min Anthony Ball Other [facility] Other 07-29-2022 11:00-0500 Systolic blood pressure 118 mm[Hg] Anthony Ball Other [facility] Other Encounters Encounter Date Encounter Type Care Provider Facility Start: 10-24-2023 End: 10-24-2023 ambulatory Jose Dalal Facility[facility] Start: 10-18-2023 End: 10-18-2023 ambulatory XXXX NONE Facility:[facility] Start: 10-18-2023 End: 10-18-2023 Patient encounter procedure DO Anthony Ball Work Phone: [facility] Work Phone: Start: 10-18-2023 End: 10-18-2023 ambulatory DO Anthony Ball Work Phone: [facility] Work Phone: Start: 10-18-2023 End: 10-18-2023 ambulatory DO Anthony Zayas Work Phone: [facility] Work Phone: Start: 10-18-2023 End: 10-18-2023 Patient encounter procedure DO Anthony Zayas Work Phone: [facility] Start: 10-11-2023 End: 10-11-2023 ambulatory [facility] Work Phone: Start: 10-11-2023 End: 10-11-2023 Patient encounter procedure [facility] Work Phone: Start: 09-20-2023 End: 09-20-2023 ambulatory Jose Dalal Facility:[facility] Start: 09-14-2023 Non-patient / Non-visit [facility] Work Phone: Start: 09-02-2023 End: 09-02-2023 ambulatory XXXX NONE Facility:[facility] Start: 08-26-2023 End: 08-26-2023 ambulatory HAND WORKER Becky L VAMSHIG Facility:[facility] Start: 08-23-2023 Non-patient / Non-visit [facility] Work Phone: Start: 08-19-2023 End: 08-19-2023 ambulatory [facility] Work Phone: Start: 08-19-2023 End: 08-19-2023 Patient encounter procedure [facility] Work Phone: Start: 08-01-2023 End: 08-01-2023 ambulatory Jose Dalal Facility:[facility] Start: 07-21-2023 End: 07-21-2023 ambulatory CHUY JAIN Not Available Start: 07-19-2023 Non-patient / Non-visit [facility] Work Phone: Start: 07-18-2023 Non-patient / Non-visit [facility] Work Phone: Start: 07-04-2023 End: 07-04-2023 ambulatory Anthony Zayas Other [facility] Other Start: 07-04-2023 Telephone encounter Anthony Zayas [facility] Start: 07-01-2023 End: 07-01-2023 ambulatory Anthony Zayas Other [facility] Other Start: 07-01-2023 Office outpatient visit 25 minutes Anthony Zayas [facility] Start: 06-29-2023 End: 06-29-2023 ambulatory Anthony Zayas Other [facility] Other Start: 06-29-2023 Telephone encounter Anthony Zayas FP [facility] Start: 06-20-2023 End: 06-21-2023 ambulatory Issac Rucker MD [facility] Start: 06-06-2023 End: 06-07-2023 ambulatory Issac Rucker MD Facility: [place] Start: 05-20-2023 End: 05-20-2023 ambulatory Anthony Zayas Other [facility] Other Start: 05-20-2023 Office outpatient visit 25 minutes Anthony Zayas [facility] Start: 04-25-2023 End: 04-25-2023 ambulatory Anthony Zayas Other [facility] Other Start: 04-25-2023 Telephone encounter Anthony Zayas FP [facility] Start: 04-21-2023 Office outpatient ne w 45 minutes Bhavin Devries [facility] Start: 04-21-2023 End: 04-21-2023 ambulatory Anthony Zayas [facility] Other Start: 04-21-2023 End: 04-21-2023 Patient encounter procedure DO Bhavin Devries Work Phone: [facility] Start: 04-18-2023 End: 04-18-2023 ambulatory Anthony Zayas Other [facility] Other Start: 04-18-2023 Telephone encounter Anthony Felix [facility] Start: 04-12-2023 End: 04-12-2023 ambulatory Anthony Zayas Other [facility] Other Start: 04-12-2023 Patient encounter procedure Anthony Nitish [facility] Start: 04-12-2023 Telephone encounter Anthony Zayas JEN [facility] Start: 02-28-2023 End: 03-01-2023 ambulatory [facility] Start: 02-11-2023 End: 02-11-2023 ambulatory XXXX NONE Facility:[facility] Start: 01-31-2023 End: 02-01-2023 ambulatory [facility] Start: 01-04-2023 End: 01-05-2023 ambulatory [facility] Start: 11-29-2022 End: 11-29-2022 ambulatory Anthony Zayas Other [facility] Other Start: 11-29-2022 Telephone encounter Anthony LI [facility] Start: 11-24-2022 End: 11-24-2022 ambulatory Anthony Zayas Other [facility] Other Start: 11-24-2022 Telephone encounter Anthony Nitish JEN Isidro [facility] Start: 10-08-2022 End: 10-09-[address] ANTHONY ZAYAS Facility: Start: 08-31-2022 End: 08-31-2022 ambulatory Anthony Zayas Other [facility] Other Start: 08-31-2022 Telephone encounter Anthony Nitish [facility] Start: 08-03-2022 End: 08-03-2022 ambulatory Anthony Zayas Other [facility] Other Start: 08-03-2022 Telephone encounter Anthony Zayas FP [facility] Start: 07-29-2022 End: 07-29-2022 ambulatory Anthony Zayas Other [facility] Other Start: 07-29-2022 Office outpatient visit 25 minutes Anthony Zayas [facility] Start: 05-05-2022 End: 05-06-[address] ANTHONY ZAYAS Facility:[facility] Start: 02-03-2022 End: 02-04-[address] ANTHONY ZAYAS Facility:[facility] Start: 10-23-2021 End: 10-24-[address] ANTHONY ZAYAS Facility:[facility] Start: 10-07-2021 End: 10-08-[address] ANTHONY ZAYAS Facility:[facility] Start: 10-28-2016 End: 10-29-2016 Ambulatory DEFAULT PHYSICIAN Facility[facility] Procedures Date Procedure Procedure Detail Performing Clinician Start: 10-18-2023 X-ray of both knees DO Anthony Zayas Work Phone: Start: 04-21-2023 Plain X-ray of bilat eral hands DO Bhavin Devries Work Phone: Start: 02-03-[address] BERGERON [facility] Comment on above: Performed By: #### [facility] #### [facility] [address] [place] [address] Dr. Milka Castaneda Plan of Treatment Date Care Activity Detail Author Start: 10-18-2023 X-ray of both knees XR knee BI 4V Fi [facility] Start: 10-18-2023 XR Knee - bilateral 4 Views [facility] Immunizations Immunization Date Immunization Notes Care Provider Fa cility 03-05-2023 influenza, high dose seasonal, preservative-free Anthnoy Zayas Other [facility] Other 03-05-2023 influenza virus vaccine, unspecified formulation [facility] 02-03-2022 influenza virus vaccine, split virus (incl. purified surface antigen) Anthony Zayas Other [facility] Other 02-03-2022 influenza virus vaccine, unspecified formulation [facility] 01-29-2021 influenza virus vaccine, split virus (incl. purified surface antigen) Anthony Nitish Other [employer] [facility] [employer] Other 01-29-2021 influenza virus vaccine, unspecified formulation [facility] 01-29-2020 influenza virus vaccine, split virus (incl. purified surface antigen) Anthony Nitish Other [employer] Other 01-29-2020 influenza virus vaccine, unspecified formulation [facility] 04-16-2019 zoster vaccine, live Benjami maria e Zayas Other [facility] 10-18-2017 diphtheria, tetanus toxoids and acellular pertussis vaccine, unspecified formulation Anthony Nitish Other [facility] 10-15-2016 pneumococcal conjuga te vaccine, 13 valent Anthony Nitish Other [facility] 03-03-2016 influenza virus vaccine, split virus (incl. purified surface antigen) Anthony Nitish Other [facility] [employer] Other 03-03-2016 influenza virus vaccine, unspecified formulation [facility] 03-12-2013 pneumococcal polysaccharide vaccine, 23 valent Anthony Nitish Other [facility] 03-12-2013 tetanus and diphther ia toxoids, adsorbed, preservative free, for adult use (5 Lf of tetanus toxoid and 2 Lf of diphtheria toxoid) Anthony Zayas Other [facility] Payers Date Payer Category Payer Private Health Insurance [id number] 2023 Self-pay 2022 Private Health Insurance 1959 Medicare [id number] 1945 Unknown [id number] 2.16.840.1.935761.3.579.2.59 3 1945 Unknown [id number] 2.16.840.1.073312.3.579.2.59 3 1945 Unknown [id number] 2.16.840.1.582061.3.579.2.59 3 1945 Unknown [id number] 2.16.840.1.587577.3.579.2.59 3 1945 Unknown [id number] 2.16.840.1.379938.3.579.2.59 3 1945 Unknown [id number] 2.16.840.1.268691.3.579.2.12 59 1945 Unknown [id number] 2.16.840.1.713106.3.579.2.19 6 1945 Unknown [id number] 2.16.840.1.829816.3.579.2.19 6 1945 Unknown [id number] 2.16.840.1.810688.3.579.2.19 6 1945 Unknown [id number] 2.16.840.1.669468.3.579.2.19 6 1945 Unknown [id number] 2.16.840.1.592893.3.579.2.19 6 1945 Unknown [id number] 2.16.840.1.112371.3.579.2.19 6 1945 Unknown [id number] 2.16.840.1.602210.3.579.2.72 7 1945 Unknown [id number] 2.16.840.1.223608.3.579.2.72 7 1945 Unknown [id number] 2.16.840.1.323091.3.579.2.72 7 1945 Unknown [id number] 2.16.840.1.318464.3.579.2.72 7 1945 Unknown [id number] 2.16.840.1.492709.3.579.2.72 7 1945 Unknown [id number] 2.16.840.1.807040.3.579.2.72 7 1945 Unknown [id number] 2.16.840.1.082025.3.579.2.72 7 Private Health Insurance [employer] PFFS N on Pt [id number] Unknown Unknown [id number] 2.16.840.1.528179.3.579.2.53 1 Unknown [id number] 2.16.840.1.333542.3.579.2.53 1 Social History Date Type Detail Facility Sex Assigned At [facility] Other Start: 1945 Sex Assigned At Male [facility] Clinical Notes 07-29-2022 to 10-25-2023 Note Date & Type Note Facility 10-25-2023 Note [id number] 86#[id number] [facility] 10-25-2023 Note Procedure PCI of the RCA staged nonculprit due to renal insufficiency Patient seen and examined. The risk/benefits of [...] Plan: Patient agrees to IV sedation plan [facility] Comment on above: Result Comment: Elec tronically Signed By: Mulugeta SINGH, Jose Stanley\.br\Date and Time Signed: 10/25/23 08:18 EDT 09-21-2023 Note [id number] 11#1.00TIFF [facility] 09-21-2023 Note Procedure LHC poss PCI [...] artery disease) (I25.10: Atherosclerotic heart disease of [place] coronary artery without angina pectoris) Orders: aspirin, 324 mg = 4 tab(s), Tab-Chew, Chewed, Once, Stop date 09/20/23 9:00:00 EDT, Routine, Start date 09/20/23 9:00:00 EDT, 09/20/23 8:25:00 EDT clopidogrel, 600 mg, Tab, Oral, Once, Stop date 09/20/23 11:00:00 EDT, Routine, Start date 09/20/23 11:00:00 EDT, 09/20/23 10:36:00 EDT ECG 12 Lead Adult ECG 12 Lead Adult [facility] Comment on above: Result Comment: Elec tronically Signed By: Mulugeta SINGH, Jose Stanley\.br\Date and Time Signed: 09/21/23 08:03 EDT 08-26-2023 Note Echocardiology Procedure Exam Date/Time Accession # Ordering Echo Transthoracic 08/26/2023 11:59 EDT [id number] Becky MARQUEZ CNP Complete CPT code 99044 11349 Reason for Exam (Echo Transthoracic Complete) Shortness of breath (SOB);R06.02 Report [facility] [address] [place] [address] Adult Echocardiogram Report Name: FRANK BARRETT Study Date: 08/26/2023 11:18 AM BP: 106/55 mmHg Patient Location: [facility] HR: 90 : 1945 Gender: Male Height: 64 in Age: 77 yrs Ethnicity: [facility] Weight: 230 lb Reason For Study: Shortness of breath (SOB) BSA: 2.1 m2 History: HTN,SOB,CAD,Atrial Fibrillation,Stents,Obesity Ordering Physician: STANG^Becky^L Referring Physician: Becky MARQUEZ Performed By: Bruna Celis, [facility] Interpretation Summary Ejection Fraction = 55-60%. The [...] PIRES MD Transcribed by: SHAWNA Technologist: ELAN [facility] 07-04-2023 Evaluation note Encounter Date Diagnosis Assessment Notes Jun, Gastroesophageal reflux disease with esophagitis without hemorrhage (ICD-10 - K21.00) [facility] Other 02-09-2024 Evaluation note* Encounter Date Diagnosis Assessment Notes Treatment Notes Treatment Clinical Notes Jun, Paroxysmal atrial fibrillation (ICD-10 - I48.0) This patient is in NSR or rate controlled. This patient is anticoagulated to prevent thromboembolic events. They are maintaining regular scheduled appts with their administrative support coordinator.TT Jun, ASHD (arteriosclerot ic heart disease) (ICD-10 [...] colonoscopy Check Fe, B12, FA CKD contributes [facility] Other 02-07-2024 Evaluation note* Encounter Date Diagnosis Assessment Notes Treatment Notes Treatment Clinical Notes Jun, Hx of gout (ICD-10 - Z87.39) [facility] Other 12-29-2023 Evaluation note* Encounter Date Diagnosis Assessment Notes Treatment Notes Treatment Clinical Notes Apr, Paroxysmal atrial fibrillation (ICD-10 - I48.0) This patient is in NSR. This patient is anticoagulated to prevent thromboembolic events. They are maintaining regular scheduled appts with their administrative support coordinator. No bleeding complications Apr, ASHD (arteriosclerotic heart [...] since last OV. Colchicine PRN Continue Allopurinol [facility] Other 11-30-2023 Evaluation note* Encounter Date Diagnosis [...] Pain in right hand (ICD-10 - M79.641) [facility] Other 11-27-2023 Evaluation note* Encounter Date Diagnosis Assessment Notes Treatment Notes Treatment Clinical Notes Mar, Mild persistent asthma without complication (ICD-10 - J45.30) [facility] Other 2023 Evaluation note* Encounter Date Diagnosis [...] are maintaining regular scheduled appts with their administrative support coordinator. Mar, ASHD (arteriosclerotic heart disease) (ICD-10 - [...] (ICD-10 - Z79.899) Check labs: ALT, CBC [facility] Other 03-14-2023 Evaluation note* Encounter Date Diagnosis Assessment Notes Treatment Notes Treatment Clinical Notes Jul, History of gout (ICD-10 - Z87.39) [facility] Other 03-09-2023 Evaluation note* Encounter Date Diagnosis Assessment Notes Treatment Notes Treatment Clinical Notes Jul, Paroxysmal atrial fibrillation (ICD-10 - I48.0) This patient is in NSR or rate controlled. This patient is anticoagulated to prevent thromboembolic events. They are maintaining regular scheduled appts with their administrative support coordinator. Jul, ASHD (arteriosclerot ic heart disease) (ICD-10 [...] responds to one Colchicine dose (unlikely gout) [facility] [employer] Other Evaluation noteNo InformationNortLancaster [facility] Hospital [employer] Other Evaluation noteNo assessment information available [facility] Work Phone: Evaluation note* Diagnosis Onset Date Resolution Status (HFpEF) heart failure with preserved ejection fraction acute ASHD (arteriosclerotic heart disease) acute Chronic kidney disease acute Chronic venous insufficiency acute Gastroesophageal reflux dise ase with esophagitis without hemorrhage acute Hyperlipidemia type II acute Paroxysmal atrial fibrillation acute Primary hypertension acute Simple chronic bronchitis ac [facility] Work Phone: Evaluation note* Diagnosis Onset Date Resolution Status (HFpEF) heart failure with preserved ejection fraction acute ASHD (arteriosclerotic heart disease) acute Chronic kidney disease acute Chronic venous insufficiency acute Gastroesophageal reflux dise ase with esophagitis without hemorrhage acute Hyperlipidemia type II acute Paroxysmal atrial fibrillation acute Primary hypertension acute Simple chronic bronchitis ac [place] (HFpEF) heart failure with preserved ejection fraction acute ASHD (arteriosclerotic heart disease) acute Chronic kidney disease acute Chronic venous insufficiency acute Gastroesophageal reflux dise ase with esophagitis without hemorrhage acute Hyperlipidemia type II acute Paroxysmal atrial fibrillation acute Primary hypertension acute Simple chronic bronchitis ac [place] [facility] Work Phone: Evaluation note* Diagnosis Onset Date Resolution Status (HFpEF) heart failure with preserved ejection fraction acute ASHD (arteriosclerotic heart disease) acute Chronic kidney disease acute Chronic venous insufficiency acute Gastroesophageal reflux dise ase with esophagitis without hemorrhage acute Hyperlipidemia type II acute Paroxysmal atrial fibrillation acute Primary hypertension acute Simple chronic bronchitis ac [place] (HFpEF) heart failure with preserved ejection fraction acute ASHD (arteriosclerotic heart disease) acute Chronic kidney disease acute Chronic venous insufficiency acute Gastroesophageal reflux dise ase with esophagitis without hemorrhage acute Gout acute Hyperlipidemia type II acute Paroxysmal atrial fibrillation acute Simple chronic bronchitis ac [place] Osteoarthritis of right knee acute Primary osteoarthritis of left knee acute [facility] Work Phone: History general Narrative - Reported* [...] History COLONOSCOPY Hospitalization History SEE SURGICAL HX [facility] Other Reason for referral (narrative)* Reason *FU 08/16 Referral for left knee pain Diagnosis 1 Primary osteoarthrit is of left knee (M17.12) Referral Organization [facility] Nitihs jay Referring Provider First Name Anthony Referring Provider Last Name Nitish Referring Provider Specialty Internal Me gabrielle Referred Organization [facility] Referred Provider Pietro Gale Referred Address [address], [place],[address] Referred Provider Specialty Pain Medicin e Referral Priority Routine General Notes Marbin Morenoya 01:15:17 PM >received today, notes locked, attachments made, referral faxed Marbin Morenoya 08/09/2022 11:58:58 AM >FAXED FIRST ATTEMPT LETTER Clinical Notes F: [id number] [employer] Other Reason for referral (narrative)* Reason Referral for OLVERA and hypoxia secondary to COPD, ILD Diagnosis 1 Simple chronic bronc hitis (J41.0) Diagnosis 2 Restrictive lung dis ease (J98.4) Diagnosis 3 Hypoxia (R09.02) Referral Organization [facility] C pierre Referring Provider First Name Anthony Referring Provider Last Name Nitish Referring Provider Specialty Internal Me dicine Referred Organization [facility] Referred Provider Matteo Fregoso Referred Address [address], [place],[address] Referred Provider Specialty Pulmonary Rochelle shell Referral Priority Urgent General Notes Mr. Barrett [...] Include Echo, PFT, C XR and labs [facility] Other Reason for visit Narrativeknee pain after referral, discussion about next stepsNort [employer] Other Summary Purpose Family History No Family [...] M25.561 - Pain in right knee OP STEAM BOX HAND BILAT KNEE PAIN REQUESTED INJECTION Reason for [...] and content) DATE CREATED AUTHOR 11/16/2017 [facility] DATE CREATED AUTHOR AUTHOR'S ORGANIZ ATION [facility]/2022 [facility] DATE CREATED AUTHOR AUTHOR'S ORGANIZ ATION 07/24/2023 [facility] EPIC DATE CREATED AUTHOR AUTHOR'S ORGANIZ ATION 07/27/2023 [facility] DATE CREATED AUTHOR AUTHOR'S ORGANIZ ATION 10/19/2023 [facility] DATE CREATED AUTHOR AUTHOR'S ORGANIZ ATION 11/02/2023 [facility] REASON FOR VISIT (unrecogniz ed section and content) SOBMedication Questionrefill 1 monthLab resultsBilateral Hand PainPFT resultsWELLNESSPN MEDICINE REFERRAL NOTE Care Teams (unrecognized sec tion and content) Team Status: Active Member Role Status Dates Anthony Zayas DO Primary Care Provider Active Team Status: Inactive Member Role Status Dates Anthony Ball , DO Primary Care Provide r, Attending Provider Active Start: August 19, 2023 End: August 19, 2023 Team Status: Active Member Role Status Dates Anthony Zayas , [...] Active Member Role Status Dates Anthony Zayas , DO Primary Care Provider Active Start: October 18, 2023 Bhavin Devries , DO Attending Provider Active St art: October 18, 2023 Team Status: Inactive Member Role Status Brayan Zayas , DO Primary Care Provider Active Start: October 18, 2023 End: October 18, 2023 Bhavin Devries , DO Attending Provider Active St art: October 18, 2023 End: October 18, 2023 Team Status: Inactive Member Role Status Dates Bhavin Devries , DO Attending Provider Active Team Status: Active Member Role Status Brayan Zayas , DO Primary Care Provide r, Attending Provider Active Start: July 18, 2023 Team Status: Active Member Role Status Brayan Zayas , DO Primary Care Provider Active Start: July [...] BE BASED ON THE PRIMARY CLINICAL RECORDS. [facility] [employer] provides no warranty or guarantee of the accuracy or completeness of information in this document.
== END 2023-11-21 09:28 | disposition home or self-care (01) ==
LOC: US 09:27
PROVIDERS: PCP Internal Medicine; Visit Provider Internal Medicine
DX: N28.1 Cyst of kidney, acquired (principal); N18.4 Chronic kidney disease, stage 4 (severe)
CPT/HCPCS: 76775

== ENCOUNTER 2023-11-30 15:09 | Outpatient (OUT) | payer MEDICARE, SELFPAY ==
[2023-11-30 15:56] LABS: Basophils Percent Auto 0.4 % (0.2-2.0); Eosinophils Absolute Auto 0.1 10^3/uL (0.0-0.7); Eosinophils Percent Auto 0.8 % (0.9-7.0); Hematocrit 26.8 % (42.0-54.0); Hemoglobin 8.2 g/dL (14.0-18.0); Immature Granulocytes Abs Auto 0.05 10^3/uL (0.00-0.03); Immature Granulocytes Pct Auto 0.5 % (0.0-0.5); Lymphocytes Absolute Auto 1.4 10^3/uL (1.2-3.8); Lymphocytes Percent Auto 14.1 % (20.5-60.0); Mean Corpuscular HGB Conc 30.6 g/dL (29.9-35.2); Mean Corpuscular Hemoglobin 28.9 pg (25.9-34.0); Mean Corpuscular Volume 94.4 fL (80.0-94.0); Mean Platelet Volume 9.6 fL (9.5-13.5); Monocytes Absolute Auto 1.1 10^3/uL (0.3-0.8); Neutrophils Absolute Auto 7.4 10^3/uL (1.4-6.5); Neutrophils Percent Auto 73.2 % (43.0-75.0); Platelet Count 329 10^3/uL (150-450); Red Blood Count 2.84 10^6/uL (4.70-6.10)
[2023-11-30 16:47] LABS: Percent Iron Saturation 9.7 %
[2023-11-30 16:50] LABS: Alanine Aminotransferase 17 U/L (16-63); Albumin Globulin Ratio 0.6; Albumin Level 2.8 g/dL (3.4-5.0); Alkaline Phosphatase 113 U/L (46-116); Aspartate Amino Transferase 17 U/L (15-37); Bilirubin Total 0.3 mg/dL (0.2-1.0); Calcium 9.2 mg/dL (8.5-10.1); Chloride 102 mmol/L (98-107); Estimated GFR (African America 25 (>=60); Estimated GFR (Non-African Ame 20 (>=60); Globulin 4.6 g/dL; Glucose 100 mg/dL (74-106); Sodium 138 mmol/L (136-145); Total Protein 7.4 g/dL (6.4-8.2)
[2023-12-02 05:10] LABS: HBsAg Screen Negative (Negative); Hep B Core Ab, Tot Negative (Negative); Hepatitis B Surf Ab Quant <3.5 mIU/mL (Immunity>10)
[2023-12-02 16:10] LABS: Albumin 2.7 g/dL (2.9-4.4); Alpha-1-Globulin 0.3 g/dL (0.0-0.4); Alpha-2-Globulin 1.1 g/dL (0.4-1.0); Free Kappa Lt Chains,S 100.4 mg/L (3.3-19.4); Free Lambda Lt Chains,S 58.8 mg/L (5.7-26.3); Gamma Globulin 0.8 g/dL (0.4-1.8); Immunoglobulin A, Qn, Serum 725 mg/dL (61-437); Immunoglobulin G, Qn, Serum 762 mg/dL (603-1613); Immunoglobulin M, Qn, Serum 59 mg/dL (15-143); Kappa/Lambda Ratio,S 1.71 (0.26-1.65); Protein, Total 6.1 g/dL (6.0-8.5)
== END 2023-11-30 15:10 | disposition home or self-care (01) ==
LOC: LAB 15:11
PROVIDERS: PCP Internal Medicine; Visit Provider Internal Medicine
DX: I12.9 Hypertensive chronic kidney disease with stage 1 through stage 4 chronic kidney disease, or unspecified chronic kidney disease (principal); N18.4 Chronic kidney disease, stage 4 (severe); I50.32 Chronic diastolic (congestive) heart failure; I87.2 Venous insufficiency (chronic) (peripheral); I25.10 Atherosclerotic heart disease of native coronary artery without angina pectoris; D64.9 Anemia, unspecified; N28.1 Cyst of kidney, acquired
CPT/HCPCS: 36415; 80053; 82607; 82728; 82746; 82784; 83521; 83540; 83550; 84155; 84165; 85025; 86317; 86704; 87340

== ENCOUNTER 2023-12-01 11:44 | Outpatient (REF) | payer MEDICARE, SELFPAY ==
[2023-12-01 12:26] LABS: Creatinine Urine Random 103.45 mg/dL (20.00-300.00); Protein Creatinine Ratio Urine 0.19; Total Protein Urine Random 19.7 mg/dL (<=11.9)
== END 2023-12-01 11:45 | disposition home or self-care (01) ==
LOC: LAB 11:44
PROVIDERS: PCP Internal Medicine; Visit Provider Internal Medicine
DX: I12.9 Hypertensive chronic kidney disease with stage 1 through stage 4 chronic kidney disease, or unspecified chronic kidney disease (principal); N18.4 Chronic kidney disease, stage 4 (severe); I50.32 Chronic diastolic (congestive) heart failure; I87.2 Venous insufficiency (chronic) (peripheral); I25.10 Atherosclerotic heart disease of native coronary artery without angina pectoris; D64.9 Anemia, unspecified
CPT/HCPCS: 82570; 84156

== ENCOUNTER 2024-01-07 22:42 | Emergency (ER) | payer MEDICARE, SELFPAY ==
--- NOTE | 2024-01-07 22:57 | ECG_ITS ---
[facility] Test Date: 2024-01-07 Pat Name: FRANK BARRETT Department: Room: - Gender: Male Telephone Messenger: : 1945 Requested By: [id number] Order Number: [id number] Reading MD: JEFF TALBERT Measurements Intervals Errol Rate: -51925 P: -82799 VA: -81094 QRS: -24217 QRSD: -60987 T: -60794 QT: -65082 QTc: -89048 Interpretive Statements 0103 CANNOT ANALYZE ECG No previous ECG available for comparison Electronically Signed On 01-08-2024 18:54:42 EDT by JEFF TALBERT
--- NOTE | 2024-01-07 23:17 | ED.GENADUL1 ---
HPI HPI - General Adult General Stated complaint: full arrest Time Seen by Provider: 01/07/24 22:57 History of Present Illness HPI narrative: 78-year-old male presents to the emergency department in cardiac arrest. History is obtained from the paramedics and then the patient's . He was at home in his recliner and had been complaining of chest pain throughout the day. He started feeling much worse and his called the paramedics. The patient's says that she saw his lips turning purple and the paramedics reported that he arrested. I-gel was placed and CPR was started and he was given 4 rounds of epinephrine in the prehospital setting as well as 1 defibrillation. He was still in cardiac arrest upon arrival. Opioid HPI Opioid Management Most Recent Opioid Data: No Data to Display Review of Systems ROS Narrative Not obtainable, cardiac arrest Exam Narrative Exam Narrative: Nurses note and vital signs reviewed and patient is not hypoxic. General: The patient is undergoing CPR upon arrival. He is mildly cyanotic. Skin: Cool, dry. There are abrasions on his right arm. Head: Normocephalic, atraumatic Eye: Normal conjunctiva, no drainage, pupils are fixed and dilated Ears, Nose, Mouth, and Throat: oral mucosa is moist. Nares patent. Cardiovascular: No heart tones Respiratory: He has bilateral breath sounds with bagging. No borborygmi. GI: Obese and nondistended. No borborygmi Musculoskeletal: No extremity deformities Neurological: No neurologic response Psychiatric: Cannot be assessed Medical Decision Making MDM Narrative Medical decision making narrative: The patient had undergone CPR for 30 minutes in the prehospital setting and received multiple doses of IV epinephrine and a single defibrillation. We continued ACLS protocol here in the emergency department but this did not result in a change in his condition and he was pronounced at 10:50 PM. His is present and was informed. Differential Diagnosis Differential Diagnosis: Heart disease, pulmonary embolism, cardiac arrest Discharge Plan Discharge Patient Disposition: Date/Time: 01/07/24 22:50 Probable Cause of Probable Cause of : Heart disease
--- NOTE | 2024-01-08 00:54 | PC.NURSE ---
Carolina from [facility] calls and is following up for tissue donation. Oliver is reaching out to family and will let us know after speaking with family when to release to home.
--- NOTE | 2024-01-08 00:55 | PC.NURSE ---
2255-PT FAMILY ESCORTED TO CONFERENCE ROOM 2255- POST MORTEM CARE GIVEN. 2310-FAMILY AT BEDSIDE 2323-PCP CONTACTED 2348-[facility] CONTACTED CASE #[id number] 7346- FAMILY LEFT BEDSIDE. [facility] CONTACTED.
== END 2024-01-08 01:23 | disposition expired ==
PROVIDERS: Emergency Provider Emergency Medicine; PCP Internal Medicine
DX: I46.9 Cardiac arrest, cause unspecified (principal); I51.9 Heart disease, unspecified; E66.9 Obesity, unspecified
CPT/HCPCS: 92950; 93005; 99285; J0171